=== PATIENT | female | born 1950 | race Caucasian/White ===

== ENCOUNTER 2020-07-29 11:23 | Outpatient (RCR) | payer MEDICARE, SELFPAY ==
[2020-07-29 13:21] VITALS: BMI 32.7
== END 2020-10-17 08:36 | disposition home or self-care (01) ==
LOC: ANHWOC 11:23
PROVIDERS: PCP Family Medicine; Visit Provider Family Medicine
DX: K61.1 Rectal abscess (principal)
CPT/HCPCS: 99212; G0463

== ENCOUNTER 2020-10-14 12:13 | Outpatient (CLI) | payer MEDICARE, SELFPAY ==
--- NOTE | ~2020-10-14 | MM_ITS ---
EXAMINATION: MM screening [place] BI w vin HISTORY: Screening TECHNIQUE: Craniocaudal and mediolateral oblique 3-D tomosynthesis images were obtained and synthetic 2-D images were generated. CAD analysis was submitted and interpreted. COMPARISON: 11/24/2014 BREAST PARENCHYMAL COMPOSITION: There are scattered areas of fibroglandular density. FINDINGS: There is no evidence of suspicious mass, calcification, or architectural distortion to sugg est malignancy in either breast. There has been no suspicious interval change. IMPRESSION: 1. No mammographic evidence of malignancy. 2. Recommend routine screening mammography in one year. BI-RADS Category 1: Negative Reviewed, dictated and finalized at location A.
--- NOTE | ~2020-10-14 | US_ITS ---
EXAMINATION: US arterial ankle brachial ind DATE: 10/14/2020 13:21 INDICATION: Peripheral vascular disease TECHNIQUE: Segmental pressures and plethysmographic and Doppler waveforms of the brachial and lower e xtremity arteries were obtained. COMPARISON: 08/12/2013 FINDINGS: Right and left brachial artery pressures of 144 mm Hg and 157 mm Hg, respectively, are concordant (no rmal difference <= 30 mmHg). The right ankle-brachial index (MEGHAN) is unable to be obtained due to inability to occlude the vessels at the right ankle likely due to vessel wall calcification which can be seen on radiographs of the r ight foot on 03/03/2014. The right great toe-brachial index (TBI) is 0.48 (normal >= 0.65). Arterial Doppler waveforms demonstrate brisk systolic upstrokes at both the right posterior tibial and dorsali s pedis arteries. The left MEGHAN is also unable to be obtained due to inability to occlude the vessels at the left ankle likely due to vessel wall calcification. The left TBI is to 0.50. Arterial Doppler waveforms demonstr ate brisk systolic upstrokes at both the left posterior tibial and dorsalis pedis arteries. IMPRESSION: 1. Mild arterial occlusive disease to the bilateral lower limbs with mildly decreased bilateral TBI's . Reviewed, dictated and finalized at location A. IMPRESSION: 1. Mild arterial occlusive disease to the bilateral lower limbs with mildly dec reased bilateral TBI's.
== END 2020-10-14 12:14 | disposition home or self-care (01) ==
LOC: CHSIMG 12:15
PROVIDERS: PCP Family Medicine; Visit Provider Family Medicine
DX: I73.9 Peripheral vascular disease, unspecified (principal); Z12.31 Encounter for screening mammogram for malignant neoplasm of breast
CPT/HCPCS: 77063; 77067; 93922

== ENCOUNTER 2020-10-26 15:46 | Emergency (ER) | payer MEDICARE, SELFPAY ==
--- NOTE | ~2020-10-26 | CT_ITS ---
EXAMINATION: CT abdomen pelvis wo con DATE: 10/26/2020 23:18 INDICATION: Sacral pressure ulcer with purulent drainage. Evaluate for abscess. TECHNIQUE: Computed tomography (CT) of the abdomen and pelvis was performed without intravenous contr ast. Automated exposure control and iterative reconstruction technique were employed. Exam dose: 813 .57 mGy-cm total exam DLP. COMPARISON: None. FINDINGS: There is mild/moderate right pleural effusion and trace left pleural effusion. There is mil d atelectasis in the lower lung zones. Cardiomegaly. Right atrial, ventricular and coronary sinus pacemaker leads. No pericardial effusion. There is edema of the chest, abdominal and pelvic ann. There are multiple very small stones in the dependent aspect of the gallbladder. No gallbladder wall thickening or pericholecystic fluid or fat stranding is detected. No hepatic, splenic, pancreatic, adrenal or renal space-occupying mass lesion is evident on this limi pavan noncontrast examination. No ureteral or renal calculus is evident. There is atherosclerotic calcification of the abdominal aorta and branches but no abdominal aortic an eurysm. No intraperitoneal or retroperitoneal or pelvic mass lesion or adenopathy or ascites is evident. There is diffuse thickening of the urinary bladder wall; clinical correlation for cystitis is recomme nded. Uterus and adnexal areas are unremarkable. Small sliding hiatal hernia. There is a prominent amount of fecal material in the rectum. Diverticulosis of the colon; no CT evide nce of diverticulitis. No bowel obstruction or intraperitoneal free air is detected. There is soft tissue thickening at the posterior aspect of the lower sacrum and coccyx subjacent to a decubitus ulcer but no abscess cavity is identified. There is diffuse osteopenia. Diffuse idiopathic skeletal hyperostosis of the thoracic spine. There is multilevel degenerative disc disease, especially at L1-2 and L2-3 and L5-S1. No suspicious osteolyti c or osteoblastic lesions are noted. IMPRESSION: Cardiomegaly, mild to moderate right pleural effusion, trace left pleural effusion and e xtensive edema of the chest, abdominal and pelvic ann, suggesting congestive changes, anasarca Soft tissue thickening posterior to the lower sacrum and coccyx subjacent to decubitus ulcer, without abscess cavity. Findings suggest prominent cellulitis Cholelithiasis Small sliding hiatal hernia Diverticulosis of the colon Reviewed, dictated and finalized at Location A. Reviewed, dictated and finalized at location A. IMPRESSION: Cardiomegaly, mild to moderate right pleural effusion, trace left pleural effusion and extensive edema of the chest, abdominal and pelvic ann, suggesting congestive changes, anasarca Soft tissue thickening posterior to the lower sacrum and coccyx subjacent to de cubitus ulcer, without abscess cavity. Findings suggest prominent cellulitis Cholelithiasis Small sliding hiatal hernia Diverticulosis of the colon
[2020-10-26 17:12] VITALS: BP 140/56; PULSE 68; RESP 14; TEMP 37.5; O2SAT 99
[2020-10-26 20:32] LABS: Basophils Percent Auto 0.2 % (0.2-1.2); Eosinophils Absolute Auto 0.1 K/mm3 (0-0.3); Eosinophils Percent Auto 1.6 % (0-4.4); Hematocrit 30.3 % (37.0-47.0); Hemoglobin 9.2 g/dL (12.0-15.0); Immature Granulocyte Absolute 0.03 K/mm3 (0.00-0.031); Immature Granulocyte Percent A 0.4 % (0-0.5); Lymphocytes Absolute Auto 1.86 K/mm3 (0.9-3.2); Lymphocytes Percent Auto 22.5 % (18.3-44.2); Mean Corpuscular HGB Conc 30.4 g/dl (32-36); Mean Corpuscular Hemoglobin 29.8 pg (26-34); Mean Corpuscular Volume 98.1 fl (80-100); Mean Platelet Volume 9.5 fl (7.4-10.4); Monocytes Absolute Auto 0.6 K/mm3 (0.1-0.6); Monocytes Percent Auto 7.3 % (2.6-8.5); Neutrophils Absolute Auto 5.6 K/mm3 (1.3-6.7); Platelet Count Result 260 k/mm3 (150-375); Red Blood Count 3.09 M/mm3 (4.2-5.4); White Blood Count 8.3 K/mm3 (4.5-10.0)
[2020-10-26 20:47] LABS: Anion Gap 9 mmol/L (8-16); Blood Urea Nitrogen 54 mg/dL (7-17); Calcium 9.2 mg/dL (8.4-10.2); Carbon Dioxide 27 mmol/L (22-30); Chloride 98 mmol/L (98-107); Estimated CRCL calculation 10 ml/min; Estimated Glomerular Filt Rate 9; Glucose 105 mg/dL (65-110); Potassium 4.6 mmol/L (3.4-5.0); Sodium 134 mmol/L (137-145)
[2020-10-26 21:03] LABS: CRP 6.9 mg/dL (<1.0)
[2020-10-26 21:25] LABS: Erythrocyte Sedimentation Rate 69 mm/hr (0-20)
[2020-10-26 21:45] VITALS: BP 141/46; PULSE 62; RESP 16; O2SAT 99
--- NOTE | 2020-10-26 21:48 | ED.WOUNDLAC ---
HPI - Wound/Laceration General Chief Complaint: Wound/Laceration Stated Complaint: Wound Eval Time Seen by Provider: 10/26/20 21:29 History of Present Illness HPI narrative: Patient presents with a pressure ulcer. She reports has had this ulcer since early in the year and is currently being managed by a wound care clinic. She has a home health nurse help with wound care management packing replacement. They've noted increased purulent drainage over the past couple days they were concerned so she was referred to the ER for evaluation. She feels well has not noted increase in pain denies any fevers, nausea, vomiting, decrease in appetite, difficulty with bowel movements. Related Data Home Medications Medication Instructions Recorded Confirmed sevelamer carbonate [Renvela] 800 mg PO TID 07/29/20 07/29/20 Allergies Allergy/AdvReac Type Severity Reaction Status Date / Time VIRGEN Inhibitors Allergy Unknown Unknown Verified 10/26/20 21:50 Review of Systems Review of Systems: CONSTITUTIONAL: Denies fever, chills, or sweats. EYES: Denies visual changes, redness, or discharge. ENT: Denies rhinorrhea, congestion, sore throat, or otalgia. CARDIOVASCULAR: Denies chest pain, palpitations, or edema. RESPIRATORY: Denies cough or dyspnea. GASTROINTESTINAL: Denies abdominal pain, nausea, vomiting, or diarrhea. GENITOURINARY: Denies dysuria or hematuria. SKIN: Denies rash or itching. MUSCULOSKELETAL: Denies back pain, joint pain, or myalgia. NEUROLOGIC: Denies headache, numbness, dizziness, or weakness. PSYCHIATRIC: Denies anxiety or depression. [facility] Past Medical History Medical History DM2 (diabetes mellitus, type 2) Hyperlipidemia ELEAZAR (obstructive sleep apnea) Surgical History Surgical History Hx of cataract surgery Social History Social History Smoking status: Never smoker Gender identity (if verbalized by the patient): Female Exam Narrative: GENERAL: Well-appearing, well-nourished, and in no acute distress. HEAD: Normocephalic, atraumatic. EYES: PERRLA and EOMI. ENT: Nares clear, no rhinorrhea or epistaxis. Mucous membranes moist. NECK: Supple. No masses. No JVD Back: Open wound at the very base of the sacrum with surrounding erythema and purulent material being drained with palpation minimal tenderness EXTREMITIES: Normal range of motion. No edema. SKIN: Warm, dry, no rash. NEURO: No focal deficits. Alert and oriented x3. PSYCH: Normal mood and affect. Course Reevaluation(s) Reevaluation #1: Patient resting comfortably all results reviewed with patient. Patient comfortable with the outpatient plan. Date: 10/27/20 Time: 00:02 Vital Signs Vital signs: Vital Signs Temperature 37.5 C 10/26/20 17:12 Pulse Rate 68 10/26/20 17:12 Respiratory Rate 14 10/26/20 17:12 Blood Pressure 140/56 L 10/26/20 17:12 Pulse Oximetry 99 10/26/20 17:12 Temperature 37.5 C 10/26/20 17:12 Pulse Rate 61 10/27/20 00:15 Respiratory Rate 17 10/27/20 00:15 Blood Pressure 138/90 10/27/20 00:15 Pulse Oximetry 98 10/27/20 00:15 MDM - Wound/Laceration MDM Narrative Medical decision making narrative: H&P as above, vss, pt looks clinically well, exam purulent material, labs similar to prior, img without focal abscess there does appear to be some anasarca and pleural effusions patient however is dialysis dependent and scheduled for dialysis tomorrow, additional labs/img considered. symptomatic relief available as needed, on reevaluation pt continues to looks clinically well she denies any chest pain shortness of breath or cough. Suspect poor wound healing due to chronic disease and associated cellulitis, dns severe sepsis, necrotizing soft tissue infection, abscess. Patient instructed to have repeat imaging either by her primary care doctor or her
[2020-10-27] VITALS: BP 126/93; PULSE 61; RESP 16; O2SAT 100
[2020-10-27 00:15] VITALS: BP 138/90; PULSE 61; RESP 17; O2SAT 98
== END 2020-10-27 00:18 | disposition home or self-care (01) ==
PROVIDERS: Physician Assistant; Emergency Provider Emergency Medicine; PCP Family Medicine
DX: L03.90 Cellulitis, unspecified (principal); E11.9 Type 2 diabetes mellitus without complications; E78.5 Hyperlipidemia, unspecified
CPT/HCPCS: 36415; 74176; 80048; 85025; 85652; 86140; 99284

== ENCOUNTER 2020-11-02 09:37 | Outpatient (RCR) | payer MEDICARE, SELFPAY ==
[2020-11-02 10:31] VITALS: BMI 30.3
== END 2021-01-04 13:51 | disposition home or self-care (01) ==
LOC: ANHWOC 09:37
PROVIDERS: PCP Family Medicine; Visit Provider Family Medicine
DX: L98.429 Non-pressure chronic ulcer of back with unspecified severity (principal)
CPT/HCPCS: 99212; A9270; G0463

== ENCOUNTER 2021-01-05 14:04 | Outpatient (CLI) | payer MEDICARE, SELFPAY ==
[2021-01-05 14:39] LABS: Hemoglobin A1C 5.4 % (<5.7)
== END 2021-01-05 14:05 | disposition home or self-care (01) ==
LOC: CHSLAB 14:08
PROVIDERS: PCP Family Medicine; Visit Provider Family Medicine
DX: E11.9 Type 2 diabetes mellitus without complications (principal)
CPT/HCPCS: 36415; 83036

== ENCOUNTER 2021-04-13 13:32 | Outpatient (CLI) | payer MEDICARE, SELFPAY ==
--- NOTE | ~2021-04-13 | XR_ITS ---
XR toe 1st RT min 2V DATE: 04/13/2021 14:10 INDICATION: Great toe wound. Diabetic. TECHNIQUE: 4 views COMPARISON: 03/03/2014 right foot FINDINGS: There is diffuse osteopenia. No recent fracture or dislocation, periosteal reaction or bone destruction is evident. There is mild osteoarthritis at the first metatarsophalangeal joint. There is extensive calcification of the metatarsal and digital arteries consistent with clinical hist ory of diabetes. IMPRESSION: Osteopenia Extensive arterial calcifications, consistent with clinical history of diabetes Reviewed, dictated and finalized at location A. 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
[2021-04-13 13:50] LABS: Hematocrit 38.1 % (35.0-42.0); Hemoglobin 12.5 g/dL (11.7-13.8); Mean Corpuscular HGB Conc 32.8 g/dL (32.0-36.0); Mean Corpuscular Hemoglobin 33.8 pg (27.0-31.0); Mean Platelet Volume 9.6 fl (9.2-11.8); Platelet Count Result 194 K/mm3 (150-420); Red Cell Distribution Width 15.1 % (11.6-14.4); White Blood Count 7.3 K/mm3 (4.8-10.8)
[2021-04-13 14:17] LABS: Alanine Aminotransferase 24 U/L (14-59); Albumin Level 3.8 g/dL (3.4-5.0); Alkaline Phosphatase 116 U/L (46-116); Anion Gap 13 mmol/L (8-16); Aspartate Amino Transferase 17 U/L (15-37); Bilirubin,Total 0.5 mg/dL (0.00-1.00); Blood Urea Nitrogen 28 mg/dL (7-18); Calcium 9.2 mg/dL (8.5-10.1); Carbon Dioxide 26 mmol/L (21-32); Chloride 96 mmol/L (98-108); Estimated Glomerular Filt Rate 11; Glucose 133 mg/dL (70-99); Osmolality Calculated 287 mOsm/kg (285-295); Potassium 4.6 mmol/L (3.5-5.1); Sodium 135 mmol/L (136-145)
[2021-04-13 16:05] LABS: CRP < 0.5 mg/dL (0.0-0.9)
[2021-04-13 17:02] LABS: Erythrocyte Sedimentation Rate 47 mm/hr (0-20)
== END 2021-04-13 13:33 | disposition home or self-care (01) ==
LOC: CHSLAB 13:36
PROVIDERS: PCP Family Medicine; Visit Provider Family Medicine
DX: E11.628 Type 2 diabetes mellitus with other skin complications (principal); L08.9 Local infection of the skin and subcutaneous tissue, unspecified
CPT/HCPCS: 36415; 73660; 80053; 85027; 85652; 86140

== ENCOUNTER 2021-05-03 15:16 | Outpatient (CLI) | payer MEDICARE, SELFPAY ==
--- NOTE | ~2021-05-03 | CT_ITS ---
EXAMINATION: CT foot RT wo con DATE: 05/03/2021 15:49 INDICATION: Right great toe osteomyelitis. TECHNIQUE: Computed tomography (CT) of the right foot and ankle was performed without intravenous con trast. Automated exposure control and iterative reconstruction technique were employed. The dose-glendy th product was 594.81 mGy-cm. COMPARISON: Right great toe radiographs 04/13/2021 FINDINGS: Bone alignment is normal. Distal aspect of fifth metatarsal is absent. There is a fracture of tuft of first distal phalanx with exposed bone. There are erosions of medial aspect of base of fir st distal phalanx and head of first proximal phalanx. There is diffuse osteopenia. There is polyartic ular osteoarthritis, severe at second tarsometatarsal joint. There is mild osteoarthritis of many of the interphalangeal joints and midfoot joints. IMPRESSION: 1. Osteomyelitis involving first distal phalanx and head of first proximal phalanx with pathologic fr acture of tuft of first distal phalanx. 2. Polyarticular osteoarthritis. Reviewed, dictated and finalized at location A. 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 Osteomyelitis involving first distal phalanx and head of first proximal phal anx with pathologic fracture of tuft of first distal phalanx. 2. Polyarticular osteoarthritis.
== END 2021-05-03 15:17 | disposition home or self-care (01) ==
LOC: CHSIMG 15:16
PROVIDERS: PCP Family Medicine; Visit Provider Nurse Practitioner Family
DX: L97.516 Non-pressure chronic ulcer of other part of right foot with bone involvement without evidence of necrosis (principal)
CPT/HCPCS: 73700

== ENCOUNTER 2021-05-08 13:53 | Outpatient (RCR) | payer MEDICARE, SELFPAY ==
--- NOTE | 2021-05-08 14:47 | PTOPEVAL ---
Thank you for referring Sandie Mansfield to [facility].? The patient is scheduled to be seen for therapy? ____x/week for ___ weeks. Please review, sign, date and return this plan of care ARACELI. I agree with and certify that the following plan of care is medically necessary. Referring Physician Date Admitting Provider: Attending Provider: TATO KEENE Referring Provider: *PT Outpatient Evaluation Start: 05/08/21 13:55 Freq: Status: Active Protocol: Document 05/08/21 13:55 ACR (Rec: 05/08/21 14:46 ACR [id number]) Therapy Assessment Status Assessment Status Assessment Status Evaluation Outpatient Past Medical History Neurological History Hx Other Neurological Disorders Yes: non-epileptic seizure Cardiovascular History Hx Atrial Fibrillation Yes Hx Hypercholesterolemia Yes Hx Hypertension Yes Respiratory History Hx Sleep Apnea Yes Gastrointestinal History Hx Gastroesophageal Reflux Disease Yes Genitourinary History Hx Dialysis Yes: 3x/week temporary-acute kidney injury Musculoskeletal History Hx Arthritis Yes Hematological History Hx Hematological Disorders No Significant History Endocrine History Hx Diabetes Yes HEENT History Hx Cataracts Yes: surgery to remove. Integumentary History Hx Other Skin Disorders Yes: history of diabetic feet ulcers Reproductive History Hx Reproductive Disorders No Significant History Psychosocial History Hx Psychiatric Disorders No Significant History Evaluation Information Problem Diagnosis impaired functional mobility Onset 04/15/21 Subjective Information Patient states that she went Query Text:As Reported By Patient/ to the hospital about a year Family ago for a month, then [facility] that where [facility] at the [facility]. She states that she was at the hospital for sepsis. She states that she had a pressure wound that caused the sepsis. She states that she has had one fall and it was in the snow. She states that walking on uneven surfaces, curbs, navigating steps, and getting in and out of a car. The patient's goal for therapy to walk regular. Prior Level of Function Activity Level (Last 3 Months) Occupation r
== END 2021-06-21 11:13 | disposition home or self-care (01) ==
LOC: CHSPT 13:53
DX: Z74.09 Other reduced mobility (principal)
CPT/HCPCS: 97110; 97112; 97116; 97161; 97530

== ENCOUNTER 2021-05-29 08:27 | Outpatient (RCR) | payer MEDICARE, SELFPAY | END 2021-05-31 23:59 | disposition home or self-care (01) | LOC: CHSWOUND 08:27 | PROVIDERS: PCP Family Medicine; Visit Provider Nurse Practitioner Family | DX: E11.621 Type 2 diabetes mellitus with foot ulcer (principal); L97.516 Non-pressure chronic ulcer of other part of right foot with bone involvement without evidence of necrosis; M86.271 Subacute osteomyelitis, right ankle and foot; E11.51 Type 2 diabetes mellitus with diabetic peripheral angiopathy without gangrene; E11.22 Type 2 diabetes mellitus with diabetic chronic kidney disease; N18.6 End stage renal disease; I50.9 Heart failure, unspecified; I73.9 Peripheral vascular disease, unspecified; I48.20 Chronic atrial fibrillation, unspecified; I65.22 Occlusion and stenosis of left carotid artery; I25.10 Atherosclerotic heart disease of native coronary artery without angina pectoris; E78.5 Hyperlipidemia, unspecified; G47.30 Sleep apnea, unspecified; Z99.2 Dependence on renal dialysis; Z95.810 Presence of automatic (implantable) cardiac defibrillator; Z79.01 Long term (current) use of anticoagulants | CPT/HCPCS: 11042; 11044; 87070; 87075; 87205; 99213; G0463 ==

== ENCOUNTER 2021-05-30 15:26 | Emergency (ER) | payer MEDICARE, SELFPAY ==
[2021-05-30 15:41] VITALS: BP 98/47; PULSE 63; RESP 16; O2SAT 100
--- NOTE | 2021-05-30 16:03 | ED.GENADULT ---
HPI - General Adult General Chief complaint: Dizziness Stated complaint: low blood pressure Time Seen by Provider: 05/30/21 16:04 History of Present Illness HPI narrative: 70-year-old female patient into the ER from physical therapy after she was noted to have low blood pressure. The patient apparently had hemodialysis today and after that she decided to go to physical therapy for her appointment to work on her balance. The physical therapist noted that her blood pressure was very low and patient was feeling somewhat weak and they brought her here. The patient states that she is feeling fine now. She states that she knew in usually has a low blood pressure on the day of her dialysis. Patient denies feeling faint. She denies any neck or jaw or chest pain. She denies any shortness of breath. Denies any nausea vomiting or diarrhea. Related Data Home Medications Medication Instructions Recorded Confirmed acetaminophen 500 mg tablet 1,000 mg PO Q6H PRN tablet 11/29/20 05/30/21 ascorbic acid (vitamin C) 1,000 mg 1 g PO DAILY 11/29/20 05/30/21 tablet docusate sodium 100 mg capsule 100 mg PO DAILY PRN 11/29/20 05/30/21 sevelamer carbonate 800 mg tablet 1,600 mg PO TID tablet 11/29/20 05/30/21 vitamin B complex-vitamin C-folic 1 tablet PO DAILY 11/29/20 05/30/21 acid 0.8 mg tablet Allergies Allergy/AdvReac Type Severity Reaction Status Date / Time VIRGEN Inhibitors Allergy Unknown Unknown Verified 05/30/21 15:47 Review of Systems Review of Systems: All systems reviewed & are unremarkable except as noted in HPI and below PMFSH Past Medical History Medical History DM2 (diabetes mellitus, type 2) Hyperlipidemia ELEAZAR (obstructive sleep apnea) Surgical History Surgical History Hx of cataract surgery Social History Social History Gender identity (if verbalized by the patient): Female Exam Narrative: Patient is alert and appears in no acute distress. Vital signs are noted to be normal with the the blood pressure of 91/51 in the ER. She has a very small drop in the blood pressure from 100 systolics deny 80 2 on standing up however she remains asymptomatic. HEENT is normal. Oral mucous membranes are normal. Neck is supple Lungs are clear. Heart tones are regular. Abdomen is soft and nontender. Skin is warm and dry. Color is normal. Extremities are normal . Neurologic exam is grossly normal. Mood and affect are normal. Course Course Emergency Course: Patient has had some oral fluids here however she has been observed and her blood pressures remained stable. She is completely asymptomatic and her blood pressure at rest is 91/51. She will be discharged home. She has been advised not to indulge in physical therapy on the day of dialysis. She is aware of the discharge plans. Vital Signs Vital signs: Vital Signs Pulse Rate 63 05/30/21 15:41 Respiratory Rate 16 05/30/21 15:41 Blood Pressure 98/47 L 05/30/21 15:41 Pulse Oximetry 100 05/30/21 15:41 Pulse Rate 63 05/30/21 15:41 Respiratory Rate 16 05/30/21 15:41 Blood Pressure 98/47 L 05/30/21 15:41 Pulse Oximetry 100 05/30/21 15:41 Medical Decision Making Vital Signs Vital Signs: Vital Signs Pulse Rate 63 05/30/21 15:41 Respiratory Rate 16 05/30/21 15:41 Blood Pressure 98/47 L 05/30/21 15:41 Pulse Oximetry 100 05/30/21 15:41 Pulse Rate 63 05/30/21 15:41 Respiratory Rate 16 05/30/21 15:41 Blood Pressure 98/47 L 05/30/21 15:41 Pulse Oximetry 100 05/30/21 15:41 Discharge Plan Discharge Clinical Impression: Hypotension after procedure, Hemodialysis patient Patient Disposition: Home, Self-Care Condition: Stable Instructions: Hypotension (ED) Additional Instructions: home to rest continue home medications as before,
--- NOTE | 2021-05-30 16:10 | PC.NURSE ---
patient provided water per erp request, will do orthostatics after patient is done drinking
[2021-05-30 16:44] VITALS: BP 109/46; PULSE 59
[2021-05-30 16:47] VITALS: BP 91/51; PULSE 62; RESP 20; TEMP 36.4; O2SAT 94
[2021-05-30 16:55] LABS: Glucose Point of Care 107 mg/dl (65-105)
== END 2021-05-30 17:15 | disposition home or self-care (01) ==
PROVIDERS: Emergency Provider Emergency Medicine; PCP Family Medicine
DX: I95.9 Hypotension, unspecified (principal); Z99.2 Dependence on renal dialysis; E11.9 Type 2 diabetes mellitus without complications; E78.5 Hyperlipidemia, unspecified
CPT/HCPCS: 82948; 99282

== ENCOUNTER 2021-07-03 08:25 | Outpatient (RCR) | payer MEDICARE, SELFPAY | END 2021-07-05 23:59 | disposition home or self-care (01) | LOC: CHSWOUND 08:25 | PROVIDERS: PCP Family Medicine; Visit Provider Nurse Practitioner Family | DX: E11.621 Type 2 diabetes mellitus with foot ulcer (principal); L97.522 Non-pressure chronic ulcer of other part of left foot with fat layer exposed; E11.51 Type 2 diabetes mellitus with diabetic peripheral angiopathy without gangrene; N18.6 End stage renal disease; I50.9 Heart failure, unspecified; I48.20 Chronic atrial fibrillation, unspecified; Z89.411 Acquired absence of right great toe; Z99.2 Dependence on renal dialysis; Z95.810 Presence of automatic (implantable) cardiac defibrillator | CPT/HCPCS: 11042; 97597; 97602; 99213; G0463 ==

== ENCOUNTER 2021-07-10 08:26 | Outpatient (RCR) | payer MEDICARE, SELFPAY | END 2021-08-09 23:59 | disposition home or self-care (01) | LOC: CHSWOUND 08:26 | PROVIDERS: PCP Family Medicine; Visit Provider Nurse Practitioner Family | DX: E11.621 Type 2 diabetes mellitus with foot ulcer (principal); L97.522 Non-pressure chronic ulcer of other part of left foot with fat layer exposed; E11.51 Type 2 diabetes mellitus with diabetic peripheral angiopathy without gangrene; I25.10 Atherosclerotic heart disease of native coronary artery without angina pectoris; I48.20 Chronic atrial fibrillation, unspecified; I50.9 Heart failure, unspecified | CPT/HCPCS: 11042 ==

== ENCOUNTER 2021-08-01 15:09 | Outpatient (CLI) | payer MEDICARE, SELFPAY ==
[2021-08-01 15:29] LABS: Basophils Absolute Auto 0.04 K/mm3 (0.00-0.10); Basophils Percent Auto 0.6 % (0.0-1.0); Eosinophils Absolute Auto 0.05 K/mm3 (0.02-0.50); Eosinophils Percent Auto 0.7 % (1.0-6.0); Hematocrit 39.3 % (35.0-42.0); Hemoglobin 13.2 g/dL (11.7-13.8); Immature Granulocyte Absolute 0.02 K/mm3 (0.00-0.00); Immature Granulocyte Percent A 0.3 % (0.0-0.0); Lymphocytes Absolute Auto 1.23 K/mm3 (1.10-4.50); Lymphocytes Percent Auto 18.1 % (18.0-42.0); Mean Corpuscular HGB Conc 33.6 g/dL (32.0-36.0); Mean Corpuscular Hemoglobin 34.8 pg (27.0-31.0); Mean Corpuscular Volume 103.7 fL (78.0-102.0); Mean Platelet Volume 9.6 fl (9.2-11.8); Monocytes Absolute Auto 0.39 K/mm3 (0.10-0.90); Monocytes Percent Auto 5.8 % (2.0-11.0); Neutrophils Absolute Auto 5.1 K/mm3 (1.7-7.2); Neutrophils Percent Auto 74.5 % (50.0-70.0); Platelet Count Result 129 K/mm3 (150-420); Red Blood Count 3.79 M/mm3 (4.20-5.40); Red Cell Distribution Width 12.7 % (11.6-14.4); White Blood Count 6.8 K/mm3 (4.8-10.8)
[2021-08-01 16:01] LABS: Anion Gap 12 mmol/L (8-16); Blood Urea Nitrogen 51 mg/dL (7-18); Calcium 9.2 mg/dL (8.5-10.1); Carbon Dioxide 26 mmol/L (21-32); Chloride 96 mmol/L (98-108); Estimated Glomerular Filt Rate 5; Glucose 100 mg/dL (70-99); Osmolality Calculated 291 mOsm/kg (285-295); Potassium 4.4 mmol/L (3.5-5.1); Sodium 134 mmol/L (136-145)
== END 2021-08-01 15:10 | disposition home or self-care (01) ==
LOC: CHSLAB 15:13
PROVIDERS: PCP Family Medicine
DX: I65.22 Occlusion and stenosis of left carotid artery (principal)
CPT/HCPCS: 36415; 80048; 85025

== ENCOUNTER 2021-08-14 10:41 | Outpatient (CLI) | payer MEDICARE, SELFPAY ==
--- NOTE | ~2021-08-14 | XR_ITS ---
XR foot RT 2V DATE: 08/14/2021 11:04 INDICATION: Pain and swelling of second digit for one week TECHNIQUE: AP and lateral views COMPARISON: 05/03/2021 CT right foot FINDINGS: There is diffuse osteopenia. Incidentally noted are extensive calcifications of the anterior and posterior tibial artery and metat arsal and digital arteries, likely due to diabetes. There is dilatation of the right great toe including the proximal and distal phalanges. There is a comminuted intra-articular fracture of the base of the proximal phalanx of second digit. There is a transverse fracture at the neck of the proximal phalanx of the third digit. There is a metaphyseal nondisplaced fracture at the proximal phalanx of the fourth digit. There is resection of the distal shaft, neck and head of the fifth metatarsal bone. Mild plantar and posterior calcaneal. Osteoarthritic changes at the tarsal and tarsometatarsal joints. IMPRESSION: Fractures of the proximal phalanges of the second, third and fourth digits Osteopenia Status post dilatation of the great toe Polyarticular arthritis Extensive arterial calcifications including digital arteries, most likely due to diabetes Reviewed, dictated and finalized at location A. IMPRESSION: Fractures of the proximal phalanges of the second, third and fourth digits Osteopenia Status post dilatation of the great toe Polyarticular arthritis Extensive arterial calcifications including digital arteries, most likely due t o diabetes
== END 2021-08-14 10:42 | disposition home or self-care (01) ==
LOC: CHSIMG 10:48
PROVIDERS: PCP Family Medicine; Visit Provider Family Medicine
DX: M79.671 Pain in right foot (principal); M79.674 Pain in right toe(s)
CPT/HCPCS: 73620

== ENCOUNTER 2021-09-15 10:46 | Outpatient (RCR) | payer MEDICARE, SELFPAY ==
--- NOTE | 2021-09-15 11:43 | PTOPEVAL ---
Thank you for referring Sandie Mansfield to [facility].? The patient is scheduled to be seen for therapy? __2__x/week for 8 visits. Please review, sign, date and return this plan of care ARACELI. I agree with and certify that the following plan of care is medically necessary. Referring Physician Date Admitting Provider: Attending Provider: TATO KEENE Referring Provider: *PT Outpatient Evaluation Start: 09/15/21 11:18 Freq: Status: Active Protocol: Document 09/15/21 11:18 MISTY (Rec: 09/15/21 11:41 MISTY [id number]) Therapy Assessment Status Assessment Status Assessment Status Evaluation Outpatient Past Medical History Neurological History Hx Other Neurological Disorders Yes: non-epileptic seizure Cardiovascular History Hx Atrial Fibrillation Yes Hx Hypercholesterolemia Yes Hx Hypertension Yes Respiratory History Hx Sleep Apnea Yes Gastrointestinal History Hx Gastroesophageal Reflux Disease Yes Genitourinary History Hx Dialysis Yes: 3x/week temporary-acute kidney injury Musculoskeletal History Hx Arthritis Yes Hematological History Hx Hematological Disorders No Significant History Endocrine History Hx Diabetes Yes HEENT History Hx Cataracts Yes: surgery to remove. Integumentary History Hx Other Skin Disorders Yes: history of diabetic feet ulcers Reproductive History Hx Reproductive Disorders No Significant History Psychosocial History Hx Psychiatric Disorders No Significant History Evaluation Information Problem Diagnosis CVA with right side hemiparesis Onset 07/16/21 Subjective Information Pt. reports she developed Query Text:As Reported By Patient/ symptoms of weakness on the Family right side about 2 months ago. She underwent MRI and found a spot that indicated she has had multiple strokes. Pt. reports having weakness through the right hand with a tendency to drop things. She states that she has had some recent memory problems as well . She states that the right leg will give out on occassion and she is currently using a cane for ambulation. She states that she no longer drives. She reports that she d
--- NOTE | 2021-10-03 11:09 | OTOPEVAL ---
Thank you for referring Sandie Mansfield to [facility].? The patient is scheduled to be seen for therapy? ____x/week for ___ weeks. Please review, sign, date and return this plan of care ARACELI. I agree with and certify that the following plan of care is medically necessary. Referring Physician Date Admitting Provider: Attending Provider: TATO KEENE Referring Provider: *OT Outpatient Evaluation Start: 10/03/21 09:50 Freq: Status: Active Protocol: Document 10/03/21 09:46 [facility] (Rec: 10/03/21 10:49 [facility] [id number]) Therapy Assessment Status Assessment Status Assessment Status Evaluation Outpatient Past Medical History Neurological History Hx Other Neurological Disorders Yes: non-epileptic seizure Cardiovascular History Hx Atrial Fibrillation Yes Hx Hypercholesterolemia Yes Hx Hypertension Yes Respiratory History Hx Sleep Apnea Yes Gastrointestinal History Hx Gastroesophageal Reflux Disease Yes Genitourinary History Hx Dialysis Yes: 3x/week temporary-acute kidney injury Musculoskeletal History Hx Arthritis Yes Hematological History Hx Hematological Disorders No Significant History Endocrine History Hx Diabetes Yes HEENT History Hx Cataracts Yes: surgery to remove. 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 The patient reports no pain in UE and her sensation is normal. She reports wanting to increase ability to manipulate her medical equipment for home dialysis with increased independence. Prior Level of Function Activity Level (Last 3 Months) Hand Dominance Right Activity of Daily Li
--- NOTE | 2021-10-19 20:40 | PTOPEVAL ---
Thank you for referring Sandie Mansfield to [facility].? The patient is scheduled to be seen for therapy? ____x/week for ___ weeks. Please review, sign, date and return this plan of care ARACELI. I agree with and certify that the following plan of care is medically necessary. Referring Physician Date Admitting Provider: Attending Provider: TATO KEENE Referring Provider: *PT Outpatient Evaluation Start: 09/15/21 11:18 Freq: Status: Active Protocol: Document 10/12/21 10:07 [facility] (Rec: 10/12/21 11:07 [facility] [email or web address]) Therapy Assessment Status Assessment Status Assessment Status Re-evaluation Outpatient Past Medical History Neurological History Hx Other Neurological Disorders Yes: non-epileptic seizure Cardiovascular History Hx Atrial Fibrillation Yes Hx Hypercholesterolemia Yes Hx Hypertension Yes Respiratory History Hx Sleep Apnea Yes Gastrointestinal History Hx Gastroesophageal Reflux Disease Yes Genitourinary History Hx Dialysis Yes: 3x/week temporary-acute kidney injury Musculoskeletal History Hx Arthritis Yes Hematological History Hx Hematological Disorders No Significant History Endocrine History Hx Diabetes Yes HEENT History Hx Cataracts Yes: surgery to remove. Integumentary History Hx Other Skin Disorders Yes: history of diabetic feet ulcers Reproductive History Hx Reproductive Disorders No Significant History Psychosocial History Hx Psychiatric Disorders No Significant History Evaluation Information Problem Diagnosis hemiparesis of dominant side due to recent cerebrovascular accident Onset 09/20/2021 Subjective Information patient reports she feels she Query Text:As Reported By Patient/ is doing really well. she Family reports she is afraid to stop therapy yet as she is worried she will begin to go backwards . she reports she feels stronger, like she has better balance, and has more endurance. Pain Assessment Timing of Pain Assessment Timing of Pain Assessment Assessment Self Report Self Report Pain Level 0 Pain Score Pain Score 0: Self Report Lower Extremity Muscle Strength Testing General Lower Extremity Strength Gross Lower Extremity Strength -right hip flexion 4+/5 -left hip flexion 4+/5 -right knee flexion 4+/5 -lef
--- NOTE | 2021-11-10 10:53 | OTOPEVDC ---
Thank you for referring Sandie Mansfield to [facility].? An evaluation has been completed. No further treatment is needed. Evaluation Information Assessment Status Discharge Reported Pain Level Pain Score 0: Self Report Assessment OT Clinical Summary The patient is discharged this date due to meeting UE strength goals and meeting personal goal of grasping medical supplies with increased independence. 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 The patient is happy with the progress she has made and reports she will continue to perform exercises at home stating it will take time. The patient no longer drops items without being aware, can grasp her medical supplies for dialysis and demonstrates overall increased UE strength leading to increased independence with all homemaking tasks. The patient no longer requires skilled OT and is discharged home with UE HEP and green theraputty to maintain bank compliance officer and pinch strength. Plan of Care OT Services Indicated No
== END 2021-11-10 11:32 | disposition home or self-care (01) ==
LOC: CHSPT 10:46
DX: I69.351 Hemiplegia and hemiparesis following cerebral infarction affecting right dominant side (principal)
CPT/HCPCS: 97110; 97112; 97161; 97165; 97530; 97535

== ENCOUNTER 2021-11-10 10:57 | Emergency (ER) | payer MEDICARE, SELFPAY ==
[2021-11-10 10:57] VITALS: BP 137/59; PULSE 69; RESP 18; TEMP 37.2; O2SAT 99
[2021-11-10] MEDS: cefTRIAXone 1 GM, LIDOCAINE HCL 1% LOCAL INJ 2.1 ML IM (11:20)
[2021-11-10 11:24] LABS: Basophils Absolute Auto 0.03 K/mm3 (0.00-0.10); Basophils Percent Auto 0.4 % (0.0-1.0); Eosinophils Absolute Auto 0.07 K/mm3 (0.02-0.50); Eosinophils Percent Auto 0.9 % (1.0-6.0); Hematocrit 31.8 % (35.0-42.0); Hemoglobin 10.2 g/dL (11.7-13.8); Immature Granulocyte Absolute 0.03 K/mm3 (0.00-0.00); Immature Granulocyte Percent A 0.4 % (0.0-0.0); Lymphocytes Absolute Auto 1.02 K/mm3 (1.10-4.50); Lymphocytes Percent Auto 12.9 % (18.0-42.0); Mean Corpuscular HGB Conc 32.1 g/dL (32.0-36.0); Mean Corpuscular Hemoglobin 34.5 pg (27.0-31.0); Mean Corpuscular Volume 107.4 fL (78.0-102.0); Mean Platelet Volume 11.1 fl (9.2-11.8); Monocytes Absolute Auto 0.44 K/mm3 (0.10-0.90); Monocytes Percent Auto 5.6 % (2.0-11.0); Neutrophils Absolute Auto 6.3 K/mm3 (1.7-7.2); Neutrophils Percent Auto 79.8 % (50.0-70.0); Platelet Count Result 151 K/mm3 (150-420); Red Blood Count 2.96 M/mm3 (4.20-5.40); Red Cell Distribution Width 12.7 % (11.6-14.4); White Blood Count 7.9 K/mm3 (4.8-10.8)
--- NOTE | 2021-11-10 11:43 | ED.SKABFB ---
HPI - Skin/Abscess/Foreign Bdy General Chief complaint: Skin/Abscess/Foreign Body Stated complaint: POCKETS OF INFECTION IN LEG Time Seen by Provider: 11/10/21 10:59 Source: patient and RN notes reviewed Mode of arrival: ambulatory Limitations: no limitations History of Present Illness HPI narrative: lower left leg 3 cm diameter redness, swelling and blisters. no evident pus collection. MD complaint: other (leg redness and pain) Onset (ago): day(s) (3) Tetanus up to date: unsure Location: LLE Severity: mild Severity scale (1-10): 3 Quality: aching and dull Pain Consistency: constant Relieving factors: none Exacerbating factors: none Associated symptoms: denies other symptoms Treatments prior to arrival: antibiotic Related Data Home Medications Medication Instructions Recorded Confirmed acetaminophen 500 mg tablet 1,000 mg PO Q6H PRN Pain 11/29/20 11/10/21 (Tylenol Extra Strength) ascorbic acid (vitamin C) 1,000 mg 1 g PO DAILY 11/29/20 11/10/21 tablet docusate sodium 100 mg capsule 100 mg PO DAILY PRN Constipation 11/29/20 11/10/21 sevelamer carbonate 800 mg tablet 1,600 mg PO TID 11/29/20 11/10/21 (Renvela) vitamin B complex-vitamin C-folic 1 tablet PO DAILY 11/29/20 11/10/21 acid 0.8 mg tablet (Joelle-Mckenna) Allergies Allergy/AdvReac Type Severity Reaction Status Date / Time VIRGEN Inhibitors Allergy Unknown Unknown Verified 11/03/21 12:59 Review of Systems Review of Systems: All systems reviewed & are unremarkable except as noted in HPI and below Constitutional: Constitutional: Reports no additional constitutional complaints Eyes: Eyes: Reports no additional eye complaints ENT: Reports system reviewed and no additional complaints, except as documented Cardiovascular: Cardiovascular: Reports no additional cardiovascular complaints Respiratory: Respiratory: Reports no additional respiratory complaints Gastrointestinal: Gastrointestinal: Reports no additional gastrointestinal complaints Genitourinary: Genitourinary: Reports no additional female genitourinary complaints Musculoskeletal: Musculoskeletal: Reports no additional musculoskeletal complaints and Reports back pain Comments: leg redness Integumentary/Breasts: Skin/Breast: Reports system reviewed and no additional complaints, except as docu Neurologic: Reports system reviewed and no additional complaints, except as documented Psychiatric: Psychiatric: Reports no additional psychiatric complaints Endocrine: Endocrine: Reports no additional endocrine complaints Hematologic/Lymphatic: Hematologic/Lymphatic: Reports no additional hematologic/lymphatic complaints Allergic/Immunologic: Allergic/Immunologic: Reports no additional allergic/immunologic complaints PMFSH Past Medical History Medical History DM2 (diabetes mellitus, type 2) Hyperlipidemia Left leg cellulitis ELEAZAR (obstructive sleep apnea) Surgical History Surgical History Hx of cataract surgery Social History Social History Smoking status: Never smoker Gender identity (if verbalized by the patient): Female Exam Const: General: no acute distress Nutritional Appearance: well nourished Orientation/consciousness: patient oriented x3 Limitations: no limitations HENMT: Head: normal to inspection Ears: external ears normal, TM's normal bilaterally and EAC's normal General nose exam: Normal external nose present and Normal nares present Face and sinus: normal facial exam and sinuses nontender Mouth: Yes Normal oral and palatal mucosa present and Yes moist mucous membranes Teeth and gingiva: dentition normal Throat: posterior oropharynx normal Eyes: Conjunctivae: conjunctivae normal Pupils: Equal, round and reactive pupils present EOM: EOMs intact bilaterally Neck: Neck: normal visual inspection,
[2021-11-10] MEDS: MORPHINE SULFATE (*CRX) 4 MG/ML INJ IM (11:54)
[2021-11-10 12:01] VITALS: BP 137/69; PULSE 69; RESP 20; TEMP 37.2; O2SAT 97
== END 2021-11-10 12:18 | disposition home or self-care (01) ==
PROVIDERS: Emergency Provider Emergency Medicine; PCP Family Medicine
DX: L03.116 Cellulitis of left lower limb (principal); E11.9 Type 2 diabetes mellitus without complications; E78.5 Hyperlipidemia, unspecified
CPT/HCPCS: 36415; 85025; 96372; 99284; A9270; J0696; J2270

== ENCOUNTER 2022-08-29 10:20 | Outpatient (CLI) | payer MEDICARE, SELFPAY ==
[2022-08-29 10:33] LABS: Basophils Absolute Auto 0.07 K/mm3 (0.00-0.10); Basophils Percent Auto 0.8 % (0.0-1.0); Eosinophils Absolute Auto 0.17 K/mm3 (0.02-0.50); Hematocrit 37.1 % (35.0-42.0); Hemoglobin 11.9 g/dL (11.7-13.8); Immature Granulocyte Absolute 0.06 K/mm3 (0.00-0.00); Immature Granulocyte Percent A 0.7 % (0.0-0.0); Lymphocytes Absolute Auto 1.37 K/mm3 (1.10-4.50); Lymphocytes Percent Auto 16.3 % (18.0-42.0); Mean Corpuscular HGB Conc 32.1 g/dL (32.0-36.0); Mean Corpuscular Hemoglobin 34.6 pg (27.0-31.0); Mean Corpuscular Volume 107.8 fL (78.0-102.0); Mean Platelet Volume 9.9 fl (9.2-11.8); Monocytes Absolute Auto 0.56 K/mm3 (0.10-0.90); Monocytes Percent Auto 6.7 % (2.0-11.0); Neutrophils Absolute Auto 6.2 K/mm3 (1.7-7.2); Neutrophils Percent Auto 73.5 % (50.0-70.0); Platelet Count Result 188 K/mm3 (150-420); Red Blood Count 3.44 M/mm3 (4.20-5.40); Red Cell Distribution Width 13.4 % (11.6-14.4); White Blood Count 8.4 K/mm3 (4.8-10.8)
[2022-08-29 10:44] LABS: Hemoglobin A1C 5.7 % (<5.7)
[2022-08-29 11:05] LABS: Alanine Aminotransferase 34 U/L (14-59); Albumin Level 3.3 g/dL (3.4-5.0); Alkaline Phosphatase 92 U/L (46-116); Anion Gap 13 mmol/L (8-16); Aspartate Amino Transferase 27 U/L (15-37); Bilirubin,Total 1.9 mg/dL (0.00-1.00); Blood Urea Nitrogen 23 mg/dL (7-18); Calcium 9.2 mg/dL (8.5-10.1); Carbon Dioxide 28 mmol/L (21-32); Chloride 96 mmol/L (98-108); Cholesterol 127 mg/dL (0-200); Estimated Glomerular Filt Rate 7; Glucose 109 mg/dL (70-99); HDL Direct 47 mg/dL (40-60); LDL Cholesterol Calculated 60 mg/dL (<130); Osmolality Calculated 288 mOsm/kg (285-295); Potassium 3.7 mmol/L (3.5-5.1); Sodium 137 mmol/L (136-145); Total Protein 6.9 g/dL (6.4-8.2); Triglycerides 101 mg/dL (0-150)
== END 2022-08-29 10:21 | disposition home or self-care (01) ==
LOC: CHSLAB 10:21
PROVIDERS: PCP Family Medicine; Visit Provider Family Medicine
DX: E11.9 Type 2 diabetes mellitus without complications (principal); I48.91 Unspecified atrial fibrillation
CPT/HCPCS: 36415; 80053; 80061; 83036; 85025

== ENCOUNTER 2023-07-17 11:37 | Outpatient (CLI) | payer MEDICARE, SELFPAY ==
--- NOTE | ~2023-07-17 | XR_ITS ---
Clinical Indication: Heart failure PA and lateral views of the chest: Comparison: 02/08/2014 Findings: Right-sided central venous line in satisfactory position. The lungs are clear, without evid ence of focal consolidation or pleural effusion. Cardiomediastinal silhouette is stable, with pacema ker device. Bones and soft tissues are unremarkable. Impression: Clear lungs. Pacemaker device and support line, as above. Reviewed, dictated and finalized at location M. Impression: Clear lungs. Pacemaker device and support line, as above.
== END 2023-07-17 11:38 | disposition home or self-care (01) ==
LOC: CHSIMG 11:38
PROVIDERS: PCP Family Medicine; Visit Provider Family Medicine
DX: I50.20 Unspecified systolic (congestive) heart failure (principal); Z95.0 Presence of cardiac pacemaker
CPT/HCPCS: 71046

== ENCOUNTER 2023-07-19 13:08 | Outpatient (CLI) | payer MEDICARE, SELFPAY ==
--- NOTE | ~2023-07-19 | US_ITS ---
EXAMINATION: US abdomen limited DATE: 07/19/2023 13:22 INDICATION: Mild shortness of breath with prior ascites. Assess for recurrent ascites TECHNIQUE: Multiple grayscale and Doppler ultrasound images of the 4 quadrants of the abdomen were ob tained. COMPARISON: None FINDINGS/IMPRESSION: No ascites evident in the visualized 4 quadrants of the abdomen. Reviewed, dictated and finalized at location A.
== END 2023-07-19 13:09 | disposition home or self-care (01) ==
LOC: CHSIMG 13:09
PROVIDERS: PCP Family Medicine; Visit Provider Family Medicine
DX: I50.20 Unspecified systolic (congestive) heart failure (principal); R18.8 Other ascites
CPT/HCPCS: 76705

== ENCOUNTER 2024-05-11 13:31 | Outpatient (CLI) | payer MEDICARE, SELFPAY ==
--- NOTE | ~2024-05-11 | US_ITS ---
EXAMINATION: US arterial ankle brachial ind DATE: 05/11/2024 14:15 INDICATION: Peripheral arterial disease. Nonpressure chronic ulcer of right calf. TECHNIQUE: Segmental pressures and plethysmographic and Doppler waveforms of the brachial and lower e xtremity arteries were obtained. COMPARISON: MEGHAN 10/14/20 FINDINGS: The right brachial artery pressure was not measured due to the dialysis graft. Left brachial artery p ressures is 107 mm Hg. The right ankle-brachial index (MEGHAN) is 1.12 (normal >= 0.9-1.0). Arterial Doppler waveforms are mono phasic in dorsalis pedis and biphasic in posterior tibial artery. The left MEGHAN is 1.67. The left great toe-brachial index (TBI) is 0.29. Arterial Doppler waveforms are monophasic at the ankle. IMPRESSION: 1. Decreased left TBI and normal ABIs, consistent with left-sided arterial occlusive disease. Note th at ABIs may be overestimated if arteries are calcified. Reviewed, dictated and finalized at location B. IMPRESSION: 1. Decreased left TBI and normal ABIs, consistent with left-sided arterial occl usive disease. Note that ABIs may be overestimated if arteries are calcified.
--- OUTSIDE RECORDS SUMMARY | 2024-05-11 15:33 | XMS_ITS ---
Author Organization [facility] Address [address] [place], [place] [id number] Care Team Providers Care Housekeeping Supervisor Hotel Name Role Phone YISSEL GORDON Unavailable [phone] John Calhoun Unavailable Unavailable KARIE KABA Unavailable [phone] REASON FOR VISIT Surgery W/ Dr Calvillo for amp of toes will call back when she is cleared from surgeon Encounters Encounter Location Date Provider Diagnosis [facility] [address] [place], [place] [id number] 03/07/2023 KARIE KABA Plan Of Treatment No Information Progress Notes * MEEK MELLO EDOB: 2 (73 yo F)Acc No.[id number]:03/07/2023 Patient: Radha MEEK GUNN Provider: Lexie KABA :1950 A ge:72 Y S ex:Female Date:03/07/2023 Address:[address] [place], [place] [id number] Subjective: * Chief Complaints: * 1 . Surgery W/ Dr Calvillo for amp of toes will call back when she is cleared from surgeon. * Medical History: Objective: * Vitals: Assessment: Plan: * Treatment: * Billing Information: * Visit Code: * Procedure Codes: * Electronic signature of MIKY KABA DPM on 05/11/2024 at 03:33 PM CDT Sign off status: Pending * Provider: Lexie KABA Date: 0 03/07/2023 Generated for David carrington/Dominic/Yvetteitting on: 0 05/11/2024 03:33 PM CDT
--- OUTSIDE RECORDS SUMMARY | 2024-05-11 15:33 | XMS_ITS | Data Portability ---
Author Organization [facility], [address] [facility] ([place]) Address [address] [address] Care Team Providers Care Supervisor [employer] Name Role Phone RANDY STOKES Vascular Surgeon ROBERTO MALAVE Primary Care Provider Assessment Encounter Date Assessment Date Assessment LastModified by Organization Details LastModified Time 09/16/2023 09/16/2023 The AV graft is patent. The swelling is mild to moderate. We will wait to the swelling improves over the next 2 to 3 weeks prior to accessing the AV graft. The toe amputations on the left are slowly healing. There is a small wound at the second toe amputation site, without tunneling or bone exposure. There is a heavy scab to the third toe amputation site. Will plan to see her back in the office 4 weeks for recheck of the toes and the AV graft. [email or web address] Not available 09/16/2023 16:37:27 12/23/2023 12/23/2023 She has healed the left foot wounds. She will continue to cover the areas with a dry gauze. She has a strong signal in the foot at the DP on the left. She has a history of carotid artery disease with her last carotid duplex in August 2023. We will plan to recheck a carotid duplex in 6 months. She will come back to the office in 3 months for recheck of the AV graft [email or web address] Not available 12/23/2023 16:35:47 03/23/2024 03/23/2024 Impression: Mrs. Mansfield has a right forearm loop graft that was placed 7 months ago for dialysis access. The graft thrombosed last week and she underwent a thrombectomy. 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 On exam today there is a thrill and bruit, although there may still be a stenosis in this location. She also has a toe amputation site on her left foot that has never healed. This has been can a considerable period of time. The wound does not appear to be infected based on exam today. Plan: If her fistula were to demonstrate poor function then she would need another fistulogram. The venous anastomosis is unfortunately to the brachial vein, which makes surgical revision difficult. I asked her to contact our office if she develops pain in her hand. With regard to the foot wound her sister will continue to dress it. I am going to tentatively see her back in 3 months but asked them to call my office if the foot wound worsens or becomes infected. [email or web address] Not available 03/24/2024 20:20:10 Plan of Treatment Reminders Order Date Submit Date Provider Last Modified By Organization Details Last Modified Time Details Appointments Imaging 5.PRO 2024 11:00A M Radiology Not available Not available Not available Grzegorzlis hed Patient 15.EST 2024 11:45A M Dr. Randy Stokes Not available Not available Not available Lab None recorded . Referral None recorded . Procedures None recorded . Surgeries None recorded . Imaging None recorded . Medication Orders None recorded . Patient TargetsNo targets recorded. Patient InstructionsNo instructions recorded. Reason for Referral None Reported. Results Created Date Observation Date Name Description Value Unit Range Abnormal Flag Note LastModifiedBy Organization Detail LastModifiedTime 08/30/19 24 08/30/2023 gluco se, finge rstic k, blood Blood Glucose: mg/dl 126 Not Available Admini strativ e [place] ([place] [address] [place] [address], [phone], 08/30/2023 08:26:40 08/05/1908/05/2023 US, carot id arter y [facility] [address] [address] Teleph one [phone] Name: Sandie Mansfield [id number] Exam Date: 2023 Age: 72 Physic shahram: MD Rajinder, Dagmar thomas : 1950 Examin ation: US CAROTI D BILATE RAL US CAROTI D BILATE RAL Indica tion: A caroti d duplex was perfor med in this 72-yea r-old woman with a histor y of a right caroti d stenos is and left caroti d occlus ion. Findin gs: The right caroti d artery is well seen. There is a mild amount of athero sclero tic plaque in the proxim al and mid ICA. The CCA has a veloci ty of 90 cm/s. The right ICA has a peak systol ic veloci ty of 173 cm/s with a peak end-di astoli c veloci ty of 57 cm/s. Mild to modera te spectr al broade moises is found. The ratio of peak systol ic veloci ties is 1.9. The right ECA is patent with a veloci ty of 88 cm/s. The right verteb ral artery is patent with antegr lisbet flow. The left caroti d artery also is well seen. There is a modera te amount of athero sclero tic plaque in the bulb. There is no color flow in the ICA and it is occlud ed. The left ECA is patent with a veloci ty of 91 cm/s. The distal CCA has a veloci ty of 57 cm/s. The left verteb ral artery is patent with antegr lisbet flow. IMPRES BARBARA: 1. There is a low 50-79% stenos is of the right ICA. 2. The left ICA contin ues to be occlud ed. Electr onical ly signed in Archer cribe by: DAGMAR STOKES MD on:08/04 3:46 PM cc: INTERFACE Sc Only - [place] [facility] [address] [place] [address], [id number], 08/05/2023 16:50:26 09/14/19 24 09/07/2022 imagi ng/di agnos tic resul t No observ ation record ed. [email or web address] Not Available 06:13:03 09/14/19 24 09/08/2022 imagi ng/di agnos tic resul t No observ ation record ed. [email or web address] Not Available 06:13:07 09/14/1909/08/2022 imagi ng/di agnos tic resul t No observ ation record ed. [email or web address] Not Available 06:13:07 12/31/1905/15/2023 imagi ng/di agnos tic resul t No observ ation record ed. [email or web address] Not Available 01:11:41 12/31/1902/22/2023 imagi ng/di agnos tic resul t No observ ation record ed. [email or web address] Not Available 01:12:08 03/27/1903/18/2024 angio gram (PROC ) No observ ation record ed. BARCODE Not Available 2024 17:32:52 Result Notes None recorded. Problems Name Problem SNOMED Code Status Onset Date Resolution Date Notes Provider Name and Address Organization Details Recorded Time Complicati on associated with vascular device 787658497 Active 2024 Randy Stokes MD [facility], [address] , [facility] 5 20:14:04 Infection of foot 094855546 Active 2023 Alecia Surgis [facility] 4 10:25:17 Bacterial infection caused by Morganella morganii 83495369 Active 2023 Alecia Surgis [facility] 4 10:23:50 Bacterial infection caused by Pseudomona s 30434250 Active 2023 Alecia Surgis [facility] 4 10:25:12 Incision AND drainage Completed 202307/03/2023 Alecia Surgis [facility] 4 10:24:27 Type 2 diabetes mellitus 69481456 Active 2023 Alecia Surgis [facility] 4 10:25:09 End stage renal failure on dialysis 512284521 Active 2023 Alecia Ortiz [facility] 4 10:25:15 Peripheral vascular disease 994933742 Active 2023 [facility] 10:25:19 Diabetic foot ulcer 926480801 Active 2023 KENNETH CARMICHAEL MD [address] [place] [address], [address] , [facility] 4 10:35:29 Mixed infectious disease 5339856 Active 2023 KENNETH CARMICHAEL MD [address] [place] [address], [address] , [facility] 4 10:36:18 Carotid artery stenosis 41430209 Active Nallely Luo [facility] 4 10:20:31 Mechanical complicati on of vascular device 022405486 Active 2023 Irene Truong, SENIOR SQL DEVELOPER, [employer] ROUTE TRAFFIC CONTROLLER [address] [place] [address], [phone] , [facility] 4 16:43:10 Postoperat daniel pain 655357036 Active 2023 Randy Stokes MD [address] [place] [address], [address] , [facility] 4 12:48:15 Problem Notes None recorded. Procedures Surgical History Date Name Laterality Status Provider Name and Address Organization Details Recorded Time 06/12/19 24 debridement of foot ulcer completed Nallely Luo [facility] 06/14/2023 17:01:26 07/07/19 22 Date of Last Mammogram completed Not Available Health Note 07/30/2023 13:59:17 Insert heart pm atrial completed Not Available Health Note 07/30/2023 13:59:14 Imaging Results Imaging Date Name Status [facility]Modified by [facility] Details LastModified Time 08/05/2023 US, carotid artery completed INTERFACE [facility] Only - [place] [facility] [address] [facility], [place], [address], 08/05/2023 16:50:26 09/07/2022 imaging/diagno stic result completed Information not available 09/14/2023 06:13:03 09/08/2022 imaging/diagno stic result completed Information not available 09/14/2023 06:13:07 09/08/2022 imaging/diagno stic result completed Information not available 09/14/2023 06:13:07 05/15/2023 imaging/diagno stic result completed Information not available 12/31/2023 01:11:41 02/22/2023 imaging/diagno stic result completed Information not available 12/31/2023 01:12:08 03/18/2024 angiogram (PROC) completed BARCODE Information not available 03/27/2024 17:32:52 Procedure Notes None recorded. Medical Equipment None Reported. Allergies Allergen ID Allergen Name Allergen Category Reaction Reaction Severity Criticality Documentation Date Start Date Code Code System Note Provider Name and Address Organization Details Recorded Time 113157 Product containin g angiotens in-conver ting enzyme inhibitor (product) medicatio n Not available Not available Not available 04/01/20232022 38819 009 SNOMED Not Available Not Available Not Available Medications Name Sig Start Date Stop Date Status Note LastModified by Organization Details LastModified Time atorvastati n 40 mg tablet TAKE 1 TABLET BY MOUTH EVERY DAY active Not Available Not Available No t Available cefpodoxime 200 mg tablet TAKE 1 TABLET BY MOUTH EVERY DAY 07/02 completed Not Available Not Available Not Available cephalexin 250 mg capsule TAKE 1 CAPSULE (ORAL) 2 TIMES PER DAY FOR 5 DAYS ON DIALYSIS DAYS, TAKE AFTER DIALYSIS. active Not Available Not Available No t Available hydrocodone 5 mg-acetamin ophen 325 mg tablet TAKE 1 TABLET BY MOUTH EVERY 6 HOURS FOR 4 DAYS 09/15 completed Not Available Not Available Not Available midodrine 5 mg tablet TAKE 1 TABLET BY MOUTH 3 TIMES A DAY. TAKE WITH 10MG active Not Available Not Available No t Available metronidazo le 500 mg tablet TAKE 1 TABLET BY MOUTH EVERY 12 HOURS active Not Available Not Available No t Available tramadol 50 mg tablet TAKE 1 TABLET BY MOUTH 3 TIMES A DAY NEEDED 08/04 completed Not Available Not Available Not Available linezolid 600 mg tablet TAKE 1 TABLET BY MOUTH EVERY 12 HOURS FOR 7 DAYS 07/02 completed Not Available Not Available Not Available sodium bicarbonate 650 mg tablet TAKE 1 TABLET BY MOUTH TWICE A DAY active Not Available Not Available No t Available cephalexin 500 mg capsule TAKE 1 CAPSULE BY MOUTH THREE TIMES A DAY UNTIL FINISHED 07/02 completed Not Available Not Available Not Available ergocalcife rol (vitamin D2) 1,250 mcg (50,000 unit) capsule TAKE 1 CAPSULE BY MOUTH WEEKLY active Not Available Not Available No t Available levofloxaci n 500 mg tablet TAKE 1 TABLET BY MOUTH EVERY 48 HOURS FOR 10 DAYS 07/02 completed Not Available Not Available Not Available doxycycline hyclate 100 mg tablet TAKE 1 TABLET BY MOUTH TWICE A DAY FOR 7 DAYS active Not Available Not Available No t Available midodrine 10 mg tablet 1 TABLET BY MOUTH 3 TIMES A DAY WITH 5MG TABLET active Not Available Not Available No t Available cinacalcet 30 mg tablet Take 1 tablet every day by oral route. active Not Available Not Available No t Available Joelle-Mckenna 0.8 mg tablet TAKE 1 TABLET BY MOUTH EVERY DAY active Not Available Not Available No t Available acetaminoph en active Not Available Not Available Not Available Vitamin C active Not Available Not Nyla ilable Not Available Acidophilus active Not Available Not A vailable Not Available sevelamer carbonate 800 mg tablet TAKE 3 TABLETS BY MOUTH 3 TIMES A DAY WITH MEALS AND 2 TABLETS 2X DAILY WITH SNACKS (INS MAX 9/DAY) active Not Available Not Available No t Available Eliquis 5 mg tablet TAKE 1 TABLET BY MOUTH TWICE A DAY active Not Available Not Available No t Available Velphoro 500 mg chewable tablet CHEW 2 TABLETS 3 TIMES DAILY WITH MEALS active Not Available Not Available No t Available Lokelma 10 gram oral powder packet 1 PACKET BY MOUTH EVERY SATURDAY active Not Available Not Available No t Available Ozempic 0.25 mg or 0.5 mg (2 mg/3 mL) subcutaneou s pen injector 0.25 MG (0.368 ML) SUBCUTANE OUSLY WEEKLY FOR 4 WEEKS active Not Available Not Available No t Available Vitals Date Recorded Body height Body mass index (BMI) Body weight Heart rate Oxygen saturation Oxygen saturation in Arterial blood by Pulse oximetry Systolic blood pressure Diastolic blood pressure Provider Name and Address Organization Details Last Updated DateTime 4 162.56 cm 31.2 kg/m2 09552.8 1 g 102 /min 96 % 96 % 152 mm[Hg] 56 mm[Hg] Nallely Luo [facility] 4 16:13:16 Date Recorded Body height Body mass index (BMI) Body weight Heart rate Oxygen saturation Oxygen saturation in Arterial blood by Pulse oximetry Systolic blood pressure Diastolic blood pressure Provider Name and Address Organization Details Last Updated DateTime 5 162.56 cm 32.6 kg/m2 80847.2 7 g 76 /min 99 % 99 % 108 mm[Hg] 80 mm[Hg] Nallely Luo [facility] 5 15:13:08 Social History Question Answer Notes LastModified by Organizat ion Details LastModified Time Do You Have An Advance Directive? No [email or web address] Information not available 07/30/2023 What Is Your Level Of Alcohol Consumption? Occasional [email or web address] Information not available 07/30/2023 How Many Times Per Week Do You Consume Alcohol? Less Than 1 Time Per Week [email or web address] Information not available 07/30/2023 What Is Your Level Of Caffeine Consumption? Moderate [email or web address] Information not available 07/30/2023 Are You Currently Employed? No [email or web address] Information not available 07/30/2023 What Is Your Occupation? Retired [email or web address] Information not available 07/30/2023 How Many Times Per Week Do You Exercise? 3-4 Times Per Week [email or web address] Information not available 07/30/2023 Do You Have A Medical Power Of Package Drier? No [email or web address] Information not available 07/30/2023 What Was The Date Of Your Most Recent Tobacco Screening? 08/05/2023 [email or web address] Information not available 07/30/2023 What Is Your Relationship Status? Single [email or web address] Information not available 07/30/2023 Do You Use Any Illicit Or Recreational Drugs? No [email or web address] Information not available 07/30/2023 Sex: Unknown Functional Status Question Answer Note LastModified by Organization D etails LastModified Time What is your exercise level? Moderate [email or web address] Information not available 07/30/2023 Mental Status None recorded. Family History Relationship Description Onset Age of this Age Resolved Age Notes LastModified by Organization Details LastModified Time Sister Arthritis [email or web address] Not available 07/30/2023 13:59:13 Brother Arthritis [email or web address] Not availabl e 07/30/2023 13:59:13 Brother Diabetes mellitus [email or web address] Not available 2023 13:59:13 Brother Hypertensive disorder [email or web address] Not available 2023 13:59:13 Father Family history of malignant neoplasm [email or web address] Not available 2023 13:59:13 Paternal Grandmother Heart disease [email or web address] Not available 2023 13:59:14 Notes:Mother has brain tumor Medical History Condition Response Diabetes Y Anxiety Disorder N Bleeding Disorder N Attention-deficit Hyperactivity Disorder N High Blood Pressure Y Arthritis Y Hyperlipidemia N Cancer N Stroke N Thyroid Problems N Asthma N Depression Y COPD N Anemia Y Seizures N Heart Disease Y Fibromyalgia N Osteoporosis N Kidney Disease Y Gynecological History Statement/Question Response If Post Menopausal, Age at Menopause 41 Age at Menarche 13 Date of Last Mammogram 07/06/2021 Obstetrics History GPAL:G 0 P 0 0 0 0 Immunizations Vaccine Type Date Status Note Provider Nam e and Address Organization Details Recorded Time zoster recombinant 2 completed Sharonda Fink [facility] 08/05/2023 14:55:50 zoster recombinant 1 completed Sharonda Fink [facility] 08/05/2023 14:55:50 COVID-19, mRNA, LNP-S, PF, 30 mcg/0.3 mL dose 1 completed Sharonda Fink [facility] 08/05/2023 14:55:50 COVID-19, mRNA, LNP-S, PF, 30 mcg/0.3 mL dose 1 completed [facility]2023 14:55:50 COVID-19, mRNA, LNP-S, PF, 30 mcg/0.3 mL dose 1 completed [facility] 08/05/2023 14:55:50 COVID-19, mRNA, LNP-S, PF, 30 mcg/0.3 mL dose, ruth-sucrose 2 completed Sharonda Renner [facility] 08/05/2023 14:55:50 COVID-19, mRNA, LNP-S, bivalent, PF, 30 mcg/0.3 mL dose 2 completed Sharonda Renner [facility] 08/05/2023 14:55:50 pneumococcal polysaccharide PPV23 4 completed Sharonda Finmaddie [facility] 08/05/2023 14:55:50 Past Encounters Encounter ID Performer Location Encounter Start Date Encounter Closed Date Diagnosis/Indication Diagnosis SNOMED-CT Code Diagnosis ICD10 Code Diagnosis Note [id number] KENNETH CARMICHAEL MD [address] [place] [address] Infectiou s Diseases ([place]) [address] [place], [place] [address] [place] [address] 07/03/2023 09:59:17 07/03/2023 10:53:31 Diabetic foot ulcer 303763619 E13.621 Mixed infe ctious disease 5252949 B99.9 Peripheral vascular disease 306702563 I73.9 End stage renal failure on dialysis 041086269 N18.6 [id number] Stephy Biggs MD [address] [place] [address] Infectiou s Diseases ([place]) [address] [place], [place] [address] [address] 07/12/2023 10:34:49 07/12/2023 11:29:13 Bacterial infection caused by Morganella morganii 84839530 A49.8 Bacterial infection caused by Pseudomonas 54830241 B96.5 Infection of foot 031788 002 L08.9 [id number] Stephy Biggs MD [address] [facility] Infectiou s Diseases ([place]) [address] [place], [place] [address] [address] 08/05/2023 14:26:39 08/05/2023 15:27:57 Diabetic foot ulcer 532109017 E13.621 Infection of foot 761203 002 L08.9 Bacterial infection caused by Morganella morganii 11341113 A49.8 Bacterial infection caused by Pseudomonas 50839850 B96.5 [id number] Irene Truong, SENIOR SQL DEVELOPER, [employer] ROUTE TRAFFIC CONTROLLER [address] [facility] Vascular Surgery ([place]) [address] [place] [address] [facility] [place] [address] 08/05/2023 15:17:38 08/05/2023 16:58:09 Carotid artery stenosis 14824225 I65.29 Infection of foot 470668 002 L08.9 End stage renal failure on dialysis 495810577 N18.6 Peripheral vascular disease 790087305 I73.9 [id number] [facility] ([place]) [address] [place] [address], [place] [address] 08/30/2023 07:14:46 09/16/2023 09:42:02 [id number] Nallely Luo [facility] Vascular Surgery ([place]) [address] [place] [address], 2nd [place] [address] 08/30/2023 07:14:48 09/03/2023 08:36:34 End stage renal failure on dialysis 427725226 N18.6 [id number] Randy Stokes MD [address] [place] [address] Vascular Surgery ([place]) [address] [place] [address] [facility] [place] [address] 09/16/2023 15:56:09 09/16/2023 17:07:10 End stage renal failure on dialysis 981162150 N18.6 Peripheral vascular disease 738857603 I73.9 Infection of foot 520956 002 L08.9 [id number] Randy Stokes MD [address] [facility] Vascular Surgery ([place]) [address] [place] [address] [facility] [place] [address] 12/23/2023 15:58:35 12/23/2023 16:25:51 Peripheral vascular disease 852986532 I73.9 End stage renal failure on dialysis 995907487 N18.6 Diabetic foot ulcer 3710 38935 E13.621 [id number] Randy Stokes MD 800 [facility] Vascular Surgery ([place]) [address] [place] [address] [facility] [place] [address] 03/23/2024 15:02:25 03/23/2024 15:31:34 End stage renal failure on dialysis 277761300 N18.6 Peripheral vascular disease 442354989 I73.9 Diabetic foot ulcer 3710 32038 E13.621 Complicati on associated with vascular device 354579927 T82.598A Health Concerns Section Related Observation LastModified by Organization Detai ls LastModified Time None Recorded Concern Status LastModified by Organization Details LastModified Time None Recorded Advance Directives Directive N: Payers Encounter Date Sequence Insurance Name Policy Number Policy Dudley Covered Member ID Dudley Member ID Guarantor Name 08/30/2023 1 [facility] (MEDICARE REPLACEMENT/A DVANTAGE - PPO) [id number] Sandie Mansfield [id number] Sandie Mansfield 08/30/2023 2 [place] Sandie Mansfield [id number] Sandie Mansfield 08/30/2023 1 [facility] (MEDICARE REPLACEMENT/A DVANTAGE - PPO) [id number] Sandie Mansfield [id number] Sandie Mansfield 08/30/2023 2 [place] Sandie Mansfield [id number] Sandie Elba Hsyla 09/16/2023 1 [facility] (MEDICARE REPLACEMENT/A DVANTAGE - PPO) [id number] Sandie Dana Mansfield [id number] Sandie Elba Mansfield 09/16/2023 2 [place] Sandie Mansfield [id number] Sandie Mansfield 12/23/2023 1 [facility] (MEDICARE REPLACEMENT/A DVANTAGE - PPO) [id number] Sandie Dana Mansfield [id number] Sandie Elba Mansfield 03/23/2024 1 [facility] (MEDICARE REPLACEMENT/A DVANTAGE - PPO) [id number] Sandie Mansfield [id number] Sandie Mansfield Notes Date Note Type Note Provider Name and Address Organization Details Recorded Time 08/30/2023 text/html [facility] PRE-ANEST HETIC EVALUATIONReported bypatient.Reason for Visit:PROPOSED PROCEDURE: RIGHT UPPER ARM AV GRAFT INSERTION; SURGEON: Christiano Stokes; PREOP DIAGNOSIS: End stage renal disease Review of Systems General:Exercise tolerance moderate; Denies SOB, ALLEN, PND; Denies chest pain or chest tightness Cardiac:Hypertension; Hyperlipidemia; H/O CHF ,stable; Atrial fibrillation ; Pacemaker placed; Pacemaker checked OK recently Pulmonary:Obstructive sleep apnea Endo:NIDDM Renal:End stage renal disease ,hemodialysis days TuThSa Neuro:H/O stroke ,no residual deficits Prior Anesthetic Complication:no history of anesthesia complications Family Anesthetic Hx:no history of anesthesia complications Testing/ResultsCBC Date: 07/23/23; HBG results: 13.9; HCT results: 43.9; Platelets results: 222; BMP/CMP Date: 07/23/23; BUN results: 58; Creatine results: 11.78; Potassium results: 4.9; Urine HCG: Physical Exam: AirwayWNL; MP II TeethWNL NeckWNL; Full range of motion CardiovascularRegular rate and rhythm RespiratoryClear to auscultation bilaterally GastrointestinalNPO status >6 hrs solids, >2 hrs clear liquids Vital Signs:Vital signs reviewed. Please refer to nursing preop note for values Assessment:ASA PS: III Plan:MAC Post-Op Pain Management:Single Injection Supraclavicular Brachial Plexus Block with Ultrasound Guidance; if needed. Discussion:I have discussed with the patient the anesthetic plan, alternatives, pertinent risks, and complications; including but not limited to PONV, dental injury, sore throat, CO, stroke, etc. All questions were answered. Patient verbalize(s) understanding and agree(s) to proceed.; I have also discussed the brachial plexus nerve block with the patient. All potential complications were described including, but not limited to: bleeding, infection; block failure; pneumothorax; temporary or permanent nerve damage with weakness of the shoulder, arm, and/or hand; intravascular injection of local anesthetic with subsequent possible tinnitus, seizure, cardiovascular collapse, ; intraspinal injection with potential loss of consciousness and drop in blood pressure. All potential side effects including, but not limited to: temporary ipsilateral phrenic nerve paralysis with possible shortness of breath; temporary Angélica's syndrome with droopy ipsilateral eyelid, red eye with pinpoint pupil, and/or nasal congestion; possible laryngeal nerve blockade with temporary hoarseness. It was also noted in the discussion that the surgery itself can injure nerves and cause temporary or permanent post operative pain, such as the surgical incision, shoulder manipulation during the procedure, tissue distension from irrigating fluids, etc. All questions were answered. The patient was fully informed and agrees to proceed with the block as described. Kirill Guerrier MD [address] [place] [address], [phone], [facility] 08/30/2023 07:42:29 09/16/2023 text/html Mrs. Mansfield is a 72-year-old female who is here today for postoperative visit for permanent hemodialysis access. She has a recent history of a failed right brachiocephalic AV fistula. On August 31, 2023 she underwent placement of a right forearm brachial artery to brachial vein AV graft with Propaten and a redo right brachial artery exposure.She reports the swelling in the right forearm has greatly improved since the surgery. She denies any pain in the hand. She is currently being dialyzed via a tunneled catheter. She is anxious to have the tunneled catheter removed. Irene Truong APRN, [employer] [address] [place] [address], [phone], [facility] 09/16/2023 16:38:06 12/23/2023 text/html Mrs. Mansfield is a 73-year-old female who is here today for follow-up for lower extremity ischemia, hemodialysis access and carotid artery disease. She was last seen in our office in September 2023 for follow-up for a right brachial artery to brachial vein AV graft, created on August 31, 2023. The graft is not functioning and she has had her tunneled catheter removed.She also has a history of lower extremity ischemia, particularly on the left with history of toe amputations for osteomyelitis and gangrene. She had an angiogram in May 2020 which showed TP trunk occlusion with one-vessel runoff.She is on Eliquis. She reports nighttime cramping in both calves which improves with standing at the side of the bed. Irene Truong APRN, [employer] [address] [place] [address], [phone], [facility] 12/23/2023 16:36:35 03/23/2024 text/html Sandie Mansfield ret urned to the office today with her sister for follow-up of several vascular surgery issues. Mrs. Mansfield underwent placement of a right forearm brachial artery to brachial vein 4 x 7 graft for dialysis access on 08/30/2023. Recently the graft thrombosed and she underwent thrombectomy in radiology and balloon angioplasty of the venous anastomosis. She is anticoagulated for a history of atrial fibrillation. The graft has been used on 1 occasion since his thrombectomy and apparently functioning well. She is not having any pain in the graft or in her hand. She also has a history of amputation of several toes on her left foot. The wound that was present after the last toe amputation has never completely healed. It drains a very small amount. Her sister helps her dress this small open wound. She does have ischemia of her left leg although she has had a very good dorsalis pedis Doppler signal in the past. Mrs. Mansfield also has a history of a left carotid occlusion and prior TIA or stroke. She dialyzes 3 times weekly in [place]. Randy Stokes MD [address] [facility], [place], [phone], [facility] 03/24/2024 20:20:40 OBGyn Episode No OBEpisode recorded.
--- OUTSIDE RECORDS SUMMARY | 2024-05-11 15:33 | XMS_ITS ---
Author Organization [facility] Address [address] [place], [place] [id number] Care Team Providers Care Cafeteria Director Name Role Phone YISSEL GORDON Unavailable [phone] John Calhoun Unavailable Unavailable MACARENA Muller Unavailable [phone] Allergies No Known Allergies REASON FOR VISIT *General care Medications Medication SIG (Take, Route, Frequency, Duration) Notes Start Date End Date Status 3 ML insulin lispro 100 UNT/ML Cartridge [Humalog] 3 ML insulin lispro 100 UNT/ML Cartridge [Humalog]Original Medication3 ML insulin lispro 100 UNT/ML Cartridge [Humalog] *Reorder from [email or web address] for eRx and Interaction Alerts* 09/14/2013 Active Carvedilol 25 MG Oral Tablet ORAL carvedilol 25 MG Oral TabletOriginal Medicationcarvedilol 25 MG Oral Tablet *Reorder from [email or web address] for eRx and Interaction Alerts* 09/14/2013 Active insulin glargine 100 UNT/ML Injectable Solution [Lantus] insulin glargine 100 UNT/ML Injectable Solution [Lantus]Original Medicationinsulin glargine 100 UNT/ML Injectable Solution [Lantus] *Reorder from [email or web address] for eRx and Interaction Alerts* 09/14/2013 Active atorvastatin 10 MG Oral Tablet ORAL atorvastatin 10 MG Oral TabletOriginal Medicationatorvastatin 10 MG Oral Tablet *Reorder from [email or web address] for eRx and Interaction Alerts* 09/14/2013 Active Ascorbic Acid 100 MG Oral Tablet ORAL ascorbic acid 100 MG Oral TabletOriginal Medicationascorbic acid 100 MG Oral Tablet *Reorder from [email or web address] for eRx and Interaction Alerts* 09/14/2013 Active Aspirin 81 MG Oral aspirin 81 MG Ch ewable TabletOriginal Medicationaspirin 81 MG Chewable Tablet 09/14/2013 Active Vital Signs Height 63.00 in 12/06/2022 Weight 182 lbs 12/06/2022 BMI 32.24 kg/m2 12/06/2022 Height-cm 160.02 cm 12/06/2022 Weight-kg 82.55 kg 12/06/2022 Encounters Encounter Location Date Provider Diagnosis [facility] [address] [place], [place] [id number] 12/06/2022 MACARENA Yohana Onychomycosis B35.1 ; Pain in right toe(s) M79.674 ; Pain in left toe(s) M79.675 ; Atherosclerosis of [place] arteries of extremities with intermittent claudication, bilateral legs I70.213 ; Edema of foot R60.0 ; Difficulty in walking R26.2 and Type 2 diabetes mellitus without complication, without long-term current use of insulin E11.9 Assessments Encounter Date Diagnosis (ICD Code) Assessment Notes Treatment Notes Treatment Clinical Notes Section Notes 12/06/2022 Onychomycosis (ICD-10 - B35.1) NAIL DEBRIDEMENT: Nails 1-5 Bilateral were debrided extensively with nail nippers and emery board, reducing length and girth to pink healthy tissue with any subungual debris and necrotic tissue removed 12/06/2022 Pain in right toe(s) (ICD-10 - M79.674) 12/06/2022 Pain in left toe(s) (ICD-10 - M79.675) 12/06/2022 Atherosclerosis of [place] arteries of extremities with intermittent claudication, bilateral legs (ICD-10 - I70.213) 12/06/2022 Edema of foot (ICD-10 - R60.0) 12/06/2022 Difficulty in walking (ICD-10 - R26.2) 12/06/2022 Type 2 diabetes mellitus without complication, without long-term current use of insulin (ICD-10 - E11.9) DIABETIC FOOT CARE: Both feet were examined today. Diabetic preventive care provided as documented. Diabetic foot care education discussed today to including: daily foot inspections, appropriate protective shoe gear, and strict glycemic control. Patient to return to the office routinely for preventive diabetic foot care or sooner if patient notices any acute changes. 12/06/2022 Other Shoe Gear Recommendation: Advised patient on appropriate shoe gear for protection, healing and good foot health Emollient: Recommend that the patient use an emollient such as [id number] Eucerin cream, Vanicream, or other lotion to the affected area. Plan Of Treatment Treatment Notes Assessment Notes Onychomycosis NAIL DEBRIDEMENT: Na ils 1-5 Bilateral were debrided extensively with nail nippers and emery board, reducing length and girth to pink healthy tissue with any subungual debris and necrotic tissue removed Type 2 diabetes mellitus wit hout complication, without long-term current use of insulin DIABETIC FOOT CARE: Both feet were examined today. Diabetic preventive care provided as documented. Diabetic foot care education discussed today to including: daily foot inspections, appropriate protective shoe gear, and strict glycemic control. Patient to return to the office routinely for preventive diabetic foot care or sooner if patient notices any acute changes. Other Shoe Gear Recommendation: Advised patient on appropriate shoe gear for protection, healing and good foot health Emollient: Recommend that the patient use an emollient such as [id number] Eucerin cream, Vanicream, or other lotion to the affected area. Next Appt Details Follow Up: 10 weeks, Reason: at risk foot care Progress Notes * MEEK MELLO EDOB: [birth year] (72 yo F)Acc No.[id number]:12/06/2022 Patient: Radha NEOTINYMEEK Provider: Rene Cedeño DPM :1950 A ge:72 Y S ex:Female Date:12/06/2022 Address:[address] [place], [place] [id number] Subjective: * Chief Complaints: * 1 . *General care. * HPI: H PI: General care P cedrick presents to the office for diabetic foot care. Patient states that their nails are thickened, elongated and painful. Patient states that it is aggravated by shoe gear. Onset is gradual. Patient is on dialysis and having trouble with low blood pressures. P cedrick is taking prescription blood thinners. D ate last seen by Dr. Calhoun was October. I nitials . * ROS: G eneral / Constitutional: Patient denies c hills, fatigue, fever. C ardiovascular: Patient denies c ongenital heart problems, palpatations, shortness of breath. P atient complains of h air loss on legs. M usculoskeletal: Patient denies o rthotic use, broken foot bone, muscle cramps. S kin: Patient complains of f ungal nails, dry skin, nail changes.? N eurologic: Patient denies s troke, loss of use of extremity, confusion. * Medical History: * Medications: T aking Aspirin 81 MG Tablet Chewable Oral , Notes to Pharmacist: aspirin 81 MG Chewable TabletOriginal Medicationaspirin 81 MG Chewable Tablet, Taking Ascorbic Acid 100 MG Oral Tablet ORAL , Notes to Pharmacist: ascorbic acid 100 MG Oral TabletOriginal Medicationascorbic acid 100 MG Oral Tablet *Reorder from [facility] for eRx and Interaction Alerts*, Taking Carvedilol 25 MG Oral Tablet ORAL , Notes to Pharmacist: carvedilol 25 MG Oral TabletOriginal Medicationcarvedilol 25 MG Oral Tablet *Reorder from [facility] for eRx and Interaction Alerts*, Taking 3 ML insulin lispro 100 UNT/ML Cartridge [Humalog] , Notes to Pharmacist: 3 ML insulin lispro 100 UNT/ML Cartridge [Humalog]Original Medication3 ML insulin lispro 100 UNT/ML Cartridge [Humalog] *Reorder from [facility] for eRx and Interaction Alerts*, Taking atorvastatin 10 MG Oral Tablet ORAL , Notes to Pharmacist: atorvastatin 10 MG Oral TabletOriginal Medicationatorvastatin 10 MG Oral Tablet *Reorder from [facility] for eRx and Interaction Alerts*, Taking insulin glargine 100 UNT/ML Injectable Solution [Lantus] , Notes to Pharmacist: insulin glargine 100 UNT/ML Injectable Solution [Lantus]Original Medicationinsulin glargine 100 UNT/ML Injectable Solution [Lantus] *Reorder from [facility] for eRx and Interaction Alerts* * Allergies: N .K.D.A. Objective: * Vitals: W t:182lbs, Wt-k.55 kg, Ht: 63.00 in, Ht-cm: 160.02 cm, BMI:32.24Index, Body Surface Area: 1.91. * Examination: C onstitutional: Constitutional T he patient is awake, alert, well developed, well groomed and well nourished.. M usculoskeletal: Muscle Strength M uscle strength is 5/5 in regards to dorsiflexion, plantarflexion, inversion, and eversion in bilateral lower extremities.. Foot Structure T he foot structure is noted to be, normal, bilaterally. There is a partial amputation of the right hallux.. Gait T here is normal gait noted. N eurologic: Vibratory: n ormal, bilateral. Addison-Weinstin 5.07 monofilament I ntact protective sensation via 5.07 g swmf bilateral. Gross sensation G ross sensation is intact to light touch..? V ascular: Dorsalis pedis pulse: 1 /4, bilateral. Posterior tibial pulse: 0 /4, bilaterally. Capillary refill: l ess than 3 seconds, bilaterally. ? D ermatologic: Skin findings: S kin is thin, atrophic and lacking pedal hair.. Nail pathology: N ails 1-5 left and 2-5 right a re elongated, thick, discolored, and dystrophic with subungual debris. They are painful to palpation. Hyperkeratotic Skin Lesion T here is no evidence of hyperkeratosis. Assessment: * Assessment: 1. O nychomycosis - B35.1 (Primary) 2 . P ain in right toe(s) - M79.674 3 . P ain in left toe(s) - M79.675 4 . A therosclerosis of [place] arteries of extremities with intermittent claudication, bilateral legs - I70.213 5 . E adriana of foot - R60.0 6 . D ifficulty in walking - R26.2 7 . T ype 2 diabetes mellitus without complication, without long-term current use of insulin - E11.9 Plan: * Treatment: 2. T ype 2 diabetes mellitus without complication, without long-term current use of insulin Notes: DIABETIC FOOT CARE: Both feet were examined today. Diabetic preventive care provided as documented. Diabetic foot care education discussed today to including: daily foot inspections, appropriate protective shoe gear, and strict glycemic control. Patient to return to the office routinely for preventive diabetic foot care or sooner if patient notices any acute changes. 3. O thers Notes: Shoe Gear Recommendation: Advised patient on appropriate shoe gear for protection, healing and good foot health Emollient: Recommend that the patient use an emollient such as [id number]-sjmwbyg Eucerin cream, Vanicream, or other lotion to the affected area. . * Follow Up: 1 0 weeks (Reason: at risk foot care) * Billing Information: * Visit Code: 35134 Office Visit, Est Pt., Level 3. * Procedure Codes: * Sign off status: Completed true * Provider: Rene Cedeño DPM Date: 1 Generated for David carrington/Dominic/Maral on: 0 05/11/2024 03:33 PM CDT History and Physical Notes * HPI (History of Present Illness) Category Sub-Category Detail Notes Category Not es HPI General care Patient presents to the office for diabetic foot care. Patient states that their nails are thickened, elongated and painful. Patient states that it is aggravated by shoe gear. Onset is gradual. Patient is on dialysis and having trouble with low blood pressures. Patient is taking prescription blood thinners. Date last seen by Dr. Calhoun was October. Initials Examination Category Sub-Category Detail Notes Category Not es Dermatologic Skin findings: Skin is thin, at rophic and lacking pedal hair. Nail pathology: Nails 1-5 left and 2 -5 right are elongated, thick, discolored, and dystrophic with subungual debris. They are painful to palpation Hyperkeratotic Skin Lesion There is no e vidence of hyperkeratosis Neurologic Vibratory: normal, bilateral Addison-Weinstin 5.07 monofilament Intact protective sensation via 5.07 g swmf bilateral Gross sensation Gross sensation is i ntact to light touch. Vascular Dorsalis pedis pulse: 1/4, bilateral Capillary refill: less than 3 seconds, bilaterally Posterior tibial pulse: 0/4, bilaterally Musculoskeletal Muscle Strength Muscle strength is 5/5 in regards to dorsiflexion, plantarflexion, inversion, and eversion in bilateral lower extremities. Foot Structure The foot structure i s noted to be, normal, bilaterally. There is a partial amputation of the right hallux. Gait There is normal gait noted Constitutional Constitutional The patient is a wake, alert, well developed, well groomed and well nourished.
--- OUTSIDE RECORDS SUMMARY | 2024-05-11 15:33 | XMS_ITS | Patient Health Record ---
Author Organization [facility] Address [address] [place], [place] [id number] Care Team Providers Care Relay Telegrapher Name Role Phone YISSEL GORDON Unavailable [phone] John Calhoun Unavailable Unavailable Allergies No Known Allergies Reason For Referral No Information Medications Medication SIG (Take, Route, Frequency, Duration) Notes Start Date End Date Status 3 ML insulin lispro 100 UNT/ML Cartridge [Humalog] 3 ML insulin lispro 100 UNT/ML Cartridge [Humalog]Original Medication3 ML insulin lispro 100 UNT/ML Cartridge [Humalog] *Reorder from [employer] for eRx and Interaction Alerts* 09/14/2013 Active Carvedilol 25 MG Oral Tablet ORAL carvedilol 25 MG Oral TabletOriginal Medicationcarvedilol 25 MG Oral Tablet *Reorder from [employer] for eRx and Interaction Alerts* 09/14/2013 Active insulin glargine 100 UNT/ML Injectable Solution [Lantus] insulin glargine 100 UNT/ML Injectable Solution [Lantus]Original Medicationinsulin glargine 100 UNT/ML Injectable Solution [Lantus] *Reorder from [employer] for eRx and Interaction Alerts* 09/14/2013 Active atorvastatin 10 MG Oral Tablet ORAL atorvastatin 10 MG Oral TabletOriginal Medicationatorvastatin 10 MG Oral Tablet *Reorder from [employer] for eRx and Interaction Alerts* 09/14/2013 Active Aspirin 81 MG Oral aspirin 81 MG Ch ewable TabletOriginal Medicationaspirin 81 MG Chewable Tablet 09/14/2013 Active Ascorbic Acid 100 MG Oral Tablet ORAL ascorbic acid 100 MG Oral TabletOriginal Medicationascorbic acid 100 MG Oral Tablet *Reorder from [employer] for eRx and Interaction Alerts* 09/14/2013 Active Immunizations Vaccine Route Administration Date Status Comme nts Influenza, high dose seasonal Unknown 12/06/2022 Admini stered Plan Of Treatment No Information Insurance Providers Payer Name Payer Address Payer Phone Subscriber Number Group Number Insured Name Patient Relationship to Insured Coverage Start Date Coverage End Date [facility] [address] [address] [place] [id number] MEEK MELLO Self - patient is the insured
--- OUTSIDE RECORDS SUMMARY | 2024-05-11 15:33 | XMS_ITS | Clinical Summary ---
Author Organization [facility] Address [address] [place] [address] Care Team Providers Care Adult School Counselor Name Role Phone KayleeJohn solano Primary Care Provider [phone] Cody Patterson MD Unavailable Keven Leiva MD Unavailable [phone] Dannielle Brice MD Unavailable Allergies Active Allergy Reactions Criticality Noted Date Comments Randall Inhibitors Unknown 07/19/2020 Medications apixaban 5 MG tabletIndication s:has stopped for surgery Take 1 tablet (5 mg total) by mouth 2 (two) times daily. Indications: has stopped for surgery 1 Active EUSEBIA-JAMES Tab tabletIndication s:Nutritional Support Take 1 tablet by mouth daily. Indications: Nutritional Support 1 Active acetaminophen 500 MG tablet Take 2 tablets (1,000 mg total) by mouth every 6 (six) hours as needed for Pain. Active vitamin C 1000 MG tabletIndication s:Nutritional Support Take 1 tablet (1,000 mg total) by mouth daily. Indications: Nutritional Support Active docusate sodium 100 MG capsule Take 1 capsule (100 mg total) by mouth daily as needed for Constipation. Active atorvastatin 40 MG tabletIndication s:Hyperlipidemia Take 1 tablet (40 mg total) by mouth daily. Indications: High Amount of Fats in the Blood 1 Active sodium bicarbonate 650 MG tablet Take 1 tablet (650 mg total) by mouth 2 (two) times daily. 3 Active cinacalcet (SENSIPAR) 30 MG tablet Take 2 tablets (60 mg total) by mouth daily. Take it with meals Active midodrine (PROAMATINE) 10 MG tablet Take 1.5 tablets (15 mg total) by mouth 3 (three) times daily. 3 Active midodrine (PROAMATINE) 5 MG tablet Take 1 tablet (5 mg total) by mouth as needed. Up to 2 additional tablets in dialysis as needed 3 Active VITAMIN D, CHOLECALCIFEROL, OR Active VELPHORO 500 MG Chew Tab CHEW 2 TABLETS 3 TIMES DAILY WITH MEALS Active Active Problems Problem Noted Date Diagnosed Date NICM (nonischemic cardiomyopathy) ([facility]HS/H CC) 12/10/2023 Weakness 09/06/2022 TIA (transient ischemic attack) 09/06/2022 Other myositis of left lower extremity 3 Primary osteoarthritis of fi rst carpometacarpal joint of left hand 04/09/2022 Primary osteoarthritis of fi rst carpometacarpal joint of right hand 01/04/2022 Hemiparesis of dominant side due to recent cerebrovascular accident (CVA) ([facility] HHS/HCC) 08/25/2021 History of ischemic stroke in prior three months 08/25/2021 Impaired functional mobility, balance, gait, and endurance 04/12/2021 Orthostasis 04/12/2021 A-fib ([facility]) 09/28/2020 S/P AV bethany ablation 09/28/2020 Biventricular ICD (implantab le cardioverter-defibrillator) in place 09/28/2020 Rectal abscess 05/30/2020 Hyperkalemia 05/22/2020 CHF (congestive heart failure) ([facility] HHS/HCC) ESRD (end stage renal disease) ([facility] H[facility]/HCC) Carotid stenosis, asymptomatic, left Cardiomyopathy ([facility]) Dialysis patient Encounters Date Type Department Care Team Description 05/07/2024 2:04 PM MAMMALOGY TEACHER - 05/07/2024 11:59 PM MAMMALOGY TEACHER Hospital Encounter [facility] [address] [place] [address] Livia Patterson, TELEVISION INSPECTOR Discharge Disposition: Home or Self Care (Routine Discharge) 05/07/2024 Travel 03/26/2024 1:15 AM MAMMALOGY TEACHER Allied Health/Nurse Visit [facility] [address] [place] [address] Keven Leiva MD from Last 3 Months Immunizations Name Administration Dates Next Due Pneumovax 23 25 Mcg/0.5Ml Ij Inj 07/30/2013 Family History Medical History Relation Comments Cancer Brother 1 Diabetes Brother 1 No Known Problems Brother 2 Cancer Father No Known Problems Maternal Aunt No Known Problems Maternal Grandfather No Known Problems Maternal Grandmother No Known Problems Maternal Uncle Cancer Mother Hypertension Mother No Known Problems Paternal Aunt No Known Problems Paternal Grandfather No Known Problems Paternal Grandmother No Known Problems Paternal Uncle Mental illness Sister 1 No Known Problems Sister 2 Relation Status Comments Brother 1 Alive Brother 2 Alive Father Maternal Aunt Maternal Grandfather Maternal Grandmother Maternal Uncle Mother Paternal Aunt Paternal Grandfather Paternal Grandmother Paternal Uncle Sister 1 Sister 2 Alive Social History Tobacco Use Types Packs/Day Years Used Date Smoking Tobacco: Never Smokeless Tobacco: Never Tobacco Cessation:Counseling Given: Not Answered Comments:patient doesnt smoke Alcohol Use Standard Drinks/Week Comments Yes 0 (1 standard drink = 0.6 oz pur e alcohol) occasionally Humiliation, Afraid, Rape, and Kick questionnair e Answer Date Recorded Within the last year, have y ou been afraid of your partner or ex-partner? No 09/06/2022 Within the last year, have y ou been humiliated or emotionally abused in other ways by your partner or ex-partner? No Within the last year, have y ou been kicked, hit, slapped, or otherwise physically hurt by your partner or ex-partner? No 09/06/2022 Within the last year, have y ou been raped or forced to have any kind of sexual activity by your partner or ex-partner? No 09/06/2022 Overall Financial Resource Strain (CARDIA) Answe r Date Recorded How hard is it for you to pa y for the very basics like food, housing, medical care, and heating? Not hard at all 09/06/2022 PHQ-2 Answer Date Recorded PHQ-2 Score - If the patient scores above 3, please move on to questions 3-9 0 08/25/2021 Hunger Vital Sign Answer Date Recorded Within the past 12 months, y ou worried that your food would run out before you got the money to buy more. Never true 09/07/19 23 Within the past 12 months, t he food you bought just didn't last and you didn't have money to get more. Never true 09/06/2022 PRAPARE - Transportation Answer Date Re corded In the past 12 months, has l ack of transportation kept you from medical appointments or from getting medications? No 08/2022 In the past 12 months, has l ack of transportation kept you from meetings, work, or from getting things needed for daily living? No 09/06/2022 Housing Stability Vital Sign Answer Jeff e Recorded In the last 12 months, was t here a time when you were not able to pay the mortgage or rent on time? No 09/06/2022 In the last 12 months, how many places have you lived? 1 09/06/2022 In the last 12 months, was t here a time when you did not have a steady place to sleep or slept in a nursing home (including now)? No 09/06/2022 Comments No Sex and Gender Information Value Date Recorded Sex Assigned at Female 04/29/2024 10:15 AM MAMMALOGY TEACHER Legal Sex Female 9:26 PM CDT Gender Identity Not on file Sexual Orientation Not on file Occupation Industry Job Start Date Job End Date Not on file Not on file Not on file Not on file Last Filed Vital Signs Vital Sign Reading Time Taken Comments Blood Pressure 114/80 01/06/2024 1:56 PM MAMMALOGY TEACHER Pulse 75 01/06/2024 1:56 PM MAMMALOGY TEACHER Temperature 36.6 C (97.9 F) 09/09/2022 9:33 AM CDT Respiratory Rate 18 01/06/2024 1:56 PM MAMMALOGY TEACHER Oxygen Saturation 96% 01/06/2024 1:56 PM MAMMALOGY TEACHER Inhaled Oxygen Concentration - - Weight 87.1 kg (192 lb) 01/06/2024 1:56 PM MAMMALOGY TEACHER Height 160 cm (5' 3 ) 01/06/2024 1:56 PM MAMMALOGY TEACHER Body Mass Index 34.01 01/06/2024 1:56 PM MAMMALOGY TEACHER Plan of Treatment Upcoming Encounters Date Type Department Care Team (Late st Contact Info) Description 05/14/2024 2:[address] [facility] [address] [place] [address] Livia Patterson, TELEVISION INSPECTOR [address] [place] [address] 07/09/2024 1:45 AM CDT Allied Health/Nurse Visit [facility] [address] [place] [address] Keven Leiva MD [address] [facility] [address] [id number] 01/05/2025 10:00 AM MAMMALOGY TEACHER [facility]ointment [facility] [address] [place] [address] Dannielle Brice MD [address] [place] [address] [id number] 01/15/2025 12:00 PM MAMMALOGY TEACHER Office Visit [facility] [address] [place] [id number] Dannielle Brice MD [address] [place] [address] Health Maintenance Due Date Last Done Comments Colorectal Cancer Screening Colonoscopy (10 Years) 1951 Diabetes: Retinopathy Eye Exam 10/22/1969 Mammogram Screening 1991 RSV Immunization or 60+ Years (1 - Risk 60-74 years 1-dose series) 2011 Pneumococcal Vaccine: 65+ Years (2 of 2 - PCV) 07/30/2014 07/30/2013, 07/02/2013 Annual Medicare Wellness Visit 10/22/2016 Dexa Scan (General) 10/22/2016 Hemoglobin A1C 03/09/2023 09/06/2022, 05/26/2020 ASCVD LDL 09/08/2023 09/07/2022, 07/25/2013 Lipid Panel 09/08/2023 09/07/2022, 07/25/2013 COVID-19 Vaccine ( season) 2023 01/10/2022, 09/01/2021, 02/08/2021, Additional history exists DTaP, Tdap and Td Vaccines (2 - Td or Tdap) 11/18/2023 11/17/2013 Influenza Adult (#1) 2023 11/19/2014 Hepatitis C Completed 05/23/2020 Colorectal Cancer Screening FIT/FOBT (1 Year) Discontinued 06/17/2020, 05/31/2020 Zoster Vaccines Completed 05/29/2021, 02/03/2021 Meningococcal B Vaccine Aged Out No l onger eligible based on patient's age to complete this topic Meningococcal Vaccine Aged Out No kelley joel eligible based on patient's age to complete this topic RSV Immunizations Under 20 Months Aged Out No longer eligible based on patient's age to complete this topic Goals Goal Patient Goal Type Associated Problems Recent Progress Patient-Stated? Author Safety Patient/family will have appropriate support at home upon discharge General No Vira Almanzar RN Medical Devices Implanted Type Area Certified Wellness Program Coordinator Device Identifier Shelf Expiration Date Model / Serial / Lot Medtronic [place]-06/24/2020 Implanted:2020 by Barak Nguyen MD (Quantity not on file) ICD [employer] CARDIAC RHYTHM AND HEART FAILURE - DIV M 11/15/2021 [id number] / [id number] / Description:MRI Conditional under following conditions: Static magnetic field of 1.5 T or 3 T, Max spatial gradient field of 2000 Gauss/cm, max slew rate of 200 T/m/s , 1.5 T max whole body NICHELLE or 2 W/kg in Normal Operating Mode, Head NICHELLE 3.2 W/kg or less; 3T NICHELLE must be B1+CASSY of 2.8 mT or less if isocenter is below C7, No NICHELLE restrictions on 3 T if isocenter is at or above C7, Implant must be in right or left pectoral region Medtronic Cs Lead-06/24/2020 Implanted:2020 by Barak Nguyen MD (Quantity not on file) Lead Implant [employer] CARDIAC RHYTHM AND HEART FAILURE - DIV M 11/24/2021 [id number] / [id number] / Medtronic Rv Icd Lead-06/24/2020 Implanted:2020 by Barak Nguyen MD (Quantity not on file) Lead Implant [employer] CARDIAC RHYTHM AND HEART FAILURE - DIV M 03/18/2022 [id number] / [id number] / Capsule Pill Cam - [id number] Implanted:Qty: 1 on 06/20/2020 by Franny Vogel RN at [facility] 11/30/2020 [id number] / / [id number] Procedures Procedure Name Priority Date/Time Associated Diagnosis Comments LIPID PANEL Routine 09/07/2022 10:02 AM CDT HEMOGLOBIN, GLYCOSYLATED Routine 09/06/2022 11:12 PM CDT HC OCCULT BLOOD FECAL SCRN Nurse Collected Priority 06/17/2020 12:05 AM CDT HEPATITIS C ANTIBODY Routine 05/23/2020 5:00 AM CDT from Last 3 Months or Most Recently Relevant to Health Maintenance Results * (ABNORMAL) LIPID PANEL (09/07/2022 10:02 AM CDT) CHOLESTEROL 110 MG/DL 09/07/2022 10:[address] [facility] Comment:DESIRABLE: <200 TRIGLYCERIDES 129 MG/DL 09/07/2022 10:[address] [facility] Comment:<150 NORMAL HDL 44(L) >49 MG/DL 09/07/2022 10:[address] [facility] LDL (CALCULATED) 40 MG/DL 09/08/19 10:[address] [facility] Comment:<100 OPTIMAL VLDL CALCULATION 26 MG/DL 09/08/19 10:[address] [facility] Comment:REFERENCE RANGE NOT ESTABLISHED CHOL/HDL RATIO 2.5 09/07/2022 10:[address] [facility] Comment:REFERENCE RANGE NOT ESTABLISHED LDL/HDL 0.9 09/07/2022 10:[address] [facility] Comment:REFERENCE RANGE NOT ESTABLISHED NON HDL CHOLESTEROL 66 MG/DL 09/07/2022 10:[address] [facility] Comment:REFERENCE RANGE NOT ESTABLISHED 09/07/2022 10:0 2 AM CDT Atilio Self MUSEUM DIRECTOR LABORATORY Final Result Performing Organization Address [facility] Co de Phone Number [facility] [address] [place] [address], [phone] * HEMOGLOBIN, GLYCOSYLATED (09/06/2022 11:12 PM CDT) HGB A1C 5.4 <5.7 % 09/07/2022 12:[address] [facility] ESTIMATED AVG GLUCOSE 108 74 - 114 MG/DL 09/07/2022 12:[address] [facility] 09/06/2022 11:1 2 PM CDT Cherelle Khoury DNP LABORATORY Final Result Performing Organization Address [facility] de Phone Number [facility] [address] [place] [address], [phone] * (ABNORMAL) OCCULT BLOOD, FECES, SCREENING (06/17/2020 12:05 AM CDT) OCCULT BLOOD FECAL POSITIVE(A ) NEGATIVE 06/17/2020 9:[address] [facility] COLLECTION DATE 06/17/20 9:[address] [facility] STOOL SPECIMEN / Unknown 06/17/2020 12:05 AM CDT Sudha Argueta MD BODY FLUIDS AND STOOLS ROYER DUMONT Final Result Performing Organization Address City/State/[facility] Co de Phone Number [facility] [address] [place] [address], [place] [phone] * HEPATITIS C ANTIBODY (05/23/2020 5:00 AM CDT) HEPATITIS C AB NON-REACTI VE NON-REACT MORGAN 05/23/2020 6:[address] [facility] Comment: ANTIBODIES TO HCV NOT DETECTED. DOES NOT EXCLUDE THE POSSIBILITY OF EXPOSURE TO HCV. 05/23/2020 5:00 AM CDT Harpal Gloria MD LABORATORY Final Result Performing Organization Address [facility] Co de Phone Number 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 01/25/2017 Insurance GROUP MEDICARE Advance Directives Documents on File Type Date Recorded Patient Flat Knitter Expl anation Guardianship - Permanent 07/25/2013 12:00 AM PHYSICIAN CERTIFICATION STATEMENT * Full Code (Latest Code Status on File) Date Activated Date Inactivated Comments 09/06/2022 10:29 PM 09/09/2022 5:39 PM * Full Code Date Activated Date Inactivated Comments 08/03/2021 9:45 AM 08/04/2021 2:25 PM * Full Code Date Activated Date Inactivated Comments 08/03/2021 9:22 AM 08/03/2021 9:45 AM * Full Code Date Activated Date Inactivated Comments 06/24/2020 7:27 PM 06/27/2020 5:35 PM * Full Code Date Activated Date Inactivated Comments 05/22/2020 10:09 AM 06/24/2020 7:27 PM Care Teams Adult School Counselor Relationship Specialty Start Date End Date John Calhoun DO [address] [place] [address] PCP - General FAMILY PRACTICE 07/11/20 Cody Patterson MD [address] [place] [id number] Vascular/Childcare Provider VASCULAR SURGERY 05/12/21 Keven Leiva MD [address] [place] [address] [phone] Consulting Physician CLINICAL CARDIAC ELECTROPHYSIOLOGY 05/09/23 Dannielle Brice MD [address] [place], [place] [phone] Consulting Physician CARDIOVASCULAR DISEASE 06/27/23
--- OUTSIDE RECORDS SUMMARY | 2024-05-11 15:35 | XMS_ITS ---
Author Organization [email or web address] Mariya vázquez ([employer]) Address [address] [place] [id number] Care Team Providers Care Automation Tester Name Role Phone Unavailable Unavailable Unavailable Allergies, Adverse Reactions, Alerts Allergy Name Allergy Type Status Severity Reaction(s) Onset Date Inactive Date Treating Clinician Comments No Known Allergies Allergy Active 2021-12 18:07:1 9 Medications Ordered Medication Name Filled Medication Name Start Date Stop Date Current Medication? Ordering Clinician Indication Dosage Frequency Signature (SIG) Comments Components Doxycycline 3- 19:53: 24 Yes Number of Repeats Allowed: Frequency: Two times a day Ozempic (0.25 or 0.5 MG/DOSE) 2 18:46: 45 Yes Number of Repeats Allowed: Frequency: One time a week heparin sodium, porcine 9-24 18:43: 37 Yes [id number] Number of Repeats Allowed: Frequency: Every Dialysis TreatmentD osesOrdere d: Hourly Dose 1000 Units/Hr 1:1000 Units/mLRo ilan: Intravenou s heparin sodium, porcine 6- 18:46: 54 Yes [id number] Number of Repeats Allowed: Frequency: Every Dialysis TreatmentD osesOrdere d: Loading Dose 3000 Units 1:1000 Units/mLRo ilan: Intravenou s Tylenol 4-06 17:32: 32 Yes Number of Repeats Allowed: Frequency: As needed Midodrine HCl 1- 15:52: 38 Yes Number of Repeats Allowed: Frequency: Three times a day Joelle-Mckenna 09-11 18:05: 38 Yes Number of Repeats Allowed: Frequency: One time a day Docusate Sodium 09-11 18:04: 31 Yes Number of Repeats Allowed: Frequency: As needed Atorvastati n Calcium 09-11 18:02: 52 Yes Number of Repeats Allowed: Frequency: Once a day, at bedtime Apixaban 09-11 18:01: 42 Yes Number of Repeats Allowed: Frequency: Two times a day Normal Saline Solution 0.9% NaCl 08-23 05:00: 00 Yes [id number] Number of Repeats Allowed: Frequency: As needed Nitrostat 08-23 05:00: 00 Yes [id number] Number of Repeats Allowed: Frequency: Every 5 minutes as needed clonidine 08-23 05:00: 00 Yes [id number] Number of Repeats Allowed: Frequency: Every 4 hours as needed Oxygen 08-23 05:00: 00 Yes [id number] Number of Repeats Allowed: Frequency: As needed acetaminoph en 08-23 05:00: 00 Yes [id number] Number of Repeats Allowed: Frequency: Every 4 hours as needed diphenhydra mine hydrochlori de 08-23 05:00: 00 Yes [id number] Number of Repeats Allowed: Frequency: Every 4 hours as needed Insta-Gluco se 08-23 05:00: 00 Yes [id number] Number of Repeats Allowed: Frequency: Every 30 minutes as needed Problems Condition Name Condition Details Condition Category Status Onset Date Resolution Date Condition Entered On Date Treating Clinician Comments End-stage renal disease Problem List Item Active 2021-12-19 18:17:39 Procedures Procedure Date / Time Performed Performing Clinician Jennie ce Details Central Venous Catheter (CVC) 2023-11-08 05:00:00 Access Site Chest (Right) Access Use Start Date 2023-11-08 05:00:0 0 Access Use End Date 2023-12-13 05:00:00 AV [id number] 05:00:00 Access Surgeon KEYUR STOKES ([id number]),[place] Access Site Forearm (Right) Access Use Start Date 2023-09-24 00:00:0 0 AV [id number] 05:00:00 Access Site Upper Arm (Right) Access Use Start Date 2023-05-18 00:00:0 0 Access Use End Date 2023-08-08 05:00:00 Central Venous Catheter (CVC)2022-08-20 05:00:00 Access Site Chest (Right) Access Use Start Date 2022-08-20 05:00:0 0 Access Use End Date 2023-10-02 05:00:00 PD [id number] 05:00:00 Access Surgeon YISSEL MORRIS ( [id number]),[place] Access Site Lower Quadrant (Left ) Access Use Start Date 2021-10-19 05:00:0 0 Access Use End Date 2022-12-26 05:00:00 DIALYSIS TREATMENT INFORMATION Conventional Hemodialysis Date Type Treatment Start Date Treatment End Date Pre-Treatment Vitals Post-Treatment Vitals Weight Gain BFR DFR Actual UF Dialysis Access May 09, 2024 In-Ce nter Hemod ialys is Treat ment 2024-05-09 T15:43:03. 000Z 2024-05-09 T19:13:04. 000Z BP Sitting (Pre-Dialysis) 157/73 mmHg BP Sitting (Post-D ialysis ) 144/ 69 mmHg BP Standing (Pre-Dialysis) 155/86 mmHg BP Standing (P ost-Dialysis) 147/51 mmHg Sitting Heart Rate Pre-Dialysis 97 BPM Sitting Heart Rate Post-Dialysis 64 BPM Standing Heart Rate Pre-Dialysis 107 BPM Standing Heart Rate Post-Dialysis 65 BPM Temperature Pre-Dialysis 97.5 degF Temperature Post -Dialysis 97.3 degF May 07, 2024 In-Center Hemodialysis Treatment 4442-05-03T34:45:31.000Z 4478-00-08D42:16:31.000Z BP Sitting (Pre-Dialysis) 130/88 mmHg BP Sitting (Post-Dialysis) 182/106 mmHg Concurrent Access: falseAV Graft Forearm (Right) Arterial BP Standing (Pre-Dialysis) 114/62 mmHg BP Standing (P ost-Dialysis) 166/70 mmHg Sitting Heart Rate Pre-Dialysis 86 BPM Sitting Heart Rate Post-Dialysis 62 BPM Standing Heart Rate Pre-Dialysis 96 BPM Standing Heart Rate Post-Dialysis 64 BPM Temperature Pre-Dialysis 97.7 degF Temperature Post -Dialysis 97.2 degF May 05, 2024 In-Center Hemodialysis Treatment 5434-30-96A12:15:19.000Z 1935-26-10J74:49:19.000Z BP Sitting (Pre-Dialysis) 176/88 mmHg BP Sitting (Post-Dialysis) 183/85 mmHg Concurrent Access: falseAV Graft Forearm (Right) Arterial BP Standing (Pre-Dialysis) 176/91 mmHg BP Standing (P ost-Dialysis) 161/59 mmHg Sitting Heart Rate Pre-Dialysis 90 BPM Sitting Heart Rate Post-Dialysis 65 BPM Standing Heart Rate Pre-Dialysis 96 BPM Standing Heart Rate Post-Dialysis 65 BPM Temperature Pre-Dialysis 97.6 degF Temperature Post -Dialysis 96.7 degF May 02, 2024 In-Center Hemodialysis Treatment 7176-98-78D27:54:02.000Z 5011-11-81C32:24:03.000Z BP Sitting (Pre-Dialysis) 158/76 mmHg BP Sitting (Post-Dialysis) 145/61 mmHg Concurrent Access: falseAV Graft Forearm (Right) Arterial BP Standing (Pre-Dialysis) 146/99 mmHg BP Standing (P ost-Dialysis) 136/60 mmHg Sitting Heart Rate Pre-Dialysis 98 BPM Sitting Heart Rate Post-Dialysis 63 BPM Standing Heart Rate Pre-Dialysis 105 BPM Standing Heart Rate Post-Dialysis 66 BPM Temperature Pre-Dialysis 97 degF Temperature Post -Dialysis 97 degF April 30, 2024 In-Center Hemodialysis Treatment 0079-85-23P08:51:49.000Z 1653-61-33L21:23:49.000Z BP Sitting (Pre-Dialysis) 140/76 mmHg BP Sitting (Post-Dialysis) 177/88 mmHg Concurrent Access: falseAV Graft Forearm (Right) Arterial BP Standing (Pre-Dialysis) 144/55 mmHg BP Standing (P ost-Dialysis) 104/38 mmHg Sitting Heart Rate Pre-Dialysis 96 BPM Sitting Heart Rate Post-Dialysis 119 BPM Standing Heart Rate Pre-Dialysis 102 BPM Standing Heart Rate Post-Dialysis 58 BPM Temperature Pre-Dialysis 97.9 degF Temperature Post -Dialysis 97.2 degF April 28, 2024 In-Center Hemodialysis Treatment 4346-84-00P80:28:25.000Z 0020-86-57Y96:59:25.000Z BP Sitting (Pre-Dialysis) 130/77 mmHg BP Sitting (Post-Dialysis) 179/82 mmHg Concurrent Access: falseAV Graft Forearm (Right) Arterial BP Standing (Pre-Dialysis) 112/66 mmHg BP Standing (P ost-Dialysis) 141/75 mmHg Sitting Heart Rate Pre-Dialysis 90 BPM Sitting Heart Rate Post-Dialysis 63 BPM Standing Heart Rate Pre-Dialysis 94 BPM Standing Heart Rate Post-Dialysis 67 BPM Temperature Pre-Dialysis 97.6 degF Temperature Post -Dialysis 97.1 degF April 25, 2024 In-Center Hemodialysis Treatment 6203-60-67Z93:50:59.000Z 5807-08-20T41:23:59.000Z BP Sitting (Pre-Dialysis) 120/66 mmHg BP Sitting (Post-Dialysis) 154/68 mmHg Concurrent Access: falseAV Graft Forearm (Right) Arterial BP Standing (Pre-Dialysis) 92/47 mmHg BP Standing (P ost-Dialysis) 163/65 mmHg Sitting Heart Rate Pre-Dialysis 95 BPM Sitting Heart Rate Post-Dialysis 70 BPM Standing Heart Rate Pre-Dialysis 127 BPM Standing Heart Rate Post-Dialysis 69 BPM Temperature Pre-Dialysis 97.3 degF Temperature Post -Dialysis 97.2 degF April 23, 2024 InCenter Hemodialysis Treatment 7805-20-00G86:43:05.000Z 2520-65-45X48:14:06.000Z BP Sitting (Pre-Dialysis) 167/64 mmHg BP Sitting (Post-Dialysis) 128/72 mmHg Concurrent Access: falseAV Graft Forearm (Right) Arterial BP Standing (Pre-Dialysis) 136/65 mmHg BP Standing (P ost-Dialysis) 126/49 mmHg Sitting Heart Rate Pre-Dialysis 86 BPM Sitting Heart Rate Post-Dialysis 69 BPM Standing Heart Rate Pre-Dialysis 103 BPM Standing Heart Rate Post-Dialysis 68 BPM Temperature Pre-Dialysis 97.9 degF Temperature Post -Dialysis 97.4 degF April 21, 2024 InCenter Hemodialysis Treatment 5203-35-18C90:02:00.000Z 5174-72-89D69:36:09.000Z BP Sitting (Pre-Dialysis) 163/92 mmHg BP Sitting (Post-Dialysis) 99/48 mmHg Concurrent Access: falseAV Graft Forearm (Right) Arterial BP Standing (Pre-Dialysis) 164/83 mmHg BP Standing (P ost-Dialysis) 101/44 mmHg Sitting Heart Rate Pre-Dialysis 92 BPM Sitting Heart Rate Post-Dialysis 65 BPM Standing Heart Rate Pre-Dialysis 100 BPM Standing Heart Rate Post-Dialysis 62 BPM Temperature Pre-Dialysis 97.3 degF Temperature Post -Dialysis 97.2 degF April 18, 2024 In-Center Hemodialysis Treatment 2614-03-34W46:10:41.000Z 1353-59-07C88:41:42.000Z BP Sitting (Pre-Dialysis) 158/69 mmHg BP Sitting (Post-Dialysis) 120/51 mmHg Concurrent Access: falseAV Graft Forearm (Right) Arterial BP Standing (Pre-Dialysis) 110/64 mmHg BP Standing (P ost-Dialysis) 119/45 mmHg Sitting Heart Rate Pre-Dialysis 88 BPM Sitting Heart Rate Post-Dialysis 63 BPM Standing Heart Rate Pre-Dialysis 93 BPM Standing Heart Rate Post-Dialysis 69 BPM Temperature Pre-Dialysis 97.7 degF Temperature Post -Dialysis 97.2 degF April 16, 2024 In-Center Hemodialysis Treatment 8575-81-03C29:34:00.000Z 6924-47-98O23:06:54.000Z BP Sitting (Pre-Dialysis) 150/65 mmHg BP Sitting (Post-Dialysis) 119/50 mmHg Concurrent Access: falseAV Graft Forearm (Right) Arterial BP Standing (Pre-Dialysis) 159/64 mmHg BP Standing (P ost-Dialysis) 114/45 mmHg Sitting Heart Rate Pre-Dialysis 93 BPM Sitting Heart Rate Post-Dialysis 60 BPM Standing Heart Rate Pre-Dialysis 102 BPM Standing Heart Rate Post-Dialysis 62 BPM Temperature Pre-Dialysis 97.8 degF Temperature Post -Dialysis 97.6 degF April 14, 2024 In-Center Hemodialysis Treatment 6443-28-71F68:29:00.000Z 2944-74-28R65:14:02.000Z BP Sitting (Pre-Dialysis) 150/73 mmHg BP Sitting (Post-Dialysis) 130/41 mmHg Concurrent Access: falseAV Graft Forearm (Right) Arterial BP Standing (Pre-Dialysis) 157/84 mmHg BP Standing (P ost-Dialysis) 106/61 mmHg Sitting Heart Rate Pre-Dialysis 72 BPM Sitting Heart Rate Post-Dialysis 90 BPM Standing Heart Rate Pre-Dialysis 81 BPM Standing Heart Rate Post-Dialysis 67 BPM Temperature Pre-Dialysis 98.2 degF Temperature Post -Dialysis 98 degF April 11, 2024 In-Center Hemodialysis Treatment 7353-69-36O59:16:15.000Z 9754-04-26A05:47:16.000Z BP Sitting (Pre-Dialysis) 146/72 mmHg BP Sitting (Post-Dialysis) 151/67 mmHg Concurrent Access: falseAV Graft Forearm (Right) Arterial BP Standing (Pre-Dialysis) 139/73 mmHg BP Standing (P ost-Dialysis) 122/51 mmHg Sitting Heart Rate Pre-Dialysis 84 BPM Sitting Heart Rate Post-Dialysis 76 BPM Standing Heart Rate Pre-Dialysis 94 BPM Standing Heart Rate Post-Dialysis 71 BPM Temperature Pre-Dialysis 97.3 degF Temperature Post -Dialysis 97.3 degF April 09, 2024 In-Center Hemodialysis Treatment 0447-90-19J43:36:55.000Z 3782-35-66S76:08:55.000Z BP Sitting (Pre-Dialysis) 136/64 mmHg BP Sitting (Post-Dialysis) 102/50 mmHg Concurrent Access: falseAV Graft Forearm (Right) Arterial BP Standing (Pre-Dialysis) 149/77 mmHg BP Standing (P ost-Dialysis) 118/44 mmHg Sitting Heart Rate Pre-Dialysis 71 BPM Sitting Heart Rate Post-Dialysis 60 BPM Standing Heart Rate Pre-Dialysis 95 BPM Standing Heart Rate Post-Dialysis 67 BPM Temperature Pre-Dialysis 97.3 degF Temperature Post -Dialysis 97.2 degF April 07, 2024 In-Center Hemodialysis Treatment 5224-94-33M82:29:50.000Z 5561-16-62I14:09:50.000Z BP Sitting (Pre-Dialysis) 157/77 mmHg BP Sitting (Post-Dialysis) 105/53 mmHg Concurrent Access: falseAV Graft Forearm (Right) Arterial BP Standing (Pre-Dialysis) 123/56 mmHg BP Standing (P ost-Dialysis) 134/51 mmHg Sitting Heart Rate Pre-Dialysis 84 BPM Sitting Heart Rate Post-Dialysis 71 BPM Standing Heart Rate Pre-Dialysis 90 BPM Standing Heart Rate Post-Dialysis 64 BPM Temperature Pre-Dialysis 97.7 degF Temperature Post -Dialysis 96.8 degF April 04, 2024 In-Center Hemodialysis Treatment 2379-41-61P33:49:39.000Z 5224-76-23E04:23:39.000Z BP Sitting (Pre-Dialysis) 152/77 mmHg BP Sitting (Post-Dialysis) 165/42 mmHg Concurrent Access: falseAV Graft Forearm (Right) Arterial BP Standing (Pre-Dialysis) 139/75 mmHg BP Standing (P ost-Dialysis) 127/51 mmHg Sitting Heart Rate Pre-Dialysis 76 BPM Sitting Heart Rate Post-Dialysis 79 BPM Standing Heart Rate Pre-Dialysis 84 BPM Standing Heart Rate Post-Dialysis 67 BPM Temperature Pre-Dialysis 97.1 degF Temperature Post -Dialysis 97.4 degF April 02, 2024 In-Center Hemodialysis Treatment 3278-59-60S54:44:06.000Z 4383-47-19O99:14:06.000Z BP Sitting (Pre-Dialysis) 149/80 mmHg BP Sitting (Post-Dialysis) 116/57 mmHg Concurrent Access: falseAV Graft Forearm (Right) Arterial BP Standing (Pre-Dialysis) 148/71 mmHg Sitti ng Heart Rate Post-Dialysis 60 BPM Sitting Heart Rate Pre-Dialysis 84 BPM Temperatu re Post-Dialysis 97.2 degF Standing Heart Rate Pre-Dialysis 100 BPM Temperature Pre-Dialysis 97.3 degF March 31, 2024 In-Center Hemodialysis Treatment 4645-11-61D20:50:00.000Z 9120-24-76X80:23:31.000Z BP Sitting (Pre-Dialysis) 168/78 mmHg BP Sitting (Post-Dialysis) 135/71 mmHg Concurrent Access: falseAV Graft Forearm (Right) Arterial BP Standing (Pre-Dialysis) 162/87 mmHg BP Standing (P ost-Dialysis) 129/53 mmHg Sitting Heart Rate Pre-Dialysis 82 BPM Sitting Heart Rate Post-Dialysis 78 BPM Standing Heart Rate Pre-Dialysis 96 BPM Standing Heart Rate Post-Dialysis 65 BPM Temperature Pre-Dialysis 98.3 degF Temperature Post -Dialysis 97.6 degF March 28, 2024 In-Center Hemodialysis Treatment 7323-67-09R84:48:06.000Z 1491-53-35N99:21:06.000Z BP Sitting (Pre-Dialysis) 139/66 mmHg BP Sitting (Post-Dialysis) 135/60 mmHg Concurrent Access: falseAV Graft Forearm (Right) Arterial BP Standing (Pre-Dialysis) 149/67 mmHg BP Standing (P ost-Dialysis) 145/62 mmHg Sitting Heart Rate Pre-Dialysis 61 BPM Sitting Heart Rate Post-Dialysis 63 BPM Standing Heart Rate Pre-Dialysis 98 BPM Standing Heart Rate Post-Dialysis 64 BPM Temperature Pre-Dialysis 98.1 degF Temperature Post -Dialysis 97.4 degF March 26, 2024 In-Center Hemodialysis Treatment 6938-41-82E49:45:31.000Z 3686-69-10H55:22:32.000Z BP Sitting (Pre-Dialysis) 123/60 mmHg BP Sitting (Post-Dialysis) 138/65 mmHg Concurrent Access: falseAV Graft Forearm (Right) Arterial BP Standing (Pre-Dialysis) 124/59 mmHg BP Standing (P ost-Dialysis) 113/47 mmHg Sitting Heart Rate Pre-Dialysis 72 BPM Sitting Heart Rate Post-Dialysis 62 BPM Standing Heart Rate Pre-Dialysis 85 BPM Standing Heart Rate Post-Dialysis 66 BPM Temperature Pre-Dialysis 97.6 degF Temperature Post -Dialysis 97.4 degF March 24, 2024 In-Center Hemodialysis Treatment 1674-63-03X84:46:59.000Z 6864-77-96Q54:26:59.000Z BP Sitting (Pre-Dialysis) 135/69 mmHg BP Sitting (Post-Dialysis) 146/62 mmHg Concurrent Access: falseAV Graft Forearm (Right) Arterial BP Standing (Pre-Dialysis) 123/69 mmHg BP Standing (P ost-Dialysis) 111/49 mmHg Sitting Heart Rate Pre-Dialysis 80 BPM Sitting Heart Rate Post-Dialysis 69 BPM Standing Heart Rate Pre-Dialysis 78 BPM Standing Heart Rate Post-Dialysis 66 BPM Temperature Pre-Dialysis 97.9 degF Temperature Post -Dialysis 97.3 degF March 21, 2024 In-Center Hemodialysis Treatment 1689-76-24N22:50:08.000Z [id number]:21:08.000Z BP Sitting (Pre-Dialysis) 126/65 mmHg BP Sitting (Post-Dialysis) 106/35 mmHg Concurrent Access: falseAV Graft Forearm (Right) Arterial BP Standing (Pre-Dialysis) 118/56 mmHg BP Standing (P ost-Dialysis) 114/42 mmHg Sitting Heart Rate Pre-Dialysis 83 BPM Sitting Heart Rate Post-Dialysis 76 BPM Standing Heart Rate Pre-Dialysis 90 BPM Standing Heart Rate Post-Dialysis 66 BPM Temperature Pre-Dialysis 97.3 degF Temperature Post -Dialysis 97.5 degF March 19, 2024 In-Center Hemodialysis Treatment BP Sitting (Pre-Dialysis) 115/69 mmHg Concurrent Access: falseAV Graft Forearm (Right) Arterial BP Standing (Pre-Dialysis) 165/82 mmHg Sitting Heart Rate Pre-Dialysis 85 BPM Standing Heart Rate Pre-Dialysis 92 BPM Temperature Pre-Dialysis 98.2 degF March 17, 2024 In-Center Hemodialysis Treatment BP Sitting (Pre-Dialysis) 151/84 mmHg Concurrent Access: falseAV Graft Forearm (Right) Arterial BP Standing (Pre-Dialysis) 149/76 mmHg Sitting Heart Rate Pre-Dialysis 86 BPM Standing Heart Rate Pre-Dialysis 95 BPM Temperature Pre-Dialysis 97.9 degF March 14, 2024 In-Center Hemodialysis Treatment 2849-51-21M32:50:00.000Z 8055-73-87L54:24:26.000Z BP Sitting (Pre-Dialysis) 125/56 mmHg BP Sitting (Post-Dialysis) 147/59 mmHg Concurrent Access: falseAV Graft Forearm (Right) Arterial BP Standing (Pre-Dialysis) 103/59 mmHg BP Standing (P ost-Dialysis) 98/44 mmHg Sitting Heart Rate Pre-Dialysis 93 BPM Sitting Heart Rate Post-Dialysis 81 BPM Standing Heart Rate Pre-Dialysis 100 BPM Standing Heart Rate Post-Dialysis 77 BPM Temperature Pre-Dialysis 97.7 degF Temperature Post -Dialysis 97.1 degF March 12, 2024 In-Center Hemodialysis Treatment 6310-54-54C26:34:00.000Z 0752-04-46T49:14:37.000Z BP Sitting (Pre-Dialysis) 153/61 mmHg BP Sitting (Post-Dialysis) 96/38 mmHg Concurrent Access: falseAV Graft Forearm (Right) Arterial BP Standing (Pre-Dialysis) 131/69 mmHg Sitti ng Heart Rate Post-Dialysis 66 BPM Sitting Heart Rate Pre-Dialysis 60 BPM Temperatu re Post-Dialysis 97.1 degF Standing Heart Rate Pre-Dialysis 94 BPM Temperature Pre-Dialysis 97.7 degF March 10, 2024 In-Center Hemodialysis Treatment 5290-91-21E43:37:00.000Z 3812-23-78J80:12:27.000Z BP Sitting (Pre-Dialysis) 131/68 mmHg BP Sitting (Post-Dialysis) 104/37 mmHg Concurrent Access: falseAV Graft Forearm (Right) Arterial BP Standing (Pre-Dialysis) 141/59 mmHg BP Standing (P ost-Dialysis) 112/47 mmHg Sitting Heart Rate Pre-Dialysis 84 BPM Sitting Heart Rate Post-Dialysis 98 BPM Standing Heart Rate Pre-Dialysis 93 BPM Standing Heart Rate Post-Dialysis 75 BPM Temperature Pre-Dialysis 97.7 degF Temperature Post -Dialysis 97.4 degF March 07, 2024 In-Center Hemodialysis Treatment 5678-22-93T54:52:29.000Z 9681-22-64J37:23:29.000Z BP Sitting (Pre-Dialysis) 121/67 mmHg BP Sitting (Post-Dialysis) 135/57 mmHg Concurrent Access: falseAV Graft Forearm (Right) Arterial BP Standing (Pre-Dialysis) 100/60 mmHg BP Standing (P ost-Dialysis) 99/44 mmHg Sitting Heart Rate Pre-Dialysis 92 BPM Sitting Heart Rate Post-Dialysis 71 BPM Standing Heart Rate Pre-Dialysis 101 BPM Standing Heart Rate Post-Dialysis 75 BPM Temperature Pre-Dialysis 98 degF Temperature Post -Dialysis 97.3 degF March 05, 2024 In-Center Hemodialysis Treatment 7781-29-35E01:38:56.000Z 0348-01-98C45:11:56.000Z BP Sitting (Pre-Dialysis) 135/71 mmHg BP Sitting (Post-Dialysis) 136/22 mmHg Concurrent Access: falseAV Graft Forearm (Right) Arterial BP Standing (Pre-Dialysis) 107/63 mmHg BP Standing (P ost-Dialysis) 102/49 mmHg Sitting Heart Rate Pre-Dialysis 92 BPM Sitting Heart Rate Post-Dialysis 123 BPM Standing Heart Rate Pre-Dialysis 98 BPM Standing Heart Rate Post-Dialysis 63 BPM Temperature Pre-Dialysis 92 degF Temperature Post -Dialysis 97.3 degF March 02, 2024 In-Center Hemodialysis Treatment 0242-03-09N37:30:06.000Z 2064-54-81E48:00:06.000Z BP Sitting (Pre-Dialysis) 124/77 mmHg BP Sitting (Post-Dialysis) 121/61 mmHg Concurrent Access: falseAV Graft Forearm (Right) Arterial BP Standing (Pre-Dialysis) 124/63 mmHg BP Standing (P ost-Dialysis) 132/55 mmHg Sitting Heart Rate Pre-Dialysis 88 BPM Sitting Heart Rate Post-Dialysis 60 BPM Standing Heart Rate Pre-Dialysis 94 BPM Standing Heart Rate Post-Dialysis 64 BPM Temperature Pre-Dialysis 98.2 degF Temperature Post -Dialysis 97.3 degF February 29, 2024 In-Center Hemodialysis Treatment 0737-48-87D32:03:59.000Z 9474-92-32O66:39:00.000Z BP Sitting (Pre-Dialysis) 130/68 mmHg BP Sitting (Post-Dialysis) 121/50 mmHg Concurrent Access: falseAV Graft Forearm (Right) Arterial BP Standing (Pre-Dialysis) 118/59 mmHg BP Standing (P ost-Dialysis) 99/38 mmHg Sitting Heart Rate Pre-Dialysis 92 BPM Sitting Heart Rate Post-Dialysis 78 BPM Standing Heart Rate Pre-Dialysis 97 BPM Standing Heart Rate Post-Dialysis 78 BPM Temperature Pre-Dialysis 97.2 degF Temperature Post -Dialysis 97.2 degF February 27, 2024 In-Center Hemodialysis Treatment 0779-08-75J88:45:59.000Z 9371-80-85I71:08:59.000Z BP Sitting (Pre-Dialysis) 152/75 mmHg BP Sitting (Post-Dialysis) 93/45 mmHg Concurrent Access: falseAV Graft Forearm (Right) Arterial BP Standing (Pre-Dialysis) 160/71 mmHg BP Standing (P ost-Dialysis) 112/43 mmHg Sitting Heart Rate Pre-Dialysis 75 BPM Sitting Heart Rate Post-Dialysis 61 BPM Standing Heart Rate Pre-Dialysis 88 BPM Standing Heart Rate Post-Dialysis 63 BPM Temperature Pre-Dialysis 97.2 degF Temperature Post -Dialysis 97.2 degF February 24, 2024 In-Center Hemodialysis Treatment 0054-93-22D32:11:00.000Z 3062-76-55C64:45:12.000Z BP Sitting (Pre-Dialysis) 117/64 mmHg BP Sitting (Post-Dialysis) 120/62 mmHg Concurrent Access: falseAV Graft Forearm (Right) Arterial BP Standing (Pre-Dialysis) 129/51 mmHg BP Standing (P ost-Dialysis) 114/46 mmHg Sitting Heart Rate Pre-Dialysis 84 BPM Sitting Heart Rate Post-Dialysis 67 BPM Standing Heart Rate Pre-Dialysis 88 BPM Standing Heart Rate Post-Dialysis 62 BPM Temperature Pre-Dialysis 97.6 degF Temperature Post -Dialysis 97.2 degF February 22, 2024 In-Center Hemodialysis Treatment 0176-23-59Q76:51:38.000Z 2457-95-95W56:23:39.000Z BP Sitting (Pre-Dialysis) 147/71 mmHg BP Sitting (Post-Dialysis) 149/72 mmHg Concurrent Access: falseAV Graft Forearm (Right) Arterial BP Standing (Pre-Dialysis) 134/55 mmHg BP Standing (P ost-Dialysis) 123/44 mmHg Sitting Heart Rate Pre-Dialysis 88 BPM Sitting Heart Rate Post-Dialysis 71 BPM Standing Heart Rate Pre-Dialysis 100 BPM Standing Heart Rate Post-Dialysis 65 BPM Temperature Pre-Dialysis 98.3 degF Temperature Post -Dialysis 97.3 degF February 20, 2024 In-Center Hemodialysis Treatment 5138-22-97P98:41:06.000Z 5340-51-35W98:03:07.000Z BP Sitting (Pre-Dialysis) 122/63 mmHg BP Sitting (Post-Dialysis) 91/30 mmHg Concurrent Access: falseAV Graft Forearm (Right) Arterial BP Standing (Pre-Dialysis) 101/55 mmHg Sitti ng Heart Rate Post-Dialysis 60 BPM Sitting Heart Rate Pre-Dialysis 88 BPM Temperatu re Post-Dialysis 96.5 degF Standing Heart Rate Pre-Dialysis 93 BPM Temperature Pre-Dialysis 97.6 degF February 18, 2024 In-Center Hemodialysis Treatment 1307-50-91I95:53:33.000Z 0800-84-84S43:24:34.000Z BP Sitting (Pre-Dialysis) 182/79 mmHg BP Sitting (Post-Dialysis) 179/76 mmHg Concurrent Access: falseAV Graft Forearm (Right) Arterial BP Standing (Pre-Dialysis) 152/78 mmHg BP Standing (P ost-Dialysis) 135/57 mmHg Sitting Heart Rate Pre-Dialysis 83 BPM Sitting Heart Rate Post-Dialysis 83 BPM Standing Heart Rate Pre-Dialysis 90 BPM Standing Heart Rate Post-Dialysis 65 BPM Temperature Pre-Dialysis 97.7 degF Temperature Post -Dialysis 97.3 degF February 15, 2024 In-Center Hemodialysis Treatment 5014-29-78U56:51:00.000Z 3706-86-06J10:32:22.000Z BP Sitting (Pre-Dialysis) 109/56 mmHg BP Sitting (Post-Dialysis) 109/33 mmHg Concurrent Access: falseAV Graft Forearm (Right) Arterial BP Standing (Pre-Dialysis) 93/38 mmHg Sitti ng Heart Rate Post-Dialysis 84 BPM Sitting Heart Rate Pre-Dialysis 86 BPM Temperatu re Post-Dialysis 97.2 degF Standing Heart Rate Pre-Dialysis 99 BPM Temperature Pre-Dialysis 98 degF February 13, 2024 In-Center Hemodialysis Treatment 3790-14-47R30:46:00.000Z 6892-68-91K01:14:12.000Z BP Sitting (Pre-Dialysis) 145/76 mmHg BP Sitting (Post-Dialysis) 100/46 mmHg Concurrent Access: falseAV Graft Forearm (Right) Arterial BP Standing (Pre-Dialysis) 159/77 mmHg Sitti ng Heart Rate Post-Dialysis 59 BPM Sitting Heart Rate Pre-Dialysis 87 BPM Temperatu re Post-Dialysis 97.2 degF Standing Heart Rate Pre-Dialysis 92 BPM Temperature Pre-Dialysis 98.4 degF February 11, 2024 In-Center Hemodialysis Treatment 9775-71-25B57:53:38.000Z 9893-19-40Y35:28:38.000Z BP Sitting (Pre-Dialysis) 163/62 mmHg BP Sitting (Post-Dialysis) 99/31 mmHg Concurrent Access: falseAV Graft Forearm (Right) Arterial BP Standing (Pre-Dialysis) 174/83 mmHg BP Standing (P ost-Dialysis) 97/36 mmHg Sitting Heart Rate Pre-Dialysis 89 BPM Sitting Heart Rate Post-Dialysis 70 BPM Standing Heart Rate Pre-Dialysis 89 BPM Standing Heart Rate Post-Dialysis 79 BPM Temperature Pre-Dialysis 95.9 degF Temperature Post -Dialysis 97.1 degF February 08, 2024 In-Center Hemodialysis Treatment [id number]:43:00.000Z 5184-03-23S91:16:21.000Z BP Sitting (Pre-Dialysis) 146/64 mmHg BP Sitting (Post-Dialysis) 114/52 mmHg Concurrent Access: falseAV Graft Forearm (Right) Arterial BP Standing (Pre-Dialysis) 116/66 mmHg BP Standing (P ost-Dialysis) 114/45 mmHg Sitting Heart Rate Pre-Dialysis 74 BPM Sitting Heart Rate Post-Dialysis 63 BPM Standing Heart Rate Pre-Dialysis 87 BPM Standing Heart Rate Post-Dialysis 63 BPM Temperature Pre-Dialysis 98.2 degF Temperature Post -Dialysis 96.1 degF February 06, 2024 In-Center Hemodialysis Treatment [id number]:00:49.000Z 1889-43-38D81:28:49.000Z BP Sitting (Pre-Dialysis) 158/68 mmHg BP Sitting (Post-Dialysis) 102/48 mmHg Concurrent Access: falseAV Graft Forearm (Right) Arterial BP Standing (Pre-Dialysis) 126/66 mmHg BP Standing (P ost-Dialysis) 101/35 mmHg Sitting Heart Rate Pre-Dialysis 64 BPM Sitting Heart Rate Post-Dialysis 63 BPM Standing Heart Rate Pre-Dialysis 89 BPM Standing Heart Rate Post-Dialysis 69 BPM Temperature Pre-Dialysis 97.9 degF Temperature Post -Dialysis 97.2 degF February 04, 2024 In-Center Hemodialysis Treatment [id number]:55:17.000Z [id number]:28:17.000Z BP Sitting (Pre-Dialysis) 157/77 mmHg BP Sitting (Post-Dialysis) 123/58 mmHg Concurrent Access: falseAV Graft Forearm (Right) Arterial BP Standing (Pre-Dialysis) 161/83 mmHg BP Standing (P ost-Dialysis) 124/48 mmHg Sitting Heart Rate Pre-Dialysis 66 BPM Sitting Heart Rate Post-Dialysis 74 BPM Standing Heart Rate Pre-Dialysis 88 BPM Standing Heart Rate Post-Dialysis 65 BPM Temperature Pre-Dialysis 97.8 degF Temperature Post -Dialysis 97.8 degF February 01, 2024 In-Center Hemodialysis Treatment [id number]:49:00.000Z 6500-80-18R84:21:19.000Z BP Sitting (Pre-Dialysis) 156/75 mmHg BP Sitting (Post-Dialysis) 131/59 mmHg Concurrent Access: falseAV Graft Forearm (Right) Arterial BP Standing (Pre-Dialysis) 136/63 mmHg BP Standing (P ost-Dialysis) 117/55 mmHg Sitting Heart Rate Pre-Dialysis 87 BPM Sitting Heart Rate Post-Dialysis 66 BPM Standing Heart Rate Pre-Dialysis 94 BPM Standing Heart Rate Post-Dialysis 64 BPM Temperature Pre-Dialysis 97.9 degF Temperature Post -Dialysis 97.3 degF January 29, 2024 In-Center Hemodialysis Treatment [id number]:40:21.000Z 6921-68-28D69:12:22.000Z BP Sitting (Pre-Dialysis) 126/70 mmHg BP Sitting (Post-Dialysis) 143/62 mmHg Concurrent Access: falseAV Graft Forearm (Right) Arterial BP Standing (Pre-Dialysis) 106/66 mmHg BP Standing (P ost-Dialysis) 110/50 mmHg Sitting Heart Rate Pre-Dialysis 86 BPM Sitting Heart Rate Post-Dialysis 69 BPM Standing Heart Rate Pre-Dialysis 94 BPM Standing Heart Rate Post-Dialysis 70 BPM Temperature Pre-Dialysis 98 degF Temperature Post -Dialysis 97.1 degF January 27, 2024 In-Center Hemodialysis Treatment [id number]:40:49.000Z 4669-85-17Q66:11:49.000Z BP Sitting (Pre-Dialysis) 117/56 mmHg BP Sitting (Post-Dialysis) 122/54 mmHg Concurrent Access: falseAV Graft Forearm (Right) Arterial BP Standing (Pre-Dialysis) 107/64 mmHg BP Standing (P ost-Dialysis) 104/45 mmHg Sitting Heart Rate Pre-Dialysis 69 BPM Sitting Heart Rate Post-Dialysis 80 BPM Standing Heart Rate Pre-Dialysis 85 BPM Standing Heart Rate Post-Dialysis 66 BPM Temperature Pre-Dialysis 98 degF Temperature Post -Dialysis 97.2 degF January 25, 2024 In-Center Hemodialysis Treatment [id number]:46:10.000Z 2318-60-77F04:21:10.000Z BP Sitting (Pre-Dialysis) 159/76 mmHg BP Sitting (Post-Dialysis) 117/68 mmHg Concurrent Access: falseAV Graft Forearm (Right) Arterial BP Standing (Pre-Dialysis) 160/62 mmHg BP Standing (P ost-Dialysis) 91/31 mmHg Sitting Heart Rate Pre-Dialysis 89 BPM Sitting Heart Rate Post-Dialysis 78 BPM Standing Heart Rate Pre-Dialysis 94 BPM Standing Heart Rate Post-Dialysis 76 BPM Temperature Pre-Dialysis 98.1 degF Temperature Post -Dialysis 97 degF January 23, 2024 In-Center Hemodialysis Treatment [id number]:03:09.000Z 1884-46-09H77:18:09.000Z BP Sitting (Pre-Dialysis) 145/68 mmHg BP Sitting (Post-Dialysis) 104/40 mmHg Concurrent Access: falseAV Graft Forearm (Right) Arterial BP Standing (Pre-Dialysis) 142/56 mmHg Sitti ng Heart Rate Post-Dialysis 76 BPM Sitting Heart Rate Pre-Dialysis 90 BPM Temperatu re Post-Dialysis 97.3 degF Standing Heart Rate Pre-Dialysis 92 BPM Temperature Pre-Dialysis 97.2 degF January 21, 2024 In-Center Hemodialysis Treatment [id number]:55:00.000Z [id number]:27:10.000Z BP Sitting (Pre-Dialysis) 132/64 mmHg BP Sitting (Post-Dialysis) 130/59 mmHg Concurrent Access: falseAV Graft Forearm (Right) Arterial BP Standing (Pre-Dialysis) 136/59 mmHg BP Standing (P ost-Dialysis) 104/40 mmHg Sitting Heart Rate Pre-Dialysis 68 BPM Sitting Heart Rate Post-Dialysis 67 BPM Standing Heart Rate Pre-Dialysis 81 BPM Standing Heart Rate Post-Dialysis 65 BPM Temperature Pre-Dialysis 98.5 degF January 18, 2024 In-Center Hemodialysis Treatment 1442-90-95Y90:47:00.000Z 9225-47-21J83:20:09.000Z BP Sitting (Pre-Dialysis) 136/63 mmHg BP Sitting (Post-Dialysis) 116/58 mmHg Concurrent Access: falseAV Graft Forearm (Right) Arterial BP Standing (Pre-Dialysis) 109/56 mmHg BP Standing (P ost-Dialysis) 109/48 mmHg Sitting Heart Rate Pre-Dialysis 86 BPM Sitting Heart Rate Post-Dialysis 81 BPM Standing Heart Rate Pre-Dialysis 89 BPM Standing Heart Rate Post-Dialysis 73 BPM Temperature Pre-Dialysis 98.6 degF Temperature Post -Dialysis 97.2 degF January 16, 2024 In-Center Hemodialysis Treatment [id number]:48:09.000Z 9664-88-41F83:20:09.000Z BP Sitting (Pre-Dialysis) 142/81 mmHg BP Sitting (Post-Dialysis) 118/55 mmHg Concurrent Access: falseAV Graft Forearm (Right) Arterial BP Standing (Pre-Dialysis) 151/66 mmHg BP Standing (P ost-Dialysis) 100/88 mmHg Sitting Heart Rate Pre-Dialysis 80 BPM Sitting Heart Rate Post-Dialysis 66 BPM Standing Heart Rate Pre-Dialysis 86 BPM Standing Heart Rate Post-Dialysis 64 BPM Temperature Pre-Dialysis 97.9 degF Temperature Post -Dialysis 97.2 degF January 14, 2024 In-Center Hemodialysis Treatment [id number]:58:09.000Z 9645-35-79M58:32:10.000Z BP Sitting (Pre-Dialysis) 138/72 mmHg BP Sitting (Post-Dialysis) 121/51 mmHg Concurrent Access: falseAV Graft Forearm (Right) Arterial BP Standing (Pre-Dialysis) 135/64 mmHg BP Standing (P ost-Dialysis) 101/43 mmHg Sitting Heart Rate Pre-Dialysis 91 BPM Sitting Heart Rate Post-Dialysis 66 BPM Standing Heart Rate Pre-Dialysis 92 BPM Standing Heart Rate Post-Dialysis 62 BPM Temperature Pre-Dialysis 98.2 degF Temperature Post -Dialysis 97.2 degF January 09, 2024 In-Center Hemodialysis Treatment [id number]:40:00.000Z 4415-74-19M08:13:09.000Z BP Sitting (Pre-Dialysis) 110/40 mmHg BP Sitting (Post-Dialysis) 136/43 mmHg Concurrent Access: falseAV Graft Forearm (Right) Arterial BP Standing (Pre-Dialysis) 87/39 mmHg BP Standing (P ost-Dialysis) 97/43 mmHg Sitting Heart Rate Pre-Dialysis 93 BPM Sitting H eart Rate Post-Dialysis 70 BPM Standing Heart Rate Pre-Dialysis 91 BPM Standing Heart Rate Post-Dialysis 68 BPM Temperature Pre-Dialysis 96.7 degF Temperature Post -Dialysis 97.1 degF January 07, 2024 In-Center Hemodialysis Treatment [id number]:45:00.000Z 1873-35-62Y04:20:10.000Z BP Sitting (Pre-Dialysis) 140/68 mmHg BP Sitting (Post-Dialysis) 122/49 mmHg Concurrent Access: falseAV Graft Forearm (Right) Arterial BP Standing (Pre-Dialysis) 131/68 mmHg BP Standing (P ost-Dialysis) 109/55 mmHg Sitting Heart Rate Pre-Dialysis 66 BPM Sitting Heart Rate Post-Dialysis 113 BPM Standing Heart Rate Pre-Dialysis 89 BPM Standing Heart Rate Post-Dialysis 70 BPM Temperature Pre-Dialysis 97.9 degF Temperature Post -Dialysis 97.1 degF January 04, 2024 In-Center Hemodialysis Treatment [id number]:59:00.000Z 5730-29-31M29:32:10.000Z BP Sitting (Pre-Dialysis) 120/69 mmHg BP Sitting (Post-Dialysis) 110/50 mmHg Concurrent Access: falseAV Graft Forearm (Right) Arterial BP Standing (Pre-Dialysis) 125/67 mmHg BP Standing (P ost-Dialysis) 102/52 mmHg Sitting Heart Rate Pre-Dialysis 78 BPM Sitting Heart Rate Post-Dialysis 68 BPM Standing Heart Rate Pre-Dialysis 88 BPM Standing Heart Rate Post-Dialysis 63 BPM Temperature Pre-Dialysis 98.2 degF Temperature Post -Dialysis 97.2 degF January 02, 2024 In-Center Hemodialysis Treatment 4199-15-37Q39:37:09.000Z 5283-70-89N27:11:10.000Z BP Sitting (Pre-Dialysis) 157/91 mmHg BP Sitting (Post-Dialysis) 130/59 mmHg Concurrent Access: falseAV Graft Forearm (Right) Arterial BP Standing (Pre-Dialysis) 156/67 mmHg BP Standing (P ost-Dialysis) 126/53 mmHg Sitting Heart Rate Pre-Dialysis 59 BPM Sitting Heart Rate Post-Dialysis 61 BPM Standing Heart Rate Pre-Dialysis 93 BPM Standing Heart Rate Post-Dialysis 61 BPM Temperature Pre-Dialysis 97.9 degF Temperature Post -Dialysis 97.3 degF December 31, 2023 In-Center Hemodialysis Treatment [id number]:25:00.000Z 8692-07-69K50:05:26.000Z BP Sitting (Pre-Dialysis) 146/69 mmHg BP Sitting (Post-Dialysis) 98/53 mmHg Concurrent Access: falseAV Graft Forearm (Right) Arterial BP Standing (Pre-Dialysis) 112/62 mmHg BP Standing (P ost-Dialysis) 100/42 mmHg Sitting Heart Rate Pre-Dialysis 89 BPM Sitting Heart Rate Post-Dialysis 59 BPM Standing Heart Rate Pre-Dialysis 99 BPM Standing Heart Rate Post-Dialysis 65 BPM Temperature Pre-Dialysis 97.9 degF Temperature Post -Dialysis 97 degF December 28, 2023 In-Center Hemodialysis Treatment 7025-40-54G05:48:00.000Z 5791-39-07R44:21:10.000Z BP Sitting (Pre-Dialysis) 111/60 mmHg BP Sitting (Post-Dialysis) 107/51 mmHg Concurrent Access: falseAV Graft Forearm (Right) Arterial BP Standing (Pre-Dialysis) 134/56 mmHg BP Standing (P ost-Dialysis) 138/93 mmHg Sitting Heart Rate Pre-Dialysis 84 BPM Sitting Heart Rate Post-Dialysis 65 BPM Standing Heart Rate Pre-Dialysis 89 BPM Standing Heart Rate Post-Dialysis 64 BPM Temperature Pre-Dialysis 98.8 degF Temperature Post -Dialysis 97.3 degF December 26, 2023 In-Center Hemodialysis Treatment 0015-59-51I96:34:30.000Z 6127-05-05U11:13:30.000Z BP Sitting (Pre-Dialysis) 135/61 mmHg BP Sitting (Post-Dialysis) 134/60 mmHg Concurrent Access: falseAV Graft Forearm (Right) Arterial BP Standing (Pre-Dialysis) 140/69 mmHg BP Standing (P ost-Dialysis) 115/51 mmHg Sitting Heart Rate Pre-Dialysis 69 BPM Sitting Heart Rate Post-Dialysis 77 BPM Standing Heart Rate Pre-Dialysis 86 BPM Standing Heart Rate Post-Dialysis 72 BPM Temperature Pre-Dialysis 98 degF Temperature Post -Dialysis 96.9 degF December 24, 2023 In-Center Hemodialysis Treatment [id number]:56:09.000Z [id number]:27:10.000Z BP Sitting (Pre-Dialysis) 145/78 mmHg BP Sitting (Post-Dialysis) 104/57 mmHg Concurrent Access: falseAV Graft Forearm (Right) Arterial BP Standing (Pre-Dialysis) 127/59 mmHg BP Standing (P ost-Dialysis) 111/47 mmHg Sitting Heart Rate Pre-Dialysis 84 BPM Sitting Heart Rate Post-Dialysis 73 BPM Standing Heart Rate Pre-Dialysis 89 BPM Standing Heart Rate Post-Dialysis 68 BPM Temperature Pre-Dialysis 98.1 degF Temperature Post -Dialysis 97.2 degF December 21, 2023 In-Center Hemodialysis Treatment [id number]:50:00.000Z 5019-75-31P99:26:11.000Z BP Sitting (Pre-Dialysis) 123/55 mmHg BP Sitting (Post-Dialysis) 122/60 mmHg Concurrent Access: falseAV Graft Forearm (Right) Arterial BP Standing (Pre-Dialysis) 100/52 mmHg BP Standing (P ost-Dialysis) 109/52 mmHg Sitting Heart Rate Pre-Dialysis 86 BPM Sitting Heart Rate Post-Dialysis 67 BPM Standing Heart Rate Pre-Dialysis 90 BPM Standing Heart Rate Post-Dialysis 64 BPM Temperature Pre-Dialysis 98.2 degF Temperature Post -Dialysis 97.2 degF December 19, 2023 In-Center Hemodialysis Treatment [id number]:44:11.000Z [id number]:20:11.000Z BP Sitting (Pre-Dialysis) 137/68 mmHg BP Sitting (Post-Dialysis) 135/39 mmHg Concurrent Access: falseAV Graft Forearm (Right) Arterial BP Standing (Pre-Dialysis) 103/65 mmHg BP Standing (P ost-Dialysis) 99/44 mmHg Sitting Heart Rate Pre-Dialysis 88 BPM Sitting Heart Rate Post-Dialysis 73 BPM Standing Heart Rate Pre-Dialysis 96 BPM Standing Heart Rate Post-Dialysis 69 BPM Temperature Pre-Dialysis 97.5 degF Temperature Post -Dialysis 97.2 degF December 17, 2023 In-Center Hemodialysis Treatment [id number]:39:14.000Z 4896-52-76C03:11:15.000Z BP Sitting (Pre-Dialysis) 134/71 mmHg BP Sitting (Post-Dialysis) 110/71 mmHg Concurrent Access: falseAV Graft Forearm (Right) Arterial BP Standing (Pre-Dialysis) 93/54 mmHg BP Standing (P ost-Dialysis) 110/45 mmHg Sitting Heart Rate Pre-Dialysis 84 BPM Sitting Heart Rate Post-Dialysis 81 BPM Standing Heart Rate Pre-Dialysis 92 BPM Standing Heart Rate Post-Dialysis 63 BPM Temperature Pre-Dialysis 97.6 degF Temperature Post -Dialysis 96.7 degF December 14, 2023 In-Center Hemodialysis Treatment 0788-90-51H12:53:10.000Z 1489-49-22K91:24:10.000Z BP Sitting (Pre-Dialysis) 114/50 mmHg BP Sitting (Post-Dialysis) 102/54 mmHg Concurrent Access: falseAV Graft Forearm (Right) ArterialCentral Venous Catheter (CVC) Chest (Right) Venous BP Standing (Pre-Dialysis) 90/49 mmHg BP Standing (P ost-Dialysis) 94/41 mmHg Sitting Heart Rate Pre-Dialysis 81 BPM Sitting H eart Rate Post-Dialysis 62 BPM Standing Heart Rate Pre-Dialysis 85 BPM Standing Heart Rate Post-Dialysis 66 BPM Temperature Pre-Dialysis 98 degF Temperature Post -Dialysis 98 degF December 12, 2023 In-Center Hemodialysis Treatment [id number]:37:00.000Z 1897-49-25Y53:08:28.000Z BP Sitting (Pre-Dialysis) 113/58 mmHg BP Sitting (Post-Dialysis) 147/52 mmHg Concurrent Access: falseAV Graft Forearm (Right) ArterialCentral Venous Catheter (CVC) Chest (Right) Venous BP Standing (Pre-Dialysis) 105/55 mmHg BP Standing (P ost-Dialysis) 120/55 mmHg Sitting Heart Rate Pre-Dialysis 92 BPM Sitting Heart Rate Post-Dialysis 72 BPM Standing Heart Rate Pre-Dialysis 98 BPM Standing Heart Rate Post-Dialysis 69 BPM Temperature Pre-Dialysis 98.1 degF Temperature Post -Dialysis 98 degF December 10, 2023 In-Center Hemodialysis Treatment 1200-24-73L23:49:00.000Z 4898-89-91F34:26:10.000Z BP Sitting (Pre-Dialysis) 157/75 mmHg BP Sitting (Post-Dialysis) 116/55 mmHg Concurrent Access: falseAV Graft Forearm (Right) ArterialCentral Venous Catheter (CVC) Chest (Right) Venous BP Standing (Pre-Dialysis) 159/75 mmHg BP Standing (P ost-Dialysis) 113/47 mmHg Sitting Heart Rate Pre-Dialysis 77 BPM Sitting Heart Rate Post-Dialysis 68 BPM Standing Heart Rate Pre-Dialysis 87 BPM Standing Heart Rate Post-Dialysis 64 BPM Temperature Pre-Dialysis 97.3 degF Temperature Post -Dialysis 97.2 degF December 07, 2023 In-Center Hemodialysis Treatment 5478-11-42P52:54:14.000Z 7101-25-50E73:26:15.000Z BP Sitting (Pre-Dialysis) 102/48 mmHg BP Sitting (Post-Dialysis) 104/50 mmHg Concurrent Access: falseAV Graft Forearm (Right) ArterialCentral Venous Catheter (CVC) Chest (Right) Venous BP Standing (Pre-Dialysis) 119/61 mmHg BP Standing (P ost-Dialysis) 102/32 mmHg Sitting Heart Rate Pre-Dialysis 66 BPM Sitting Heart Rate Post-Dialysis 62 BPM Standing Heart Rate Pre-Dialysis 87 BPM Standing Heart Rate Post-Dialysis 63 BPM Temperature Pre-Dialysis 97.9 degF Temperature Post -Dialysis 97 degF December 05, 2023 In-Center Hemodialysis Treatment 1552-37-05I19:02:09.000Z 3404-89-10R71:37:10.000Z BP Sitting (Pre-Dialysis) 112/57 mmHg BP Sitting (Post-Dialysis) 103/24 mmHg Concurrent Access: falseAV Graft Forearm (Right) ArterialCentral Venous Catheter (CVC) Chest (Right) Venous BP Standing (Pre-Dialysis) 98/45 mmHg BP Standing (P ost-Dialysis) 110/39 mmHg Sitting Heart Rate Pre-Dialysis 80 BPM Sitting Heart Rate Post-Dialysis 61 BPM Standing Heart Rate Pre-Dialysis 90 BPM Standing Heart Rate Post-Dialysis 61 BPM Temperature Pre-Dialysis 98.1 degF Temperature Post -Dialysis 97.2 degF December 03, 2023 In-Center Hemodialysis Treatment [id number]:34:10.000Z 8795-86-12W89:37:10.000Z BP Sitting (Pre-Dialysis) 133/71 mmHg BP Sitting (Post-Dialysis) 111/52 mmHg Concurrent Access: falseAV Graft Forearm (Right) ArterialCentral Venous Catheter (CVC) Chest (Right) Venous BP Standing (Pre-Dialysis) 128/62 mmHg Sitti ng Heart Rate Post-Dialysis 60 BPM Sitting Heart Rate Pre-Dialysis 86 BPM Standing Heart Rate Post-Dialysis 78 BPM Standing Heart Rate Pre-Dialysis 90 BPM Temperat ure Post-Dialysis 97.6 degF Temperature Pre-Dialysis 98.4 degF November 30, 2023 In-Center Hemodialysis Treatment [id number]:39:00.000Z 2410-04-28F95:12:10.000Z BP Sitting (Pre-Dialysis) 105/57 mmHg BP Sitting (Post-Dialysis) 116/57 mmHg Concurrent Access: falseAV Graft Forearm (Right) ArterialCentral Venous Catheter (CVC) Chest (Right) Venous BP Standing (Pre-Dialysis) 104/45 mmHg BP Standing (P ost-Dialysis) 114/48 mmHg Sitting Heart Rate Pre-Dialysis 87 BPM Sitting Heart Rate Post-Dialysis 65 BPM Standing Heart Rate Pre-Dialysis 93 BPM Standing Heart Rate Post-Dialysis 64 BPM Temperature Pre-Dialysis 98.3 degF Temperature Post -Dialysis 97.3 degF November 28, 2023 In-Center Hemodialysis Treatment 1980-58-10A05:43:47.000Z 7005-32-07U60:18:48.000Z BP Sitting (Pre-Dialysis) 104/63 mmHg BP Sitting (Post-Dialysis) 124/60 mmHg Concurrent Access: falseAV Graft Forearm (Right) ArterialCentral Venous Catheter (CVC) Chest (Right) Venous BP Standing (Pre-Dialysis) 102/57 mmHg BP Standing (P ost-Dialysis) 101/47 mmHg Sitting Heart Rate Pre-Dialysis 96 BPM Sitting Heart Rate Post-Dialysis 68 BPM Standing Heart Rate Pre-Dialysis 96 BPM Standing Heart Rate Post-Dialysis 81 BPM Temperature Pre-Dialysis 97.4 degF Temperature Post -Dialysis 97.1 degF November 26, 2023 In-Center Hemodialysis Treatment [id number]:05:10.000Z 2160-43-84B95:37:10.000Z BP Sitting (Pre-Dialysis) 155/73 mmHg BP Sitting (Post-Dialysis) 158/82 mmHg Concurrent Access: falseAV Graft Forearm (Right) ArterialCentral Venous Catheter (CVC) Chest (Right) Venous BP Standing (Pre-Dialysis) 140/74 mmHg BP Standing (P ost-Dialysis) 144/65 mmHg Sitting Heart Rate Pre-Dialysis 85 BPM Sitting Heart Rate Post-Dialysis 73 BPM Standing Heart Rate Pre-Dialysis 96 BPM Standing Heart Rate Post-Dialysis 61 BPM Temperature Pre-Dialysis 95.6 degF Temperature Post -Dialysis 97.5 degF November 23, 2023 In-Center Hemodialysis Treatment 6510-40-13H49:43:00.000Z 2804-02-45J54:19:06.000Z BP Sitting (Pre-Dialysis) 155/62 mmHg BP Sitting (Post-Dialysis) 126/47 mmHg Concurrent Access: falseAV Graft Forearm (Right) ArterialCentral Venous Catheter (CVC) Chest (Right) Venous BP Standing (Pre-Dialysis) 99/64 mmHg Sitting Heart Rate Post-Dialysis 63 BPM Sitting Heart Rate Pre-Dialysis 87 BPM Temperatu re Post-Dialysis 97 degF Standing Heart Rate Pre-Dialysis 96 BPM Temperature Pre-Dialysis 98.4 degF November 21, 2023 In-Center Hemodialysis Treatment 2428-25-55X81:39:00.000Z 5233-00-79N79:14:10.000Z BP Sitting (Pre-Dialysis) 138/58 mmHg BP Sitting (Post-Dialysis) 133/43 mmHg Concurrent Access: falseAV Graft Forearm (Right) ArterialCentral Venous Catheter (CVC) Chest (Right) Venous BP Standing (Pre-Dialysis) 97/51 mmHg BP Standing (P ost-Dialysis) 122/46 mmHg Sitting Heart Rate Pre-Dialysis 85 BPM Sitting Heart Rate Post-Dialysis 94 BPM Standing Heart Rate Pre-Dialysis 94 BPM Standing Heart Rate Post-Dialysis 61 BPM Temperature Pre-Dialysis 97.8 degF Temperature Post -Dialysis 96.7 degF November 19, 2023 In-Center Hemodialysis Treatment 7971-96-72H79:52:10.000Z 5965-73-10M07:31:11.000Z BP Sitting (Pre-Dialysis) 154/73 mmHg BP Sitting (Post-Dialysis) 106/42 mmHg Concurrent Access: falseAV Graft Forearm (Right) ArterialCentral Venous Catheter (CVC) Chest (Right) Venous BP Standing (Pre-Dialysis) 104/67 mmHg Sitti ng Heart Rate Post-Dialysis 64 BPM Sitting Heart Rate Pre-Dialysis 72 BPM Temperatu re Post-Dialysis 97.3 degF Standing Heart Rate Pre-Dialysis 87 BPM Temperature Pre-Dialysis 97.2 degF November 16, 2023 In-Center Hemodialysis Treatment 1709-49-86G97:57:10.000Z 9703-16-89V22:29:10.000Z BP Sitting (Pre-Dialysis) 146/63 mmHg BP Sitting (Post-Dialysis) 116/52 mmHg Concurrent Access: falseAV Graft Forearm (Right) ArterialCentral Venous Catheter (CVC) Chest (Right) Venous BP Standing (Pre-Dialysis) 152/53 mmHg BP Standing (P ost-Dialysis) 97/31 mmHg Sitting Heart Rate Pre-Dialysis 83 BPM Sitting Heart Rate Post-Dialysis 64 BPM Standing Heart Rate Pre-Dialysis 89 BPM Standing Heart Rate Post-Dialysis 64 BPM Temperature Pre-Dialysis 98 degF Temperature Post -Dialysis 97.2 degF November 14, 2023 In-Center Hemodialysis Treatment 6901-40-30M70:51:10.000Z 2846-91-31D84:16:11.000Z BP Sitting (Pre-Dialysis) 121/69 mmHg BP Sitting (Post-Dialysis) 105/50 mmHg Concurrent Access: trueAV Graft Forearm (Right) ArterialCentral Venous Catheter (CVC) Chest (Right) Venous BP Standing (Pre-Dialysis) 131/65 mmHg Sitti ng Heart Rate Post-Dialysis 59 BPM Sitting Heart Rate Pre-Dialysis 87 BPM Temperatu re Post-Dialysis 97.2 degF Standing Heart Rate Pre-Dialysis 91 BPM Temperature Pre-Dialysis 97.4 degF November 12, 2023 In-Center Hemodialysis Treatment 7363-61-26V50:22:00.000Z 4438-45-02X72:58:15.000Z BP Sitting (Pre-Dialysis) 142/68 mmHg BP Sitting (Post-Dialysis) 100/47 mmHg Concurrent Access: falseCentral Venous Catheter (CVC) Chest (Right) ArterialAV Graft Forearm (Right) Venous BP Standing (Pre-Dialysis) 131/55 mmHg Sitting Heart Rate Post-Dialysis 69 BPM Sitting Heart Rate Pre-Dialysis 73 BPM Temperatu re Post-Dialysis 97 degF Standing Heart Rate Pre-Dialysis 91 BPM Temperature Pre-Dialysis 97.3 degF November 09, 2023 In-Center Hemodialysis Treatment 1668-56-59P76:53:00.000Z 1843-18-80W86:27:10.000Z BP Sitting (Pre-Dialysis) 129/64 mmHg BP Sitting (Post-Dialysis) 123/63 mmHg Concurrent Access: falseCentral Venous Catheter (CVC) Chest (Right) ArterialAV Graft Forearm (Right) Venous BP Standing (Pre-Dialysis) 96/58 mmHg BP Standing (P ost-Dialysis) 106/49 mmHg Sitting Heart Rate Pre-Dialysis 62 BPM Sitting Heart Rate Post-Dialysis 64 BPM Standing Heart Rate Pre-Dialysis 87 BPM Standing Heart Rate Post-Dialysis 63 BPM Temperature Pre-Dialysis 98.1 degF Temperature Post -Dialysis 97.3 degF November 07, 2023 In-Center Hemodialysis Treatment 450 mL/min 600 mL/min Concurrent Access: false November 05, 2023 In-Center Hemodialysis Treatment 20 24 -0 9- 03 T1 4: 50 :0 0. 00 0Z 20 24 -0 9- 03 T1 8: 24 :1 0. 00 0Z BP Sitting (Pre-Dial ysis) 163/83 mmHg BP Sitting (Post-Ghazal lysis) 105/5 5 mmHg Concurrent Access: falseAV Graft Forearm (Right) Arterial BP Standing (Pre-Dialysis) 136/65 mmHg BP Standing (P ost-Dialysis) 117/52 mmHg Sitting Heart Rate Pre-Dialysis 85 BPM Sitting Heart Rate Post-Dialysis 79 BPM Standing Heart Rate Pre-Dialysis 88 BPM Standing Heart Rate Post-Dialysis 62 BPM Temperature Pre-Dialysis 98 degF Temperature Post -Dialysis 97.3 degF November 02, 2023 In-Center Hemodialysis Treatment 2141-71-70R39:48:00.000Z 1545-07-35T50:21:50.000Z BP Sitting (Pre-Dialysis) 162/79 mmHg BP Sitting (Post-Dialysis) 126/51 mmHg Concurrent Access: falseAV Graft Forearm (Right) Arterial BP Standing (Pre-Dialysis) 79/50 mmHg BP Standing (P ost-Dialysis) 121/56 mmHg Sitting Heart Rate Pre-Dialysis 92 BPM Sitting Heart Rate Post-Dialysis 60 BPM Standing Heart Rate Pre-Dialysis 103 BPM Standing Heart Rate Post-Dialysis 63 BPM Temperature Pre-Dialysis 98.2 degF Temperature Post -Dialysis 96.4 degF October 31, 2023 In-Center Hemodialysis Treatment 2693-57-96Y94:06:20.000Z 1346-24-45K17:32:21.000Z BP Sitting (Pre-Dialysis) 151/67 mmHg BP Sitting (Post-Dialysis) 112/58 mmHg Concurrent Access: falseAV Graft Forearm (Right) Arterial BP Standing (Pre-Dialysis) 116/60 mmHg BP Standing (P ost-Dialysis) 104/36 mmHg Sitting Heart Rate Pre-Dialysis 81 BPM Sitting Heart Rate Post-Dialysis 67 BPM Standing Heart Rate Pre-Dialysis 88 BPM Standing Heart Rate Post-Dialysis 80 BPM Temperature Pre-Dialysis 97.6 degF Temperature Post -Dialysis 97 degF October 29, 2023 In-Center Hemodialysis Treatment 9979-83-24V00:57:32.000Z 2913-87-29G07:29:32.000Z BP Sitting (Pre-Dialysis) 133/45 mmHg BP Sitting (Post-Dialysis) 89/42 mmHg Concurrent Access: falseAV Graft Forearm (Right) Arterial BP Standing (Pre-Dialysis) 132/52 mmHg BP Standing (P ost-Dialysis) 107/40 mmHg Sitting Heart Rate Pre-Dialysis 69 BPM Sitting Heart Rate Post-Dialysis 62 BPM Standing Heart Rate Pre-Dialysis 75 BPM Standing Heart Rate Post-Dialysis 66 BPM Temperature Pre-Dialysis 97.8 degF Temperature Post -Dialysis 97.2 degF October 26, 2023 In-Center Hemodialysis Treatment [id number]:53:00.000Z [id number]:14:41.000Z BP Sitting (Pre-Dialysis) 128/58 mmHg BP Sitting (Post-Dialysis) 114/51 mmHg Concurrent Access: falseAV Graft Forearm (Right) Arterial BP Standing (Pre-Dialysis) 99/56 mmHg BP Standing (P ost-Dialysis) 104/45 mmHg Sitting Heart Rate Pre-Dialysis 91 BPM Sitting Heart Rate Post-Dialysis 65 BPM Standing Heart Rate Pre-Dialysis 88 BPM Standing Heart Rate Post-Dialysis 63 BPM Temperature Pre-Dialysis 97.5 degF Temperature Post -Dialysis 97 degF October 24, 2023 In-Center Hemodialysis Treatment [id number]:36:40.000Z 1554-79-94S07:01:40.000Z BP Sitting (Pre-Dialysis) 143/69 mmHg BP Sitting (Post-Dialysis) 106/55 mmHg Concurrent Access: falseAV Graft Forearm (Right) Arterial BP Standing (Pre-Dialysis) 126/57 mmHg BP Standing (P ost-Dialysis) 102/47 mmHg Sitting Heart Rate Pre-Dialysis 100 BPM Sitting Heart Rate Post-Dialysis 67 BPM Standing Heart Rate Pre-Dialysis 108 BPM Standing Heart Rate Post-Dialysis 64 BPM Temperature Pre-Dialysis 98.3 degF Temperature Post -Dialysis 97 degF October 22, 2023 In-Center Hemodialysis Treatment [id number]:16:11.000Z [id number]:22:11.000Z BP Sitting (Pre-Dialysis) 146/66 mmHg BP Sitting (Post-Dialysis) 95/52 mmHg Concurrent Access: falseAV Graft Forearm (Right) Arterial BP Standing (Pre-Dialysis) 116/56 mmHg BP Standing (P ost-Dialysis) 111/45 mmHg Sitting Heart Rate Pre-Dialysis 73 BPM Sitting Heart Rate Post-Dialysis 64 BPM Standing Heart Rate Pre-Dialysis 90 BPM Standing Heart Rate Post-Dialysis 66 BPM Temperature Pre-Dialysis 97.4 degF Temperature Post -Dialysis 96.8 degF October 19, 2023 In-Center Hemodialysis Treatment [id number]:44:00.000Z [id number]:16:07.000Z BP Sitting (Pre-Dialysis) 103/54 mmHg BP Sitting (Post-Dialysis) 110/48 mmHg Concurrent Access: falseAV Graft Forearm (Right) Arterial BP Standing (Pre-Dialysis) 119/52 mmHg BP Standing (P ost-Dialysis) 103/42 mmHg Sitting Heart Rate Pre-Dialysis 77 BPM Sitting Heart Rate Post-Dialysis 62 BPM Standing Heart Rate Pre-Dialysis 84 BPM Standing Heart Rate Post-Dialysis 61 BPM Temperature Pre-Dialysis 97.2 degF Temperature Post -Dialysis 97 degF October 17, 2023 In-Center Hemodialysis Treatment [id number]:45:00.000Z 5050-50-09I89:16:07.000Z BP Sitting (Pre-Dialysis) 121/60 mmHg BP Sitting (Post-Dialysis) 149/67 mmHg Concurrent Access: falseAV Graft Forearm (Right) Arterial BP Standing (Pre-Dialysis) 129/59 mmHg BP Standing (P ost-Dialysis) 110/50 mmHg Sitting Heart Rate Pre-Dialysis 90 BPM Sitting Heart Rate Post-Dialysis 62 BPM Standing Heart Rate Pre-Dialysis 94 BPM Standing Heart Rate Post-Dialysis 64 BPM Temperature Pre-Dialysis 97.9 degF Temperature Post -Dialysis 97 degF October 15, 2023 In-Center Hemodialysis Treatment [id number]:47:00.000Z [id number]:22:07.000Z BP Sitting (Pre-Dialysis) 175/85 mmHg BP Sitting (Post-Dialysis) 156/81 mmHg Concurrent Access: falseAV Graft Forearm (Right) Arterial BP Standing (Pre-Dialysis) 160/84 mmHg BP Standing (P ost-Dialysis) 136/53 mmHg Sitting Heart Rate Pre-Dialysis 72 BPM Sitting Heart Rate Post-Dialysis 66 BPM Standing Heart Rate Pre-Dialysis 85 BPM Standing Heart Rate Post-Dialysis 65 BPM Temperature Pre-Dialysis 96.8 degF Temperature Post -Dialysis 97 degF October 12, 2023 In-Center Hemodialysis Treatment [id number]:42:00.000Z 4279-03-99C12:15:10.000Z BP Sitting (Pre-Dialysis) 126/54 mmHg BP Sitting (Post-Dialysis) 117/49 mmHg Concurrent Access: falseAV Graft Forearm (Right) Arterial BP Standing (Pre-Dialysis) 73/49 mmHg BP Standing (P ost-Dialysis) 96/43 mmHg Sitting Heart Rate Pre-Dialysis 87 BPM Sitting H eart Rate Post-Dialysis 63 BPM Standing Heart Rate Pre-Dialysis 93 BPM Standing Heart Rate Post-Dialysis 63 BPM Temperature Pre-Dialysis 97.6 degF Temperature Post -Dialysis 97.2 degF October 10, 2023 In-Center Hemodialysis Treatment 9639-54-15U13:10:10.000Z 9836-55-85Y07:41:10.000Z BP Sitting (Pre-Dialysis) 136/59 mmHg BP Sitting (Post-Dialysis) 99/49 mmHg Concurrent Access: falseAV Graft Forearm (Right) Arterial BP Standing (Pre-Dialysis) 118/59 mmHg BP Standing (P ost-Dialysis) 97/38 mmHg Sitting Heart Rate Pre-Dialysis 87 BPM Sitting Heart Rate Post-Dialysis 65 BPM Standing Heart Rate Pre-Dialysis 94 BPM Standing Heart Rate Post-Dialysis 63 BPM Temperature Pre-Dialysis 97.6 degF Temperature Post -Dialysis 97.2 degF October 08, 2023 In-Center Hemodialysis Treatment [id number]:50:00.000Z 6080-45-40D81:22:10.000Z BP Sitting (Pre-Dialysis) 134/69 mmHg BP Sitting (Post-Dialysis) 96/38 mmHg Concurrent Access: falseAV Graft Forearm (Right) Arterial BP Standing (Pre-Dialysis) 142/60 mmHg Sitting Heart Rate Post-Dialysis 60 BPM Sitting Heart Rate Pre-Dialysis 89 BPM Temperatu re Post-Dialysis 97 degF Standing Heart Rate Pre-Dialysis 95 BPM Temperature Pre-Dialysis 97.4 degF October 05, 2023 In-Center Hemodialysis Treatment 8970-98-04K00:42:00.000Z 8366-18-22U09:14:26.000Z BP Sitting (Pre-Dialysis) 150/77 mmHg BP Sitting (Post-Dialysis) 115/52 mmHg Concurrent Access: falseAV Graft Forearm (Right) Arterial BP Standing (Pre-Dialysis) 128/83 mmHg BP Standing (P ost-Dialysis) 114/46 mmHg Sitting Heart Rate Pre-Dialysis 82 BPM Sitting Heart Rate Post-Dialysis 69 BPM Standing Heart Rate Pre-Dialysis 90 BPM Standing Heart Rate Post-Dialysis 59 BPM Temperature Pre-Dialysis 97.2 degF Temperature Post -Dialysis 97.2 degF October 03, 2023 In-Center Hemodialysis Treatment [id number]:28:26.000Z 9721-36-87L37:59:25.000Z BP Sitting (Pre-Dialysis) 124/64 mmHg BP Sitting (Post-Dialysis) 114/56 mmHg Concurrent Access: falseAV Graft Forearm (Right) Arterial BP Standing (Pre-Dialysis) 115/48 mmHg BP Standing (P ost-Dialysis) 103/45 mmHg Sitting Heart Rate Pre-Dialysis 100 BPM Sitting Heart Rate Post-Dialysis 62 BPM Standing Heart Rate Pre-Dialysis 105 BPM Standing Heart Rate Post-Dialysis 67 BPM Temperature Pre-Dialysis 97.6 degF Temperature Post -Dialysis 97 degF October 01, 2023 In-Center Hemodialysis Treatment [id number]:38:00.000Z 9425-02-80H85:10:26.000Z BP Sitting (Pre-Dialysis) 172/81 mmHg BP Sitting (Post-Dialysis) 126/50 mmHg Concurrent Access: falseAV Graft Forearm (Right) ArterialCentral Venous Catheter (CVC) Chest (Right) Venous BP Standing (Pre-Dialysis) 165/79 mmHg BP Standing (P ost-Dialysis) 112/37 mmHg Sitting Heart Rate Pre-Dialysis 90 BPM Sitting Heart Rate Post-Dialysis 72 BPM Standing Heart Rate Pre-Dialysis 98 BPM Standing Heart Rate Post-Dialysis 63 BPM Temperature Pre-Dialysis 97.6 degF Temperature Post -Dialysis 96.3 degF September 28, 2023 In-Center Hemodialysis Treatment [id number]:43:24.000Z 8327-45-25X68:13:24.000Z BP Sitting (Pre-Dialysis) 145/68 mmHg BP Sitting (Post-Dialysis) 110/44 mmHg Concurrent Access: falseAV Graft Forearm (Right) ArterialCentral Venous Catheter (CVC) Chest (Right) Venous BP Standing (Pre-Dialysis) 121/61 mmHg Sitti ng Heart Rate Post-Dialysis 62 BPM Sitting Heart Rate Pre-Dialysis 93 BPM Temperatu re Post-Dialysis 97.2 degF Standing Heart Rate Pre-Dialysis 102 BPM Temperature Pre-Dialysis 98.2 degF September 26, 2023 In-Center Hemodialysis Treatment 7912-28-56J79:34:24.000Z 7611-57-30T73:09:24.000Z BP Sitting (Pre-Dialysis) 132/64 mmHg BP Sitting (Post-Dialysis) 116/53 mmHg Concurrent Access: falseAV Graft Forearm (Right) ArterialCentral Venous Catheter (CVC) Chest (Right) Venous BP Standing (Pre-Dialysis) 135/63 mmHg BP Standing (P ost-Dialysis) 112/46 mmHg Sitting Heart Rate Pre-Dialysis 94 BPM Sitting Heart Rate Post-Dialysis 69 BPM Standing Heart Rate Pre-Dialysis 98 BPM Standing Heart Rate Post-Dialysis 66 BPM Temperature Pre-Dialysis 98 degF Temperature Post -Dialysis 98 degF September 24, 2023 In-Center Hemodialysis Treatment 4618-30-45S39:35:00.000Z 1425-77-06M38:07:24.000Z BP Sitting (Pre-Dialysis) 165/86 mmHg BP Sitting (Post-Dialysis) 143/67 mmHg Concurrent Access: falseAV Graft Forearm (Right) ArterialCentral Venous Catheter (CVC) Chest (Right) Venous BP Standing (Pre-Dialysis) 149/77 mmHg BP Standing (P ost-Dialysis) 136/53 mmHg Sitting Heart Rate Pre-Dialysis 98 BPM Sitting Heart Rate Post-Dialysis 67 BPM Standing Heart Rate Pre-Dialysis 106 BPM Standing Heart Rate Post-Dialysis 69 BPM Temperature Pre-Dialysis 98 degF Temperature Post -Dialysis 97.8 degF September 21, 2023 In-Center Hemodialysis Treatment [id number]:49:32.000Z [id number]:21:32.000Z BP Sitting (Pre-Dialysis) 143/71 mmHg BP Sitting (Post-Dialysis) 149/67 mmHg Concurrent Access: falseCentral Venous Catheter (CVC) Chest (Right) ArterialAV Graft Forearm (Right) Venous BP Standing (Pre-Dialysis) 137/58 mmHg BP Standing (P ost-Dialysis) 123/56 mmHg Sitting Heart Rate Pre-Dialysis 92 BPM Sitting Heart Rate Post-Dialysis 63 BPM Standing Heart Rate Pre-Dialysis 101 BPM Standing Heart Rate Post-Dialysis 63 BPM Temperature Pre-Dialysis 98.5 degF Temperature Post -Dialysis 97 degF September 19, 2023 In-Center Hemodialysis Treatment 5825-03-18F58:31:32.000Z 9996-99-08N03:01:32.000Z BP Sitting (Pre-Dialysis) 167/78 mmHg BP Sitting (Post-Dialysis) 148/67 mmHg Concurrent Access: falseCentral Venous Catheter (CVC) Chest (Right) ArterialAV Graft Forearm (Right) Venous BP Standing (Pre-Dialysis) 132/61 mmHg BP Standing (P ost-Dialysis) 132/51 mmHg Sitting Heart Rate Pre-Dialysis 96 BPM Sitting Heart Rate Post-Dialysis 63 BPM Standing Heart Rate Pre-Dialysis 102 BPM Standing Heart Rate Post-Dialysis 64 BPM Temperature Pre-Dialysis 97.2 degF Temperature Post -Dialysis 97.2 degF September 17, 2023 In-Center Hemodialysis Treatment [id number]:51:00.000Z [id number]:25:32.000Z BP Sitting (Pre-Dialysis) 167/80 mmHg BP Sitting (Post-Dialysis) 172/69 mmHg Concurrent Access: falseCentral Venous Catheter (CVC) Chest (Right) ArterialAV Graft Forearm (Right) Venous BP Standing (Pre-Dialysis) 139/72 mmHg BP Standing (P ost-Dialysis) 122/51 mmHg Sitting Heart Rate Pre-Dialysis 89 BPM Sitting Heart Rate Post-Dialysis 67 BPM Standing Heart Rate Pre-Dialysis 94 BPM Standing Heart Rate Post-Dialysis 68 BPM Temperature Pre-Dialysis 98 degF Temperature Post -Dialysis 97.8 degF September 14, 2023 In-Center Hemodialysis Treatment 3633-19-57G64:58:42.000Z 2624-36-00F02:30:42.000Z BP Sitting (Pre-Dialysis) 150/88 mmHg BP Sitting (Post-Dialysis) 138/66 mmHg Concurrent Access: falseCentral Venous Catheter (CVC) Chest (Right) ArterialAV Graft Forearm (Right) Venous BP Standing (Pre-Dialysis) 131/61 mmHg BP Standing (P ost-Dialysis) 138/58 mmHg Sitting Heart Rate Pre-Dialysis 82 BPM Sitting Heart Rate Post-Dialysis 64 BPM Standing Heart Rate Pre-Dialysis 96 BPM Standing Heart Rate Post-Dialysis 64 BPM Temperature Pre-Dialysis 98.1 degF Temperature Post -Dialysis 97.2 degF September 12, 2023 In-Center Hemodialysis Treatment [id number]:27:00.000Z 5118-07-01L44:00:42.000Z BP Sitting (Pre-Dialysis) 102/51 mmHg BP Sitting (Post-Dialysis) 142/50 mmHg Concurrent Access: falseCentral Venous Catheter (CVC) Chest (Right) ArterialAV Graft Forearm (Right) Venous BP Standing (Pre-Dialysis) 84/50 mmHg BP Standing (P ost-Dialysis) 138/63 mmHg Sitting Heart Rate Pre-Dialysis 86 BPM Sitting Heart Rate Post-Dialysis 69 BPM Standing Heart Rate Pre-Dialysis 93 BPM Standing Heart Rate Post-Dialysis 71 BPM Temperature Pre-Dialysis 97.7 degF Temperature Post -Dialysis 97 degF September 10, 2023 In-Center Hemodialysis Treatment [id number]:53:00.000Z 1010-78-30I02:21:42.000Z BP Sitting (Pre-Dialysis) 141/77 mmHg BP Sitting (Post-Dialysis) 99/53 mmHg Concurrent Access: falseCentral Venous Catheter (CVC) Chest (Right) ArterialAV Graft Forearm (Right) Venous BP Standing (Pre-Dialysis) 134/67 mmHg BP Standing (P ost-Dialysis) 119/60 mmHg Sitting Heart Rate Pre-Dialysis 84 BPM Sitting Heart Rate Post-Dialysis 95 BPM Standing Heart Rate Pre-Dialysis 84 BPM Standing Heart Rate Post-Dialysis 64 BPM Temperature Pre-Dialysis 97.9 degF Temperature Post -Dialysis 97 degF September 07, 2023 In-Center Hemodialysis Treatment 4051-17-30R51:53:31.000Z 0590-19-83M31:24:32.000Z BP Sitting (Pre-Dialysis) 130/64 mmHg BP Sitting (Post-Dialysis) 139/61 mmHg Concurrent Access: falseCentral Venous Catheter (CVC) Chest (Right) ArterialAV Graft Forearm (Right) Venous BP Standing (Pre-Dialysis) 115/47 mmHg BP Standing (P ost-Dialysis) 133/54 mmHg Sitting Heart Rate Pre-Dialysis 84 BPM Sitting Heart Rate Post-Dialysis 65 BPM Standing Heart Rate Pre-Dialysis 89 BPM Standing Heart Rate Post-Dialysis 63 BPM Temperature Pre-Dialysis 98.3 degF Temperature Post -Dialysis 97 degF September 05, 2023 In-Center Hemodialysis Treatment 1385-00-56C23:44:00.000Z 1645-44-81U57:14:32.000Z BP Sitting (Pre-Dialysis) 106/46 mmHg BP Sitting (Post-Dialysis) 133/73 mmHg Concurrent Access: falseCentral Venous Catheter (CVC) Chest (Right) ArterialAV Graft Forearm (Right) Venous BP Standing (Pre-Dialysis) 89/33 mmHg BP Standing (P ost-Dialysis) 130/56 mmHg Sitting Heart Rate Pre-Dialysis 61 BPM Sitting Heart Rate Post-Dialysis 122 BPM Standing Heart Rate Pre-Dialysis 90 BPM Standing Heart Rate Post-Dialysis 70 BPM Temperature Pre-Dialysis 97.2 degF Temperature Post -Dialysis 97.6 degF September 03, 2023 In-Center Hemodialysis Treatment [id number]:39:06.000Z 7432-29-74P48:10:06.000Z BP Sitting (Pre-Dialysis) 89/59 mmHg BP Sitting (Post-Dialysis) 102/49 mmHg Concurrent Access: falseCentral Venous Catheter (CVC) Chest (Right) ArterialAV Graft Forearm (Right) Venous BP Standing (Pre-Dialysis) 152/49 mmHg Sitting Heart Rate Post-Dialysis 63 BPM Sitting Heart Rate Pre-Dialysis 74 BPM Temperatu re Post-Dialysis 97 degF Standing Heart Rate Pre-Dialysis 88 BPM Temperature Pre-Dialysis 97.9 degF August 31, 2023 In-Center Hemodialysis Treatment [id number]:48:07.000Z 3681-94-98F36:29:07.000Z BP Sitting (Pre-Dialysis) 122/62 mmHg BP Sitting (Post-Dialysis) 102/49 mmHg Concurrent Access: falseCentral Venous Catheter (CVC) Chest (Right) ArterialAV Graft Forearm (Right) Venous BP Standing (Pre-Dialysis) 107/60 mmHg Sitti ng Heart Rate Post-Dialysis 69 BPM Sitting Heart Rate Pre-Dialysis 75 BPM Temperatu re Post-Dialysis 96.7 degF Standing Heart Rate Pre-Dialysis 99 BPM Temperature Pre-Dialysis 98.8 degF August 29, 2023 In-Center Hemodialysis Treatment 1434-13-35J26:44:07.000Z 0646-79-94R70:16:07.000Z BP Sitting (Pre-Dialysis) 104/56 mmHg BP Sitting (Post-Dialysis) 105/55 mmHg Concurrent Access: falseCentral Venous Catheter (CVC) Chest (Right) Arterial BP Standing (Pre-Dialysis) 77/38 mmHg BP Standing (P ost-Dialysis) 100/54 mmHg Sitting Heart Rate Pre-Dialysis 85 BPM Sitting Heart Rate Post-Dialysis 61 BPM Standing Heart Rate Pre-Dialysis 62 BPM Standing Heart Rate Post-Dialysis 63 BPM Temperature Pre-Dialysis 98.2 degF Temperature Post -Dialysis 97.2 degF August 27, 2023 In-Center Hemodialysis Treatment [id number]:38:00.000Z 4401-29-27G73:12:07.000Z BP Sitting (Pre-Dialysis) 105/53 mmHg BP Sitting (Post-Dialysis) 103/58 mmHg Concurrent Access: falseCentral Venous Catheter (CVC) Chest (Right) Arterial BP Standing (Pre-Dialysis) 123/98 mmHg BP Standing (P ost-Dialysis) 150/20 mmHg Sitting Heart Rate Pre-Dialysis 93 BPM Sitting Heart Rate Post-Dialysis 58 BPM Standing Heart Rate Pre-Dialysis 102 BPM Standing Heart Rate Post-Dialysis 40 BPM Temperature Pre-Dialysis 97.3 degF Temperature Post -Dialysis 97.6 degF August 24, 2023 In-Center Hemodialysis Treatment [id number]:45:19.000Z 5911-34-07O36:32:20.000Z BP Sitting (Pre-Dialysis) 92/48 mmHg BP Sitting (Post-Dialysis) 119/43 mmHg Concurrent Access: falseCentral Venous Catheter (CVC) Chest (Right) Arterial BP Standing (Pre-Dialysis) 73/56 mmHg BP Standing (P ost-Dialysis) 131/42 mmHg Sitting Heart Rate Pre-Dialysis 88 BPM Sitting Heart Rate Post-Dialysis 76 BPM Standing Heart Rate Pre-Dialysis 88 BPM Standing Heart Rate Post-Dialysis 72 BPM Temperature Pre-Dialysis 97.3 degF August 22, 2023 In-Center Hemodialysis Treatment [id number]:27:00.000Z 2167-76-04I46:02:19.000Z BP Sitting (Pre-Dialysis) 98/70 mmHg BP Sitting (Post-Dialysis) 143/63 mmHg Concurrent Access: falseCentral Venous Catheter (CVC) Chest (Right) Arterial BP Standing (Pre-Dialysis) 76/49 mmHg BP Standing (P ost-Dialysis) 131/50 mmHg Sitting Heart Rate Pre-Dialysis 87 BPM Sitting Heart Rate Post-Dialysis 62 BPM Standing Heart Rate Pre-Dialysis 92 BPM Standing Heart Rate Post-Dialysis 64 BPM Temperature Pre-Dialysis 97.3 degF Temperature Post -Dialysis 97.3 degF August 20, 2023 In-Center Hemodialysis Treatment [id number]:32:00.000Z 3554-75-18Q50:06:19.000Z BP Sitting (Pre-Dialysis) 124/65 mmHg BP Sitting (Post-Dialysis) 122/56 mmHg Concurrent Access: falseCentral Venous Catheter (CVC) Chest (Right) Arterial BP Standing (Pre-Dialysis) 102/60 mmHg BP Standing (P ost-Dialysis) 115/48 mmHg Sitting Heart Rate Pre-Dialysis 98 BPM Sitting Heart Rate Post-Dialysis 70 BPM Standing Heart Rate Pre-Dialysis 105 BPM Standing Heart Rate Post-Dialysis 75 BPM Temperature Pre-Dialysis 97 degF Temperature Post -Dialysis 97.6 degF August 17, 2023 In-Center Hemodialysis Treatment 7355-57-50G49:53:00.000Z 8220-30-02D62:27:15.000Z BP Sitting (Pre-Dialysis) 142/60 mmHg BP Sitting (Post-Dialysis) 121/59 mmHg Concurrent Access: falseCentral Venous Catheter (CVC) Chest (Right) Arterial BP Standing (Pre-Dialysis) 112/57 mmHg BP Standing (P ost-Dialysis) 116/55 mmHg Sitting Heart Rate Pre-Dialysis 86 BPM Sitting Heart Rate Post-Dialysis 66 BPM Standing Heart Rate Pre-Dialysis 87 BPM Standing Heart Rate Post-Dialysis 68 BPM Temperature Pre-Dialysis 97.7 degF Temperature Post -Dialysis 97.7 degF August 15, 2023 In-Center Hemodialysis Treatment [id number]:54:00.000Z 8304-99-21V83:36:15.000Z BP Sitting (Pre-Dialysis) 108/64 mmHg BP Sitting (Post-Dialysis) 97/56 mmHg Concurrent Access: falseCentral Venous Catheter (CVC) Chest (Right) ArterialAV Fistula Upper Arm (Right) Venous BP Standing (Pre-Dialysis) 86/64 mmHg BP Standing (P ost-Dialysis) 118/93 mmHg Sitting Heart Rate Pre-Dialysis 84 BPM Sitting Heart Rate Post-Dialysis 63 BPM Standing Heart Rate Pre-Dialysis 89 BPM Standing Heart Rate Post-Dialysis 119 BPM Temperature Pre-Dialysis 98 degF Temperature Post -Dialysis 98.1 degF August 13, 2023 In-Center Hemodialysis Treatment 0523-11-86E56:12:15.000Z 1124-36-81P50:13:15.000Z BP Sitting (Pre-Dialysis) 144/79 mmHg BP Sitting (Post-Dialysis) 100/74 mmHg Concurrent Access: falseCentral Venous Catheter (CVC) Chest (Right) ArterialAV Fistula Upper Arm (Right) Venous BP Standing (Pre-Dialysis) 102/53 mmHg BP Standing (P ost-Dialysis) 104/57 mmHg Sitting Heart Rate Pre-Dialysis 86 BPM Sitting Heart Rate Post-Dialysis 63 BPM Standing Heart Rate Pre-Dialysis 94 BPM Standing Heart Rate Post-Dialysis 77 BPM Temperature Pre-Dialysis 98.2 degF Temperature Post -Dialysis 96.8 degF August 10, 2023 In-Center Hemodialysis Treatment 6863-35-31G86:47:00.000Z 6433-38-71O28:21:08.000Z BP Sitting (Pre-Dialysis) 136/64 mmHg BP Sitting (Post-Dialysis) 114/52 mmHg Concurrent Access: falseCentral Venous Catheter (CVC) Chest (Right) ArterialAV Fistula Upper Arm (Right) Venous BP Standing (Pre-Dialysis) 102/48 mmHg BP Standing (P ost-Dialysis) 105/38 mmHg Sitting Heart Rate Pre-Dialysis 86 BPM Sitting Heart Rate Post-Dialysis 62 BPM Standing Heart Rate Pre-Dialysis 100 BPM Standing Heart Rate Post-Dialysis 62 BPM Temperature Pre-Dialysis 97.4 degF Temperature Post -Dialysis 97.3 degF August 08, 2023 In-Center Hemodialysis Treatment 7877-82-49Y41:45:00.000Z 9104-83-82S62:20:31.000Z BP Sitting (Pre-Dialysis) 125/71 mmHg BP Sitting (Post-Dialysis) 109/50 mmHg Concurrent Access: falseCentral Venous Catheter (CVC) Chest (Right) ArterialAV Fistula Upper Arm (Right) Venous BP Standing (Pre-Dialysis) 99/61 mmHg BP Standing (P ost-Dialysis) 104/49 mmHg Sitting Heart Rate Pre-Dialysis 88 BPM Sitting Heart Rate Post-Dialysis 64 BPM Standing Heart Rate Pre-Dialysis 96 BPM Standing Heart Rate Post-Dialysis 61 BPM Temperature Pre-Dialysis 97.5 degF Temperature Post -Dialysis 97.5 degF August 06, 2023 In-Center Hemodialysis Treatment 6631-73-19B84:34:00.000Z 9616-11-17L23:13:42.000Z BP Sitting (Pre-Dialysis) 142/81 mmHg BP Sitting (Post-Dialysis) 92/40 mmHg Concurrent Access: falseCentral Venous Catheter (CVC) Chest (Right) ArterialAV Fistula Upper Arm (Right) Venous BP Standing (Pre-Dialysis) 148/71 mmHg BP Standing (P ost-Dialysis) 99/49 mmHg Sitting Heart Rate Pre-Dialysis 84 BPM Sitting Heart Rate Post-Dialysis 64 BPM Standing Heart Rate Pre-Dialysis 99 BPM Standing Heart Rate Post-Dialysis 64 BPM Temperature Pre-Dialysis 98 degF Temperature Post -Dialysis 97.7 degF August 03, 2023 In-Center Hemodialysis Treatment 1972-06-15H61:36:00.000Z 8136-26-57W15:10:21.000Z BP Sitting (Pre-Dialysis) 126/78 mmHg BP Sitting (Post-Dialysis) 105/62 mmHg Concurrent Access: falseCentral Venous Catheter (CVC) Chest (Right) ArterialAV Fistula Upper Arm (Right) Venous BP Standing (Pre-Dialysis) 94/55 mmHg BP Standing (P ost-Dialysis) 95/56 mmHg Sitting Heart Rate Pre-Dialysis 96 BPM Sitting H eart Rate Post-Dialysis 66 BPM Standing Heart Rate Pre-Dialysis 74 BPM Standing Heart Rate Post-Dialysis 66 BPM Temperature Pre-Dialysis 98.4 degF Temperature Post -Dialysis 97.2 degF August 01, 2023 In-Center Hemodialysis Treatment 2115-74-89P36:42:00.000Z 7585-34-97A44:20:21.000Z BP Sitting (Pre-Dialysis) 168/88 mmHg BP Sitting (Post-Dialysis) 102/51 mmHg Concurrent Access: falseCentral Venous Catheter (CVC) Chest (Right) ArterialAV Fistula Upper Arm (Right) Venous BP Standing (Pre-Dialysis) 169/86 mmHg Sitti ng Heart Rate Post-Dialysis 59 BPM Sitting Heart Rate Pre-Dialysis 76 BPM Temperatu re Post-Dialysis 97.5 degF Standing Heart Rate Pre-Dialysis 90 BPM Temperature Pre-Dialysis 97.2 degF July 30, 2023 In-Center Hemodialysis Treatment 8314-03-36Z60:43:00.000Z 8361-81-78A95:16:21.000Z BP Sitting (Pre-Dialysis) 160/84 mmHg BP Sitting (Post-Dialysis) 107/52 mmHg Concurrent Access: falseCentral Venous Catheter (CVC) Chest (Right) ArterialAV Fistula Upper Arm (Right) Venous BP Standing (Pre-Dialysis) 140/79 mmHg BP Standing (P ost-Dialysis) 110/50 mmHg Sitting Heart Rate Pre-Dialysis 86 BPM Sitting Heart Rate Post-Dialysis 66 BPM Standing Heart Rate Pre-Dialysis 92 BPM Standing Heart Rate Post-Dialysis 64 BPM Temperature Pre-Dialysis 97.7 degF Temperature Post -Dialysis 97.2 degF July 27, 2023 In-Center Hemodialysis Treatment [id number]:42:07.000Z 6440-64-32D82:12:07.000Z BP Sitting (Pre-Dialysis) 141/59 mmHg BP Sitting (Post-Dialysis) 145/30 mmHg Concurrent Access: falseCentral Venous Catheter (CVC) Chest (Right) ArterialAV Fistula Upper Arm (Right) Venous BP Standing (Pre-Dialysis) 127/66 mmHg BP Standing (P ost-Dialysis) 146/55 mmHg Sitting Heart Rate Pre-Dialysis 93 BPM Sitting Heart Rate Post-Dialysis 115 BPM Standing Heart Rate Pre-Dialysis 98 BPM Standing Heart Rate Post-Dialysis 67 BPM Temperature Pre-Dialysis 98.1 degF Temperature Post -Dialysis 97.3 degF July 25, 2023 In-Center Hemodialysis Treatment [id number]:30:11.000Z 6677-14-68D10:09:11.000Z BP Sitting (Pre-Dialysis) 136/69 mmHg BP Sitting (Post-Dialysis) 105/43 mmHg Concurrent Access: falseCentral Venous Catheter (CVC) Chest (Right) ArterialAV Fistula Upper Arm (Right) Venous BP Standing (Pre-Dialysis) 111/57 mmHg Sitti ng Heart Rate Post-Dialysis 120 BPM Sitting Heart Rate Pre-Dialysis 90 BPM Temperatu re Post-Dialysis 97.3 degF Standing Heart Rate Pre-Dialysis 94 BPM Temperature Pre-Dialysis 99.5 degF July 23, 2023 In-Center Hemodialysis Treatment [id number]:03:00.000Z 6942-67-53Z67:36:07.000Z BP Sitting (Pre-Dialysis) 114/67 mmHg BP Sitting (Post-Dialysis) 104/53 mmHg Concurrent Access: falseCentral Venous Catheter (CVC) Chest (Right) ArterialAV Fistula Upper Arm (Right) Venous BP Standing (Pre-Dialysis) 94/56 mmHg BP Standing (P ost-Dialysis) 103/44 mmHg Sitting Heart Rate Pre-Dialysis 78 BPM Sitting Heart Rate Post-Dialysis 63 BPM Standing Heart Rate Pre-Dialysis 78 BPM Standing Heart Rate Post-Dialysis 64 BPM Temperature Pre-Dialysis 97.8 degF Temperature Post -Dialysis 97 degF July 20, 2023 In-Center Hemodialysis Treatment [id number]:38:00.000Z [id number]:10:28.000Z BP Sitting (Pre-Dialysis) 112/54 mmHg BP Sitting (Post-Dialysis) 167/73 mmHg Concurrent Access: falseCentral Venous Catheter (CVC) Chest (Right) ArterialAV Fistula Upper Arm (Right) Venous BP Standing (Pre-Dialysis) 81/43 mmHg BP Standing (P ost-Dialysis) 126/53 mmHg Sitting Heart Rate Pre-Dialysis 77 BPM Sitting Heart Rate Post-Dialysis 71 BPM Standing Heart Rate Pre-Dialysis 85 BPM Standing Heart Rate Post-Dialysis 65 BPM Temperature Pre-Dialysis 97.2 degF Temperature Post -Dialysis 97.2 degF July 18, 2023 In-Center Hemodialysis Treatment [id number]:48:39.000Z [id number]:19:39.000Z BP Sitting (Pre-Dialysis) 137/37 mmHg BP Sitting (Post-Dialysis) 128/60 mmHg Concurrent Access: falseCentral Venous Catheter (CVC) Chest (Right) ArterialAV Fistula Upper Arm (Right) Venous BP Standing (Pre-Dialysis) 112/55 mmHg BP Standing (P ost-Dialysis) 135/58 mmHg Sitting Heart Rate Pre-Dialysis 84 BPM Sitting Heart Rate Post-Dialysis 62 BPM Standing Heart Rate Pre-Dialysis 90 BPM Standing Heart Rate Post-Dialysis 66 BPM Temperature Pre-Dialysis 97.6 degF Temperature Post -Dialysis 97.2 degF July 16, 2023 In-Center Hemodialysis Treatment [id number]:13:00.000Z [id number]:48:12.000Z BP Sitting (Pre-Dialysis) 144/73 mmHg BP Sitting (Post-Dialysis) 102/50 mmHg Concurrent Access: falseCentral Venous Catheter (CVC) Chest (Right) ArterialAV Fistula Upper Arm (Right) Venous BP Standing (Pre-Dialysis) 95/61 mmHg BP Standing (P ost-Dialysis) 120/36 mmHg Sitting Heart Rate Pre-Dialysis 86 BPM Sitting Heart Rate Post-Dialysis 61 BPM Standing Heart Rate Pre-Dialysis 92 BPM Standing Heart Rate Post-Dialysis 62 BPM Temperature Pre-Dialysis 97.2 degF Temperature Post -Dialysis 97 degF July 13, 2023 In-Center Hemodialysis Treatment [id number]:44:22.000Z [id number]:14:23.000Z BP Sitting (Pre-Dialysis) 94/49 mmHg BP Sitting (Post-Dialysis) 124/40 mmHg Concurrent Access: falseCentral Venous Catheter (CVC) Chest (Right) ArterialAV Fistula Upper Arm (Right) Venous BP Standing (Pre-Dialysis) 83/30 mmHg BP Standing (P ost-Dialysis) 99/46 mmHg Sitting Heart Rate Pre-Dialysis 83 BPM Sitting H eart Rate Post-Dialysis 67 BPM Standing Heart Rate Pre-Dialysis 83 BPM Standing Heart Rate Post-Dialysis 64 BPM Temperature Pre-Dialysis 97.6 degF Temperature Post -Dialysis 97.5 degF July 11, 2023 In-Center Hemodialysis Treatment [id number]:36:00.000Z 5924-59-73I91:08:23.000Z BP Sitting (Pre-Dialysis) 110/56 mmHg BP Sitting (Post-Dialysis) 130/58 mmHg Concurrent Access: falseCentral Venous Catheter (CVC) Chest (Right) ArterialAV Fistula Upper Arm (Right) Venous BP Standing (Pre-Dialysis) 95/55 mmHg BP Standing (P ost-Dialysis) 113/46 mmHg Sitting Heart Rate Pre-Dialysis 73 BPM Sitting Heart Rate Post-Dialysis 63 BPM Standing Heart Rate Pre-Dialysis 91 BPM Standing Heart Rate Post-Dialysis 62 BPM Temperature Pre-Dialysis 97.4 degF Temperature Post -Dialysis 97.3 degF July 10, 2023 Additional Day Of Dialysis Treatment [id number]:59:00.000Z 3319-61-07K70:02:43.000Z BP Sitting (Pre-Dialysis) 122/61 mmHg BP Sitting (Post-Dialysis) 82/38 mmHg Concurrent Access: falseCentral Venous Catheter (CVC) Chest (Right) ArterialAV Fistula Upper Arm (Right) Venous BP Standing (Pre-Dialysis) 81/43 mmHg Sitti ng Heart Rate Post-Dialysis 61 BPM Sitting Heart Rate Pre-Dialysis 63 BPM Temperatu re Post-Dialysis 97.8 degF Standing Heart Rate Pre-Dialysis 64 BPM Temperature Pre-Dialysis 97.4 degF July 09, 2023 In-Center Hemodialysis Treatment [id number]:38:00.000Z [id number]:13:36.000Z BP Sitting (Pre-Dialysis) 154/84 mmHg BP Sitting (Post-Dialysis) 130/59 mmHg Concurrent Access: falseCentral Venous Catheter (CVC) Chest (Right) ArterialAV Fistula Upper Arm (Right) Venous BP Standing (Pre-Dialysis) 133/78 mmHg Sitti ng Heart Rate Post-Dialysis 65 BPM Sitting Heart Rate Pre-Dialysis 90 BPM Temperatu re Post-Dialysis 97.3 degF Standing Heart Rate Pre-Dialysis 96 BPM Temperature Pre-Dialysis 97.2 degF July 06, 2023 In-Center Hemodialysis Treatment [id number]:58:00.000Z 5614-74-34N75:35:47.000Z BP Sitting (Pre-Dialysis) 142/75 mmHg BP Sitting (Post-Dialysis) 129/55 mmHg Concurrent Access: falseCentral Venous Catheter (CVC) Chest (Right) ArterialAV Fistula Upper Arm (Right) Venous BP Standing (Pre-Dialysis) 110/52 mmHg BP Standing (P ost-Dialysis) 115/53 mmHg Sitting Heart Rate Pre-Dialysis 83 BPM Sitting Heart Rate Post-Dialysis 63 BPM Standing Heart Rate Pre-Dialysis 89 BPM Standing Heart Rate Post-Dialysis 61 BPM Temperature Pre-Dialysis 97.7 degF Temperature Post -Dialysis 97.4 degF July 04, 2023 In-Center Hemodialysis Treatment 1201-05-22U39:45:00.000Z 2052-19-28E85:21:47.000Z BP Sitting (Pre-Dialysis) 113/61 mmHg BP Sitting (Post-Dialysis) 123/55 mmHg Concurrent Access: falseCentral Venous Catheter (CVC) Chest (Right) ArterialAV Fistula Upper Arm (Right) Venous BP Standing (Pre-Dialysis) 140/50 mmHg BP Standing (P ost-Dialysis) 98/52 mmHg Sitting Heart Rate Pre-Dialysis 86 BPM Sitting Heart Rate Post-Dialysis 60 BPM Standing Heart Rate Pre-Dialysis 95 BPM Standing Heart Rate Post-Dialysis 62 BPM Temperature Pre-Dialysis 97.7 degF Temperature Post -Dialysis 97 degF July 02, 2023 In-Center Hemodialysis Treatment [id number]:31:00.000Z [id number]:04:47.000Z BP Sitting (Pre-Dialysis) 169/87 mmHg BP Sitting (Post-Dialysis) 100/55 mmHg Concurrent Access: falseCentral Venous Catheter (CVC) Chest (Right) ArterialAV Fistula Upper Arm (Right) Venous BP Standing (Pre-Dialysis) 154/85 mmHg BP Standing (P ost-Dialysis) 112/42 mmHg Sitting Heart Rate Pre-Dialysis 84 BPM Sitting Heart Rate Post-Dialysis 80 BPM Standing Heart Rate Pre-Dialysis 98 BPM Standing Heart Rate Post-Dialysis 65 BPM Temperature Pre-Dialysis 97.3 degF Temperature Post -Dialysis 97.8 degF June 29, 2023 In-Center Hemodialysis Treatment [id number]:42:00.000Z [id number]:14:45.000Z BP Sitting (Pre-Dialysis) 157/78 mmHg BP Sitting (Post-Dialysis) 132/65 mmHg Concurrent Access: falseCentral Venous Catheter (CVC) Chest (Right) ArterialAV Fistula Upper Arm (Right) Venous BP Standing (Pre-Dialysis) 155/77 mmHg BP Standing (P ost-Dialysis) 125/47 mmHg Sitting Heart Rate Pre-Dialysis 87 BPM Sitting Heart Rate Post-Dialysis 60 BPM Standing Heart Rate Pre-Dialysis 95 BPM Standing Heart Rate Post-Dialysis 72 BPM Temperature Pre-Dialysis 98.4 degF Temperature Post -Dialysis 97.4 degF June 27, 2023 In-Center Hemodialysis Treatment [id number]:50:00.000Z [id number]:23:45.000Z BP Sitting (Pre-Dialysis) 156/77 mmHg BP Sitting (Post-Dialysis) 158/82 mmHg Concurrent Access: falseCentral Venous Catheter (CVC) Chest (Right) ArterialAV Fistula Upper Arm (Right) Venous BP Standing (Pre-Dialysis) 135/75 mmHg BP Standing (P ost-Dialysis) 132/66 mmHg Sitting Heart Rate Pre-Dialysis 92 BPM Sitting Heart Rate Post-Dialysis 70 BPM Standing Heart Rate Pre-Dialysis 96 BPM Standing Heart Rate Post-Dialysis 68 BPM Temperature Pre-Dialysis 98.6 degF Temperature Post -Dialysis 97.3 degF June 25, 2023 In-Center Hemodialysis Treatment [id number]:53:00.000Z [id number]:25:45.000Z BP Sitting (Pre-Dialysis) 148/85 mmHg BP Sitting (Post-Dialysis) 118/54 mmHg Concurrent Access: falseCentral Venous Catheter (CVC) Chest (Right) ArterialAV Fistula Upper Arm (Right) Venous BP Standing (Pre-Dialysis) 134/70 mmHg BP Standing (P ost-Dialysis) 105/39 mmHg Sitting Heart Rate Pre-Dialysis 87 BPM Sitting Heart Rate Post-Dialysis 61 BPM Standing Heart Rate Pre-Dialysis 94 BPM Standing Heart Rate Post-Dialysis 62 BPM Temperature Pre-Dialysis 97.8 degF Temperature Post -Dialysis 97.2 degF June 22, 2023 In-Center Hemodialysis Treatment [id number]:49:30.000Z 3417-02-90L69:20:30.000Z BP Sitting (Pre-Dialysis) 153/72 mmHg BP Sitting (Post-Dialysis) 117/59 mmHg Concurrent Access: falseCentral Venous Catheter (CVC) Chest (Right) ArterialAV Fistula Upper Arm (Right) Venous BP Standing (Pre-Dialysis) 137/70 mmHg Sitti ng Heart Rate Post-Dialysis 64 BPM Sitting Heart Rate Pre-Dialysis 89 BPM Temperatu re Post-Dialysis 97.5 degF Standing Heart Rate Pre-Dialysis 96 BPM Temperature Pre-Dialysis 97.4 degF June 20, 2023 In-Center Hemodialysis Treatment [id number]:55:30.000Z 7399-80-01E20:01:30.000Z BP Sitting (Pre-Dialysis) 144/74 mmHg BP Sitting (Post-Dialysis) 120/45 mmHg Concurrent Access: falseCentral Venous Catheter (CVC) Chest (Right) ArterialAV Fistula Upper Arm (Right) Venous BP Standing (Pre-Dialysis) 139/70 mmHg BP Standing (P ost-Dialysis) 106/45 mmHg Sitting Heart Rate Pre-Dialysis 69 BPM Sitting Heart Rate Post-Dialysis 78 BPM Standing Heart Rate Pre-Dialysis 89 BPM Standing Heart Rate Post-Dialysis 63 BPM Temperature Pre-Dialysis 97.4 degF Temperature Post -Dialysis 98 degF June 18, 2023 In-Center Hemodialysis Treatment [id number]:39:29.000Z [id number]:16:30.000Z BP Sitting (Pre-Dialysis) 160/78 mmHg BP Sitting (Post-Dialysis) 143/63 mmHg Concurrent Access: falseCentral Venous Catheter (CVC) Chest (Right) ArterialAV Fistula Upper Arm (Right) Venous BP Standing (Pre-Dialysis) 157/85 mmHg BP Standing (P ost-Dialysis) 102/50 mmHg Sitting Heart Rate Pre-Dialysis 63 BPM Sitting Heart Rate Post-Dialysis 62 BPM Standing Heart Rate Pre-Dialysis 90 BPM Standing Heart Rate Post-Dialysis 63 BPM Temperature Pre-Dialysis 97.6 degF Temperature Post -Dialysis 97.8 degF June 11, 2023 In-Center Hemodialysis Treatment [id number]:45:00.000Z 9719-83-91Z31:18:18.000Z BP Sitting (Pre-Dialysis) 162/77 mmHg BP Sitting (Post-Dialysis) 132/68 mmHg Concurrent Access: falseCentral Venous Catheter (CVC) Chest (Right) ArterialAV Fistula Upper Arm (Right) Venous BP Standing (Pre-Dialysis) 136/61 mmHg BP Standing (P ost-Dialysis) 106/57 mmHg Sitting Heart Rate Pre-Dialysis 86 BPM Sitting Heart Rate Post-Dialysis 63 BPM Standing Heart Rate Pre-Dialysis 88 BPM Standing Heart Rate Post-Dialysis 62 BPM Temperature Pre-Dialysis 98 degF Temperature Post -Dialysis 97.3 degF June 08, 2023 In-Center Hemodialysis Treatment [id number]:08:55.000Z 6044-84-15B34:46:20.000Z BP Sitting (Pre-Dialysis) 102/57 mmHg BP Sitting (Post-Dialysis) 136/66 mmHg Concurrent Access: falseCentral Venous Catheter (CVC) Chest (Right) ArterialAV Fistula Upper Arm (Right) Venous BP Standing (Pre-Dialysis) 71/41 mmHg BP Standing (P ost-Dialysis) 141/59 mmHg Sitting Heart Rate Pre-Dialysis 85 BPM Sitting Heart Rate Post-Dialysis 64 BPM Standing Heart Rate Pre-Dialysis 88 BPM Standing Heart Rate Post-Dialysis 64 BPM Temperature Pre-Dialysis 98 degF Temperature Post -Dialysis 97.6 degF June 06, 2023 In-Center Hemodialysis Treatment 2521-98-21M05:41:12.000Z 9821-98-64B20:10:12.000Z BP Sitting (Pre-Dialysis) 164/78 mmHg BP Sitting (Post-Dialysis) 120/55 mmHg Concurrent Access: falseCentral Venous Catheter (CVC) Chest (Right) ArterialAV Fistula Upper Arm (Right) Venous BP Standing (Pre-Dialysis) 134/65 mmHg BP Standing (P ost-Dialysis) 97/37 mmHg Sitting Heart Rate Pre-Dialysis 89 BPM Sitting Heart Rate Post-Dialysis 62 BPM Standing Heart Rate Pre-Dialysis 94 BPM Standing Heart Rate Post-Dialysis 66 BPM Temperature Pre-Dialysis 97.6 degF Temperature Post -Dialysis 97.4 degF June 04, 2023 In-Center Hemodialysis Treatment 6284-02-17P89:24:55.000Z [id number]:57:54.000Z BP Sitting (Pre-Dialysis) 159/80 mmHg BP Sitting (Post-Dialysis) 127/61 mmHg Concurrent Access: falseCentral Venous Catheter (CVC) Chest (Right) ArterialAV Fistula Upper Arm (Right) Venous BP Standing (Pre-Dialysis) 168/86 mmHg BP Standing (P ost-Dialysis) 126/49 mmHg Sitting Heart Rate Pre-Dialysis 82 BPM Sitting Heart Rate Post-Dialysis 65 BPM Standing Heart Rate Pre-Dialysis 86 BPM Standing Heart Rate Post-Dialysis 66 BPM Temperature Pre-Dialysis 97.2 degF Temperature Post -Dialysis 97.2 degF June 01, 2023 In-Center Hemodialysis Treatment 6817-01-95M67:45:00.000Z [id number]:20:33.000Z BP Sitting (Pre-Dialysis) 135/74 mmHg BP Sitting (Post-Dialysis) 104/55 mmHg Concurrent Access: falseCentral Venous Catheter (CVC) Chest (Right) ArterialAV Fistula Upper Arm (Right) Venous BP Standing (Pre-Dialysis) 81/57 mmHg BP Standing (P ost-Dialysis) 92/41 mmHg Sitting Heart Rate Pre-Dialysis 89 BPM Sitting H eart Rate Post-Dialysis 65 BPM Standing Heart Rate Pre-Dialysis 95 BPM Standing Heart Rate Post-Dialysis 63 BPM Temperature Pre-Dialysis 97.2 degF Temperature Post -Dialysis 97.2 degF May 30, 2023 In-Center Hemodialysis Treatment [id number]:43:00.000Z 8518-12-47M90:17:08.000Z BP Sitting (Pre-Dialysis) 171/81 mmHg BP Sitting (Post-Dialysis) 134/58 mmHg Concurrent Access: falseCentral Venous Catheter (CVC) Chest (Right) ArterialAV Fistula Upper Arm (Right) Venous BP Standing (Pre-Dialysis) 122/58 mmHg BP Standing (P ost-Dialysis) 100/51 mmHg Sitting Heart Rate Pre-Dialysis 85 BPM Sitting Heart Rate Post-Dialysis 65 BPM Standing Heart Rate Pre-Dialysis 92 BPM Standing Heart Rate Post-Dialysis 57 BPM Temperature Pre-Dialysis 97.3 degF Temperature Post -Dialysis 97.5 degF May 28, 2023 In-Center Hemodialysis Treatment 5239-72-01C42:01:00.000Z 4239-55-10T71:42:08.000Z BP Sitting (Pre-Dialysis) 148/71 mmHg BP Sitting (Post-Dialysis) 103/58 mmHg Concurrent Access: falseCentral Venous Catheter (CVC) Chest (Right) ArterialAV Fistula Upper Arm (Right) Venous BP Standing (Pre-Dialysis) 142/81 mmHg BP Standing (P ost-Dialysis) 100/49 mmHg Sitting Heart Rate Pre-Dialysis 86 BPM Sitting Heart Rate Post-Dialysis 72 BPM Standing Heart Rate Pre-Dialysis 85 BPM Standing Heart Rate Post-Dialysis 64 BPM Temperature Pre-Dialysis 97.3 degF Temperature Post -Dialysis 97 degF May 25, 2023 In-Center Hemodialysis Treatment 4339-02-13L03:50:00.000Z 2995-82-07K19:23:54.000Z BP Sitting (Pre-Dialysis) 132/73 mmHg BP Sitting (Post-Dialysis) 136/65 mmHg Concurrent Access: falseCentral Venous Catheter (CVC) Chest (Right) ArterialAV Fistula Upper Arm (Right) Venous BP Standing (Pre-Dialysis) 158/82 mmHg BP Standing (P ost-Dialysis) 103/51 mmHg Sitting Heart Rate Pre-Dialysis 89 BPM Sitting Heart Rate Post-Dialysis 65 BPM Standing Heart Rate Pre-Dialysis 96 BPM Standing Heart Rate Post-Dialysis 64 BPM Temperature Pre-Dialysis 97 degF Temperature Post -Dialysis 97.2 degF May 23, 2023 In-Center Hemodialysis Treatment 0065-68-05V31:33:00.000Z 4589-35-18E87:03:06.000Z BP Sitting (Pre-Dialysis) 163/78 mmHg BP Sitting (Post-Dialysis) 100/43 mmHg Concurrent Access: falseCentral Venous Catheter (CVC) Chest (Right) ArterialAV Fistula Upper Arm (Right) Venous BP Standing (Pre-Dialysis) 146/75 mmHg BP Standing (P ost-Dialysis) 120/48 mmHg Sitting Heart Rate Pre-Dialysis 69 BPM Sitting Heart Rate Post-Dialysis 84 BPM Standing Heart Rate Pre-Dialysis 82 BPM Standing Heart Rate Post-Dialysis 61 BPM Temperature Pre-Dialysis 97.3 degF Temperature Post -Dialysis 97 degF May 21, 2023 In-Center Hemodialysis Treatment [id number]:46:55.000Z 0701-02-59O55:50:54.000Z BP Sitting (Pre-Dialysis) 150/47 mmHg BP Sitting (Post-Dialysis) 117/52 mmHg Concurrent Access: trueAV Fistula Upper Arm (Right) ArterialCentral Venous Catheter (CVC) Chest (Right) Venous BP Standing (Pre-Dialysis) 138/74 mmHg BP Standing (P ost-Dialysis) 113/46 mmHg Sitting Heart Rate Pre-Dialysis 87 BPM Sitting Heart Rate Post-Dialysis 62 BPM Standing Heart Rate Pre-Dialysis 93 BPM Standing Heart Rate Post-Dialysis 61 BPM Temperature Pre-Dialysis 97 degF Temperature Post -Dialysis 97.4 degF May 18, 2023 In-Center Hemodialysis Treatment 3633-34-45O22:59:44.000Z [id number]:33:43.000Z BP Sitting (Pre-Dialysis) 119/63 mmHg BP Sitting (Post-Dialysis) 134/65 mmHg Concurrent Access: trueAV Fistula Upper Arm (Right) ArterialCentral Venous Catheter (CVC) Chest (Right) Venous BP Standing (Pre-Dialysis) 101/51 mmHg BP Standing (P ost-Dialysis) 97/42 mmHg Sitting Heart Rate Pre-Dialysis 69 BPM Sitting Heart Rate Post-Dialysis 65 BPM Standing Heart Rate Pre-Dialysis 90 BPM Standing Heart Rate Post-Dialysis 64 BPM Temperature Pre-Dialysis 95.5 degF Temperature Post -Dialysis 97.4 degF May 16, 2023 In-Center Hemodialysis Treatment [id number]:49:00.000Z 7285-29-60M64:24:43.000Z BP Sitting (Pre-Dialysis) 139/76 mmHg BP Sitting (Post-Dialysis) 104/42 mmHg Concurrent Access: falseCentral Venous Catheter (CVC) Chest (Right) ArterialAV Fistula Upper Arm (Right) Venous BP Standing (Pre-Dialysis) 128/49 mmHg BP Standing (P ost-Dialysis) 104/45 mmHg Sitting Heart Rate Pre-Dialysis 81 BPM Sitting Heart Rate Post-Dialysis 61 BPM Standing Heart Rate Pre-Dialysis 86 BPM Standing Heart Rate Post-Dialysis 63 BPM Temperature Pre-Dialysis 97.3 degF Temperature Post -Dialysis 97 degF May 14, 2023 In-Center Hemodialysis Treatment [id number]:19:23.000Z 4113-25-48W93:46:23.000Z BP Sitting (Pre-Dialysis) 152/68 mmHg BP Sitting (Post-Dialysis) 101/48 mmHg Concurrent Access: falseCentral Venous Catheter (CVC) Chest (Right) ArterialAV Fistula Upper Arm (Right) Venous BP Standing (Pre-Dialysis) 147/66 mmHg Sitti ng Heart Rate Post-Dialysis 61 BPM Sitting Heart Rate Pre-Dialysis 96 BPM Temperatu re Post-Dialysis 96.1 degF Standing Heart Rate Pre-Dialysis 102 BPM Temperature Pre-Dialysis 97.6 degF May 11, 2023 In-Center Hemodialysis Treatment 1791-72-13K32:51:32.000Z 0783-40-30F54:26:31.000Z BP Sitting (Pre-Dialysis) 149/66 mmHg BP Sitting (Post-Dialysis) 116/55 mmHg Concurrent Access: falseCentral Venous Catheter (CVC) Chest (Right) ArterialAV Fistula Upper Arm (Right) Venous BP Standing (Pre-Dialysis) 95/65 mmHg Sitti ng Heart Rate Post-Dialysis 63 BPM Sitting Heart Rate Pre-Dialysis 79 BPM Temperatu re Post-Dialysis 97.2 degF Standing Heart Rate Pre-Dialysis 89 BPM Temperature Pre-Dialysis 97.4 degF May 09, 2023 In-Center Hemodialysis Treatment [id number]:44:00.000Z 6255-21-57S57:18:31.000Z BP Sitting (Pre-Dialysis) 141/75 mmHg BP Sitting (Post-Dialysis) 110/52 mmHg Concurrent Access: falseCentral Venous Catheter (CVC) Chest (Right) ArterialAV Fistula Upper Arm (Right) Venous BP Standing (Pre-Dialysis) 106/53 mmHg BP Standing (P ost-Dialysis) 98/43 mmHg Sitting Heart Rate Pre-Dialysis 96 BPM Sitting Heart Rate Post-Dialysis 64 BPM Standing Heart Rate Pre-Dialysis 105 BPM Standing Heart Rate Post-Dialysis 64 BPM Temperature Pre-Dialysis 97 degF Temperature Post -Dialysis 97.2 degF May 07, 2023 In-Center Hemodialysis Treatment 6031-06-69S89:38:00.000Z 6834-15-47U33:17:18.000Z BP Sitting (Pre-Dialysis) 120/56 mmHg BP Sitting (Post-Dialysis) 144/52 mmHg Concurrent Access: falseCentral Venous Catheter (CVC) Chest (Right) ArterialAV Fistula Upper Arm (Right) Venous BP Standing (Pre-Dialysis) 131/64 mmHg BP Standing (P ost-Dialysis) 159/46 mmHg Sitting Heart Rate Pre-Dialysis 85 BPM Sitting Heart Rate Post-Dialysis 64 BPM Standing Heart Rate Pre-Dialysis 90 BPM Standing Heart Rate Post-Dialysis 67 BPM Temperature Pre-Dialysis 97.1 degF Temperature Post -Dialysis 96.8 degF May 04, 2023 In-Center Hemodialysis Treatment [id number]:49:53.000Z [id number]:23:52.000Z BP Sitting (Pre-Dialysis) 138/69 mmHg BP Sitting (Post-Dialysis) 136/57 mmHg Concurrent Access: falseCentral Venous Catheter (CVC) Chest (Right) ArterialAV Fistula Upper Arm (Right) Venous BP Standing (Pre-Dialysis) 130/72 mmHg BP Standing (P ost-Dialysis) 121/44 mmHg Sitting Heart Rate Pre-Dialysis 88 BPM Sitting Heart Rate Post-Dialysis 67 BPM Standing Heart Rate Pre-Dialysis 93 BPM Standing Heart Rate Post-Dialysis 61 BPM Temperature Pre-Dialysis 98 degF Temperature Post -Dialysis 97.9 degF May 02, 2023 In-Center Hemodialysis Treatment [id number]:56:00.000Z 6746-00-81Y77:28:22.000Z BP Sitting (Pre-Dialysis) 176/95 mmHg BP Sitting (Post-Dialysis) 140/64 mmHg Concurrent Access: falseCentral Venous Catheter (CVC) Chest (Right) ArterialAV Fistula Upper Arm (Right) Venous BP Standing (Pre-Dialysis) 146/79 mmHg BP Standing (P ost-Dialysis) 110/54 mmHg Sitting Heart Rate Pre-Dialysis 95 BPM Sitting Heart Rate Post-Dialysis 62 BPM Standing Heart Rate Pre-Dialysis 96 BPM Standing Heart Rate Post-Dialysis 63 BPM Temperature Pre-Dialysis 97.2 degF Temperature Post -Dialysis 97.2 degF April 30, 2023 In-Center Hemodialysis Treatment 4371-06-88V22:31:22.000Z 6019-26-60V21:09:00.000Z BP Sitting (Pre-Dialysis) 135/66 mmHg BP Sitting (Post-Dialysis) 100/44 mmHg Concurrent Access: falseCentral Venous Catheter (CVC) Chest (Right) ArterialAV Fistula Upper Arm (Right) Venous BP Standing (Pre-Dialysis) 128/62 mmHg BP Standing (P ost-Dialysis) 97/45 mmHg Sitting Heart Rate Pre-Dialysis 84 BPM Sitting Heart Rate Post-Dialysis 65 BPM Standing Heart Rate Pre-Dialysis 88 BPM Standing Heart Rate Post-Dialysis 63 BPM Temperature Pre-Dialysis 97.7 degF Temperature Post -Dialysis 97.1 degF April 27, 2023 In-Center Hemodialysis Treatment [id number]:56:20.000Z 6413-94-99P97:29:19.000Z BP Sitting (Pre-Dialysis) 151/81 mmHg BP Sitting (Post-Dialysis) 120/60 mmHg Concurrent Access: falseCentral Venous Catheter (CVC) Chest (Right) ArterialAV Fistula Upper Arm (Right) Venous BP Standing (Pre-Dialysis) 134/71 mmHg BP Standing (P ost-Dialysis) 109/40 mmHg Sitting Heart Rate Pre-Dialysis 89 BPM Sitting Heart Rate Post-Dialysis 60 BPM Standing Heart Rate Pre-Dialysis 94 BPM Standing Heart Rate Post-Dialysis 63 BPM Temperature Pre-Dialysis 97.2 degF Temperature Post -Dialysis 97.2 degF April 25, 2023 In-Center Hemodialysis Treatment 6432-24-53V41:36:20.000Z 1273-33-55B44:12:19.000Z BP Sitting (Pre-Dialysis) 140/71 mmHg BP Sitting (Post-Dialysis) 124/56 mmHg Concurrent Access: falseCentral Venous Catheter (CVC) Chest (Right) ArterialAV Fistula Upper Arm (Right) Venous BP Standing (Pre-Dialysis) 104/62 mmHg Sitti ng Heart Rate Post-Dialysis 60 BPM Sitting Heart Rate Pre-Dialysis 86 BPM Temperatu re Post-Dialysis 97.5 degF Standing Heart Rate Pre-Dialysis 96 BPM Temperature Pre-Dialysis 97.7 degF April 23, 2023 In-Center Hemodialysis Treatment [id number]:12:29.000Z 6225-14-53U90:50:28.000Z BP Sitting (Pre-Dialysis) 163/86 mmHg BP Sitting (Post-Dialysis) 132/65 mmHg Concurrent Access: falseCentral Venous Catheter (CVC) Chest (Right) ArterialAV Fistula Upper Arm (Right) Venous BP Standing (Pre-Dialysis) 142/86 mmHg BP Standing (P ost-Dialysis) 104/32 mmHg Sitting Heart Rate Pre-Dialysis 93 BPM Sitting Heart Rate Post-Dialysis 61 BPM Standing Heart Rate Pre-Dialysis 103 BPM Standing Heart Rate Post-Dialysis 73 BPM Temperature Pre-Dialysis 97.1 degF Temperature Post -Dialysis 97.4 degF April 20, 2023 In-Center Hemodialysis Treatment 5597-30-05Y97:43:34.000Z [id number]:13:00.000Z BP Sitting (Pre-Dialysis) 144/76 mmHg BP Sitting (Post-Dialysis) 123/55 mmHg Concurrent Access: falseCentral Venous Catheter (CVC) Chest (Right) ArterialAV Fistula Upper Arm (Right) Venous BP Standing (Pre-Dialysis) 154/70 mmHg Sitti ng Heart Rate Post-Dialysis 59 BPM Sitting Heart Rate Pre-Dialysis 84 BPM Temperatu re Post-Dialysis 97.5 degF Standing Heart Rate Pre-Dialysis 93 BPM Temperature Pre-Dialysis 97.4 degF April 18, 2023 In-Center Hemodialysis Treatment [id number]:18:00.000Z 9260-73-93X53:52:20.000Z BP Sitting (Pre-Dialysis) 156/83 mmHg BP Sitting (Post-Dialysis) 105/57 mmHg Concurrent Access: falseCentral Venous Catheter (CVC) Chest (Right) ArterialAV Fistula Upper Arm (Right) Venous BP Standing (Pre-Dialysis) 136/75 mmHg BP Standing (P ost-Dialysis) 108/80 mmHg Sitting Heart Rate Pre-Dialysis 93 BPM Sitting Heart Rate Post-Dialysis 61 BPM Standing Heart Rate Pre-Dialysis 98 BPM Standing Heart Rate Post-Dialysis 64 BPM Temperature Pre-Dialysis 97.3 degF Temperature Post -Dialysis 97.2 degF April 16, 2023 In-Center Hemodialysis Treatment [id number]:37:35.000Z 9782-45-96W60:07:34.000Z BP Sitting (Pre-Dialysis) 130/72 mmHg BP Sitting (Post-Dialysis) 146/72 mmHg Concurrent Access: falseCentral Venous Catheter (CVC) Chest (Right) ArterialAV Fistula Upper Arm (Right) Venous BP Standing (Pre-Dialysis) 171/82 mmHg BP Standing (P ost-Dialysis) 106/46 mmHg Sitting Heart Rate Pre-Dialysis 89 BPM Sitting Heart Rate Post-Dialysis 61 BPM Standing Heart Rate Pre-Dialysis 94 BPM Standing Heart Rate Post-Dialysis 63 BPM Temperature Pre-Dialysis 97.2 degF Temperature Post -Dialysis 97.2 degF April 13, 2023 In-Center Hemodialysis Treatment [id number]:45:00.000Z [id number]:16:26.000Z BP Sitting (Pre-Dialysis) 154/73 mmHg BP Sitting (Post-Dialysis) 138/63 mmHg Concurrent Access: falseCentral Venous Catheter (CVC) Chest (Right) ArterialAV Fistula Upper Arm (Right) Venous BP Standing (Pre-Dialysis) 138/68 mmHg BP Standing (P ost-Dialysis) 116/48 mmHg Sitting Heart Rate Pre-Dialysis 90 BPM Sitting Heart Rate Post-Dialysis 62 BPM Standing Heart Rate Pre-Dialysis 100 BPM Standing Heart Rate Post-Dialysis 62 BPM Temperature Pre-Dialysis 97.2 degF Temperature Post -Dialysis 97.2 degF April 11, 2023 In-Center Hemodialysis Treatment 2829-12-15B91:03:27.000Z [id number]:45:26.000Z BP Sitting (Pre-Dialysis) 111/55 mmHg BP Sitting (Post-Dialysis) 126/58 mmHg Concurrent Access: falseCentral Venous Catheter (CVC) Chest (Right) ArterialAV Fistula Upper Arm (Right) Venous BP Standing (Pre-Dialysis) 104/35 mmHg BP Standing (P ost-Dialysis) 115/47 mmHg Sitting Heart Rate Pre-Dialysis 88 BPM Sitting Heart Rate Post-Dialysis 62 BPM Standing Heart Rate Pre-Dialysis 102 BPM Standing Heart Rate Post-Dialysis 63 BPM Temperature Pre-Dialysis 97.1 degF Temperature Post -Dialysis 97.6 degF April 09, 2023 In-Center Hemodialysis Treatment [id number]:17:27.000Z [id number]:52:26.000Z BP Sitting (Pre-Dialysis) 134/68 mmHg BP Sitting (Post-Dialysis) 127/57 mmHg Concurrent Access: falseCentral Venous Catheter (CVC) Chest (Right) ArterialAV Fistula Upper Arm (Right) Venous BP Standing (Pre-Dialysis) 113/63 mmHg Sitti ng Heart Rate Post-Dialysis 64 BPM Sitting Heart Rate Pre-Dialysis 92 BPM Temperatu re Post-Dialysis 97.4 degF Standing Heart Rate Pre-Dialysis 98 BPM Temperature Pre-Dialysis 97.3 degF April 06, 2023 In-Center Hemodialysis Treatment 0090-11-26F02:25:00.000Z 4557-07-65A71:02:53.000Z BP Sitting (Pre-Dialysis) 135/67 mmHg BP Sitting (Post-Dialysis) 125/55 mmHg Concurrent Access: falseCentral Venous Catheter (CVC) Chest (Right) ArterialAV Fistula Upper Arm (Right) Venous BP Standing (Pre-Dialysis) 113/59 mmHg BP Standing (P ost-Dialysis) 118/54 mmHg Sitting Heart Rate Pre-Dialysis 97 BPM Sitting Heart Rate Post-Dialysis 61 BPM Standing Heart Rate Pre-Dialysis 102 BPM Standing Heart Rate Post-Dialysis 64 BPM Temperature Pre-Dialysis 97.2 degF Temperature Post -Dialysis 97.6 degF April 04, 2023 In-Center Hemodialysis Treatment [id number]:50:17.000Z 1206-24-77Y04:21:16.000Z BP Sitting (Pre-Dialysis) 105/63 mmHg BP Sitting (Post-Dialysis) 137/64 mmHg Concurrent Access: falseCentral Venous Catheter (CVC) Chest (Right) ArterialAV Fistula Upper Arm (Right) Venous BP Standing (Pre-Dialysis) 160/83 mmHg BP Standing (P ost-Dialysis) 120/53 mmHg Sitting Heart Rate Pre-Dialysis 93 BPM Sitting Heart Rate Post-Dialysis 65 BPM Standing Heart Rate Pre-Dialysis 100 BPM Standing Heart Rate Post-Dialysis 64 BPM Temperature Pre-Dialysis 97.5 degF Temperature Post -Dialysis 97.6 degF April 02, 2023 In-Center Hemodialysis Treatment [id number]:09:00.000Z [id number]:43:40.000Z BP Sitting (Pre-Dialysis) 144/74 mmHg BP Sitting (Post-Dialysis) 105/45 mmHg Concurrent Access: falseCentral Venous Catheter (CVC) Chest (Right) ArterialAV Fistula Upper Arm (Right) Venous BP Standing (Pre-Dialysis) 112/55 mmHg BP Standing (P ost-Dialysis) 101/41 mmHg Sitting Heart Rate Pre-Dialysis 92 BPM Sitting Heart Rate Post-Dialysis 60 BPM Standing Heart Rate Pre-Dialysis 107 BPM Standing Heart Rate Post-Dialysis 64 BPM Temperature Pre-Dialysis 97.2 degF Temperature Post -Dialysis 97.2 degF March 26, 2023 In-Center Hemodialysis Treatment [id number]:41:00.000Z 1546-67-47Y72:20:12.000Z BP Sitting (Pre-Dialysis) 137/67 mmHg BP Sitting (Post-Dialysis) 133/67 mmHg Concurrent Access: falseCentral Venous Catheter (CVC) Chest (Right) ArterialAV Fistula Upper Arm (Right) Venous BP Standing (Pre-Dialysis) 125/43 mmHg Sitti ng Heart Rate Post-Dialysis 60 BPM Sitting Heart Rate Pre-Dialysis 78 BPM Temperatu re Post-Dialysis 97.2 degF Standing Heart Rate Pre-Dialysis 93 BPM Temperature Pre-Dialysis 97 degF March 23, 2023 In-Center Hemodialysis Treatment 0153-73-14Z24:47:00.000Z 3570-55-81G82:17:34.000Z BP Sitting (Pre-Dialysis) 130/114 mmHg BP Sitting (Post-Dialysis) 130/66 mmHg Concurrent Access: falseCentral Venous Catheter (CVC) Chest (Right) ArterialAV Fistula Upper Arm (Right) Venous BP Standing (Pre-Dialysis) 142/63 mmHg BP Standing (P ost-Dialysis) 102/43 mmHg Sitting Heart Rate Pre-Dialysis 83 BPM Sitting Heart Rate Post-Dialysis 62 BPM Standing Heart Rate Pre-Dialysis 92 BPM Standing Heart Rate Post-Dialysis 62 BPM Temperature Pre-Dialysis 97 degF Temperature Post -Dialysis 97.2 degF March 21, 2023 In-Center Hemodialysis Treatment 2357-89-27P83:59:00.000Z 5277-04-09C66:35:45.000Z BP Sitting (Pre-Dialysis) 153/76 mmHg BP Sitting (Post-Dialysis) 145/72 mmHg Concurrent Access: falseCentral Venous Catheter (CVC) Chest (Right) ArterialAV Fistula Upper Arm (Right) Venous BP Standing (Pre-Dialysis) 152/66 mmHg BP Standing (P ost-Dialysis) 118/56 mmHg Sitting Heart Rate Pre-Dialysis 75 BPM Sitting Heart Rate Post-Dialysis 62 BPM Standing Heart Rate Pre-Dialysis 85 BPM Standing Heart Rate Post-Dialysis 68 BPM Temperature Pre-Dialysis 97.1 degF Temperature Post -Dialysis 97 degF March 19, 2023 In-Center Hemodialysis Treatment 3972-52-93J65:56:40.000Z [id number]:33:40.000Z BP Sitting (Pre-Dialysis) 169/84 mmHg BP Sitting (Post-Dialysis) 146/62 mmHg Concurrent Access: falseCentral Venous Catheter (CVC) Chest (Right) ArterialAV Fistula Upper Arm (Right) Venous BP Standing (Pre-Dialysis) 181/95 mmHg BP Standing (P ost-Dialysis) 116/53 mmHg Sitting Heart Rate Pre-Dialysis 88 BPM Sitting Heart Rate Post-Dialysis 60 BPM Standing Heart Rate Pre-Dialysis 97 BPM Standing Heart Rate Post-Dialysis 62 BPM Temperature Pre-Dialysis 97.2 degF Temperature Post -Dialysis 97.3 degF March 16, 2023 In-Center Hemodialysis Treatment 6436-74-87Z35:00:00.000Z 7730-30-67M56:31:18.000Z BP Sitting (Pre-Dialysis) 152/80 mmHg BP Sitting (Post-Dialysis) 145/66 mmHg Concurrent Access: falseCentral Venous Catheter (CVC) Chest (Right) ArterialAV Fistula Upper Arm (Right) Venous BP Standing (Pre-Dialysis) 113/63 mmHg BP Standing (P ost-Dialysis) 134/57 mmHg Sitting Heart Rate Pre-Dialysis 81 BPM Sitting Heart Rate Post-Dialysis 65 BPM Standing Heart Rate Pre-Dialysis 94 BPM Standing Heart Rate Post-Dialysis 69 BPM Temperature Pre-Dialysis 97.2 degF Temperature Post -Dialysis 97 degF March 14, 2023 In-Center Hemodialysis Treatment 1007-60-06Q14:05:19.000Z 7286-05-42F90:36:18.000Z BP Sitting (Pre-Dialysis) 149/75 mmHg BP Sitting (Post-Dialysis) 127/59 mmHg Concurrent Access: falseCentral Venous Catheter (CVC) Chest (Right) ArterialAV Fistula Upper Arm (Right) Venous BP Standing (Pre-Dialysis) 136/70 mmHg BP Standing (P ost-Dialysis) 114/52 mmHg Sitting Heart Rate Pre-Dialysis 85 BPM Sitting Heart Rate Post-Dialysis 65 BPM Standing Heart Rate Pre-Dialysis 92 BPM Standing Heart Rate Post-Dialysis 66 BPM Temperature Pre-Dialysis 97.6 degF Temperature Post -Dialysis 97 degF March 12, 2023 In-Center Hemodialysis Treatment [id number]:49:42.000Z [id number]:25:41.000Z BP Sitting (Pre-Dialysis) 143/80 mmHg BP Sitting (Post-Dialysis) 145/64 mmHg Concurrent Access: falseCentral Venous Catheter (CVC) Chest (Right) ArterialAV Fistula Upper Arm (Right) Venous BP Standing (Pre-Dialysis) 162/80 mmHg BP Standing (P ost-Dialysis) 119/55 mmHg Sitting Heart Rate Pre-Dialysis 85 BPM Sitting Heart Rate Post-Dialysis 59 BPM Standing Heart Rate Pre-Dialysis 98 BPM Standing Heart Rate Post-Dialysis 64 BPM Temperature Pre-Dialysis 97 degF Temperature Post -Dialysis 97.5 degF March 09, 2023 In-Center Hemodialysis Treatment 9944-09-68G00:57:00.000Z [id number]:31:12.000Z BP Sitting (Pre-Dialysis) 119/54 mmHg BP Sitting (Post-Dialysis) 140/66 mmHg Concurrent Access: falseCentral Venous Catheter (CVC) Chest (Right) ArterialAV Fistula Upper Arm (Right) Venous BP Standing (Pre-Dialysis) 104/43 mmHg Sitti ng Heart Rate Post-Dialysis 63 BPM Sitting Heart Rate Pre-Dialysis 84 BPM Temperatu re Post-Dialysis 97.8 degF Standing Heart Rate Pre-Dialysis 93 BPM Temperature Pre-Dialysis 97.5 degF March 07, 2023 In-Center Hemodialysis Treatment 6908-93-98O65:59:00.000Z 4167-08-62J88:32:26.000Z BP Sitting (Pre-Dialysis) 110/55 mmHg BP Sitting (Post-Dialysis) 142/68 mmHg Concurrent Access: falseCentral Venous Catheter (CVC) Chest (Right) ArterialAV Fistula Upper Arm (Right) Venous Sitting Heart Rate Pre-Dialysis 84 BPM BP Standing (Post-Dialysis) 113/53 mmHg Temperature Pre-Dialysis 97.2 degF Sitting Heart Ra te Post-Dialysis 66 BPM Standing Heart Rate Post-Ghazal lysis 67 BPM Temperature Post-Dialysis 97 .2 degF March 05, 2023 In-Center Hemodialysis Treatment 0027-95-79B69:03:00.000Z 3493-38-59J61:47:04.000Z BP Sitting (Pre-Dialysis) 121/55 mmHg BP Sitting (Post-Dialysis) 150/67 mmHg Concurrent Access: falseCentral Venous Catheter (CVC) Chest (Right) ArterialAV Fistula Upper Arm (Right) Venous BP Standing (Pre-Dialysis) 102/52 mmHg BP Standing (P ost-Dialysis) 129/54 mmHg Sitting Heart Rate Pre-Dialysis 77 BPM Sitting Heart Rate Post-Dialysis 68 BPM Standing Heart Rate Pre-Dialysis 82 BPM Standing Heart Rate Post-Dialysis 64 BPM Temperature Pre-Dialysis 97 degF Temperature Post -Dialysis 97.2 degF March 02, 2023 In-Center Hemodialysis Treatment 4868-14-67E04:07:00.000Z 9929-16-97Q59:46:33.000Z BP Sitting (Pre-Dialysis) 94/54 mmHg BP Sitting (Post-Dialysis) 113/53 mmHg Concurrent Access: falseCentral Venous Catheter (CVC) Chest (Right) ArterialAV Fistula Upper Arm (Right) Venous BP Standing (Pre-Dialysis) 123/84 mmHg BP Standing (P ost-Dialysis) 102/36 mmHg Sitting Heart Rate Pre-Dialysis 89 BPM Sitting Heart Rate Post-Dialysis 64 BPM Standing Heart Rate Pre-Dialysis 93 BPM Standing Heart Rate Post-Dialysis 60 BPM Temperature Pre-Dialysis 97.3 degF Temperature Post -Dialysis 97.2 degF February 28, 2023 In-Center Hemodialysis Treatment 5780-91-86E48:46:00.000Z [id number]:19:33.000Z BP Sitting (Pre-Dialysis) 147/76 mmHg BP Sitting (Post-Dialysis) 157/61 mmHg Concurrent Access: falseCentral Venous Catheter (CVC) Chest (Right) ArterialAV Fistula Upper Arm (Right) Venous Sitting Heart Rate Pre-Dialysis 85 BPM Sitting H eart Rate Post-Dialysis 60 BPM Temperature Pre-Dialysis 97.4 degF Temperature Post -Dialysis 97.7 degF February 16, 2023 In-Center Hemodialysis Treatment 1170-82-49J49:16:00.000Z 9616-67-88N75:55:38.000Z BP Sitting (Pre-Dialysis) 143/59 mmHg BP Sitting (Post-Dialysis) 127/54 mmHg Concurrent Access: falseCentral Venous Catheter (CVC) Chest (Right) ArterialAV Fistula Upper Arm (Right) Venous BP Standing (Pre-Dialysis) 112/27 mmHg BP Standing (P ost-Dialysis) 106/38 mmHg Sitting Heart Rate Pre-Dialysis 84 BPM Sitting Heart Rate Post-Dialysis 66 BPM Standing Heart Rate Pre-Dialysis 84 BPM Standing Heart Rate Post-Dialysis 63 BPM Temperature Pre-Dialysis 97.1 degF Temperature Post -Dialysis 97.3 degF February 14, 2023 In-Center Hemodialysis Treatment 9795-31-22S53:00:34.000Z [id number]:31:34.000Z BP Sitting (Pre-Dialysis) 125/62 mmHg BP Sitting (Post-Dialysis) 132/65 mmHg Concurrent Access: falseCentral Venous Catheter (CVC) Chest (Right) ArterialAV Fistula Upper Arm (Right) Venous BP Standing (Pre-Dialysis) 92/43 mmHg BP Standing (P ost-Dialysis) 116/69 mmHg Sitting Heart Rate Pre-Dialysis 80 BPM Sitting Heart Rate Post-Dialysis 70 BPM Standing Heart Rate Pre-Dialysis 97 BPM Standing Heart Rate Post-Dialysis 72 BPM Temperature Pre-Dialysis 97 degF Temperature Post -Dialysis 98 degF February 12, 2023 In-Center Hemodialysis Treatment 1948-02-28J06:57:00.000Z 5979-04-38N42:31:34.000Z BP Sitting (Pre-Dialysis) 143/60 mmHg BP Sitting (Post-Dialysis) 108/52 mmHg Concurrent Access: falseCentral Venous Catheter (CVC) Chest (Right) ArterialAV Fistula Upper Arm (Right) Venous BP Standing (Pre-Dialysis) 131/69 mmHg Sitti ng Heart Rate Post-Dialysis 65 BPM Sitting Heart Rate Pre-Dialysis 73 BPM Temperatu re Post-Dialysis 97.2 degF Standing Heart Rate Pre-Dialysis 93 BPM Temperature Pre-Dialysis 97 degF February 09, 2023 In-Center Hemodialysis Treatment 1245-93-55O27:52:00.000Z 8040-05-14G33:25:07.000Z BP Sitting (Pre-Dialysis) 120/60 mmHg BP Sitting (Post-Dialysis) 121/58 mmHg Concurrent Access: falseCentral Venous Catheter (CVC) Chest (Right) ArterialAV Fistula Upper Arm (Right) Venous BP Standing (Pre-Dialysis) 95/47 mmHg Sitti ng Heart Rate Post-Dialysis 63 BPM Sitting Heart Rate Pre-Dialysis 80 BPM Temperatu re Post-Dialysis 97.4 degF Standing Heart Rate Pre-Dialysis 92 BPM Temperature Pre-Dialysis 97.5 degF February 07, 2023 In-Center Hemodialysis Treatment 9379-16-00L47:01:08.000Z [id number]:40:08.000Z BP Sitting (Pre-Dialysis) 101/57 mmHg BP Sitting (Post-Dialysis) 115/49 mmHg Concurrent Access: falseCentral Venous Catheter (CVC) Chest (Right) ArterialAV Fistula Upper Arm (Right) Venous BP Standing (Pre-Dialysis) 109/23 mmHg BP Standing (P ost-Dialysis) 111/34 mmHg Sitting Heart Rate Pre-Dialysis 83 BPM Sitting Heart Rate Post-Dialysis 62 BPM Standing Heart Rate Pre-Dialysis 85 BPM Standing Heart Rate Post-Dialysis 63 BPM Temperature Pre-Dialysis 97.2 degF Temperature Post -Dialysis 97.8 degF February 05, 2023 In-Center Hemodialysis Treatment 6827-89-88L51:09:08.000Z 3370-02-18W42:41:08.000Z BP Sitting (Pre-Dialysis) 154/66 mmHg BP Sitting (Post-Dialysis) 117/48 mmHg Concurrent Access: falseCentral Venous Catheter (CVC) Chest (Right) ArterialAV Fistula Upper Arm (Right) Venous BP Standing (Pre-Dialysis) 138/47 mmHg Sitti ng Heart Rate Post-Dialysis 66 BPM Sitting Heart Rate Pre-Dialysis 73 BPM Temperatu re Post-Dialysis 97.2 degF Standing Heart Rate Pre-Dialysis 90 BPM Temperature Pre-Dialysis 96.6 degF February 02, 2023 In-Center Hemodialysis Treatment 7708-19-71S26:54:00.000Z 8965-58-01A61:25:31.000Z BP Sitting (Pre-Dialysis) 109/49 mmHg BP Sitting (Post-Dialysis) 132/55 mmHg Concurrent Access: falseCentral Venous Catheter (CVC) Chest (Right) ArterialAV Fistula Upper Arm (Right) Venous BP Standing (Pre-Dialysis) 89/29 mmHg BP Standing (P ost-Dialysis) 105/49 mmHg Sitting Heart Rate Pre-Dialysis 88 BPM Sitting Heart Rate Post-Dialysis 67 BPM Standing Heart Rate Pre-Dialysis 97 BPM Standing Heart Rate Post-Dialysis 63 BPM Temperature Pre-Dialysis 97.2 degF Temperature Post -Dialysis 97.4 degF January 31, 2023 In-Center Hemodialysis Treatment 9064-97-19Q89:55:00.000Z 1792-99-96W97:30:37.000Z BP Sitting (Pre-Dialysis) 135/66 mmHg BP Sitting (Post-Dialysis) 110/43 mmHg Concurrent Access: falseCentral Venous Catheter (CVC) Chest (Right) ArterialAV Fistula Upper Arm (Right) Venous BP Standing (Pre-Dialysis) 128/55 mmHg Sitti ng Heart Rate Post-Dialysis 60 BPM Sitting Heart Rate Pre-Dialysis 86 BPM Temperatu re Post-Dialysis 97.3 degF Standing Heart Rate Pre-Dialysis 94 BPM Temperature Pre-Dialysis 97.1 degF January 29, 2023 In-Center Hemodialysis Treatment 7306-82-02J48:08:00.000Z 2741-66-36N68:43:24.000Z BP Sitting (Pre-Dialysis) 136/65 mmHg BP Sitting (Post-Dialysis) 109/53 mmHg Concurrent Access: falseCentral Venous Catheter (CVC) Chest (Right) ArterialAV Fistula Upper Arm (Right) Venous BP Standing (Pre-Dialysis) 137/69 mmHg Sitti ng Heart Rate Post-Dialysis 60 BPM Sitting Heart Rate Pre-Dialysis 72 BPM Temperatu re Post-Dialysis 97.1 degF Standing Heart Rate Pre-Dialysis 92 BPM Temperature Pre-Dialysis 96.8 degF January 26, 2023 In-Center Hemodialysis Treatment [id number]:58:00.000Z 9667-15-75Q11:31:09.000Z BP Sitting (Pre-Dialysis) 155/77 mmHg BP Sitting (Post-Dialysis) 102/47 mmHg Concurrent Access: falseCentral Venous Catheter (CVC) Chest (Right) ArterialAV Fistula Upper Arm (Right) Venous BP Standing (Pre-Dialysis) 135/66 mmHg Sitting Heart Rate Post-Dialysis 79 BPM Sitting Heart Rate Pre-Dialysis 76 BPM Temperatu re Post-Dialysis 97 degF Standing Heart Rate Pre-Dialysis 88 BPM Temperature Pre-Dialysis 97.2 degF January 23, 2023 In-Center Hemodialysis Treatment 1583-29-56F80:08:00.000Z 4092-43-14N98:45:09.000Z BP Sitting (Pre-Dialysis) 106/53 mmHg BP Sitting (Post-Dialysis) 127/59 mmHg Concurrent Access: falseCentral Venous Catheter (CVC) Chest (Right) ArterialAV Fistula Upper Arm (Right) Venous BP Standing (Pre-Dialysis) 94/37 mmHg BP Standing (P ost-Dialysis) 100/48 mmHg Sitting Heart Rate Pre-Dialysis 85 BPM Sitting Heart Rate Post-Dialysis 65 BPM Standing Heart Rate Pre-Dialysis 87 BPM Standing Heart Rate Post-Dialysis 77 BPM Temperature Pre-Dialysis 97.7 degF Temperature Post -Dialysis 97.7 degF January 21, 2023 In-Center Hemodialysis Treatment 5324-46-90O08:45:33.000Z 5126-13-61U43:17:32.000Z BP Sitting (Pre-Dialysis) 109/54 mmHg BP Sitting (Post-Dialysis) 142/63 mmHg Concurrent Access: falseCentral Venous Catheter (CVC) Chest (Right) ArterialAV Fistula Upper Arm (Right) Venous BP Standing (Pre-Dialysis) 70/47 mmHg BP Standing (P ost-Dialysis) 101/30 mmHg Sitting Heart Rate Pre-Dialysis 78 BPM Sitting Heart Rate Post-Dialysis 66 BPM Standing Heart Rate Pre-Dialysis 96 BPM Standing Heart Rate Post-Dialysis 73 BPM Temperature Pre-Dialysis 97.2 degF Temperature Post -Dialysis 97.4 degF January 19, 2023 In-Center Hemodialysis Treatment [id number]:09:48.000Z 0814-89-77Q51:45:48.000Z BP Sitting (Pre-Dialysis) 134/53 mmHg BP Sitting (Post-Dialysis) 97/37 mmHg Concurrent Access: falseCentral Venous Catheter (CVC) Chest (Right) ArterialAV Fistula Upper Arm (Right) Venous BP Standing (Pre-Dialysis) 111/54 mmHg BP Standing (P ost-Dialysis) 121/25 mmHg Sitting Heart Rate Pre-Dialysis 66 BPM Sitting Heart Rate Post-Dialysis 67 BPM Standing Heart Rate Pre-Dialysis 91 BPM Standing Heart Rate Post-Dialysis 68 BPM Temperature Pre-Dialysis 97.5 degF Temperature Post -Dialysis 96.9 degF January 17, 2023 In-Center Hemodialysis Treatment 3162-60-91D50:11:00.000Z 8337-50-81I85:52:38.000Z BP Sitting (Pre-Dialysis) 97/58 mmHg BP Sitting (Post-Dialysis) 93/42 mmHg Concurrent Access: falseCentral Venous Catheter (CVC) Chest (Right) ArterialAV Fistula Upper Arm (Right) Venous BP Standing (Pre-Dialysis) 92/46 mmHg Sitti ng Heart Rate Post-Dialysis 63 BPM Sitting Heart Rate Pre-Dialysis 85 BPM Temperatu re Post-Dialysis 97.5 degF Standing Heart Rate Pre-Dialysis 89 BPM Temperature Pre-Dialysis 97 degF January 15, 2023 In-Center Hemodialysis Treatment 5702-01-74Q00:34:00.000Z 7023-38-11F73:10:38.000Z BP Sitting (Pre-Dialysis) 125/57 mmHg BP Sitting (Post-Dialysis) 104/44 mmHg Concurrent Access: falseCentral Venous Catheter (CVC) Chest (Right) ArterialAV Fistula Upper Arm (Right) Venous BP Standing (Pre-Dialysis) 60/30 mmHg BP Standing (P ost-Dialysis) 101/22 mmHg Sitting Heart Rate Pre-Dialysis 87 BPM Sitting Heart Rate Post-Dialysis 61 BPM Standing Heart Rate Pre-Dialysis 94 BPM Standing Heart Rate Post-Dialysis 61 BPM Temperature Pre-Dialysis 97.2 degF Temperature Post -Dialysis 97.7 degF January 12, 2023 In-Center Hemodialysis Treatment 8974-27-56E09:57:00.000Z 7766-83-86B94:32:44.000Z BP Sitting (Pre-Dialysis) 131/49 mmHg BP Sitting (Post-Dialysis) 115/46 mmHg Concurrent Access: falseCentral Venous Catheter (CVC) Chest (Right) ArterialAV Fistula Upper Arm (Right) Venous BP Standing (Pre-Dialysis) 127/56 mmHg BP Standing (P ost-Dialysis) 107/50 mmHg Sitting Heart Rate Pre-Dialysis 69 BPM Sitting Heart Rate Post-Dialysis 63 BPM Standing Heart Rate Pre-Dialysis 83 BPM Standing Heart Rate Post-Dialysis 61 BPM Temperature Pre-Dialysis 97.4 degF Temperature Post -Dialysis 97.3 degF January 10, 2023 In-Center Hemodialysis Treatment 4402-29-47L52:19:00.000Z 2171-49-14N62:54:44.000Z BP Sitting (Pre-Dialysis) 103/57 mmHg BP Sitting (Post-Dialysis) 105/65 mmHg Concurrent Access: falseCentral Venous Catheter (CVC) Chest (Right) ArterialAV Fistula Upper Arm (Right) Venous BP Standing (Pre-Dialysis) 124/42 mmHg BP Standing (P ost-Dialysis) 108/52 mmHg Sitting Heart Rate Pre-Dialysis 91 BPM Sitting Heart Rate Post-Dialysis 63 BPM Standing Heart Rate Pre-Dialysis 100 BPM Standing Heart Rate Post-Dialysis 68 BPM Temperature Pre-Dialysis 97.8 degF Temperature Post -Dialysis 97.6 degF January 08, 2023 In-Center Hemodialysis Treatment [id number]:55:15.000Z 4653-85-09S77:32:14.000Z BP Sitting (Pre-Dialysis) 133/68 mmHg BP Sitting (Post-Dialysis) 114/46 mmHg Concurrent Access: falseCentral Venous Catheter (CVC) Chest (Right) ArterialAV Fistula Upper Arm (Right) Venous BP Standing (Pre-Dialysis) 133/58 mmHg BP Standing (P ost-Dialysis) 99/34 mmHg Sitting Heart Rate Pre-Dialysis 86 BPM Sitting Heart Rate Post-Dialysis 72 BPM Standing Heart Rate Pre-Dialysis 93 BPM Standing Heart Rate Post-Dialysis 77 BPM Temperature Pre-Dialysis 97.3 degF Temperature Post -Dialysis 97.4 degF January 05, 2023 In-Center Hemodialysis Treatment 5502-63-35A16:08:00.000Z [id number]:43:45.000Z BP Sitting (Pre-Dialysis) 92/48 mmHg BP Sitting (Post-Dialysis) 101/40 mmHg Concurrent Access: falseCentral Venous Catheter (CVC) Chest (Right) ArterialAV Fistula Upper Arm (Right) Venous BP Standing (Pre-Dialysis) 89/46 mmHg BP Standing (P ost-Dialysis) 93/22 mmHg Sitting Heart Rate Pre-Dialysis 89 BPM Sitting H eart Rate Post-Dialysis 61 BPM Standing Heart Rate Pre-Dialysis 94 BPM Standing Heart Rate Post-Dialysis 63 BPM Temperature Pre-Dialysis 97.1 degF Temperature Post -Dialysis 97.8 degF January 03, 2023 In-Center Hemodialysis Treatment 3018-46-11R25:11:45.000Z 5351-30-27P55:54:45.000Z BP Sitting (Pre-Dialysis) 104/51 mmHg BP Sitting (Post-Dialysis) 106/50 mmHg Concurrent Access: falseCentral Venous Catheter (CVC) Chest (Right) ArterialAV Fistula Upper Arm (Right) Venous BP Standing (Pre-Dialysis) 86/32 mmHg BP Standing (P ost-Dialysis) 122/34 mmHg Sitting Heart Rate Pre-Dialysis 77 BPM Sitting Heart Rate Post-Dialysis 66 BPM Standing Heart Rate Pre-Dialysis 88 BPM Standing Heart Rate Post-Dialysis 68 BPM Temperature Pre-Dialysis 97.3 degF Temperature Post -Dialysis 97.4 degF January 01, 2023 In-Center Hemodialysis Treatment 3426-50-11Q81:45:00.000Z 0635-76-46V40:27:16.000Z BP Sitting (Pre-Dialysis) 115/43 mmHg BP Sitting (Post-Dialysis) 111/50 mmHg Concurrent Access: falseCentral Venous Catheter (CVC) Chest (Right) ArterialAV Fistula Upper Arm (Right) Venous BP Standing (Pre-Dialysis) 82/32 mmHg BP Standing (P ost-Dialysis) 104/33 mmHg Sitting Heart Rate Pre-Dialysis 85 BPM Sitting Heart Rate Post-Dialysis 63 BPM Standing Heart Rate Pre-Dialysis 87 BPM Standing Heart Rate Post-Dialysis 63 BPM Temperature Pre-Dialysis 97.2 degF Temperature Post -Dialysis 97.2 degF December 29, 2022 In-Center Hemodialysis Treatment 1348-02-85Z37:07:00.000Z 1362-58-18S95:39:08.000Z BP Sitting (Pre-Dialysis) 129/58 mmHg BP Sitting (Post-Dialysis) 118/53 mmHg Concurrent Access: falseCentral Venous Catheter (CVC) Chest (Right) ArterialAV Fistula Upper Arm (Right) Venous BP Standing (Pre-Dialysis) 88/56 mmHg BP Standing (P ost-Dialysis) 148/92 mmHg Sitting Heart Rate Pre-Dialysis 71 BPM Sitting Heart Rate Post-Dialysis 64 BPM Standing Heart Rate Pre-Dialysis 89 BPM Standing Heart Rate Post-Dialysis 57 BPM Temperature Pre-Dialysis 97.2 degF Temperature Post -Dialysis 97.3 degF December 27, 2022 In-Center Hemodialysis Treatment [id number]:57:22.000Z 2317-63-40I00:33:22.000Z BP Sitting (Pre-Dialysis) 131/55 mmHg BP Sitting (Post-Dialysis) 154/71 mmHg Concurrent Access: falseCentral Venous Catheter (CVC) Chest (Right) ArterialAV Fistula Upper Arm (Right) Venous BP Standing (Pre-Dialysis) 161/109 mmHg BP Standing (P ost-Dialysis) 119/58 mmHg Sitting Heart Rate Pre-Dialysis 90 BPM Sitting Heart Rate Post-Dialysis 70 BPM Standing Heart Rate Pre-Dialysis 100 BPM Standing Heart Rate Post-Dialysis 68 BPM Temperature Pre-Dialysis 97.2 degF Temperature Post -Dialysis 97.7 degF December 25, 2022 In-Center Hemodialysis Treatment [id number]:33:00.000Z [id number]:11:08.000Z BP Sitting (Pre-Dialysis) 93/54 mmHg BP Sitting (Post-Dialysis) 114/50 mmHg Concurrent Access: falseCentral Venous Catheter (CVC) Chest (Right) ArterialPD Catheter Lower Quadrant (Left) Venous BP Standing (Pre-Dialysis) 74/43 mmHg BP Standing (P ost-Dialysis) 94/43 mmHg Sitting Heart Rate Pre-Dialysis 85 BPM Sitting H eart Rate Post-Dialysis 61 BPM Standing Heart Rate Pre-Dialysis 91 BPM Standing Heart Rate Post-Dialysis 60 BPM Temperature Pre-Dialysis 96.9 degF Temperature Post -Dialysis 97.6 degF December 22, 2022 In-Center Hemodialysis Treatment [id number]:04:31.000Z [id number]:39:30.000Z BP Sitting (Pre-Dialysis) 113/49 mmHg BP Sitting (Post-Dialysis) 115/56 mmHg Concurrent Access: falseCentral Venous Catheter (CVC) Chest (Right) ArterialPD Catheter Lower Quadrant (Left) Venous BP Standing (Pre-Dialysis) 120/49 mmHg BP Standing (P ost-Dialysis) 156/66 mmHg Sitting Heart Rate Pre-Dialysis 71 BPM Sitting Heart Rate Post-Dialysis 60 BPM Standing Heart Rate Pre-Dialysis 81 BPM Standing Heart Rate Post-Dialysis 96 BPM Temperature Pre-Dialysis 97.2 degF Temperature Post -Dialysis 97.3 degF December 20, 2022 In-Center Hemodialysis Treatment [id number]:42:00.000Z 2351-12-48L29:17:32.000Z BP Sitting (Pre-Dialysis) 100/50 mmHg BP Sitting (Post-Dialysis) 108/62 mmHg Concurrent Access: falseCentral Venous Catheter (CVC) Chest (Right) ArterialPD Catheter Lower Quadrant (Left) Venous BP Standing (Pre-Dialysis) 90/44 mmHg BP Standing (P ost-Dialysis) 125/23 mmHg Sitting Heart Rate Pre-Dialysis 86 BPM Sitting Heart Rate Post-Dialysis 62 BPM Standing Heart Rate Pre-Dialysis 92 BPM Standing Heart Rate Post-Dialysis 64 BPM Temperature Pre-Dialysis 97 degF Temperature Post -Dialysis 97 degF December 18, 2022 In-Center Hemodialysis Treatment [id number]:08:31.000Z 1162-01-18J48:42:30.000Z BP Sitting (Pre-Dialysis) 130/68 mmHg BP Sitting (Post-Dialysis) 126/51 mmHg Concurrent Access: falseCentral Venous Catheter (CVC) Chest (Right) ArterialPD Catheter Lower Quadrant (Left) Venous BP Standing (Pre-Dialysis) 113/56 mmHg BP Standing (P ost-Dialysis) 113/42 mmHg Sitting Heart Rate Pre-Dialysis 99 BPM Sitting Heart Rate Post-Dialysis 71 BPM Standing Heart Rate Pre-Dialysis 105 BPM Standing Heart Rate Post-Dialysis 72 BPM Temperature Pre-Dialysis 97.2 degF Temperature Post -Dialysis 97.2 degF December 15, 2022 In-Center Hemodialysis Treatment 3467-82-10Q83:14:00.000Z [id number]:45:33.000Z BP Sitting (Pre-Dialysis) 139/82 mmHg BP Sitting (Post-Dialysis) 99/48 mmHg Concurrent Access: falseCentral Venous Catheter (CVC) Chest (Right) ArterialPD Catheter Lower Quadrant (Left) Venous BP Standing (Pre-Dialysis) 118/63 mmHg BP Standing (P ost-Dialysis) 117/41 mmHg Sitting Heart Rate Pre-Dialysis 73 BPM Sitting Heart Rate Post-Dialysis 66 BPM Standing Heart Rate Pre-Dialysis 88 BPM Standing Heart Rate Post-Dialysis 70 BPM Temperature Pre-Dialysis 97.7 degF Temperature Post -Dialysis 97.7 degF December 13, 2022 In-Center Hemodialysis Treatment [id number]:33:22.000Z [id number]:06:21.000Z BP Sitting (Pre-Dialysis) 113/49 mmHg BP Sitting (Post-Dialysis) 129/65 mmHg Concurrent Access: falseCentral Venous Catheter (CVC) Chest (Right) ArterialPD Catheter Lower Quadrant (Left) Venous Sitting Heart Rate Pre-Dialysis 84 BPM BP Standi ng (Post-Dialysis) 97/42 mmHg Temperature Pre-Dialysis 97.4 degF Sitting Heart Ra te Post-Dialysis 68 BPM Standing Heart Rate Post-Ghazal lysis 70 BPM Temperature Post-Dialysis 97 .8 degF December 11, 2022 In-Center Hemodialysis Treatment [id number]:55:37.000Z 3434-84-80H95:28:24.000Z BP Sitting (Pre-Dialysis) 140/76 mmHg BP Sitting (Post-Dialysis) 115/54 mmHg Concurrent Access: falseCentral Venous Catheter (CVC) Chest (Right) ArterialPD Catheter Lower Quadrant (Left) Venous BP Standing (Pre-Dialysis) 102/56 mmHg BP Standing (P ost-Dialysis) 111/53 mmHg Sitting Heart Rate Pre-Dialysis 84 BPM Sitting Heart Rate Post-Dialysis 60 BPM Standing Heart Rate Pre-Dialysis 93 BPM Standing Heart Rate Post-Dialysis 61 BPM Temperature Pre-Dialysis 97.2 degF Temperature Post -Dialysis 97.2 degF December 08, 2022 In-Center Hemodialysis Treatment [id number]:08:02.000Z [id number]:41:01.000Z BP Sitting (Pre-Dialysis) 120/57 mmHg BP Sitting (Post-Dialysis) 110/58 mmHg Concurrent Access: falseCentral Venous Catheter (CVC) Chest (Right) ArterialPD Catheter Lower Quadrant (Left) Venous BP Standing (Pre-Dialysis) 98/55 mmHg BP Standing (P ost-Dialysis) 137/46 mmHg Sitting Heart Rate Pre-Dialysis 86 BPM Sitting Heart Rate Post-Dialysis 78 BPM Standing Heart Rate Pre-Dialysis 95 BPM Standing Heart Rate Post-Dialysis 55 BPM Temperature Pre-Dialysis 96.8 degF Temperature Post -Dialysis 98 degF December 06, 2022 In-Center Hemodialysis Treatment 8298-64-12J56:32:00.000Z 2454-01-32B14:06:16.000Z BP Sitting (Pre-Dialysis) 134/65 mmHg BP Sitting (Post-Dialysis) 122/60 mmHg Concurrent Access: falseCentral Venous Catheter (CVC) Chest (Right) ArterialPD Catheter Lower Quadrant (Left) Venous BP Standing (Pre-Dialysis) 99/57 mmHg BP Standing (P ost-Dialysis) 117/43 mmHg Sitting Heart Rate Pre-Dialysis 83 BPM Sitting Heart Rate Post-Dialysis 60 BPM Standing Heart Rate Pre-Dialysis 93 BPM Standing Heart Rate Post-Dialysis 73 BPM Temperature Pre-Dialysis 97 degF Temperature Post -Dialysis 97 degF December 04, 2022 In-Center Hemodialysis Treatment [id number]:05:00.000Z 7747-83-25F34:37:38.000Z BP Sitting (Pre-Dialysis) 122/54 mmHg BP Sitting (Post-Dialysis) 134/62 mmHg Concurrent Access: falseCentral Venous Catheter (CVC) Chest (Right) ArterialPD Catheter Lower Quadrant (Left) Venous BP Standing (Pre-Dialysis) 105/63 mmHg BP Standing (P ost-Dialysis) 110/40 mmHg Sitting Heart Rate Pre-Dialysis 86 BPM Sitting Heart Rate Post-Dialysis 61 BPM Standing Heart Rate Pre-Dialysis 93 BPM Standing Heart Rate Post-Dialysis 68 BPM Temperature Pre-Dialysis 97.2 degF Temperature Post -Dialysis 96.8 degF December 01, 2022 In-Center Hemodialysis Treatment 4620-10-88W88:07:00.000Z 3736-90-23O39:34:07.000Z BP Sitting (Pre-Dialysis) 111/53 mmHg BP Sitting (Post-Dialysis) 113/49 mmHg Concurrent Access: falseCentral Venous Catheter (CVC) Chest (Right) ArterialPD Catheter Lower Quadrant (Left) Venous BP Standing (Pre-Dialysis) 118/103 mmHg BP Standing (P ost-Dialysis) 101/43 mmHg Sitting Heart Rate Pre-Dialysis 92 BPM Sitting Heart Rate Post-Dialysis 64 BPM Standing Heart Rate Pre-Dialysis 103 BPM Standing Heart Rate Post-Dialysis 64 BPM Temperature Pre-Dialysis 97.2 degF Temperature Post -Dialysis 96.8 degF November 29, 2022 In-Center Hemodialysis Treatment 0487-13-73S81:10:07.000Z 8605-39-86O77:42:06.000Z BP Sitting (Pre-Dialysis) 114/53 mmHg BP Sitting (Post-Dialysis) 128/58 mmHg Concurrent Access: falseCentral Venous Catheter (CVC) Chest (Right) ArterialPD Catheter Lower Quadrant (Left) Venous BP Standing (Pre-Dialysis) 115/41 mmHg BP Standing (P ost-Dialysis) 95/30 mmHg Sitting Heart Rate Pre-Dialysis 89 BPM Sitting Heart Rate Post-Dialysis 66 BPM Standing Heart Rate Pre-Dialysis 103 BPM Standing Heart Rate Post-Dialysis 66 BPM Temperature Pre-Dialysis 97.9 degF Temperature Post -Dialysis 97.6 degF November 27, 2022 In-Center Hemodialysis Treatment 7819-27-97A48:59:07.000Z 3422-86-07A76:32:08.000Z BP Sitting (Pre-Dialysis) 105/57 mmHg BP Sitting (Post-Dialysis) 128/59 mmHg Concurrent Access: falseCentral Venous Catheter (CVC) Chest (Right) ArterialPD Catheter Lower Quadrant (Left) Venous BP Standing (Pre-Dialysis) 68/36 mmHg BP Standing (P ost-Dialysis) 94/64 mmHg Sitting Heart Rate Pre-Dialysis 90 BPM Sitting H eart Rate Post-Dialysis 67 BPM Standing Heart Rate Pre-Dialysis 105 BPM Standing Heart Rate Post-Dialysis 71 BPM Temperature Pre-Dialysis 97.5 degF Temperature Post -Dialysis 97.3 degF November 24, 2022 In-Center Hemodialysis Treatment 8742-54-26L90:00:00.000Z 5750-65-86F45:38:28.000Z BP Sitting (Pre-Dialysis) 137/69 mmHg BP Sitting (Post-Dialysis) 139/66 mmHg Concurrent Access: falseCentral Venous Catheter (CVC) Chest (Right) ArterialPD Catheter Lower Quadrant (Left) Venous BP Standing (Pre-Dialysis) 80/55 mmHg BP Standing (P ost-Dialysis) 121/54 mmHg Sitting Heart Rate Pre-Dialysis 90 BPM Sitting Heart Rate Post-Dialysis 61 BPM Standing Heart Rate Pre-Dialysis 98 BPM Standing Heart Rate Post-Dialysis 65 BPM Temperature Pre-Dialysis 97.9 degF Temperature Post -Dialysis 97.3 degF November 22, 2022 In-Center Hemodialysis Treatment 7750-02-68U30:10:00.000Z 6195-43-15C10:46:06.000Z BP Sitting (Pre-Dialysis) 132/60 mmHg BP Sitting (Post-Dialysis) 131/65 mmHg Concurrent Access: falseCentral Venous Catheter (CVC) Chest (Right) ArterialPD Catheter Lower Quadrant (Left) Venous BP Standing (Pre-Dialysis) 107/61 mmHg BP Standing (P ost-Dialysis) 116/41 mmHg Sitting Heart Rate Pre-Dialysis 82 BPM Sitting Heart Rate Post-Dialysis 64 BPM Standing Heart Rate Pre-Dialysis 92 BPM Standing Heart Rate Post-Dialysis 68 BPM Temperature Pre-Dialysis 97.3 degF Temperature Post -Dialysis 97.2 degF November 20, 2022 In-Center Hemodialysis Treatment 8036-80-17L08:09:00.000Z 2587-09-43P76:44:06.000Z BP Sitting (Pre-Dialysis) 149/65 mmHg BP Sitting (Post-Dialysis) 135/61 mmHg Concurrent Access: falseCentral Venous Catheter (CVC) Chest (Right) ArterialPD Catheter Lower Quadrant (Left) Venous BP Standing (Pre-Dialysis) 78/37 mmHg BP Standing (P ost-Dialysis) 90/37 mmHg Sitting Heart Rate Pre-Dialysis 60 BPM Sitting H eart Rate Post-Dialysis 66 BPM Standing Heart Rate Pre-Dialysis 101 BPM Standing Heart Rate Post-Dialysis 65 BPM Temperature Pre-Dialysis 97.3 degF Temperature Post -Dialysis 97.2 degF November 17, 2022 In-Center Hemodialysis Treatment 1359-29-51E32:04:00.000Z 9833-34-34W58:41:30.000Z BP Sitting (Pre-Dialysis) 141/70 mmHg BP Sitting (Post-Dialysis) 132/65 mmHg Concurrent Access: falseCentral Venous Catheter (CVC) Chest (Right) ArterialPD Catheter Lower Quadrant (Left) Venous BP Standing (Pre-Dialysis) 82/38 mmHg BP Standing (P ost-Dialysis) 114/46 mmHg Sitting Heart Rate Pre-Dialysis 88 BPM Sitting Heart Rate Post-Dialysis 71 BPM Standing Heart Rate Pre-Dialysis 103 BPM Standing Heart Rate Post-Dialysis 68 BPM Temperature Pre-Dialysis 97.1 degF Temperature Post -Dialysis 97.7 degF November 15, 2022 In-Center Hemodialysis Treatment 9645-61-30K87:25:00.000Z 9021-17-80A28:01:50.000Z BP Sitting (Pre-Dialysis) 135/65 mmHg BP Sitting (Post-Dialysis) 117/43 mmHg Concurrent Access: falseCentral Venous Catheter (CVC) Chest (Right) ArterialPD Catheter Lower Quadrant (Left) Venous BP Standing (Pre-Dialysis) 88/45 mmHg Sitti ng Heart Rate Post-Dialysis 62 BPM Sitting Heart Rate Pre-Dialysis 79 BPM Temperatu re Post-Dialysis 97.2 degF Standing Heart Rate Pre-Dialysis 98 BPM Temperature Pre-Dialysis 97.6 degF November 13, 2022 In-Center Hemodialysis Treatment 1375-17-10V39:09:00.000Z 7113-96-50D40:43:13.000Z BP Sitting (Pre-Dialysis) 155/72 mmHg BP Sitting (Post-Dialysis) 132/56 mmHg Concurrent Access: falseCentral Venous Catheter (CVC) Chest (Right) ArterialPD Catheter Lower Quadrant (Left) Venous BP Standing (Pre-Dialysis) 99/36 mmHg BP Standing (P ost-Dialysis) 106/44 mmHg Sitting Heart Rate Pre-Dialysis 85 BPM Sitting Heart Rate Post-Dialysis 72 BPM Standing Heart Rate Pre-Dialysis 93 BPM Standing Heart Rate Post-Dialysis 63 BPM Temperature Pre-Dialysis 97.1 degF Temperature Post -Dialysis 97.3 degF November 10, 2022 In-Center Hemodialysis Treatment 3815-02-07L03:41:00.000Z 6372-85-54F11:16:42.000Z BP Sitting (Pre-Dialysis) 112/69 mmHg BP Sitting (Post-Dialysis) 149/66 mmHg Concurrent Access: falseCentral Venous Catheter (CVC) Chest (Right) ArterialPD Catheter Lower Quadrant (Left) Venous BP Standing (Pre-Dialysis) 120/37 mmHg BP Standing (P ost-Dialysis) 112/52 mmHg Sitting Heart Rate Pre-Dialysis 75 BPM Sitting Heart Rate Post-Dialysis 60 BPM Standing Heart Rate Pre-Dialysis 87 BPM Standing Heart Rate Post-Dialysis 63 BPM Temperature Pre-Dialysis 97.7 degF Temperature Post -Dialysis 97.2 degF November 08, 2022 In-Center Hemodialysis Treatment 9490-44-67Z59:12:00.000Z 0690-69-76O65:48:06.000Z BP Sitting (Pre-Dialysis) 120/43 mmHg BP Sitting (Post-Dialysis) 113/44 mmHg Concurrent Access: falseCentral Venous Catheter (CVC) Chest (Right) ArterialPD Catheter Lower Quadrant (Left) Venous Sitting Heart Rate Pre-Dialysis 84 BPM Sitting H eart Rate Post-Dialysis 76 BPM Temperature Pre-Dialysis 97.9 degF Temperature Post -Dialysis 97.4 degF November 06, 2022 In-Center Hemodialysis Treatment 7529-80-89P28:06:51.000Z 4679-82-82K44:38:52.000Z BP Sitting (Pre-Dialysis) 106/71 mmHg BP Sitting (Post-Dialysis) 134/71 mmHg Concurrent Access: falseCentral Venous Catheter (CVC) Chest (Right) ArterialPD Catheter Lower Quadrant (Left) Venous Sitting Heart Rate Pre-Dialysis 62 BPM BP Standing (Post-Dialysis) 121/58 mmHg Temperature Pre-Dialysis 98.2 degF Sitting Heart Ra te Post-Dialysis 68 BPM Standing Heart Rate Post-Ghazal lysis 67 BPM Temperature Post-Dialysis 97 .8 degF November 03, 2022 In-Center Hemodialysis Treatment 3413-28-67B03:00:08.000Z 8784-61-29Y93:34:07.000Z BP Sitting (Pre-Dialysis) 150/48 mmHg BP Sitting (Post-Dialysis) 136/73 mmHg Concurrent Access: falseCentral Venous Catheter (CVC) Chest (Right) ArterialPD Catheter Lower Quadrant (Left) Venous Sitting Heart Rate Pre-Dialysis 75 BPM Sitting H eart Rate Post-Dialysis 63 BPM Temperature Pre-Dialysis 98.2 degF Temperature Post -Dialysis 98 degF November 01, 2022 In-Center Hemodialysis Treatment 5364-98-20E51:59:00.000Z 0678-28-97W60:30:07.000Z BP Sitting (Pre-Dialysis) 121/59 mmHg BP Sitting (Post-Dialysis) 111/62 mmHg Concurrent Access: falseCentral Venous Catheter (CVC) Chest (Right) ArterialPD Catheter Lower Quadrant (Left) Venous BP Standing (Pre-Dialysis) 108/86 mmHg BP Standing (P ost-Dialysis) 119/74 mmHg Sitting Heart Rate Pre-Dialysis 89 BPM Sitting Heart Rate Post-Dialysis 64 BPM Standing Heart Rate Pre-Dialysis 94 BPM Standing Heart Rate Post-Dialysis 64 BPM Temperature Pre-Dialysis 97.1 degF Temperature Post -Dialysis 97.4 degF October 30, 2022 In-Center Hemodialysis Treatment [id number]:03:37.000Z 0142-23-51U18:34:36.000Z BP Sitting (Pre-Dialysis) 150/86 mmHg BP Sitting (Post-Dialysis) 130/57 mmHg Concurrent Access: falseCentral Venous Catheter (CVC) Chest (Right) ArterialPD Catheter Lower Quadrant (Left) Venous BP Standing (Pre-Dialysis) 142/56 mmHg BP Standing (P ost-Dialysis) 128/48 mmHg Sitting Heart Rate Pre-Dialysis 85 BPM Sitting Heart Rate Post-Dialysis 71 BPM Standing Heart Rate Pre-Dialysis 89 BPM Standing Heart Rate Post-Dialysis 67 BPM Temperature Pre-Dialysis 97.3 degF Temperature Post -Dialysis 97.3 degF October 27, 2022 In-Center Hemodialysis Treatment 9025-31-45G88:57:54.000Z 5148-77-54Z34:30:53.000Z BP Sitting (Pre-Dialysis) 136/62 mmHg BP Sitting (Post-Dialysis) 127/65 mmHg Concurrent Access: falseCentral Venous Catheter (CVC) Chest (Right) ArterialPD Catheter Lower Quadrant (Left) Venous BP Standing (Pre-Dialysis) 91/42 mmHg BP Standing (P ost-Dialysis) 135/58 mmHg Sitting Heart Rate Pre-Dialysis 95 BPM Sitting Heart Rate Post-Dialysis 65 BPM Standing Heart Rate Pre-Dialysis 107 BPM Standing Heart Rate Post-Dialysis 66 BPM Temperature Pre-Dialysis 97.2 degF Temperature Post -Dialysis 97.2 degF October 25, 2022 In-Center Hemodialysis Treatment 2450-31-91C16:24:00.000Z 3052-11-03K50:04:18.000Z BP Sitting (Pre-Dialysis) 157/71 mmHg BP Sitting (Post-Dialysis) 108/54 mmHg Concurrent Access: falseCentral Venous Catheter (CVC) Chest (Right) ArterialPD Catheter Lower Quadrant (Left) Venous BP Standing (Pre-Dialysis) 164/85 mmHg BP Standing (P ost-Dialysis) 108/45 mmHg Sitting Heart Rate Pre-Dialysis 89 BPM Sitting Heart Rate Post-Dialysis 60 BPM Standing Heart Rate Pre-Dialysis 89 BPM Standing Heart Rate Post-Dialysis 73 BPM Temperature Pre-Dialysis 97.5 degF Temperature Post -Dialysis 97.2 degF 2022 In-Center Hemodialysis Treatment 5910-41-17A54:11:00.000Z 7054-07-14O04:45:28.000Z BP Sitting (Pre-Dialysis) 160/86 mmHg BP Sitting (Post-Dialysis) 112/69 mmHg Concurrent Access: falseCentral Venous Catheter (CVC) Chest (Right) ArterialPD Catheter Lower Quadrant (Left) Venous BP Standing (Pre-Dialysis) 127/78 mmHg BP Standing (P ost-Dialysis) 137/71 mmHg Sitting Heart Rate Pre-Dialysis 83 BPM Sitting Heart Rate Post-Dialysis 69 BPM Standing Heart Rate Pre-Dialysis 94 BPM Standing Heart Rate Post-Dialysis 85 BPM Temperature Pre-Dialysis 97.9 degF Temperature Post -Dialysis 97.2 degF October 20, 2022 In-Center Hemodialysis Treatment 5664-99-71P99:54:00.000Z 4582-55-53W99:22:11.000Z BP Sitting (Pre-Dialysis) 145/67 mmHg BP Sitting (Post-Dialysis) 111/60 mmHg Concurrent Access: falseCentral Venous Catheter (CVC) Chest (Right) ArterialPD Catheter Lower Quadrant (Left) Venous BP Standing (Pre-Dialysis) 123/62 mmHg BP Standing (P ost-Dialysis) 117/52 mmHg Sitting Heart Rate Pre-Dialysis 90 BPM Sitting Heart Rate Post-Dialysis 72 BPM Standing Heart Rate Pre-Dialysis 96 BPM Standing Heart Rate Post-Dialysis 75 BPM Temperature Pre-Dialysis 98.2 degF Temperature Post -Dialysis 97.6 degF October 18, 2022 InCenter Hemodialysis Treatment 1083-72-72I69:01:12.000Z 8590-32-91F46:34:11.000Z BP Sitting (Pre-Dialysis) 149/78 mmHg BP Sitting (Post-Dialysis) 131/65 mmHg Concurrent Access: falseCentral Venous Catheter (CVC) Chest (Right) ArterialPD Catheter Lower Quadrant (Left) Venous BP Standing (Pre-Dialysis) 122/70 mmHg BP Standing (P ost-Dialysis) 136/57 mmHg Sitting Heart Rate Pre-Dialysis 89 BPM Sitting Heart Rate Post-Dialysis 71 BPM Standing Heart Rate Pre-Dialysis 93 BPM Standing Heart Rate Post-Dialysis 65 BPM Temperature Pre-Dialysis 97.2 degF Temperature Post -Dialysis 97.1 degF October 16, 2022 In-Center Hemodialysis Treatment 7051-06-83Y49:01:00.000Z 7331-82-04L51:33:22.000Z BP Sitting (Pre-Dialysis) 167/88 mmHg BP Sitting (Post-Dialysis) 138/77 mmHg Concurrent Access: falseCentral Venous Catheter (CVC) Chest (Right) ArterialPD Catheter Lower Quadrant (Left) Venous BP Standing (Pre-Dialysis) 147/74 mmHg BP Standing (P ost-Dialysis) 121/43 mmHg Sitting Heart Rate Pre-Dialysis 88 BPM Sitting Heart Rate Post-Dialysis 70 BPM Standing Heart Rate Pre-Dialysis 96 BPM Standing Heart Rate Post-Dialysis 69 BPM Temperature Pre-Dialysis 97.3 degF Temperature Post -Dialysis 97.2 degF October 13, 2022 In-Center Hemodialysis Treatment 1938-44-52I97:56:00.000Z 7034-81-81S57:31:10.000Z BP Sitting (Pre-Dialysis) 133/78 mmHg BP Sitting (Post-Dialysis) 137/77 mmHg Concurrent Access: falseCentral Venous Catheter (CVC) Chest (Right) ArterialPD Catheter Lower Quadrant (Left) Venous BP Standing (Pre-Dialysis) 116/67 mmHg BP Standing (P ost-Dialysis) 124/66 mmHg Sitting Heart Rate Pre-Dialysis 81 BPM Sitting Heart Rate Post-Dialysis 71 BPM Standing Heart Rate Pre-Dialysis 92 BPM Standing Heart Rate Post-Dialysis 68 BPM Temperature Pre-Dialysis 97.3 degF Temperature Post -Dialysis 98.2 degF October 11, 2022 In-Center Hemodialysis Treatment 2756-20-71N44:59:10.000Z 9113-67-71G58:35:09.000Z BP Sitting (Pre-Dialysis) 131/70 mmHg BP Sitting (Post-Dialysis) 156/70 mmHg Concurrent Access: falseCentral Venous Catheter (CVC) Chest (Right) ArterialPD Catheter Lower Quadrant (Left) Venous BP Standing (Pre-Dialysis) 154/64 mmHg BP Standing (P ost-Dialysis) 129/54 mmHg Sitting Heart Rate Pre-Dialysis 80 BPM Sitting Heart Rate Post-Dialysis 69 BPM Standing Heart Rate Pre-Dialysis 96 BPM Standing Heart Rate Post-Dialysis 72 BPM Temperature Pre-Dialysis 97 degF Temperature Post -Dialysis 97.2 degF October 09, 2022 In-Center Hemodialysis Treatment [id number]:11:10.000Z 8441-76-11I34:45:09.000Z BP Sitting (Pre-Dialysis) 162/85 mmHg BP Sitting (Post-Dialysis) 152/78 mmHg Concurrent Access: falseCentral Venous Catheter (CVC) Chest (Right) ArterialPD Catheter Lower Quadrant (Left) Venous BP Standing (Pre-Dialysis) 127/64 mmHg BP Standing (P ost-Dialysis) 152/79 mmHg Sitting Heart Rate Pre-Dialysis 84 BPM Sitting Heart Rate Post-Dialysis 66 BPM Standing Heart Rate Pre-Dialysis 94 BPM Standing Heart Rate Post-Dialysis 67 BPM Temperature Pre-Dialysis 97.3 degF Temperature Post -Dialysis 97.5 degF October 06, 2022 In-Center Hemodialysis Treatment 9935-27-98X45:54:00.000Z 0773-39-46M95:26:32.000Z BP Sitting (Pre-Dialysis) 138/70 mmHg BP Sitting (Post-Dialysis) 147/75 mmHg Concurrent Access: falseCentral Venous Catheter (CVC) Chest (Right) ArterialPD Catheter Lower Quadrant (Left) Venous BP Standing (Pre-Dialysis) 138/74 mmHg BP Standing (P ost-Dialysis) 131/68 mmHg Sitting Heart Rate Pre-Dialysis 90 BPM Sitting Heart Rate Post-Dialysis 63 BPM Standing Heart Rate Pre-Dialysis 105 BPM Standing Heart Rate Post-Dialysis 70 BPM Temperature Pre-Dialysis 97.6 degF Temperature Post -Dialysis 97.3 degF October 04, 2022 In-Center Hemodialysis Treatment 8480-35-43C70:50:00.000Z 3960-57-11W88:23:31.000Z BP Sitting (Pre-Dialysis) 113/56 mmHg BP Sitting (Post-Dialysis) 138/71 mmHg Concurrent Access: falseCentral Venous Catheter (CVC) Chest (Right) ArterialPD Catheter Lower Quadrant (Left) Venous BP Standing (Pre-Dialysis) 89/59 mmHg BP Standing (P ost-Dialysis) 161/54 mmHg Sitting Heart Rate Pre-Dialysis 87 BPM Sitting Heart Rate Post-Dialysis 70 BPM Standing Heart Rate Pre-Dialysis 88 BPM Standing Heart Rate Post-Dialysis 70 BPM Temperature Pre-Dialysis 97 degF Temperature Post -Dialysis 97.2 degF October 02, 2022 In-Center Hemodialysis Treatment 7279-15-08C19:01:00.000Z 3445-73-80J15:37:31.000Z BP Sitting (Pre-Dialysis) 132/68 mmHg BP Sitting (Post-Dialysis) 139/63 mmHg Concurrent Access: falseCentral Venous Catheter (CVC) Chest (Right) ArterialPD Catheter Lower Quadrant (Left) Venous BP Standing (Pre-Dialysis) 145/64 mmHg BP Standing (P ost-Dialysis) 100/48 mmHg Sitting Heart Rate Pre-Dialysis 78 BPM Sitting Heart Rate Post-Dialysis 69 BPM Standing Heart Rate Pre-Dialysis 92 BPM Standing Heart Rate Post-Dialysis 67 BPM Temperature Pre-Dialysis 98.1 degF Temperature Post -Dialysis 97.1 degF September 29, 2022 In-Center Hemodialysis Treatment [id number]:31:13.000Z 6657-17-53S06:05:12.000Z BP Sitting (Pre-Dialysis) 148/71 mmHg BP Sitting (Post-Dialysis) 139/70 mmHg Concurrent Access: falseCentral Venous Catheter (CVC) Chest (Right) ArterialPD Catheter Lower Quadrant (Left) Venous BP Standing (Pre-Dialysis) 122/56 mmHg BP Standing (P ost-Dialysis) 115/43 mmHg Sitting Heart Rate Pre-Dialysis 96 BPM Sitting Heart Rate Post-Dialysis 73 BPM Standing Heart Rate Pre-Dialysis 109 BPM Standing Heart Rate Post-Dialysis 70 BPM Temperature Pre-Dialysis 97.2 degF Temperature Post -Dialysis 97.3 degF September 27, 2022 In-Center Hemodialysis Treatment 3112-17-59V53:51:00.000Z 4857-09-01S17:27:13.000Z BP Sitting (Pre-Dialysis) 121/64 mmHg BP Sitting (Post-Dialysis) 135/64 mmHg Concurrent Access: falseCentral Venous Catheter (CVC) Chest (Right) ArterialPD Catheter Lower Quadrant (Left) Venous BP Standing (Pre-Dialysis) 88/56 mmHg BP Standing (P ost-Dialysis) 95/48 mmHg Sitting Heart Rate Pre-Dialysis 81 BPM Sitting H eart Rate Post-Dialysis 66 BPM Standing Heart Rate Pre-Dialysis 92 BPM Standing Heart Rate Post-Dialysis 59 BPM Temperature Pre-Dialysis 96.9 degF Temperature Post -Dialysis 97.3 degF September 25, 2022 In-Center Hemodialysis Treatment 7177-13-96F88:57:13.000Z 5011-71-94O39:28:12.000Z BP Sitting (Pre-Dialysis) 114/56 mmHg BP Sitting (Post-Dialysis) 107/47 mmHg Concurrent Access: falseCentral Venous Catheter (CVC) Chest (Right) ArterialPD Catheter Lower Quadrant (Left) Venous BP Standing (Pre-Dialysis) 84/41 mmHg BP Standing (P ost-Dialysis) 100/47 mmHg Sitting Heart Rate Pre-Dialysis 86 BPM Sitting Heart Rate Post-Dialysis 69 BPM Standing Heart Rate Pre-Dialysis 90 BPM Standing Heart Rate Post-Dialysis 64 BPM Temperature Pre-Dialysis 97.3 degF Temperature Post -Dialysis 97.3 degF September 22, 2022 In-Center Hemodialysis Treatment 9723-93-64E19:05:00.000Z 2292-28-73X50:36:42.000Z BP Sitting (Pre-Dialysis) 90/53 mmHg BP Sitting (Post-Dialysis) 107/49 mmHg Concurrent Access: falseCentral Venous Catheter (CVC) Chest (Right) ArterialPD Catheter Lower Quadrant (Left) Venous BP Standing (Pre-Dialysis) 65/40 mmHg Sitti ng Heart Rate Post-Dialysis 59 BPM Sitting Heart Rate Pre-Dialysis 89 BPM Temperatu re Post-Dialysis 97.3 degF Standing Heart Rate Pre-Dialysis 90 BPM Temperature Pre-Dialysis 97.4 degF September 20, 2022 In-Center Hemodialysis Treatment 0999-52-50J86:01:00.000Z 0234-64-21O23:34:42.000Z BP Sitting (Pre-Dialysis) 113/57 mmHg BP Sitting (Post-Dialysis) 124/63 mmHg Concurrent Access: falseCentral Venous Catheter (CVC) Chest (Right) ArterialPD Catheter Lower Quadrant (Left) Venous BP Standing (Pre-Dialysis) 75/45 mmHg BP Standing (P ost-Dialysis) 112/52 mmHg Sitting Heart Rate Pre-Dialysis 70 BPM Sitting Heart Rate Post-Dialysis 65 BPM Standing Heart Rate Pre-Dialysis 92 BPM Standing Heart Rate Post-Dialysis 63 BPM Temperature Pre-Dialysis 97.1 degF Temperature Post -Dialysis 97 degF September 18, 2022 In-Center Hemodialysis Treatment [id number] BP Sitting (Pre-Dialysis) 83/42 mmHg BP Sitting (Post-Dialysis) 125/62 mmHg Concurrent Access: falseCentral Venous Catheter (CVC) Chest (Right) ArterialPD Catheter Lower Quadrant (Left) Venous BP Standing (Pre-Dialysis) 69/28 mmHg BP Standing (P ost-Dialysis) 115/46 mmHg Sitting Heart Rate Pre-Dialysis 78 BPM Sitting Heart Rate Post-Dialysis 64 BPM Standing Heart Rate Pre-Dialysis 84 BPM Standing Heart Rate Post-Dialysis 69 BPM Temperature Pre-Dialysis 97.3 degF Temperature Post -Dialysis 97.7 degF September 15, 2022 In-Center Hemodialysis Treatment [id number]:56.000Z BP Sitting (Pre-Dialysis) 100/53 mmHg BP Sitting (Post-Dialysis) 80/58 mmHg Concurrent Access: falseCentral Venous Catheter (CVC) Chest (Right) ArterialPD Catheter Lower Quadrant (Left) Venous BP Standing (Pre-Dialysis) 72/49 mmHg BP Standing (P ost-Dialysis) 104/48 mmHg Sitting Heart Rate Pre-Dialysis 87 BPM Sitting Heart Rate Post-Dialysis 69 BPM Standing Heart Rate Pre-Dialysis 100 BPM Standing Heart Rate Post-Dialysis 95 BPM Temperature Pre-Dialysis 97.1 degF Temperature Post -Dialysis 97 degF September 13, 2022 In-Center Hemodialysis Treatment [id number]:[id number]:14.000Z BP Sitting (Pre-Dialysis) 132/62 mmHg BP Sitting (Post-Dialysis) 116/58 mmHg Concurrent Access: falseCentral Venous Catheter (CVC) Chest (Right) ArterialPD Catheter Lower Quadrant (Left) Venous BP Standing (Pre-Dialysis) 99/53 mmHg BP Standing (P ost-Dialysis) 101/41 mmHg Sitting Heart Rate Pre-Dialysis 94 BPM Sitting Heart Rate Post-Dialysis 68 BPM Standing Heart Rate Pre-Dialysis 99 BPM Standing Heart Rate Post-Dialysis 64 BPM Temperature Pre-Dialysis 97.3 degF Temperature Post -Dialysis 97.7 degF September 11, 2022 In-Center Hemodialysis Treatment [id number]:00.000Z [id number] BP Sitting (Pre-Dialysis) 96/54 mmHg BP Sitting (Post-Dialysis) 106/52 mmHg Concurrent Access: falseCentral Venous Catheter (CVC) Chest (Right) ArterialPD Catheter Lower Quadrant (Left) Venous BP Standing (Pre-Dialysis) 108/40 mmHg BP Standing (P ost-Dialysis) 122/44 mmHg Sitting Heart Rate Pre-Dialysis 93 BPM Sitting Heart Rate Post-Dialysis 71 BPM Standing Heart Rate Pre-Dialysis 98 BPM Standing Heart Rate Post-Dialysis 67 BPM Temperature Pre-Dialysis 97.2 degF Temperature Post -Dialysis 98.2 degF September 06, 2022 In-Center Hemodialysis Treatment [id number]:30.000Z [id number]:29.000Z BP Sitting (Pre-Dialysis) 123/54 mmHg BP Sitting (Post-Dialysis) 109/57 mmHg Concurrent Access: falseCentral Venous Catheter (CVC) Chest (Right) ArterialPD Catheter Lower Quadrant (Left) Venous BP Standing (Pre-Dialysis) 101/48 mmHg BP Standing (P ost-Dialysis) 127/44 mmHg Sitting Heart Rate Pre-Dialysis 87 BPM Sitting Heart Rate Post-Dialysis 68 BPM Standing Heart Rate Pre-Dialysis 92 BPM Standing Heart Rate Post-Dialysis 67 BPM Temperature Pre-Dialysis 97.3 degF Temperature Post -Dialysis 98 degF September 04, 2022 In-Center Hemodialysis Treatment [id number]:16.000Z [id number]:30:16.000Z BP Sitting (Pre-Dialysis) 113/48 mmHg BP Sitting (Post-Dialysis) 122/56 mmHg Concurrent Access: falseCentral Venous Catheter (CVC) Chest (Right) ArterialPD Catheter Lower Quadrant (Left) Venous BP Standing (Pre-Dialysis) 105/54 mmHg BP Standing (P ost-Dialysis) 113/48 mmHg Sitting Heart Rate Pre-Dialysis 68 BPM Sitting Heart Rate Post-Dialysis 69 BPM Standing Heart Rate Pre-Dialysis 89 BPM Standing Heart Rate Post-Dialysis 69 BPM Temperature Pre-Dialysis 98.1 degF Temperature Post -Dialysis 97.7 degF September 01, 2022 In-Center Hemodialysis Treatment [id number]:00.000Z [id number] BP Sitting (Pre-Dialysis) 101/47 mmHg BP Sitting (Post-Dialysis) 105/53 mmHg Concurrent Access: falseCentral Venous Catheter (CVC) Chest (Right) ArterialPD Catheter Lower Quadrant (Left) Venous BP Standing (Pre-Dialysis) 116/55 mmHg BP Standing (P ost-Dialysis) 112/41 mmHg Sitting Heart Rate Pre-Dialysis 61 BPM Sitting Heart Rate Post-Dialysis 74 BPM Standing Heart Rate Pre-Dialysis 98 BPM Standing Heart Rate Post-Dialysis 72 BPM Temperature Pre-Dialysis 97.5 degF Temperature Post -Dialysis 97.4 degF August 30, 2022 In-Center Hemodialysis Treatment [id number]:00.000Z [id number]:17.000Z BP Sitting (Pre-Dialysis) 121/56 mmHg BP Sitting (Post-Dialysis) 94/55 mmHg Concurrent Access: falseCentral Venous Catheter (CVC) Chest (Right) ArterialPD Catheter Lower Quadrant (Left) Venous BP Standing (Pre-Dialysis) 98/73 mmHg Sitti ng Heart Rate Post-Dialysis 67 BPM Sitting Heart Rate Pre-Dialysis 87 BPM Temperatu re Post-Dialysis 97.6 degF Standing Heart Rate Pre-Dialysis 89 BPM Temperature Pre-Dialysis 97.2 degF August 28, 2022 In-Center Hemodialysis Treatment [id number]:00.000Z [id number]:15:17.000Z BP Sitting (Pre-Dialysis) 119/39 mmHg BP Sitting (Post-Dialysis) 100/54 mmHg Concurrent Access: falseCentral Venous Catheter (CVC) Chest (Right) ArterialPD Catheter Lower Quadrant (Left) Venous BP Standing (Pre-Dialysis) 113/40 mmHg Sitti ng Heart Rate Post-Dialysis 64 BPM Sitting Heart Rate Pre-Dialysis 75 BPM Temperatu re Post-Dialysis 97.6 degF Standing Heart Rate Pre-Dialysis 90 BPM Temperature Pre-Dialysis 97.3 degF August 25, 2022 In-Center Hemodialysis Treatment [id number]:00.000Z [id number]:59.000Z BP Sitting (Pre-Dialysis) 120/67 mmHg BP Sitting (Post-Dialysis) 97/42 mmHg Concurrent Access: falseCentral Venous Catheter (CVC) Chest (Right) ArterialPD Catheter Lower Quadrant (Left) Venous BP Standing (Pre-Dialysis) 91/53 mmHg BP Standing (P ost-Dialysis) 106/48 mmHg Sitting Heart Rate Pre-Dialysis 84 BPM Sitting Heart Rate Post-Dialysis 64 BPM Standing Heart Rate Pre-Dialysis 104 BPM Standing Heart Rate Post-Dialysis 69 BPM Temperature Pre-Dialysis 97.8 degF Temperature Post -Dialysis 97.8 degF August 23, 2022 In-Center Hemodialysis Treatment [id number]:[id number]:39.000Z BP Sitting (Pre-Dialysis) 134/63 mmHg BP Sitting (Post-Dialysis) 130/48 mmHg Concurrent Access: falseCentral Venous Catheter (CVC) Chest (Right) ArterialPD Catheter Lower Quadrant (Left) Venous BP Standing (Pre-Dialysis) 111/64 mmHg BP Standing (P ost-Dialysis) 131/47 mmHg Sitting Heart Rate Pre-Dialysis 92 BPM Sitting Heart Rate Post-Dialysis 63 BPM Standing Heart Rate Pre-Dialysis 98 BPM Standing Heart Rate Post-Dialysis 64 BPM Temperature Pre-Dialysis 97.6 degF Temperature Post -Dialysis 97.7 degF August 18, 2022 [facility] August 17, 2022 [facility] August 16, 2022 [facility] August 15, 2022 [facility] BP Sitting (Pre-Dialysis) 86/50 mmHg Sitting Heart Rate Pre-Dialysis 60 BPM Temperature Pre-Dialysis 98.1 degF Weight Pre-Dialysis 88.9 kg August 15, 2022 [facility] August 14, 2022 [facility] August 13, 2022 [facility] August 12, 2022 [facility] August 11, 2022 [facility] August 10, 2022 [facility] August 09, 2022 [facility] August 08, 2022 [facility] BP Sitting (Pre-Dialysis) 104/56 mmHg Sitting Heart Rate Pre-Dialysis 61 BPM Temperature Pre-Dialysis 98.2 degF Weight Pre-Dialysis 88.8 kg August 08, 2022 [facility] August 07, 2022 [facility] August 06, 2022 [facility] August 05, 2022 [facility] August 04, 2022 [facility] August 03, 2022 [facility] August 02, 2022 [facility] August 01, 2022 [facility] July 31, 2022 [facility] July 30, 2022 [facility] July 29, 2022 [facility] July 28, 2022 [facility] July 27, 2022 [facility] July 26, 2022 [facility] July 25, 2022 [facility] BP Sitting (Pre-Dialysis) 122/62 mmHg Sitting Heart Rate Pre-Dialysis 61 BPM Temperature Pre-Dialysis 97.7 degF Weight Pre-Dialysis 87 kg July 25, 2022 [facility] July 24, 2022 [facility] July 23, 2022 [facility] July 22, 2022 [facility] July 21, 2022 [facility] July 20, 2022 [facility] July 19, 2022 [facility] July 18, 2022 [facility] July 17, 2022 [facility] July 16, 2022 [facility] July 15, 2022 [facility] July 14, 2022 [facility] July 13, 2022 [facility] July 12, 2022 [facility] July 11, 2022 [facility] July 10, 2022 [facility] BP Sitting (Pre-Dialysis) 120/62 mmHg Sitting Heart Rate Pre-Dialysis 66 BPM Temperature Pre-Dialysis 97.9 degF Weight Pre-Dialysis 86 kg July 10, 2022 [facility] July 09, 2022 [facility] July 08, 2022 [facility] July 07, 2022 [facility] July 06, 2022 [facility] July 05, 2022 [facility] July 04, 2022 [facility] July 03, 2022 [facility] July 02, 2022 [facility] July 01, 2022 [facility] June 30, 2022 [facility] June 29, 2022 [facility] June 28, 2022 [facility] June 27, 2022 [facility] BP Sitting (Pre-Dialysis) 84/58 mmHg Sitting Heart Rate Pre-Dialysis 74 BPM Temperature Pre-Dialysis 98.1 degF Weight Pre-Dialysis 89 kg June 27, 2022 [facility] June 26, 2022 [facility] June 25, 2022 [facility] June 24, 2022 [facility] June 23, 2022 [facility] June 22, 2022 [facility] June 21, 2022 [facility] June 20, 2022 [facility] June 19, 2022 [facility] June 18, 2022 [facility] June 17, 2022 [facility] June 16, 2022 [facility] June 15, 2022 [facility] June 14, 2022 [facility] June 13, 2022 [facility] June 12, 2022 [facility] June 11, 2022 [facility] June 10, 2022 [facility] June 09, 2022 [facility] June 08, 2022 [facility] June 07, 2022 [facility] BP Sitting (Pre-Dialysis) 118/60 mmHg Sitting Heart Rate Pre-Dialysis 62 BPM Temperature Pre-Dialysis 97.9 degF Weight Pre-Dialysis 88.7 kg June 07, 2022 [facility] June 06, 2022 [facility] June 05, 2022 [facility] June 04, 2022 [facility] June 03, 2022 [facility] June 02, 2022 [facility] June 01, 2022 [facility] May 31, 2022 [facility] May 30, 2022 [facility] May 29, 2022 [facility] May 28, 2022 [facility] May 27, 2022 [facility] May 26, 2022 [facility] May 25, 2022 [facility] May 24, 2022 [facility] May 23, 2022 [facility] May 22, 2022 [facility] May 21, 2022 [facility] May 20, 2022 [facility] May 19, 2022 [facility] May 18, 2022 [facility] May 17, 2022 [facility] May 16, 2022 [facility] BP Sitting (Pre-Dialysis) 124/69 mmHg Sitting Heart Rate Pre-Dialysis 70 BPM Temperature Pre-Dialysis 97.7 degF Weight Pre-Dialysis 84 kg May 16, 2022 [facility] May 15, 2022 [facility] May 14, 2022 [facility] May 13, 2022 [facility] May 12, 2022 [facility] May 11, 2022 [facility] May 10, 2022 [facility] May 09, 2022 [facility] May 08, 2022 [facility] May 07, 2022 [facility] May 06, 2022 [facility] May 05, 2022 [facility] May 04, 2022 [facility] May 03, 2022 [facility] BP Sitting (Pre-Dialysis) 112/86 mmHg Sitting Heart Rate Pre-Dialysis 62 BPM Temperature Pre-Dialysis 98.1 degF Weight Pre-Dialysis 80.8 kg May 03, 2022 [facility] May 02, 2022 [facility] May 01, 2022 [facility] April 30, 2022 [facility] April 29, 2022 [facility] April 28, 2022 [facility] April 27, 2022 [facility] April 26, 2022 [facility] April 25, 2022 [facility] BP Sitting (Pre-Dialysis) 110/61 mmHg Sitting Heart Rate Pre-Dialysis 61 BPM Temperature Pre-Dialysis 97.4 degF Weight Pre-Dialysis 84 kg April 25, 2022 [facility] April 24, 2022 [facility] April 23, 2022 [facility] April 22, 2022 [facility] April 21, 2022 [facility] April 20, 2022 [facility] April 19, 2022 [facility] April 18, 2022 [facility] April 17, 2022 [facility] April 16, 2022 [facility] April 15, 2022 [facility] April 14, 2022 [facility] April 13, 2022 [facility] April 12, 2022 [facility] April 11, 2022 [facility] April 10, 2022 [facility] April 09, 2022 [facility] April 08, 2022 [facility] April 07, 2022 [facility] April 06, 2022 [facility] April 05, 2022 [facility] BP Sitting (Pre-Dialysis) 127/68 mmHg BP Standing (Pre-Dialysis) 125/60 mmHg Sitting Heart Rate Pre-Dialysis 62 BPM Standing Heart Rate Pre-Dialysis 65 BPM Temperature Pre-Dialysis 97.9 degF Weight Pre-Dialysis 82.5 kg April 05, 2022 [facility] April 04, 2022 [facility] April 03, 2022 [facility] April 02, 2022 [facility] April 01, 2022 [facility] March 31, 2022 [facility] March 30, 2022 [facility] March 29, 2022 [facility] March 28, 2022 [facility] BP Sitting (Pre-Dialysis) 108/54 mmHg Sitting Heart Rate Pre-Dialysis 63 BPM Temperature Pre-Dialysis 97.1 degF Weight Pre-Dialysis 82 kg March 28, 2022 [facility] March 27, 2022 [facility] March 26, 2022 [facility] March 25, 2022 [facility] March 24, 2022 [facility] March 23, 2022 [facility] BP Sitting (Pre-Dialysis) 151/77 mmHg Sitting Heart Rate Pre-Dialysis 65 BPM Temperature Pre-Dialysis 97.9 degF Weight Pre-Dialysis 82.2 kg March 23, 2022 [facility] March 22, 2022 [facility] March 21, 2022 [facility] March 20, 2022 [facility] March 19, 2022 [facility] March 18, 2022 [facility] March 17, 2022 [facility] March 16, 2022 [facility] March 15, 2022 [facility] March 14, 2022 [facility] March 13, 2022 [facility] March 12, 2022 [facility] BP Sitting (Pre-Dialysis) 160/67 mmHg Sitting Heart Rate Pre-Dialysis 66 BPM Temperature Pre-Dialysis 98.1 degF Weight Pre-Dialysis 82.9 kg March 12, 2022 [facility] March 11, 2022 [facility] March 10, 2022 [facility] March 09, 2022 [facility] March 08, 2022 [facility] BP Sitting (Pre-Dialysis) 137/65 mmHg BP Standing (Pre-Dialysis) 126/63 mmHg Sitting Heart Rate Pre-Dialysis 63 BPM Standing Heart Rate Pre-Dialysis 64 BPM Temperature Pre-Dialysis 97.9 degF Weight Pre-Dialysis 81.8 kg March 08, 2022 [facility] March 07, 2022 [facility] March 06, 2022 [facility] March 05, 2022 [facility] March 04, 2022 [facility] March 03, 2022 [facility] March 02, 2022 [facility] March 01, 2022 [facility] February 28, 2022 [facility] BP Sitting (Pre-Dialysis) 118/57 mmHg Sitting Heart Rate Pre-Dialysis 64 BPM Temperature Pre-Dialysis 98.1 degF Weight Pre-Dialysis 82 kg February 28, 2022 [facility] February 27, 2022 [facility] February 26, 2022 [facility] February 25, 2022 [facility] February 24, 2022 [facility] February 23, 2022 [facility] February 22, 2022 [facility] February 21, 2022 [facility] February 20, 2022 [facility] February 19, 2022 [facility] February 18, 2022 [facility] February 17, 2022 [facility] February 16, 2022 [facility] February 15, 2022 [facility] February 14, 2022 [facility] February 13, 2022 [facility] February 12, 2022 [facility] February 11, 2022 [facility] DIALYSIS ORDER Dialysis Procedure Orders Type of Dialysis Procedure Order Order Date/Time Observations In-Center Hemodialysis Treatment [facility] 2023 Target Weight 87 kg Dialysate Flow Rate 600 mL/min Blood Flow Rate 450 mL/min Treatment Time 210 min(total) Max UF Rate 13 mL/kg/hr Base Sodium Dialysate Base Sodium 138 mE q/L dialysate_temp 35 C BiCarb Dialysate BiCarbonate 34 mEq/L Access Concurrent No Arterial Access AV Graft (Forearm (R ight)) Venous Access AV Graft (Forearm (R ight)) Arterial Needle Display NIPRO, TULIP, 15 G x 1 , SHARP , TWIN Venous Needle NIPRO, [place], 15G x 1 , SHARP , TWIN Dialyzer Nipro Elisio 17H 145 5 [email or web address] Dialysate Bath Potassium Potassium 2 mEq /L Dialysate Bath Calcium Calcium 3 mEq/L Results Adequacy Description Draw Date Result/Unit Status Ref Range Result Comments stdKt/V (DIAL) 2024-05-07 02:40:44 N/A F Total Kt/V 2024-05-07 02:40:44 1.71 F TOTAL HOURS/WEEK DIALYSIS 2024-05-07 02:40:44 10 hrs F TBW ([place]) 2024-05-07 02:40:44 36.36 Liters F PATIENT AGE 2024-05-07 02:40:44 73 Years F WEIGHT (KG) 2024-05-07 02:40:44 87 kg F PRESCRIBED DAYS/WEEK 2024-05-07 02:40:44 3 Day/Wk F LENGTH OF DIALYSIS 2024-05-07 02:40:44 208 min F stdKT/V Total 2024-05-07 02:40:44 N/A F HEIGHT IN INCHES 2024-05-07 02:40:44 63 Inches F spKt/V 2024-05-07 02:40:44 1.71 F WEIGHT - POST DAY 1 2024-05-07 02:40:44 86.6 kg F eKt/V 2024-05-07 02:40:44 1.44 F KT/V PRESCRIBED 2024-05-07 02:40:44 2.14 F CURRENT KRU 2024-05-07 02:40:44 F URR% 2024-05-07 02:40:44 77 % F Residual kt/v 2024-05-07 02:40:44 F VM (KT/V MEAN VOL) 2024-05-07 02:40:44 37.3 F VT (KT/V TX VOL) 2024-05-07 02:40:44 37 L F WEIGHT - PRE DAY 1 2024-05-07 02:40:44 89.4 kg F Dialyzer SIDRA 2024-05-07 02:40:44 1455 Calc F BSA REEMA 2024-05-07 02:40:44 1.9 sq m F BLOOD FLOW-QWB 2024-05-07 02:40:44 450 F AMPUTATE FACTOR 2024-05-07 02:40:44 0 F nPCR 2024-05-07 02:40:44 1.17 G/KG/D F DIALYZER FLOW-QD 2024-05-07 02:40:44 578 mL/min F Std Renal KT/V 2024-05-07 02:40:44 N/A F Residual kt/v 2024-05-07 02:40:44 F Total Kt/V 2024-05-07 02:40:44 1.71 F PATIENT AGE 2024-05-07 02:40:44 73 Years F BLOOD FLOW-QWB 2024-05-07 02:40:44 450 F KT/V PRESCRIBED 2024-05-07 02:40:44 2.14 F URR% 2024-05-07 02:40:44 77 % F VM (KT/V MEAN VOL) 2024-05-07 02:40:44 37.3 F stdKt/V (DIAL) 2024-05-07 02:40:44 N/A F Dialyzer SIDRA 2024-05-07 02:40:44 1455 Calc F WEIGHT (KG) 2024-05-07 02:40:44 87 kg F HEIGHT IN INCHES 2024-05-07 02:40:44 63 Inches F DIALYZER FLOW-QD 2024-05-07 02:40:44 578 mL/min F stdKT/V Total 2024-05-07 02:40:44 N/A F WEIGHT - PRE DAY 1 2024-05-07 02:40:44 89.4 kg F TBW ([place]) 2024-05-07 02:40:44 36.36 Liters F AMPUTATE FACTOR 2024-05-07 02:40:44 0 F CURRENT KRU 2024-05-07 02:40:44 F LENGTH OF DIALYSIS 2024-05-07 02:40:44 208 min F nPCR 2024-05-07 02:40:44 1.17 G/KG/D F VT (KT/V TX VOL) 2024-05-07 02:40:44 37 L F BSA REEMA 2024-05-07 02:40:44 1.9 sq m F spKt/V 2024-05-07 02:40:44 1.71 F PRESCRIBED DAYS/WEEK 2024-05-07 02:40:44 3 Day/Wk F eKt/V 2024-05-07 02:40:44 1.44 F WEIGHT - POST DAY 1 2024-05-07 02:40:44 86.6 kg F Std Renal KT/V 2024-05-07 02:40:44 N/A F TOTAL HOURS/WEEK DIALYSIS 2024-05-07 02:40:44 10 hrs F Urea nitrogen [Mass/volume] in Serum or Plasma 2024-05-07 02:39:20 74 mg/dL F 9.0-23.0 Urea nitrogen [Mass/volume] in Serum or Plasma 2024-05-07 02:39:20 74 mg/dL F 9.0-23.0 Urea nitrogen [Mass/volume] in Serum or Plasma --post dialysis 2024-05-07 00:53:20 17 mg/dL F 9.0-23.0 Urea nitrogen [Mass/volume] in Serum or Plasma --post dialysis 2024-05-07 00:53:20 17 mg/dL F 9.0-23.0 Creatinine [Mass/volume] in Serum or Plasma 2024-04-22 15:15:19 11 mg/dL F 0.5-1.1 WEIGHT - PRE DAY 1 2024-04-08 21:54:18 89.2 kg F BSA REEMA 2024-04-08 21:54:18 1.9 sq m F PATIENT AGE 2024-04-08 21:54:18 73 Years F KT/V PRESCRIBED 2024-04-08 21:54:18 2.17 F TBW ([place]) 2024-04-08 21:54:18 36.51 Liters F LENGTH OF DIALYSIS 2024-04-08 21:54:18 211 min F URR% 2024-04-08 21:54:18 75 % F spKt/V 2024-04-08 21:54:18 1.59 F nPCR 2024-04-08 21:54:18 1.06 G/KG/D F HEIGHT IN INCHES 2024-04-08 21:54:18 63 Inches F Total Kt/V 2024-04-08 21:54:18 1.59 F BLOOD FLOW-QWB 2024-04-08 21:54:18 429 F VM (KT/V MEAN VOL) 2024-04-08 21:54:18 37.4 F Std Renal KT/V 2024-04-08 21:54:18 N/A F stdKT/V Total 2024-04-08 21:54:18 N/A F AMPUTATE FACTOR 2024-04-08 21:54:18 0 F CURRENT KRU 2024-04-08 21:54:18 F DIALYZER FLOW-QD 2024-04-08 21:54:18 600 mL/min F eKt/V 2024-04-08 21:54:18 1.35 F Residual kt/v 2024-04-08 21:54:18 F PRESCRIBED DAYS/WEEK 2024-04-08 21:54:18 3 Day/Wk F TOTAL HOURS/WEEK DIALYSIS 2024-04-08 21:54:18 10 hrs F WEIGHT - POST DAY 1 2024-04-08 21:54:18 87.2 kg F Dialyzer SIDRA 2024-04-08 21:54:18 1455 Calc F stdKt/V (DIAL) 2024-04-08 21:54:18 N/A F WEIGHT (KG) 2024-04-08 21:54:18 87 kg F VT (KT/V TX VOL) 2024-04-08 21:54:18 39.9 L F Urea nitrogen [Mass/volume] in Serum or Plasma --post dialysis 2024-04-08 21:52:22 17 mg/dL F 9.0-23.0 Urea nitrogen [Mass/volume] in Serum or Plasma 2024-04-08 16:22:17 69 mg/dL F 9.0-23.0 Creatinine [Mass/volume] in Serum or Plasma 2024-03-25 16:59:18 10.95 mg/dL F 0.5-1.1 Creatinine [Mass/volume] in Serum or Plasma 2024-03-25 16:59:18 10.95 mg/dL F 0.5-1.1 PATIENT AGE 2024-03-13 01:00:58 73 Years F WEIGHT (KG) 2024-03-13 01:00:58 87 kg F TOTAL HOURS/WEEK DIALYSIS 2024-03-13 01:00:58 10 hrs F nPCR 2024-03-13 01:00:58 1.47 G/KG/D F BLOOD FLOW-QWB 2024-03-13 01:00:58 450 F WEIGHT - PRE DAY 1 2024-03-13 01:00:58 90.1 kg F Dialyzer SIDRA 2024-03-13 01:00:58 1455 Calc F LENGTH OF DIALYSIS 2024-03-13 01:00:58 209 min F VM (KT/V MEAN VOL) 2024-03-13 01:00:58 36.6 F stdKt/V (DIAL) 2024-03-13 01:00:58 N/A F Std Renal KT/V 2024-03-13 01:00:58 N/A F Residual kt/v 2024-03-13 01:00:58 F DIALYZER FLOW-QD 2024-03-13 01:00:58 600 mL/min F KT/V PRESCRIBED 2024-03-13 01:00:58 2.15 F WEIGHT - POST DAY 1 2024-03-13 01:00:58 87.1 kg F stdKT/V Total 2024-03-13 01:00:58 N/A F spKt/V 2024-03-13 01:00:58 1.71 F URR% 2024-03-13 01:00:58 77 % F eKt/V 2024-03-13 01:00:58 1.44 F PRESCRIBED DAYS/WEEK 2024-03-13 01:00:58 3 Day/Wk F TBW ([place]) 2024-03-13 01:00:58 36.49 Liters F Total Kt/V 2024-03-13 01:00:58 1.71 F AMPUTATE FACTOR 2024-03-13 01:00:58 0 F HEIGHT IN INCHES 2024-03-13 01:00:58 63 Inches F VT (KT/V TX VOL) 2024-03-13 01:00:58 37.5 L F CURRENT CASHU 2024-03-13 01:00:58 F BSA REEMA 2024-03-13 01:00:58 1.9 sq m F Urea nitrogen [Mass/volume] in Serum or Plasma 2024-03-13 00:59:20 95 mg/dL F 9.0-23.0 Urea nitrogen [Mass/volume] in Serum or Plasma --post dialysis 2024-03-12 21:27:26 22 mg/dL F 9.0-23.0 Creatinine [Mass/volume] in Serum or Plasma 2024-02-19 22:56:25 11.13 mg/dL F 0.5-1.1 Creatinine [Mass/volume] in Serum or Plasma 2023-06-19 22:14:32 9.53 mg/dL F 0.5-1.1 Creatinine [Mass/volume] in Serum or Plasma 2022-11-21 21:40:32 9.97 mg/dL F 0.5-1.1 Creatinine [Mass/volume] in Serum or Plasma 2022-11-21 21:40:32 9.97 mg/dL F 0.5-1.1 Creatinine [Mass/volume] in Serum or Plasma 2022-10-24 19:33:42 9.56 mg/dL F 0.5-1.1 Creatinine [Mass/volume] in Serum or Plasma 2022-09-19 16:52:09 10.51 mg/dL F 0.5-1.1 Creatinine [Mass/volume] in Serum or Plasma 2022-08-24 17:47:08 13.08 mg/dL F 0.5-1.1 Creatinine [Mass/volume] in Serum or Plasma 2022-08-24 17:47:08 13.08 mg/dL F 0.5-1.1 L/WK PDF CC 2022-08-15 16:15:16 42.03 L/wk K PCR PD FEMALE 2022-08-15 16:15:16 79.6 g/day K NPCR PD FEMALE 2022-08-15 16:15:16 1.28 G/KG/D K KT/V TOTAL (F) 2022-08-15 16:15:16 1.66 Kt/V K PNA (PD) 2022-08-15 16:15:16 94.6 g/day K KT/V PDF (F) 2022-08-15 16:15:16 1.66 Kt/V K NPNA-PD FEMALE 2022-08-15 16:15:16 1.52 G/KG/D K L/WK/1.73 TOTAL 2022-08-15 16:15:16 39.26 L/WK/B K Urea Gen Rate 2022-08-15 16:15:16 15.8 GM/D K L/WK/1.73 PDF 2022-08-15 16:15:16 39.26 L/WK/B K Total Volume of EFFL/DIAL 2022-08-15 16:14:46 31954 mLs F Urea nitrogen [Mass/volume] in Urine 2022-08-13 07:12:55 F Canceled - Specimen not received 5 days past draw date Creatinine [Mass/volume] in Urine 2022-08-13 07:12:55 F Canceled - Specimen not received 5 days past draw date KT/V RESID (F) 2022-08-10 06:25:29 0 Kt/V F UREA CLR UR 2022-08-10 06:25:29 0 mL/min F L/WK RESID CC 2022-08-10 06:25:29 0 L/wk F L/WK/1.73 RESID 2022-08-10 06:25:29 0 L/WK/B F UREA CLR UR/BSA 2022-08-10 06:25:29 0 mL/min F 64.0-99.0 CRE CLR UR/BSA 2022-08-10 06:25:29 0 mL/min F 75.0-115.0 CRE CLR UR 2022-08-10 06:25:29 0 mL/min F 88.0-128.0 BUN/CREAT 2022-08-09 23:32:23 9 Calc F 8.2-46.0 Creatinine [Mass/volume] in Serum or Plasma 2022-08-09 23:31:21 13.79 mg/dL F 0.5-1.1 Urea nitrogen [Mass/volume] in Serum or Plasma 2022-08-09 23:31:21 124 mg/dL F 9.0-23.0 TBW FALCON FEML 2022-08-09 20:10:19 36.15 Liters F BSA REEMA 2022-08-09 20:10:19 1.85 sq m F Creatinine [Mass/volume] in Peritoneal dialysis fluid 2022-08-09 20:09:21 6.08 mg/dL F Urea nitrogen [Mass/volume] in Peritoneal fluid --24 hours post peritoneal dialysis 2022-08-09 20:09:21 78 mg/dL F TOTAL VOLUME-24 HR URINE 2022-08-08 17:49:47 0 mL F BODY WEIGHT (LBS) 2022-08-08 17:49:47 195.9 lbs F HEIGHT IN INCHES 2022-08-08 17:49:47 60 Inches F COLLECTION TIME FOR URINE 2022-08-08 17:49:47 1440 min F MINIMUM GOAL: KT/V PD 2022-08-08 17:49:47 1.7 F AMPUTATE FACTOR 2022-08-08 17:49:47 0 F BUN/CREAT 2022-07-12 21:34:13 6 Calc F 8.2-46.0 Creatinine [Mass/volume] in Serum or Plasma 2022-07-12 21:33:15 12.92 mg/dL F 0.5-1.1 Urea nitrogen [Mass/volume] in Serum or Plasma 2022-07-12 21:33:13 77 mg/dL F 9.0-23.0 BUN/CREAT 2022-06-08 23:06:00 7.7 Calc F 8.2-46.0 Creatinine [Mass/volume] in Serum or Plasma 2022-06-08 23:05:15 13.36 mg/dL F 0.5-1.1 Urea nitrogen [Mass/volume] in Serum or Plasma 2022-06-08 23:05:15 103 mg/dL F 9.0-23.0 KT/V RESID (F) 2022-05-07 13:15:26 0 Kt/V F UREA CLR UR 2022-05-07 13:15:26 0 mL/min F L/WK RESID CC 2022-05-07 13:15:26 0 L/wk F L/WK/1.73 TOTAL 2022-05-07 13:15:26 43.24 L/WK/B F KT/V TOTAL (F) 2022-05-07 13:15:26 1.75 Kt/V F L/WK/1.73 RESID 2022-05-07 13:15:26 0 L/WK/B F UREA CLR UR/BSA 2022-05-07 13:15:26 0 mL/min F 64.0-99.0 CRE CLR UR/BSA 2022-05-07 13:15:26 0 mL/min F 75.0-115.0 CRE CLR UR 2022-05-07 13:15:26 0 mL/min F 88.0-128.0 UREA CLR UR 2022-05-07 13:15:26 0 mL/min F KT/V RESID (F) 2022-05-07 13:15:26 0 Kt/V F KT/V TOTAL (F) 2022-05-07 13:15:26 1.75 Kt/V F L/WK RESID CC 2022-05-07 13:15:26 0 L/wk F L/WK/1.73 RESID 2022-05-07 13:15:26 0 L/WK/B F L/WK/1.73 TOTAL 2022-05-07 13:15:26 43.24 L/WK/B F UREA CLR UR/BSA 2022-05-07 13:15:26 0 mL/min F 64.0-99.0 CRE CLR UR/BSA 2022-05-07 13:15:26 0 mL/min F 75.0-115.0 CRE CLR UR 2022-05-07 13:15:26 0 mL/min F 88.0-128.0 PCR PD FEMALE 2022-05-07 13:15:26 60 g/day F PNA (PD) 2022-05-07 13:15:26 72.8 g/day F NPNA-PD FEMALE 2022-05-07 13:15:26 1.23 G/KG/D F NPCR PD FEMALE 2022-05-07 13:15:26 1.02 G/KG/D F Urea Gen Rate 2022-05-07 13:15:26 11.4 GM/D F PCR PD FEMALE 2022-05-07 13:15:26 60 g/day F NPNA-PD FEMALE 2022-05-07 13:15:26 1.23 G/KG/D F NPCR PD FEMALE 2022-05-07 13:15:26 1.02 G/KG/D F Urea Gen Rate 2022-05-07 13:15:26 11.4 GM/D F PNA (PD) 2022-05-07 13:15:26 72.8 g/day F L/WK PDF CC 2022-05-04 21:51:38 44.51 L/wk F BUN/CREAT 2022-05-04 21:51:38 7.2 Calc F 8.2-46.0 KT/V PDF (F) 2022-05-04 21:51:38 1.75 Kt/V F L/WK/1.73 PDF 2022-05-04 21:51:38 43.24 L/WK/B F L/WK PDF CC 2022-05-04 21:51:38 44.51 L/wk F BUN/CREAT 2022-05-04 21:51:38 7.2 Calc F 8.2-46.0 L/WK/1.73 PDF 2022-05-04 21:51:38 43.24 L/WK/B F KT/V PDF (F) 2022-05-04 21:51:38 1.75 Kt/V F Creatinine [Mass/volume] in Serum or Plasma 2022-05-04 21:51:18 12.46 mg/dL F 0.5-1.1 Urea nitrogen [Mass/volume] in Serum or Plasma 2022-05-04 21:51:18 90 mg/dL F 9.0-23.0 Creatinine [Mass/volume] in Serum or Plasma 2022-05-04 21:51:18 12.46 mg/dL F 0.5-1.1 Urea nitrogen [Mass/volume] in Serum or Plasma 2022-05-04 21:51:18 90 mg/dL F 9.0-23.0 BSA REEMA 2022-05-04 21:01:03 1.78 sq m F TBW [facility] 2022-05-04 21:01:03 34.23 Liters F TBW [facility] 2022-05-04 21:01:03 34.23 Liters F BSA REEMA 2022-05-04 21:01:03 1.78 sq m F Urea nitrogen [Mass/volume] in Peritoneal fluid --24 hours post peritoneal dialysis 2022-05-04 21:00:16 59 mg/dL F Creatinine [Mass/volume] in Peritoneal dialysis fluid 2022-05-04 21:00:16 6.08 mg/dL F Creatinine [Mass/volume] in Peritoneal dialysis fluid 2022-05-04 21:00:16 6.08 mg/dL F Urea nitrogen [Mass/volume] in Peritoneal fluid --24 hours post peritoneal dialysis 2022-05-04 21:00:16 59 mg/dL F HEIGHT IN INCHES 2022-05-03 20:31:06 60 Inches F AMPUTATE FACTOR 2022-05-03 20:31:06 0 F BODY WEIGHT (LBS) 2022-05-03 20:31:06 178.7 lbs F HEIGHT IN INCHES 2022-05-03 20:31:06 60 Inches F AMPUTATE FACTOR 2022-05-03 20:31:06 0 F BODY WEIGHT (LBS) 2022-05-03 20:31:06 178.7 lbs F Total Volume of EFFL/DIAL 2022-05-03 20:31:06 71523 mLs F MINIMUM GOAL: KT/V PD 2022-05-03 20:31:06 1.7 F Total Volume of EFFL/DIAL 2022-05-03 20:31:06 13397 mLs F MINIMUM GOAL: KT/V PD 2022-05-03 20:31:06 1.7 F BUN/CREAT 2022-04-06 19:56:36 9.6 Calc F 8.2-46.0 BUN/CREAT 2022-04-06 19:56:36 9.6 Calc F 8.2-46.0 Creatinine [Mass/volume] in Serum or Plasma 2022-04-06 19:54:51 12.87 mg/dL F 0.5-1.1 Urea nitrogen [Mass/volume] in Serum or Plasma 2022-04-06 19:54:51 123 mg/dL F 9.0-23.0 Creatinine [Mass/volume] in Serum or Plasma 2022-04-06 19:54:51 12.87 mg/dL F 0.5-1.1 Urea nitrogen [Mass/volume] in Serum or Plasma 2022-04-06 19:54:51 123 mg/dL F 9.0-23.0 L/WK RESID CC 2022-03-10 01:05:19 3.98 L/wk F PCR PD FEMALE 2022-03-10 01:05:19 78 g/day F Urea Gen Rate 2022-03-10 01:05:19 15.6 GM/D F L/WK/1.73 RESID 2022-03-10 01:05:19 3.85 L/WK/B F KT/V RESID (F) 2022-03-10 01:05:19 0.06 Kt/V F KT/V TOTAL (F) 2022-03-10 01:05:19 2.15 Kt/V F PNA (PD) 2022-03-10 01:05:19 93.4 g/day F UREA CLR UR 2022-03-10 01:05:19 0.2 mL/min F NPCR PD FEMALE 2022-03-10 01:05:19 1.32 G/KG/D F NPNA-PD FEMALE 2022-03-10 01:05:19 1.58 G/KG/D F L/WK/1.73 TOTAL 2022-03-10 01:05:19 54.24 L/WK/B F UREA CLR UR/BSA 2022-03-10 01:05:19 0.2 mL/min F 64.0-99.0 CRE CLR UR/BSA 2022-03-10 01:05:19 1 mL/min F 75.0-115.0 CRE CLR UR 2022-03-10 01:05:19 1 mL/min F 88.0-128.0 Urea nitrogen [Mass/volume] in Urine 2022-03-10 01:04:55 277 mg/dL F Creatinine [Mass/volume] in Urine 2022-03-10 01:04:55 90.16 mg/dL F L/WK/1.73 PDF 2022-03-10 00:42:36 50.39 L/WK/B F L/WK PDF CC 2022-03-10 00:42:36 52.05 L/wk F KT/V PDF (F) 2022-03-10 00:42:36 2.09 Kt/V F Creatinine [Mass/volume] in Peritoneal dialysis fluid 2022-03-10 00:41:46 6.57 mg/dL F Urea nitrogen [Mass/volume] in Peritoneal fluid --24 hours post peritoneal dialysis 2022-03-10 00:41:46 75 mg/dL F TBW [facility] 2022-03-09 23:59:20 34.38 Liters F BSA REEMA 2022-03-09 23:59:20 1.79 sq m F BUN/CREAT 2022-03-09 23:59:20 8.3 Calc F 8.2-46.0 Creatinine [Mass/volume] in Serum or Plasma 2022-03-09 23:58:48 11.97 mg/dL F 0.5-1.1 Urea nitrogen [Mass/volume] in Serum or Plasma 2022-03-09 23:58:48 99 mg/dL F 9.0-23.0 TOTAL VOLUME-24 HR URINE 2022-03-08 19:54:04 110 mL F BODY WEIGHT (LBS) 2022-03-08 19:54:04 180.1 lbs F MINIMUM GOAL: KT/V PD 2022-03-08 19:54:04 1.7 F Total Volume of EFFL/DIAL 2022-03-08 19:54:04 51197 mLs F COLLECTION TIME FOR URINE 2022-03-08 19:54:04 1440 min F HEIGHT IN INCHES 2022-03-08 19:54:04 60 Inches F AMPUTATE FACTOR 2022-03-08 19:54:04 0 F URR% Dialyzer SIDRA 0 Calc F Std Renal KT/V nPCR KT/V PRESCRIBED AMPUTATE FACTOR 0 F WEIGHT - POST DAY 1 0 kg F PATIENT AGE 1 Years F VT (KT/V TX VOL) VM (KT/V MEAN VOL) TBW ([facility]) CURRENT KRU HEIGHT IN INCHES 0 Inches F Residual kt/v WEIGHT - PRE DAY 1 0 kg F Urea nitrogen [Mass/volume] in Serum or Plasma DIALYZER FLOW-QD 0 mL/min F PRESCRIBED DAYS/WEEK 0 Day/Wk F WEIGHT (KG) 0 kg F stdKt/V (DIAL) LENGTH OF DIALYSIS 0 min F spKt/V BSA REEMA BLOOD FLOW-QWB 0 F Total Kt/V eKt/V TOTAL HOURS/WEEK DIALYSIS 0 hrs F stdKT/V Total CURRENT KRU Std Renal KT/V Urea nitrogen [Mass/volume] in Serum or Plasma nPCR WEIGHT - POST DAY 1 0 kg F Residual kt/v WEIGHT - PRE DAY 1 0 kg F Dialyzer SIDRA 0 Calc F PATIENT AGE 1 Years F URR% VM (KT/V MEAN VOL) AMPUTATE FACTOR 0 F TBW ([facility]) VT (KT/V TX VOL) HEIGHT IN INCHES 0 Inches F BLOOD FLOW-QWB 0 F KT/V PRESCRIBED stdKT/V Total PRESCRIBED DAYS/WEEK 0 Day/Wk F Total Kt/V LENGTH OF DIALYSIS 0 min F spKt/V DIALYZER FLOW-QD 0 mL/min F stdKt/V (DIAL) BSA REEMA eKt/V TOTAL HOURS/WEEK DIALYSIS 0 hrs F WEIGHT (KG) 0 kg F Anemia Description Draw Date Result/Unit Status Ref Range Result Comments HCT CALC HGBX3 2024-05-06 23:07:16 40.2 % F 37.0-47.0 HCT CALC HGBX3 2024-05-06 23:07:16 40.2 % F 37.0-47.0 Hemoglobin [Mass/volume] in Blood 2024-05-06 23:06:11 13.4 g/dL F 12.0-16.0 Hemoglobin [Mass/volume] in Blood 2024-05-06 23:06:11 13.4 g/dL F 12.0-16.0 HCT CALC HGBX3 2024-04-23 00:19:13 42.9 % F 37.0-47.0 IRON SATURATION 2024-04-23 00:13:17 20 % F 16.0-46.0 TIBC 2024-04-23 00:13:17 285 ug/dL F 250.0-425.0 Erythrocyte distribution width [Ratio] by Automated count 2024-04-23 00:13:06 16.1 % F 11.0-15.0 Hemoglobin [Mass/volume] in Blood 2024-04-23 00:13:06 14.3 g/dL F 12.0-16.0 Platelets [#/volume] in Blood by Automated count 2024-04-23 00:13:06 204 x 10^3 cells/uL F 140.0-450.0 MCH [Entitic mass] by Automated count 2024-04-23 00:13:06 35.1 pg F 25.9-34.2 MCHC [Mass/volume] by Automated count 2024-04-23 00:13:06 30.8 g/dL F 29.6-35.3 Erythrocytes [#/volume] in Blood by Automated count 2024-04-23 00:13:06 4.07 x 10^6 cells/uL F 3.85-5.2 Hematocrit [Volume Fraction] of Blood by Automated count 2024-04-23 00:13:06 46.3 % F 37.0-47.0 MCV [Entitic volume] by Automated count 2024-04-23 00:13:06 113.8 fL F 80.0-100.0 Iron [Mass/volume] in Serum or Plasma 2024-04-22 22:39:09 56 ug/dL F 50.0-170.0 Iron binding capacity.unsaturated [Mass/volume] in Serum or Plasma 2024-04-22 22:39:09 229 ug/dL F 80.0-375.0 Ferritin [Mass/volume] in Serum or Plasma 2024-04-22 22:18:22 448 ng/mL F 10.0-291.0 HCT CALC HGBX3 2024-04-08 19:16:28 42 % F 37.0-47.0 Hemoglobin [Mass/volume] in Blood 2024-04-08 19:15:25 14 g/dL F 12.0-16.0 Ferritin [Mass/volume] in Serum or Plasma 2024-03-26 08:25:18 474 ng/mL F 10.0-291.0 Ferritin [Mass/volume] in Serum or Plasma 2024-03-26 08:25:18 474 ng/mL F 10.0-291.0 IRON SATURATION 2024-03-26 07:21:21 22 % F 16.0-46.0 TIBC 2024-03-26 07:21:21 261 ug/dL F 250.0-425.0 IRON SATURATION 2024-03-26 07:21:21 22 % F 16.0-46.0 TIBC 2024-03-26 07:21:21 261 ug/dL F 250.0-425.0 Iron [Mass/volume] in Serum or Plasma 2024-03-26 05:50:17 57 ug/dL F 50.0-170.0 Iron binding capacity.unsaturated [Mass/volume] in Serum or Plasma 2024-03-26 05:50:17 204 ug/dL F 80.0-375.0 Iron binding capacity.unsaturated [Mass/volume] in Serum or Plasma 2024-03-26 05:50:17 204 ug/dL F 80.0-375.0 Iron [Mass/volume] in Serum or Plasma 2024-03-26 05:50:17 57 ug/dL F 50.0-170.0 HCT CALC HGBX3 2024-03-25 18:06:13 43.5 % F 37.0-47.0 HCT CALC HGBX3 2024-03-25 18:06:13 43.5 % F 37.0-47.0 Hemoglobin [Mass/volume] in Blood 2024-03-25 18:05:10 14.5 g/dL F 12.0-16.0 Erythrocyte distribution width [Ratio] by Automated count 2024-03-25 18:05:10 15.8 % F 11.0-15.0 Platelets [#/volume] in Blood by Automated count 2024-03-25 18:05:10 182 x 10^3 cells/uL F 140.0-450.0 MCH [Entitic mass] by Automated count 2024-03-25 18:05:10 35.3 pg F 25.9-34.2 MCHC [Mass/volume] by Automated count 2024-03-25 18:05:10 31.4 g/dL F 29.6-35.3 Erythrocytes [#/volume] in Blood by Automated count 2024-03-25 18:05:10 4.09 x 10^6 cells/uL F 3.85-5.2 Hematocrit [Volume Fraction] of Blood by Automated count 2024-03-25 18:05:10 46.1 % F 37.0-47.0 MCV [Entitic volume] by Automated count 2024-03-25 18:05:10 112.7 fL F 80.0-100.0 Erythrocyte distribution width [Ratio] by Automated count 2024-03-25 18:05:10 15.8 % F 11.0-15.0 Hemoglobin [Mass/volume] in Blood 2024-03-25 18:05:10 14.5 g/dL F 12.0-16.0 Platelets [#/volume] in Blood by Automated count 2024-03-25 18:05:10 182 x 10^3 cells/uL F 140.0-450.0 MCH [Entitic mass] by Automated count 2024-03-25 18:05:10 35.3 pg F 25.9-34.2 MCHC [Mass/volume] by Automated count 2024-03-25 18:05:10 31.4 g/dL F 29.6-35.3 Erythrocytes [#/volume] in Blood by Automated count 2024-03-25 18:05:10 4.09 x 10^6 cells/uL F 3.85-5.2 Hematocrit [Volume Fraction] of Blood by Automated count 2024-03-25 18:05:10 46.1 % F 37.0-47.0 MCV [Entitic volume] by Automated count 2024-03-25 18:05:10 112.7 fL F 80.0-100.0 HCT CALC HGBX3 2024-03-12 17:37:53 44.1 % F 37.0-47.0 Hemoglobin [Mass/volume] in Blood 2024-03-12 17:35:10 14.7 g/dL F 12.0-16.0 Ferritin [Mass/volume] in Serum or Plasma 2024-02-20 07:51:17 327 ng/mL F 10.0-291.0 IRON SATURATION 2024-02-20 05:18:19 17 % F 16.0-46.0 TIBC 2024-02-20 05:18:19 286 ug/dL F 250.0-425.0 Iron [Mass/volume] in Serum or Plasma 2024-02-20 04:56:49 50 ug/dL F 50.0-170.0 Iron binding capacity.unsaturated [Mass/volume] in Serum or Plasma 2024-02-20 04:56:49 236 ug/dL F 80.0-375.0 HCT CALC HGBX3 2024-02-19 17:21:13 40.8 % F 37.0-47.0 Erythrocyte distribution width [Ratio] by Automated count 2024-02-19 17:20:11 16 % F 11.0-15.0 Erythrocytes [#/volume] in Blood by Automated count 2024-02-19 17:20:11 3.96 x 10'6 cells/uL F 3.85-5.2 Hemoglobin [Mass/volume] in Blood 2024-02-19 17:20:09 13.6 g/dL F 12.0-16.0 Platelets [#/volume] in Blood by Automated count 2024-02-19 17:20:09 140 x 10^3 cells/uL F 140.0-450.0 MCH [Entitic mass] by Automated count 2024-02-19 17:20:09 34.4 pg F 25.9-34.2 MCHC [Mass/volume] by Automated count 2024-02-19 17:20:09 30 g/dL F 29.6-35.3 Hematocrit [Volume Fraction] of Blood by Automated count 2024-02-19 17:20:09 45.4 % F 37.0-47.0 MCV [Entitic volume] by Automated count 2024-02-19 17:20:09 114.6 fL F 80.0-100.0 Ferritin [Mass/volume] in Serum or Plasma 2023-06-20 05:46:28 521 ng/mL F 10.0-291.0 IRON SATURATION 2023-06-20 04:05:59 16 % F 16.0-46.0 TIBC 2023-06-20 04:05:59 290 ug/dL F 250.0-425.0 Iron [Mass/volume] in Serum or Plasma 2023-06-20 03:59:02 45 ug/dL F 50.0-170.0 Iron binding capacity.unsaturated [Mass/volume] in Serum or Plasma 2023-06-20 03:59:02 245 ug/dL F 80.0-375.0 HCT CALC HGBX3 2023-06-19 19:34:45 35.4 % F 37.0-47.0 Erythrocyte distribution width [Ratio] by Automated count 2023-06-19 19:34:28 16.6 % F 11.0-15.0 Hemoglobin [Mass/volume] in Blood 2023-06-19 19:34:28 11.8 g/dL F 12.0-16.0 Platelets [#/volume] in Blood by Automated count 2023-06-19 19:34:28 228 x 10^3 cells/uL F 140.0-450.0 MCH [Entitic mass] by Automated count 2023-06-19 19:34:28 31.8 pg F 25.9-34.2 MCHC [Mass/volume] by Automated count 2023-06-19 19:34:28 29.3 g/dL F 29.6-35.3 Hematocrit [Volume Fraction] of Blood by Automated count 2023-06-19 19:34:28 40.4 % F 37.0-47.0 Erythrocytes [#/volume] in Blood by Automated count 2023-06-19 19:34:28 3.72 x 10'6 cells/uL F 3.85-5.2 MCV [Entitic volume] by Automated count 2023-06-19 19:34:28 108.6 fL F 80.0-100.0 HCT CALC HGBX3 2022-11-21 14:59:34 36.6 % F 37.0-47.0 HCT CALC HGBX3 2022-11-21 14:59:34 36.6 % F 37.0-47.0 Hemoglobin [Mass/volume] in Blood 2022-11-21 14:59:31 12.2 g/dL F 12.0-16.0 Erythrocyte distribution width [Ratio] by Automated count 2022-11-21 14:59:31 15.7 % F 11.0-15.0 Platelets [#/volume] in Blood by Automated count 2022-11-21 14:59:31 180 x 10^3 cells/uL F 140.0-450.0 MCH [Entitic mass] by Automated count 2022-11-21 14:59:31 35.3 pg F 25.9-34.2 MCHC [Mass/volume] by Automated count 2022-11-21 14:59:31 33.2 g/dL F 29.6-35.3 Erythrocytes [#/volume] in Blood by Automated count 2022-11-21 14:59:31 3.44 x 10'6 cells/uL F 3.85-5.2 Hematocrit [Volume Fraction] of Blood by Automated count 2022-11-21 14:59:31 36.7 % F 37.0-47.0 MCV [Entitic volume] by Automated count 2022-11-21 14:59:31 106.5 fL F 80.0-100.0 Erythrocyte distribution width [Ratio] by Automated count 2022-11-21 14:59:31 15.7 % F 11.0-15.0 Platelets [#/volume] in Blood by Automated count 2022-11-21 14:59:31 180 x 10^3 cells/uL F 140.0-450.0 Hemoglobin [Mass/volume] in Blood 2022-11-21 14:59:31 12.2 g/dL F 12.0-16.0 MCH [Entitic mass] by Automated count 2022-11-21 14:59:31 35.3 pg F 25.9-34.2 MCHC [Mass/volume] by Automated count 2022-11-21 14:59:31 33.2 g/dL F 29.6-35.3 Erythrocytes [#/volume] in Blood by Automated count 2022-11-21 14:59:31 3.44 x 10'6 cells/uL F 3.85-5.2 Hematocrit [Volume Fraction] of Blood by Automated count 2022-11-21 14:59:31 36.7 % F 37.0-47.0 MCV [Entitic volume] by Automated count 2022-11-21 14:59:31 106.5 fL F 80.0-100.0 HCT CALC HGBX3 2022-10-24 15:11:04 33.9 % F 37.0-47.0 Erythrocyte distribution width [Ratio] by Automated count 2022-10-24 15:10:32 15.4 % F 11.0-15.0 Hemoglobin [Mass/volume] in Blood 2022-10-24 15:10:32 11.3 g/dL F 12.0-16.0 Platelets [#/volume] in Blood by Automated count 2022-10-24 15:10:32 223 x 10^3 cells/uL F 140.0-450.0 MCH [Entitic mass] by Automated count 2022-10-24 15:10:32 34.7 pg F 25.9-34.2 MCHC [Mass/volume] by Automated count 2022-10-24 15:10:32 32.1 g/dL F 29.6-35.3 Erythrocytes [#/volume] in Blood by Automated count 2022-10-24 15:10:32 3.27 x 10'6 cells/uL F 3.85-5.2 Hematocrit [Volume Fraction] of Blood by Automated count 2022-10-24 15:10:32 35.3 % F 37.0-47.0 MCV [Entitic volume] by Automated count 2022-10-24 15:10:32 108 fL F 80.0-100.0 IRON SATURATION 2022-09-20 04:02:04 29 % F 16.0-46.0 TIBC 2022-09-20 04:02:04 290 ug/dL F 250.0-425.0 Iron [Mass/volume] in Serum or Plasma 2022-09-20 04:00:03 85 ug/dL F 50.0-170.0 Iron binding capacity.unsaturated [Mass/volume] in Serum or Plasma 2022-09-20 04:00:03 205 ug/dL F 80.0-375.0 Ferritin [Mass/volume] in Serum or Plasma 2022-09-19 19:58:08 898 ng/mL F 10.0-291.0 HCT CALC HGBX3 2022-09-19 17:17:58 37.2 % F 37.0-47.0 Hemoglobin [Mass/volume] in Blood 2022-09-19 17:17:11 12.4 g/dL F 12.0-16.0 Erythrocyte distribution width [Ratio] by Automated count 2022-09-19 17:17:11 15.7 % F 11.0-15.0 Platelets [#/volume] in Blood by Automated count 2022-09-19 17:17:11 264 x 10^3 cells/uL F 140.0-450.0 MCH [Entitic mass] by Automated count 2022-09-19 17:17:11 35.3 pg F 25.9-34.2 MCHC [Mass/volume] by Automated count 2022-09-19 17:17:11 31.8 g/dL F 29.6-35.3 Erythrocytes [#/volume] in Blood by Automated count 2022-09-19 17:17:11 3.51 x 10'6 cells/uL F 3.85-5.2 Hematocrit [Volume Fraction] of Blood by Automated count 2022-09-19 17:17:11 39.1 % F 37.0-47.0 MCV [Entitic volume] by Automated count 2022-09-19 17:17:11 111.3 fL F 80.0-100.0 IRON SATURATION 2022-08-25 01:51:52 33 % F 16.0-46.0 TIBC 2022-08-25 01:51:52 258 ug/dL F 250.0-425.0 IRON SATURATION 2022-08-25 01:51:52 33 % F 16.0-46.0 TIBC 2022-08-25 01:51:52 258 ug/dL F 250.0-425.0 Iron [Mass/volume] in Serum or Plasma 2022-08-25 01:46:24 86 ug/dL F 50.0-170.0 Iron binding capacity.unsaturated [Mass/volume] in Serum or Plasma 2022-08-25 01:46:24 172 ug/dL F 80.0-375.0 Iron [Mass/volume] in Serum or Plasma 2022-08-25 01:46:24 86 ug/dL F 50.0-170.0 Iron binding capacity.unsaturated [Mass/volume] in Serum or Plasma 2022-08-25 01:46:24 172 ug/dL F 80.0-375.0 HCT CALC HGBX3 2022-08-24 17:49:22 33.3 % F 37.0-47.0 HCT CALC HGBX3 2022-08-24 17:49:22 33.3 % F 37.0-47.0 Hemoglobin [Mass/volume] in Blood 2022-08-24 17:49:16 11.1 g/dL F 12.0-16.0 MCH [Entitic mass] by Automated count 2022-08-24 17:49:16 34.2 pg F 25.9-34.2 Erythrocytes [#/volume] in Blood by Automated count 2022-08-24 17:49:16 3.26 x 10'6 cells/uL F 3.85-5.2 Hematocrit [Volume Fraction] of Blood by Automated count 2022-08-24 17:49:16 34.9 % F 37.0-47.0 MCV [Entitic volume] by Automated count 2022-08-24 17:49:16 107 fL F 80.0-100.0 Hemoglobin [Mass/volume] in Blood 2022-08-24 17:49:16 11.1 g/dL F 12.0-16.0 MCH [Entitic mass] by Automated count 2022-08-24 17:49:16 34.2 pg F 25.9-34.2 Erythrocytes [#/volume] in Blood by Automated count 2022-08-24 17:49:16 3.26 x 10'6 cells/uL F 3.85-5.2 Hematocrit [Volume Fraction] of Blood by Automated count 2022-08-24 17:49:16 34.9 % F 37.0-47.0 MCV [Entitic volume] by Automated count 2022-08-24 17:49:16 107 fL F 80.0-100.0 Erythrocyte distribution width [Ratio] by Automated count 2022-08-24 17:49:14 14.1 % F 11.0-15.0 Platelets [#/volume] in Blood by Automated count 2022-08-24 17:49:14 190 x 10^3 cells/uL F 140.0-450.0 MCHC [Mass/volume] by Automated count 2022-08-24 17:49:14 31.9 g/dL F 29.6-35.3 Erythrocyte distribution width [Ratio] by Automated count 2022-08-24 17:49:14 14.1 % F 11.0-15.0 Platelets [#/volume] in Blood by Automated count 2022-08-24 17:49:14 190 x 10^3 cells/uL F 140.0-450.0 MCHC [Mass/volume] by Automated count 2022-08-24 17:49:14 31.9 g/dL F 29.6-35.3 Ferritin [Mass/volume] in Serum or Plasma 2022-08-24 16:59:07 617 ng/mL F 10.0-291.0 Ferritin [Mass/volume] in Serum or Plasma 2022-08-24 16:59:07 617 ng/mL F 10.0-291.0 IRON SATURATION 2022-08-10 06:00:46 26 % F 16.0-46.0 TIBC 2022-08-10 06:00:46 286 ug/dL F 250.0-425.0 Iron [Mass/volume] in Serum or Plasma 2022-08-10 05:50:33 73 ug/dL F 50.0-170.0 Iron binding capacity.unsaturated [Mass/volume] in Serum or Plasma 2022-08-10 05:50:33 213 ug/dL F 80.0-375.0 Ferritin [Mass/volume] in Serum or Plasma 2022-08-10 03:55:18 457 ng/mL F 10.0-291.0 HCT CALC HGBX3 2022-08-09 20:49:32 29.7 % F 37.0-47.0 Erythrocyte distribution width [Ratio] by Automated count 2022-08-09 20:49:18 14.4 % F 11.0-15.0 Hemoglobin [Mass/volume] in Blood 2022-08-09 20:49:18 9.9 g/dL F 12.0-16.0 Platelets [#/volume] in Blood by Automated count 2022-08-09 20:49:18 143 x 10^3 cells/uL F 140.0-450.0 MCH [Entitic mass] by Automated count 2022-08-09 20:49:18 34.1 pg F 25.9-34.2 MCHC [Mass/volume] by Automated count 2022-08-09 20:49:18 31.2 g/dL F 29.6-35.3 Hematocrit [Volume Fraction] of Blood by Automated count 2022-08-09 20:49:18 31.7 % F 37.0-47.0 Erythrocytes [#/volume] in Blood by Automated count 2022-08-09 20:49:18 2.9 x 10'6 cells/uL F 3.85-5.2 MCV [Entitic volume] by Automated count 2022-08-09 20:49:18 109.4 fL F 80.0-100.0 IRON SATURATION 2022-07-13 06:59:47 30 % F 16.0-46.0 TIBC 2022-07-13 06:59:47 279 ug/dL F 250.0-425.0 Iron binding capacity.unsaturated [Mass/volume] in Serum or Plasma 2022-07-13 06:39:47 196 ug/dL F 80.0-375.0 Iron [Mass/volume] in Serum or Plasma 2022-07-13 06:29:55 83 ug/dL F 50.0-170.0 Ferritin [Mass/volume] in Serum or Plasma 2022-07-13 03:07:08 624 ng/mL F 10.0-291.0 HCT CALC HGBX3 2022-07-12 22:48:37 31.8 % F 37.0-47.0 Erythrocyte distribution width [Ratio] by Automated count 2022-07-12 22:48:13 14.6 % F 11.0-15.0 Hemoglobin [Mass/volume] in Blood 2022-07-12 22:48:13 10.6 g/dL F 12.0-16.0 Platelets [#/volume] in Blood by Automated count 2022-07-12 22:48:13 129 x 10^3 cells/uL F 150.0-400.0 MCH [Entitic mass] by Automated count 2022-07-12 22:48:13 35.5 pg F 27.0-31.0 MCHC [Mass/volume] by Automated count 2022-07-12 22:48:13 32.1 g/dL F 32.0-36.0 Hematocrit [Volume Fraction] of Blood by Automated count 2022-07-12 22:48:13 33 % F 37.0-47.0 Erythrocytes [#/volume] in Blood by Automated count 2022-07-12 22:48:13 2.98 x 10'6 cells/uL F 4.2-5.4 MCV [Entitic volume] by Automated count 2022-07-12 22:48:13 110.8 fL F 80.0-100.0 IRON SATURATION 2022-06-09 06:50:23 32 % F 16.0-46.0 TIBC 2022-06-09 06:50:23 322 ug/dL F 250.0-425.0 Iron [Mass/volume] in Serum or Plasma 2022-06-09 06:22:36 103 ug/dL F 50.0-170.0 Iron binding capacity.unsaturated [Mass/volume] in Serum or Plasma 2022-06-09 06:22:36 219 ug/dL F 80.0-375.0 Ferritin [Mass/volume] in Serum or Plasma 2022-06-09 03:43:13 685 ng/mL F 10.0-291.0 HCT CALC HGBX3 2022-06-08 16:41:46 31.5 % F 37.0-47.0 Erythrocyte distribution width [Ratio] by Automated count 2022-06-08 16:41:18 16.1 % F 11.0-15.0 Platelets [#/volume] in Blood by Automated count 2022-06-08 16:41:18 150 x 10^3 cells/uL F 150.0-400.0 MCHC [Mass/volume] by Automated count 2022-06-08 16:41:18 33.6 g/dL F 32.0-36.0 Erythrocytes [#/volume] in Blood by Automated count 2022-06-08 16:41:18 2.93 x 10'6 cells/uL F 4.2-5.4 Hemoglobin [Mass/volume] in Blood 2022-06-08 16:41:16 10.5 g/dL F 12.0-16.0 MCH [Entitic mass] by Automated count 2022-06-08 16:41:16 35.8 pg F 27.0-31.0 Hematocrit [Volume Fraction] of Blood by Automated count 2022-06-08 16:41:16 31.2 % F 37.0-47.0 MCV [Entitic volume] by Automated count 2022-06-08 16:41:16 106.4 fL F 80.0-100.0 IRON SATURATION 2022-05-05 03:56:12 51 % F 16.0-46.0 TIBC 2022-05-05 03:56:12 202 ug/dL F 250.0-425.0 IRON SATURATION 2022-05-05 03:56:12 51 % F 16.0-46.0 TIBC 2022-05-05 03:56:12 202 ug/dL F 250.0-425.0 Iron [Mass/volume] in Serum or Plasma 2022-05-05 03:43:00 103 ug/dL F 50.0-170.0 Iron binding capacity.unsaturated [Mass/volume] in Serum or Plasma 2022-05-05 03:43:00 99 ug/dL F 80.0-375.0 Iron [Mass/volume] in Serum or Plasma 2022-05-05 03:43:00 103 ug/dL F 50.0-170.0 Iron binding capacity.unsaturated [Mass/volume] in Serum or Plasma 2022-05-05 03:43:00 99 ug/dL F 80.0-375.0 Ferritin [Mass/volume] in Serum or Plasma 2022-05-04 22:18:12 811 ng/mL F 10.0-291.0 Ferritin [Mass/volume] in Serum or Plasma 2022-05-04 22:18:12 811 ng/mL F 10.0-291.0 HCT CALC HGBX3 2022-05-04 20:11:01 34.8 % F 37.0-47.0 HCT CALC HGBX3 2022-05-04 20:11:01 34.8 % F 37.0-47.0 Erythrocyte distribution width [Ratio] by Automated count 2022-05-04 20:10:21 14.6 % F 11.0-15.0 Hemoglobin [Mass/volume] in Blood 2022-05-04 20:10:21 11.6 g/dL F 12.0-16.0 Platelets [#/volume] in Blood by Automated count 2022-05-04 20:10:21 175 x 10^3 cells/uL F 150.0-400.0 Erythrocytes [#/volume] in Blood by Automated count 2022-05-04 20:10:21 3.37 x 10'6 cells/uL F 4.2-5.4 Erythrocyte distribution width [Ratio] by Automated count 2022-05-04 20:10:21 14.6 % F 11.0-15.0 Hemoglobin [Mass/volume] in Blood 2022-05-04 20:10:21 11.6 g/dL F 12.0-16.0 Platelets [#/volume] in Blood by Automated count 2022-05-04 20:10:21 175 x 10^3 cells/uL F 150.0-400.0 Erythrocytes [#/volume] in Blood by Automated count 2022-05-04 20:10:21 3.37 x 10'6 cells/uL F 4.2-5.4 MCH [Entitic mass] by Automated count 2022-05-04 20:10:19 34.5 pg F 27.0-31.0 MCHC [Mass/volume] by Automated count 2022-05-04 20:10:19 32.5 g/dL F 32.0-36.0 Hematocrit [Volume Fraction] of Blood by Automated count 2022-05-04 20:10:19 35.7 % F 37.0-47.0 MCV [Entitic volume] by Automated count 2022-05-04 20:10:19 105.9 fL F 80.0-100.0 Hematocrit [Volume Fraction] of Blood by Automated count 2022-05-04 20:10:19 35.7 % F 37.0-47.0 MCH [Entitic mass] by Automated count 2022-05-04 20:10:19 34.5 pg F 27.0-31.0 MCHC [Mass/volume] by Automated count 2022-05-04 20:10:19 32.5 g/dL F 32.0-36.0 MCV [Entitic volume] by Automated count 2022-05-04 20:10:19 105.9 fL F 80.0-100.0 IRON SATURATION 2022-04-07 01:42:07 36 % F 16.0-46.0 TIBC 2022-04-07 01:42:07 272 ug/dL F 250.0-425.0 IRON SATURATION 2022-04-07 01:42:07 36 % F 16.0-46.0 TIBC 2022-04-07 01:42:07 272 ug/dL F 250.0-425.0 Iron [Mass/volume] in Serum or Plasma 2022-04-06 21:40:20 98 ug/dL F 50.0-170.0 Iron binding capacity.unsaturated [Mass/volume] in Serum or Plasma 2022-04-06 21:40:20 174 ug/dL F 80.0-375.0 Iron [Mass/volume] in Serum or Plasma 2022-04-06 21:40:20 98 ug/dL F 50.0-170.0 Iron binding capacity.unsaturated [Mass/volume] in Serum or Plasma 2022-04-06 21:40:20 174 ug/dL F 80.0-375.0 Ferritin [Mass/volume] in Serum or Plasma 2022-04-06 19:21:51 1039 ng/mL F 10.0-291.0 Ferritin [Mass/volume] in Serum or Plasma 2022-04-06 19:21:51 1039 ng/mL F 10.0-291.0 HCT CALC HGBX3 2022-04-06 17:54:03 34.5 % F 37.0-47.0 HCT CALC HGBX3 2022-04-06 17:54:03 34.5 % F 37.0-47.0 Erythrocyte distribution width [Ratio] by Automated count 2022-04-06 17:53:52 14.3 % F 11.0-15.0 Platelets [#/volume] in Blood by Automated count 2022-04-06 17:53:52 163 x 10^3 cells/uL F 150.0-400.0 MCH [Entitic mass] by Automated count 2022-04-06 17:53:52 35.7 pg F 27.0-31.0 MCHC [Mass/volume] by Automated count 2022-04-06 17:53:52 34 g/dL F 32.0-36.0 Hematocrit [Volume Fraction] of Blood by Automated count 2022-04-06 17:53:52 33.8 % F 37.0-47.0 Erythrocytes [#/volume] in Blood by Automated count 2022-04-06 17:53:52 3.22 x 10'6 cells/uL F 4.2-5.4 MCV [Entitic volume] by Automated count 2022-04-06 17:53:52 105 fL F 80.0-100.0 Hemoglobin [Mass/volume] in Blood 2022-04-06 17:53:52 11.5 g/dL F 12.0-16.0 Erythrocyte distribution width [Ratio] by Automated count 2022-04-06 17:53:52 14.3 % F 11.0-15.0 Hemoglobin [Mass/volume] in Blood 2022-04-06 17:53:52 11.5 g/dL F 12.0-16.0 Platelets [#/volume] in Blood by Automated count 2022-04-06 17:53:52 163 x 10^3 cells/uL F 150.0-400.0 MCHC [Mass/volume] by Automated count 2022-04-06 17:53:52 34 g/dL F 32.0-36.0 MCH [Entitic mass] by Automated count 2022-04-06 17:53:52 35.7 pg F 27.0-31.0 Hematocrit [Volume Fraction] of Blood by Automated count 2022-04-06 17:53:52 33.8 % F 37.0-47.0 Erythrocytes [#/volume] in Blood by Automated count 2022-04-06 17:53:52 3.22 x 10'6 cells/uL F 4.2-5.4 MCV [Entitic volume] by Automated count 2022-04-06 17:53:52 105 fL F 80.0-100.0 IRON SATURATION 2022-03-10 14:41:27 33 % F 16.0-46.0 TIBC 2022-03-10 14:41:27 264 ug/dL F 250.0-425.0 Ferritin [Mass/volume] in Serum or Plasma 2022-03-10 14:40:42 748 ng/mL F 10.0-291.0 Iron [Mass/volume] in Serum or Plasma 2022-03-10 08:37:10 88 ug/dL F 50.0-170.0 Iron binding capacity.unsaturated [Mass/volume] in Serum or Plasma 2022-03-10 08:37:10 176 ug/dL F 80.0-375.0 HCT CALC HGBX3 2022-03-10 03:19:44 31.5 % F 37.0-47.0 Hemoglobin [Mass/volume] in Blood 2022-03-10 03:18:56 10.5 g/dL F 12.0-16.0 Erythrocyte distribution width [Ratio] by Automated count 2022-03-10 03:18:56 16.1 % F 11.0-15.0 Platelets [#/volume] in Blood by Automated count 2022-03-10 03:18:56 188 x 10^3 cells/uL F 150.0-400.0 MCH [Entitic mass] by Automated count 2022-03-10 03:18:56 33.8 pg F 27.0-31.0 MCHC [Mass/volume] by Automated count 2022-03-10 03:18:56 31.5 g/dL F 32.0-36.0 Hematocrit [Volume Fraction] of Blood by Automated count 2022-03-10 03:18:56 33.4 % F 37.0-47.0 Erythrocytes [#/volume] in Blood by Automated count 2022-03-10 03:18:56 3.11 x 10'6 cells/uL F 4.2-5.4 MCV [Entitic volume] by Automated count 2022-03-10 03:18:56 107.2 fL F 80.0-100.0 FluidBP Description Draw Date Result/Unit Status Ref Range Result Comments Sodium [Moles/volume] in Serum or Plasma 2024-04-22 22:39:09 140 mEq/L F 132.0-146.0 Sodium [Moles/volume] in Serum or Plasma 2024-03-26 05:50:11 140 mEq/L F 132.0-146.0 Sodium [Moles/volume] in Serum or Plasma 2024-03-26 05:50:11 140 mEq/L F 132.0-146.0 Sodium [Moles/volume] in Serum or Plasma 2024-02-20 04:56:51 141 mEq/L F 132.0-146.0 Sodium [Moles/volume] in Serum or Plasma 2023-06-20 03:59:11 141 mEq/L F 132.0-146.0 Sodium [Moles/volume] in Serum or Plasma 2022-11-21 21:40:32 135 mEq/L F 132.0-146.0 Sodium [Moles/volume] in Serum or Plasma 2022-11-21 21:40:32 135 mEq/L F 132.0-146.0 Sodium [Moles/volume] in Serum or Plasma 2022-10-24 19:33:42 144 mEq/L F 132.0-146.0 Sodium [Moles/volume] in Serum or Plasma 2022-09-19 16:52:09 141 mEq/L F 132.0-146.0 Sodium [Moles/volume] in Serum or Plasma 2022-08-24 17:47:10 134 mEq/L F 132.0-146.0 Sodium [Moles/volume] in Serum or Plasma 2022-08-24 17:47:10 134 mEq/L F 132.0-146.0 Sodium [Moles/volume] in Serum or Plasma 2022-08-09 23:31:21 142 mEq/L F 132.0-146.0 Sodium [Moles/volume] in Serum or Plasma 2022-07-12 21:33:13 141 mEq/L F 132.0-146.0 Sodium [Moles/volume] in Serum or Plasma 2022-06-08 23:05:15 139 mEq/L F 132.0-146.0 Sodium [Moles/volume] in Serum or Plasma 2022-05-04 21:51:18 137 mEq/L F 132.0-146.0 Sodium [Moles/volume] in Serum or Plasma 2022-05-04 21:51:18 137 mEq/L F 132.0-146.0 Sodium [Moles/volume] in Serum or Plasma 2022-04-06 19:54:51 139 mEq/L F 132.0-146.0 Sodium [Moles/volume] in Serum or Plasma 2022-04-06 19:54:51 139 mEq/L F 132.0-146.0 Sodium [Moles/volume] in Serum or Plasma 2022-03-09 23:58:48 141 mEq/L F 132.0-146.0 General Description Draw Date Result/Unit Status Ref Range Result Comments Chloride [Moles/volume] in Serum or Plasma 2024-04-22 22:39:09 98 mEq/L F 99.0-109.0 Aspartate aminotransferase [Enzymatic activity/volume] in Serum or Plasma 2024-04-22 15:15:19 18 U/L F 0.0-33.0 Alanine aminotransferase [Enzymatic activity/volume] in Serum or Plasma 2024-04-22 15:15:19 21 U/L F 10.0-49.0 Chloride [Moles/volume] in Serum or Plasma 2024-03-26 05:50:11 96 mEq/L F 99.0-109.0 Chloride [Moles/volume] in Serum or Plasma 2024-03-26 05:50:11 96 mEq/L F 99.0-109.0 Aspartate aminotransferase [Enzymatic activity/volume] in Serum or Plasma 2024-03-25 16:59:18 18 U/L F 0.0-33.0 Alanine aminotransferase [Enzymatic activity/volume] in Serum or Plasma 2024-03-25 16:59:18 17 U/L F 10.0-49.0 Aspartate aminotransferase [Enzymatic activity/volume] in Serum or Plasma 2024-03-25 16:59:18 18 U/L F 0.0-33.0 Alanine aminotransferase [Enzymatic activity/volume] in Serum or Plasma 2024-03-25 16:59:18 17 U/L F 10.0-49.0 Chloride [Moles/volume] in Serum or Plasma 2024-02-20 04:56:51 101 mEq/L F 99.0-109.0 Aspartate aminotransferase [Enzymatic activity/volume] in Serum or Plasma 2024-02-19 22:56:25 14 U/L F 0.0-33.0 Alanine aminotransferase [Enzymatic activity/volume] in Serum or Plasma 2024-02-19 22:56:25 15 U/L F 10.0-49.0 Alanine aminotransferase [Enzymatic activity/volume] in Serum or Plasma 2023-07-31 23:03:33 11 U/L F 10.0-49.0 Chloride [Moles/volume] in Serum or Plasma 2023-06-20 03:59:11 103 mEq/L F 99.0-109.0 Aspartate aminotransferase [Enzymatic activity/volume] in Serum or Plasma 2023-06-19 22:14:32 24 U/L F 0.0-33.0 Alanine aminotransferase [Enzymatic activity/volume] in Serum or Plasma 2023-06-19 22:14:32 9 U/L F 10.0-49.0 Aluminum [Mass/volume] in Serum or Plasma 2023-06-19 20:03:43 10 ug/L F 0.0-9.0 Aspartate aminotransferase [Enzymatic activity/volume] in Serum or Plasma 2022-11-21 21:40:32 18 U/L F 0.0-33.0 Chloride [Moles/volume] in Serum or Plasma 2022-11-21 21:40:32 97 mEq/L F 99.0-109.0 Aspartate aminotransferase [Enzymatic activity/volume] in Serum or Plasma 2022-11-21 21:40:32 18 U/L F 0.0-33.0 Chloride [Moles/volume] in Serum or Plasma 2022-11-21 21:40:32 97 mEq/L F 99.0-109.0 Aspartate aminotransferase [Enzymatic activity/volume] in Serum or Plasma 2022-10-24 19:33:42 16 U/L F 0.0-33.0 Chloride [Moles/volume] in Serum or Plasma 2022-10-24 19:33:42 101 mEq/L F 99.0-109.0 Aspartate aminotransferase [Enzymatic activity/volume] in Serum or Plasma 2022-09-19 16:52:09 15 U/L F 0.0-33.0 Chloride [Moles/volume] in Serum or Plasma 2022-09-19 16:52:09 100 mEq/L F 99.0-109.0 Aspartate aminotransferase [Enzymatic activity/volume] in Serum or Plasma 2022-08-24 17:47:10 15 U/L F 0.0-33.0 Chloride [Moles/volume] in Serum or Plasma 2022-08-24 17:47:10 94 mEq/L F 99.0-109.0 Aspartate aminotransferase [Enzymatic activity/volume] in Serum or Plasma 2022-08-24 17:47:10 15 U/L F 0.0-33.0 Chloride [Moles/volume] in Serum or Plasma 2022-08-24 17:47:10 94 mEq/L F 99.0-109.0 Alanine aminotransferase [Enzymatic activity/volume] in Serum or Plasma 2022-08-24 17:47:08 16 U/L F 10.0-49.0 Alanine aminotransferase [Enzymatic activity/volume] in Serum or Plasma 2022-08-24 17:47:08 16 U/L F 10.0-49.0 Aluminum [Mass/volume] in Serum or Plasma 2022-08-24 17:22:50 10 ug/L F 0.0-9.0 Aluminum [Mass/volume] in Serum or Plasma 2022-08-24 17:22:50 10 ug/L F 0.0-9.0 OLIVA PD 2022-08-15 16:15:16 10.6 g/day K Alanine aminotransferase [Enzymatic activity/volume] in Serum or Plasma 2022-08-09 23:31:21 18 U/L F 10.0-49.0 Chloride [Moles/volume] in Serum or Plasma 2022-08-09 23:31:21 99 mEq/L F 99.0-109.0 Alanine aminotransferase [Enzymatic activity/volume] in Serum or Plasma 2022-07-12 21:33:15 14 U/L F 10.0-49.0 Chloride [Moles/volume] in Serum or Plasma 2022-07-12 21:33:15 99 mEq/L F 99.0-109.0 Alanine aminotransferase [Enzymatic activity/volume] in Serum or Plasma 2022-06-08 23:05:15 11 U/L F 10.0-49.0 Chloride [Moles/volume] in Serum or Plasma 2022-06-08 23:05:15 97 mEq/L F 99.0-109.0 OLIVA PD 2022-05-07 13:15:26 7.7 g/day F OLIV[facility] PD 2022-05-07 13:15:26 7.7 g/day F Alanine aminotransferase [Enzymatic activity/volume] in Serum or Plasma 2022-05-04 21:51:18 12 U/L F 10.0-49.0 Chloride [Moles/volume] in Serum or Plasma 2022-05-04 21:51:18 94 mEq/L F 99.0-109.0 Alanine aminotransferase [Enzymatic activity/volume] in Serum or Plasma 2022-05-04 21:51:18 12 U/L F 10.0-49.0 Chloride [Moles/volume] in Serum or Plasma 2022-05-04 21:51:18 94 mEq/L F 99.0-109.0 Alanine aminotransferase [Enzymatic activity/volume] in Serum or Plasma 2022-04-06 19:54:51 13 U/L F 10.0-49.0 Chloride [Moles/volume] in Serum or Plasma 2022-04-06 19:54:51 95 mEq/L F 99.0-109.0 Alanine aminotransferase [Enzymatic activity/volume] in Serum or Plasma 2022-04-06 19:54:51 13 U/L F 10.0-49.0 Chloride [Moles/volume] in Serum or Plasma 2022-04-06 19:54:51 95 mEq/L F 99.0-109.0 Aluminum [Mass/volume] in Serum or Plasma 2022-03-10 16:57:42 10 ug/L F 0.0-9.0 OLIVA PD 2022-03-10 01:05:19 10.5 g/day F Alanine aminotransferase [Enzymatic activity/volume] in Serum or Plasma 2022-03-09 23:58:48 13 U/L F 10.0-49.0 Chloride [Moles/volume] in Serum or Plasma 2022-03-09 23:58:48 95 mEq/L F 99.0-109.0 InfectionVaccination Description Draw Date Result/Unit Status Ref Range Result Comments Lymphocytes/100 leukocytes in Blood by Automated count 2024-04-23 00:13:06 18.5 % F Basophils/100 leukocytes in Blood by Automated count 2024-04-23 00:13:06 0.7 % F Eosinophils/100 leukocytes in Blood by Automated count 2024-04-23 00:13:06 2.1 % F Monocytes/100 leukocytes in Blood by Automated count 2024-04-23 00:13:06 3.9 % F Neutrophils/100 leukocytes in Blood by Automated count 2024-04-23 00:13:06 74.9 % F Monocytes [#/volume] in Blood by Automated count 2024-04-23 00:13:06 339 Cells/uL F 0.0-1100.0 Basophils [#/volume] in Blood by Automated count 2024-04-23 00:13:06 61 Cells/uL F 0.0-400.0 Eosinophils [#/volume] in Blood by Automated count 2024-04-23 00:13:06 182 Cells/uL F 0.0-700.0 Neutrophils [#/volume] in Blood by Automated count 2024-04-23 00:13:06 6509 Cells/uL F 2000.0-8800.0 Leukocytes [#/volume] in Blood by Automated count 2024-04-23 00:13:06 8.7 x 10^3 cells/uL F 4.0-11.0 Lymphocytes [#/volume] in Blood by Automated count 2024-04-23 00:13:06 1608 Cells/uL F 620.0-3660.0 Neutrophils/100 leukocytes in Blood by Automated count 2024-03-25 18:05:10 69.7 % F Basophils/100 leukocytes in Blood by Automated count 2024-03-25 18:05:10 0.4 % F Lymphocytes/100 leukocytes in Blood by Automated count 2024-03-25 18:05:10 22.7 % F Monocytes/100 leukocytes in Blood by Automated count 2024-03-25 18:05:10 4.8 % F Eosinophils/100 leukocytes in Blood by Automated count 2024-03-25 18:05:10 2.6 % F Monocytes [#/volume] in Blood by Automated count 2024-03-25 18:05:10 349 Cells/uL F 0.0-1100.0 Eosinophils [#/volume] in Blood by Automated count 2024-03-25 18:05:10 189 Cells/uL F 0.0-700.0 Basophils [#/volume] in Blood by Automated count 2024-03-25 18:05:10 29 Cells/uL F 0.0-400.0 Neutrophils [#/volume] in Blood by Automated count 2024-03-25 18:05:10 5074 Cells/uL F 2000.0-8800.0 Leukocytes [#/volume] in Blood by Automated count 2024-03-25 18:05:10 7.3 x 10^3 cells/uL F 4.0-11.0 Lymphocytes [#/volume] in Blood by Automated count 2024-03-25 18:05:10 1653 Cells/uL F 620.0-3660.0 Neutrophils/100 leukocytes in Blood by Automated count 2024-03-25 18:05:10 69.7 % F Lymphocytes/100 leukocytes in Blood by Automated count 2024-03-25 18:05:10 22.7 % F Monocytes/100 leukocytes in Blood by Automated count 2024-03-25 18:05:10 4.8 % F Basophils/100 leukocytes in Blood by Automated count 2024-03-25 18:05:10 0.4 % F Monocytes [#/volume] in Blood by Automated count 2024-03-25 18:05:10 349 Cells/uL F 0.0-1100.0 Eosinophils/100 leukocytes in Blood by Automated count 2024-03-25 18:05:10 2.6 % F Basophils [#/volume] in Blood by Automated count 2024-03-25 18:05:10 29 Cells/uL F 0.0-400.0 Eosinophils [#/volume] in Blood by Automated count 2024-03-25 18:05:10 189 Cells/uL F 0.0-700.0 Neutrophils [#/volume] in Blood by Automated count 2024-03-25 18:05:10 5074 Cells/uL F 2000.0-8800.0 Leukocytes [#/volume] in Blood by Automated count 2024-03-25 18:05:10 7.3 x 10^3 cells/uL F 4.0-11.0 Lymphocytes [#/volume] in Blood by Automated count 2024-03-25 18:05:10 1653 Cells/uL F 620.0-3660.0 Neutrophils/100 leukocytes in Blood by Automated count 2024-02-19 17:20:11 69.5 % F Basophils/100 leukocytes in Blood by Automated count 2024-02-19 17:20:11 1 % F Lymphocytes/100 leukocytes in Blood by Automated count 2024-02-19 17:20:11 22 % F Monocytes [#/volume] in Blood by Automated count 2024-02-19 17:20:11 306 Cells/uL F 0.0-1100.0 Leukocytes [#/volume] in Blood by Automated count 2024-02-19 17:20:11 7.6 x 10^3 cells/uL F 4.0-11.0 Eosinophils/100 leukocytes in Blood by Automated count 2024-02-19 17:20:09 3.4 % F Monocytes/100 leukocytes in Blood by Automated count 2024-02-19 17:20:09 4 % F Basophils [#/volume] in Blood by Automated count 2024-02-19 17:20:09 76 Cells/uL F 0.0-400.0 Eosinophils [#/volume] in Blood by Automated count 2024-02-19 17:20:09 260 Cells/uL F 0.0-700.0 Neutrophils [#/volume] in Blood by Automated count 2024-02-19 17:20:09 5310 Cells/uL F 2000.0-8800.0 Lymphocytes [#/volume] in Blood by Automated count 2024-02-19 17:20:09 1681 Cells/uL F 620.0-3660.0 Monocytes/100 leukocytes in Blood by Automated count 2023-06-19 19:34:28 4.9 % F Neutrophils/100 leukocytes in Blood by Automated count 2023-06-19 19:34:28 70.8 % F Eosinophils/100 leukocytes in Blood by Automated count 2023-06-19 19:34:28 2.7 % F Basophils/100 leukocytes in Blood by Automated count 2023-06-19 19:34:28 0.5 % F Lymphocytes/100 leukocytes in Blood by Automated count 2023-06-19 19:34:28 21 % F Monocytes [#/volume] in Blood by Automated count 2023-06-19 19:34:28 418 Cell/uL F 0.0-1100.0 Basophils [#/volume] in Blood by Automated count 2023-06-19 19:34:28 43 Cell/uL F 0.0-400.0 Eosinophils [#/volume] in Blood by Automated count 2023-06-19 19:34:28 230 Cell/uL F 0.0-700.0 Neutrophils [#/volume] in Blood by Automated count 2023-06-19 19:34:28 6039 Cell/uL F 2000.0-8800.0 Leukocytes [#/volume] in Blood by Automated count 2023-06-19 19:34:28 8.5 x 10^3 cells/uL F 4.0-11.0 Lymphocytes [#/volume] in Blood by Automated count 2023-06-19 19:34:28 1791 Cell/uL F 620.0-3660.0 Monocytes/100 leukocytes in Blood by Automated count 2022-11-21 14:59:31 4.9 % F Basophils/100 leukocytes in Blood by Automated count 2022-11-21 14:59:31 0.3 % F Lymphocytes/100 leukocytes in Blood by Automated count 2022-11-21 14:59:31 18.1 % F Eosinophils/100 leukocytes in Blood by Automated count 2022-11-21 14:59:31 5 % F Neutrophils/100 leukocytes in Blood by Automated count 2022-11-21 14:59:31 71.7 % F Monocytes [#/volume] in Blood by Automated count 2022-11-21 14:59:31 466 Cell/uL F 0.0-1100.0 Basophils [#/volume] in Blood by Automated count 2022-11-21 14:59:31 28 Cell/uL F 0.0-400.0 Eosinophils [#/volume] in Blood by Automated count 2022-11-21 14:59:31 475 Cell/uL F 0.0-700.0 Neutrophils [#/volume] in Blood by Automated count 2022-11-21 14:59:31 6812 Cell/uL F 2000.0-8800.0 Lymphocytes [#/volume] in Blood by Automated count 2022-11-21 14:59:31 1720 Cell/uL F 620.0-3660.0 Leukocytes [#/volume] in Blood by Automated count 2022-11-21 14:59:31 9.5 x 10^3 cells/uL F 4.0-11.0 Basophils/100 leukocytes in Blood by Automated count 2022-11-21 14:59:31 0.3 % F Monocytes/100 leukocytes in Blood by Automated count 2022-11-21 14:59:31 4.9 % F Eosinophils/100 leukocytes in Blood by Automated count 2022-11-21 14:59:31 5 % F Lymphocytes/100 leukocytes in Blood by Automated count 2022-11-21 14:59:31 18.1 % F Neutrophils/100 leukocytes in Blood by Automated count 2022-11-21 14:59:31 71.7 % F Monocytes [#/volume] in Blood by Automated count 2022-11-21 14:59:31 466 Cell/uL F 0.0-1100.0 Basophils [#/volume] in Blood by Automated count 2022-11-21 14:59:31 28 Cell/uL F 0.0-400.0 Eosinophils [#/volume] in Blood by Automated count 2022-11-21 14:59:31 475 Cell/uL F 0.0-700.0 Neutrophils [#/volume] in Blood by Automated count 2022-11-21 14:59:31 6812 Cell/uL F 2000.0-8800.0 Leukocytes [#/volume] in Blood by Automated count 2022-11-21 14:59:31 9.5 x 10^3 cells/uL F 4.0-11.0 Lymphocytes [#/volume] in Blood by Automated count 2022-11-21 14:59:31 1720 Cell/uL F 620.0-3660.0 Basophils/100 leukocytes in Blood by Automated count 2022-10-24 15:10:32 1.3 % F Eosinophils/100 leukocytes in Blood by Automated count 2022-10-24 15:10:32 3.4 % F Lymphocytes/100 leukocytes in Blood by Automated count 2022-10-24 15:10:32 16.2 % F Monocytes/100 leukocytes in Blood by Automated count 2022-10-24 15:10:32 3.9 % F Neutrophils/100 leukocytes in Blood by Automated count 2022-10-24 15:10:32 75.3 % F Monocytes [#/volume] in Blood by Automated count 2022-10-24 15:10:32 423 Cell/uL F 0.0-1100.0 Eosinophils [#/volume] in Blood by Automated count 2022-10-24 15:10:32 369 Cell/uL F 0.0-700.0 Basophils [#/volume] in Blood by Automated count 2022-10-24 15:10:32 141 Cell/uL F 0.0-400.0 Neutrophils [#/volume] in Blood by Automated count 2022-10-24 15:10:32 8163 Cell/uL F 2000.0-8800.0 Leukocytes [#/volume] in Blood by Automated count 2022-10-24 15:10:32 10.8 x 10^3 cells/uL F 4.0-11.0 Lymphocytes [#/volume] in Blood by Automated count 2022-10-24 15:10:32 1756 Cell/uL F 620.0-3660.0 Neutrophils/100 leukocytes in Blood by Automated count 2022-09-19 17:17:12 76.1 % F Lymphocytes/100 leukocytes in Blood by Automated count 2022-09-19 17:17:11 17.1 % F Monocytes/100 leukocytes in Blood by Automated count 2022-09-19 17:17:11 3.7 % F Basophils/100 leukocytes in Blood by Automated count 2022-09-19 17:17:11 0.4 % F Eosinophils/100 leukocytes in Blood by Automated count 2022-09-19 17:17:11 2.8 % F Monocytes [#/volume] in Blood by Automated count 2022-09-19 17:17:11 419 Cell/uL F 0.0-1100.0 Eosinophils [#/volume] in Blood by Automated count 2022-09-19 17:17:11 317 Cell/uL F 0.0-700.0 Basophils [#/volume] in Blood by Automated count 2022-09-19 17:17:11 45 Cell/uL F 0.0-400.0 Neutrophils [#/volume] in Blood by Automated count 2022-09-19 17:17:11 8615 Cell/uL F 2000.0-8800.0 Leukocytes [#/volume] in Blood by Automated count 2022-09-19 17:17:11 11.3 x 10^3 cells/uL F 4.0-11.0 Lymphocytes [#/volume] in Blood by Automated count 2022-09-19 17:17:11 1936 Cell/uL F 620.0-3660.0 Monocytes/100 leukocytes in Blood by Automated count 2022-08-24 17:49:14 4.8 % F Lymphocytes/100 leukocytes in Blood by Automated count 2022-08-24 17:49:14 12.7 % F Basophils/100 leukocytes in Blood by Automated count 2022-08-24 17:49:14 0.3 % F Eosinophils/100 leukocytes in Blood by Automated count 2022-08-24 17:49:14 2 % F Neutrophils/100 leukocytes in Blood by Automated count 2022-08-24 17:49:14 80.2 % F Monocytes [#/volume] in Blood by Automated count 2022-08-24 17:49:14 487 Cell/uL F 0.0-1100.0 Eosinophils [#/volume] in Blood by Automated count 2022-08-24 17:49:14 203 Cell/uL F 0.0-700.0 Basophils [#/volume] in Blood by Automated count 2022-08-24 17:49:14 30 Cell/uL F 0.0-400.0 Neutrophils [#/volume] in Blood by Automated count 2022-08-24 17:49:14 8140 Cell/uL F 2000.0-8800.0 Leukocytes [#/volume] in Blood by Automated count 2022-08-24 17:49:14 10.2 x 10^3 cells/uL F 4.0-11.0 Lymphocytes [#/volume] in Blood by Automated count 2022-08-24 17:49:14 1289 Cell/uL F 620.0-3660.0 Neutrophils/100 leukocytes in Blood by Automated count 2022-08-24 17:49:14 80.2 % F Monocytes/100 leukocytes in Blood by Automated count 2022-08-24 17:49:14 4.8 % F Basophils/100 leukocytes in Blood by Automated count 2022-08-24 17:49:14 0.3 % F Eosinophils/100 leukocytes in Blood by Automated count 2022-08-24 17:49:14 2 % F Lymphocytes/100 leukocytes in Blood by Automated count 2022-08-24 17:49:14 12.7 % F Basophils [#/volume] in Blood by Automated count 2022-08-24 17:49:14 30 Cell/uL F 0.0-400.0 Monocytes [#/volume] in Blood by Automated count 2022-08-24 17:49:14 487 Cell/uL F 0.0-1100.0 Eosinophils [#/volume] in Blood by Automated count 2022-08-24 17:49:14 203 Cell/uL F 0.0-700.0 Neutrophils [#/volume] in Blood by Automated count 2022-08-24 17:49:14 8140 Cell/uL F 2000.0-8800.0 Leukocytes [#/volume] in Blood by Automated count 2022-08-24 17:49:14 10.2 x 10^3 cells/uL F 4.0-11.0 Lymphocytes [#/volume] in Blood by Automated count 2022-08-24 17:49:14 1289 Cell/uL F 620.0-3660.0 Monocytes/100 leukocytes in Blood by Automated count 2022-08-09 20:49:18 4 % F Eosinophils/100 leukocytes in Blood by Automated count 2022-08-09 20:49:18 3.3 % F Neutrophils/100 leukocytes in Blood by Automated count 2022-08-09 20:49:18 78 % F Lymphocytes/100 leukocytes in Blood by Automated count 2022-08-09 20:49:18 14.4 % F Basophils/100 leukocytes in Blood by Automated count 2022-08-09 20:49:18 0.3 % F Monocytes [#/volume] in Blood by Automated count 2022-08-09 20:49:18 292.4 Cell/uL F 0.0-1100.0 Basophils [#/volume] in Blood by Automated count 2022-08-09 20:49:18 21.93 Cell/uL F 0.0-400.0 Eosinophils [#/volume] in Blood by Automated count 2022-08-09 20:49:18 241.23 Cell/uL F 0.0-700.0 Neutrophils [#/volume] in Blood by Automated count 2022-08-09 20:49:18 5701.8 Cell/uL F 2000.0-8800.0 Leukocytes [#/volume] in Blood by Automated count 2022-08-09 20:49:18 7.3 x 10^3 cells/uL F 4.0-11.0 Lymphocytes [#/volume] in Blood by Automated count 2022-08-09 20:49:18 1052.64 Cell/uL F 620.0-3660.0 Neutrophils/100 leukocytes in Blood by Automated count 2022-07-12 22:48:13 75.3 % F Lymphocytes/100 leukocytes in Blood by Automated count 2022-07-12 22:48:13 17.1 % F Eosinophils/100 leukocytes in Blood by Automated count 2022-07-12 22:48:13 2.2 % F Monocytes/100 leukocytes in Blood by Automated count 2022-07-12 22:48:13 5.2 % F Basophils/100 leukocytes in Blood by Automated count 2022-07-12 22:48:13 0.2 % F Monocytes [#/volume] in Blood by Automated count 2022-07-12 22:48:13 367.64 Cell/uL F 0.0-1100.0 Basophils [#/volume] in Blood by Automated count 2022-07-12 22:48:13 14.14 Cell/uL F 0.0-400.0 Eosinophils [#/volume] in Blood by Automated count 2022-07-12 22:48:13 155.54 Cell/uL F 0.0-700.0 Lymphocytes [#/volume] in Blood by Automated count 2022-07-12 22:48:13 1208.97 Cell/uL F 1100.0-4800.0 Neutrophils [#/volume] in Blood by Automated count 2022-07-12 22:48:13 5323.71 Cell/uL F 2000.0-8800.0 Leukocytes [#/volume] in Blood by Automated count 2022-07-12 22:48:13 7.1 x 10^3 cells/uL F 4.5-11.0 Lymphocytes/100 leukocytes in Blood by Automated count 2022-06-08 16:41:18 15.3 % F Basophils/100 leukocytes in Blood by Automated count 2022-06-08 16:41:18 0.4 % F Monocytes [#/volume] in Blood by Automated count 2022-06-08 16:41:18 306.36 Cell/uL F 0.0-1100.0 Basophils [#/volume] in Blood by Automated count 2022-06-08 16:41:18 34.04 Cell/uL F 0.0-400.0 Eosinophils [#/volume] in Blood by Automated count 2022-06-08 16:41:18 144.67 Cell/uL F 0.0-700.0 Lymphocytes [#/volume] in Blood by Automated count 2022-06-08 16:41:18 1302.03 Cell/uL F 1100.0-4800.0 Neutrophils [#/volume] in Blood by Automated count 2022-06-08 16:41:18 6722.9 Cell/uL F 2000.0-8800.0 Neutrophils/100 leukocytes in Blood by Automated count 2022-06-08 16:41:16 79 % F Eosinophils/100 leukocytes in Blood by Automated count 2022-06-08 16:41:16 1.7 % F Monocytes/100 leukocytes in Blood by Automated count 2022-06-08 16:41:16 3.6 % F Leukocytes [#/volume] in Blood by Automated count 2022-06-08 16:41:16 8.5 x 10^3 cells/uL F 4.5-11.0 Lymphocytes [#/volume] in Blood by Automated count 2022-05-04 20:10:21 1392.63 Cell/uL F 1100.0-4800.0 Leukocytes [#/volume] in Blood by Automated count 2022-05-04 20:10:21 7.6 x 10^3 cells/uL F 4.5-11.0 Neutrophils/100 leukocytes in Blood by Automated count 2022-05-04 20:10:21 76 % F Monocytes/100 leukocytes in Blood by Automated count 2022-05-04 20:10:21 3.4 % F Lymphocytes [#/volume] in Blood by Automated count 2022-05-04 20:10:21 1392.63 Cell/uL F 1100.0-4800.0 Leukocytes [#/volume] in Blood by Automated count 2022-05-04 20:10:21 7.6 x 10^3 cells/uL F 4.5-11.0 Monocytes/100 leukocytes in Blood by Automated count 2022-05-04 20:10:21 3.4 % F Neutrophils/100 leukocytes in Blood by Automated count 2022-05-04 20:10:21 76 % F Monocytes [#/volume] in Blood by Automated count 2022-05-04 20:10:19 258.74 Cell/uL F 0.0-1100.0 Eosinophils [#/volume] in Blood by Automated count 2022-05-04 20:10:19 159.81 Cell/uL F 0.0-700.0 Basophils [#/volume] in Blood by Automated count 2022-05-04 20:10:19 15.22 Cell/uL F 0.0-400.0 Neutrophils [#/volume] in Blood by Automated count 2022-05-04 20:10:19 5783.6 Cell/uL F 2000.0-8800.0 Lymphocytes/100 leukocytes in Blood by Automated count 2022-05-04 20:10:19 18.3 % F Basophils/100 leukocytes in Blood by Automated count 2022-05-04 20:10:19 0.2 % F Eosinophils/100 leukocytes in Blood by Automated count 2022-05-04 20:10:19 2.1 % F Monocytes [#/volume] in Blood by Automated count 2022-05-04 20:10:19 258.74 Cell/uL F 0.0-1100.0 Basophils [#/volume] in Blood by Automated count 2022-05-04 20:10:19 15.22 Cell/uL F 0.0-400.0 Eosinophils [#/volume] in Blood by Automated count 2022-05-04 20:10:19 159.81 Cell/uL F 0.0-700.0 Neutrophils [#/volume] in Blood by Automated count 2022-05-04 20:10:19 5783.6 Cell/uL F 2000.0-8800.0 Lymphocytes/100 leukocytes in Blood by Automated count 2022-05-04 20:10:19 18.3 % F Eosinophils/100 leukocytes in Blood by Automated count 2022-05-04 20:10:19 2.1 % F Basophils/100 leukocytes in Blood by Automated count 2022-05-04 20:10:19 0.2 % F Basophils/100 leukocytes in Blood by Automated count 2022-04-06 17:53:52 0.7 % F Neutrophils/100 leukocytes in Blood by Automated count 2022-04-06 17:53:52 77.7 % F Monocytes/100 leukocytes in Blood by Automated count 2022-04-06 17:53:52 4.3 % F Eosinophils/100 leukocytes in Blood by Automated count 2022-04-06 17:53:52 3.1 % F Lymphocytes/100 leukocytes in Blood by Automated count 2022-04-06 17:53:52 14.3 % F Monocytes [#/volume] in Blood by Automated count 2022-04-06 17:53:52 315.62 Cell/uL F 0.0-1100.0 Basophils [#/volume] in Blood by Automated count 2022-04-06 17:53:52 51.38 Cell/uL F 0.0-400.0 Eosinophils [#/volume] in Blood by Automated count 2022-04-06 17:53:52 227.54 Cell/uL F 0.0-700.0 Lymphocytes [#/volume] in Blood by Automated count 2022-04-06 17:53:52 1049.62 Cell/uL F 1100.0-4800.0 Neutrophils [#/volume] in Blood by Automated count 2022-04-06 17:53:52 5703.18 Cell/uL F 2000.0-8800.0 Leukocytes [#/volume] in Blood by Automated count 2022-04-06 17:53:52 7.3 x 10^3 cells/uL F 4.5-11.0 Basophils/100 leukocytes in Blood by Automated count 2022-04-06 17:53:52 0.7 % F Lymphocytes/100 leukocytes in Blood by Automated count 2022-04-06 17:53:52 14.3 % F Monocytes/100 leukocytes in Blood by Automated count 2022-04-06 17:53:52 4.3 % F Neutrophils/100 leukocytes in Blood by Automated count 2022-04-06 17:53:52 77.7 % F Eosinophils/100 leukocytes in Blood by Automated count 2022-04-06 17:53:52 3.1 % F Monocytes [#/volume] in Blood by Automated count 2022-04-06 17:53:52 315.62 Cell/uL F 0.0-1100.0 Basophils [#/volume] in Blood by Automated count 2022-04-06 17:53:52 51.38 Cell/uL F 0.0-400.0 Eosinophils [#/volume] in Blood by Automated count 2022-04-06 17:53:52 227.54 Cell/uL F 0.0-700.0 Lymphocytes [#/volume] in Blood by Automated count 2022-04-06 17:53:52 1049.62 Cell/uL F 1100.0-4800.0 Neutrophils [#/volume] in Blood by Automated count 2022-04-06 17:53:52 5703.18 Cell/uL F 2000.0-8800.0 Leukocytes [#/volume] in Blood by Automated count 2022-04-06 17:53:52 7.3 x 10^3 cells/uL F 4.5-11.0 Lymphocytes/100 leukocytes in Blood by Automated count 2022-03-10 03:18:56 15.4 % F Neutrophils/100 leukocytes in Blood by Automated count 2022-03-10 03:18:56 75.2 % F Basophils/100 leukocytes in Blood by Automated count 2022-03-10 03:18:56 1.4 % F Eosinophils/100 leukocytes in Blood by Automated count 2022-03-10 03:18:56 3.8 % F Monocytes/100 leukocytes in Blood by Automated count 2022-03-10 03:18:56 4.2 % F Monocytes [#/volume] in Blood by Automated count 2022-03-10 03:18:56 308.7 Cell/uL F 0.0-1100.0 Basophils [#/volume] in Blood by Automated count 2022-03-10 03:18:56 102.9 Cell/uL F 0.0-400.0 Eosinophils [#/volume] in Blood by Automated count 2022-03-10 03:18:56 279.3 Cell/uL F 0.0-700.0 Lymphocytes [#/volume] in Blood by Automated count 2022-03-10 03:18:56 1131.9 Cell/uL F 1100.0-4800.0 Neutrophils [#/volume] in Blood by Automated count 2022-03-10 03:18:56 5527.2 Cell/uL F 2000.0-8800.0 Leukocytes [#/volume] in Blood by Automated count 2022-03-10 03:18:56 7.4 x 10^3 cells/uL F 4.5-11.0 MineralBone Disorder Description Draw Date Result/Unit Status Ref Range Result Comments CA CORRECTED 2024-05-07 10:01:09 9.6 mg/dL F CA CORRECTED 2024-05-07 10:01:09 9.6 mg/dL F CA/PHOS PRODUCT 2024-05-07 09:59:33 82.6 Calc F 21.0-53.0 CA*PO4 CORRCTD 2024-05-07 09:59:33 82.6 Calc F 21.0-53.0 CA/PHOS PRODUCT 2024-05-07 09:59:33 82.6 Calc F 21.0-53.0 CA*PO4 CORRCTD 2024-05-07 09:59:33 82.6 Calc F 21.0-53.0 Phosphate [Mass/volume] in Serum or Plasma 2024-05-07 07:04:54 8.6 mg/dL F 2.4-5.1 Calcium [Mass/volume] in Serum or Plasma 2024-05-07 07:04:54 9.6 mg/dL F 8.7-10.4 Phosphate [Mass/volume] in Serum or Plasma 2024-05-07 07:04:54 8.6 mg/dL F 2.4-5.1 Calcium [Mass/volume] in Serum or Plasma 2024-05-07 07:04:54 9.6 mg/dL F 8.7-10.4 Parathyrin.intact [Mass/volume] in Serum or Plasma 2024-05-06 22:50:18 774 pg/mL F 18.0-80.0 Parathyrin.intact [Mass/volume] in Serum or Plasma 2024-05-06 22:50:18 774 pg/mL F 18.0-80.0 25-Hydroxyvitamin D3+25-Hydroxyvitamin D2 [Mass/volume] in Serum or Plasma 2024-04-22 22:18:18 65.5 ng/mL F Alkaline phosphatase [Enzymatic activity/volume] in Serum or Plasma 2024-04-22 15:15:19 115 U/L F 46.0-116.0 CA CORRECTED 2024-04-09 08:06:26 9.6 mg/dL F CA/PHOS PRODUCT 2024-04-09 08:03:49 62.4 Calc F 21.0-53.0 CA*PO4 CORRCTD 2024-04-09 08:03:49 62.4 Calc F 21.0-53.0 Phosphate [Mass/volume] in Serum or Plasma 2024-04-09 06:34:50 6.5 mg/dL F 2.4-5.1 Calcium [Mass/volume] in Serum or Plasma 2024-04-09 06:34:50 9.6 mg/dL F 8.7-10.4 Parathyrin.intact [Mass/volume] in Serum or Plasma 2024-04-08 18:23:25 440 pg/mL F 18.0-80.0 25-Hydroxyvitamin D3+25-Hydroxyvitamin D2 [Mass/volume] in Serum or Plasma 2024-03-26 08:25:14 58.1 ng/mL F 25-Hydroxyvitamin D3+25-Hydroxyvitamin D2 [Mass/volume] in Serum or Plasma 2024-03-26 08:25:14 58.1 ng/mL F Alkaline phosphatase [Enzymatic activity/volume] in Serum or Plasma 2024-03-25 16:59:18 100 U/L F 46.0-116.0 Alkaline phosphatase [Enzymatic activity/volume] in Serum or Plasma 2024-03-25 16:59:18 100 U/L F 46.0-116.0 CA CORRECTED 2024-03-13 10:58:18 9.7 mg/dL F CA*PO4 CORRCTD 2024-03-13 10:55:35 65.8 Calc F 21.0-53.0 CA/PHOS PRODUCT 2024-03-13 10:55:35 65.3 Calc F 21.0-53.0 Phosphate [Mass/volume] in Serum or Plasma 2024-03-13 08:26:37 6.8 mg/dL F 2.4-5.1 Calcium [Mass/volume] in Serum or Plasma 2024-03-13 08:26:37 9.6 mg/dL F 8.7-10.4 Parathyrin.intact [Mass/volume] in Serum or Plasma 2024-03-13 02:16:28 308 pg/mL F 18.0-80.0 Alkaline phosphatase [Enzymatic activity/volume] in Serum or Plasma 2024-02-19 22:56:25 93 U/L F 46.0-116.0 25-Hydroxyvitamin D3+25-Hydroxyvitamin D2 [Mass/volume] in Serum or Plasma 2024-02-19 20:19:17 29.9 ng/mL F Phosphate [Mass/volume] in Serum or Plasma 2024-02-13 08:06:11 7 mg/dL F 2.4-5.1 25-Hydroxyvitamin D3+25-Hydroxyvitamin D2 [Mass/volume] in Serum or Plasma 2023-06-20 05:46:43 13 ng/mL F Alkaline phosphatase [Enzymatic activity/volume] in Serum or Plasma 2023-06-19 22:14:32 77 U/L F 46.0-116.0 CA CORRECTED 2022-11-22 05:15:45 9.5 mg/dL F CA CORRECTED 2022-11-22 05:15:45 9.5 mg/dL F Calcium [Mass/volume] in Serum or Plasma 2022-11-22 05:12:00 9.5 mg/dL F 8.7-10.4 Calcium [Mass/volume] in Serum or Plasma 2022-11-22 05:12:00 9.5 mg/dL F 8.7-10.4 Phosphate [Mass/volume] in Serum or Plasma 2022-11-21 21:40:32 3.8 mg/dL F 2.4-5.1 Alkaline phosphatase [Enzymatic activity/volume] in Serum or Plasma 2022-11-21 21:40:32 105 U/L F 46.0-116.0 Phosphate [Mass/volume] in Serum or Plasma 2022-11-21 21:40:32 3.8 mg/dL F 2.4-5.1 Alkaline phosphatase [Enzymatic activity/volume] in Serum or Plasma 2022-11-21 21:40:32 105 U/L F 46.0-116.0 25-Hydroxyvitamin D3+25-Hydroxyvitamin D2 [Mass/volume] in Serum or Plasma 2022-11-21 20:03:16 11.6 ng/mL F 25-Hydroxyvitamin D3+25-Hydroxyvitamin D2 [Mass/volume] in Serum or Plasma 2022-11-21 20:03:16 11.6 ng/mL F 25-Hydroxyvitamin D3+25-Hydroxyvitamin D2 [Mass/volume] in Serum or Plasma 2022-10-24 19:50:11 11.1 ng/mL F Alkaline phosphatase [Enzymatic activity/volume] in Serum or Plasma 2022-10-24 19:33:42 96 U/L F 46.0-116.0 Alkaline phosphatase [Enzymatic activity/volume] in Serum or Plasma 2022-09-19 16:52:09 100 U/L F 46.0-116.0 25-Hydroxyvitamin D3+25-Hydroxyvitamin D2 [Mass/volume] in Serum or Plasma 2022-09-19 15:38:15 8.2 ng/mL F CA CORRECTED 2022-08-25 02:14:20 8.9 mg/dL F CA CORRECTED 2022-08-25 02:14:20 8.9 mg/dL F CA/PHOS PRODUCT 2022-08-25 01:51:52 55.9 Calc F 21.0-53.0 CA*PO4 CORRCTD 2022-08-25 01:51:52 57.9 Calc F 21.0-53.0 CA/PHOS PRODUCT 2022-08-25 01:51:52 55.9 Calc F 21.0-53.0 CA*PO4 CORRCTD 2022-08-25 01:51:52 57.9 Calc F 21.0-53.0 Calcium [Mass/volume] in Serum or Plasma 2022-08-25 01:46:24 8.6 mg/dL F 8.7-10.4 Calcium [Mass/volume] in Serum or Plasma 2022-08-25 01:46:24 8.6 mg/dL F 8.7-10.4 Alkaline phosphatase [Enzymatic activity/volume] in Serum or Plasma 2022-08-24 17:47:10 78 U/L F 46.0-116.0 Alkaline phosphatase [Enzymatic activity/volume] in Serum or Plasma 2022-08-24 17:47:10 78 U/L F 46.0-116.0 Phosphate [Mass/volume] in Serum or Plasma 2022-08-24 17:47:08 6.5 mg/dL F 2.4-5.1 Phosphate [Mass/volume] in Serum or Plasma 2022-08-24 17:47:08 6.5 mg/dL F 2.4-5.1 25-Hydroxyvitamin D3+25-Hydroxyvitamin D2 [Mass/volume] in Serum or Plasma 2022-08-24 17:26:12 8.1 ng/mL F 25-Hydroxyvitamin D3+25-Hydroxyvitamin D2 [Mass/volume] in Serum or Plasma 2022-08-24 17:26:12 8.1 ng/mL F Parathyrin.intact [Mass/volume] in Serum or Plasma 2022-08-24 16:59:07 648 pg/mL F 18.0-80.0 Parathyrin.intact [Mass/volume] in Serum or Plasma 2022-08-24 16:59:07 648 pg/mL F 18.0-80.0 CA CORRECTED 2022-08-10 06:32:52 9.4 mg/dL F CA*PO4 CORRCTD 2022-08-10 06:00:46 62 Calc F 21.0-53.0 CA/PHOS PRODUCT 2022-08-10 06:00:46 58.1 Calc F 21.0-53.0 Calcium [Mass/volume] in Serum or Plasma 2022-08-10 05:50:33 8.8 mg/dL F 8.7-10.4 Parathyrin.intact [Mass/volume] in Serum or Plasma 2022-08-10 03:55:18 335 pg/mL F 18.0-80.0 Magnesium [Mass/volume] in Serum or Plasma 2022-08-09 23:31:21 2.6 mg/dL F 1.3-2.7 Phosphate [Mass/volume] in Serum or Plasma 2022-08-09 23:31:21 6.6 mg/dL F 2.4-5.1 CA CORRECTED 2022-07-13 11:56:00 9.7 mg/dL F CA*PO4 CORRCTD 2022-07-13 06:59:47 60.1 Calc F 21.0-53.0 CA/PHOS PRODUCT 2022-07-13 06:59:47 56.4 Calc F 21.0-53.0 Calcium [Mass/volume] in Serum or Plasma 2022-07-13 06:29:51 9.1 mg/dL F 8.7-10.4 Parathyrin.intact [Mass/volume] in Serum or Plasma 2022-07-13 03:07:08 424 pg/mL F 18.0-80.0 Magnesium [Mass/volume] in Serum or Plasma 2022-07-12 21:33:15 2.5 mg/dL F 1.3-2.7 Phosphate [Mass/volume] in Serum or Plasma 2022-07-12 21:33:15 6.2 mg/dL F 2.4-5.1 CA CORRECTED 2022-06-09 07:12:37 8.7 mg/dL F CA/PHOS PRODUCT 2022-06-09 06:50:23 52.1 Calc F 21.0-53.0 CA*PO4 CORRCTD 2022-06-09 06:50:23 53.9 Calc F 21.0-53.0 Calcium [Mass/volume] in Serum or Plasma 2022-06-09 06:22:33 8.4 mg/dL F 8.7-10.4 Parathyrin.intact [Mass/volume] in Serum or Plasma 2022-06-09 03:43:13 444 pg/mL F 18.0-80.0 Magnesium [Mass/volume] in Serum or Plasma 2022-06-08 23:05:15 2.7 mg/dL F 1.3-2.7 Phosphate [Mass/volume] in Serum or Plasma 2022-06-08 23:05:15 6.2 mg/dL F 2.4-5.1 CA CORRECTED 2022-05-05 04:01:09 8.7 mg/dL F CA CORRECTED 2022-05-05 04:01:09 8.7 mg/dL F CA/PHOS PRODUCT 2022-05-05 03:56:12 72.3 Calc F 21.0-53.0 CA*PO4 CORRCTD 2022-05-05 03:56:12 74 Calc F 21.0-53.0 CA*PO4 CORRCTD 2022-05-05 03:56:12 74 Calc F 21.0-53.0 CA/PHOS PRODUCT 2022-05-05 03:56:12 72.3 Calc F 21.0-53.0 Calcium [Mass/volume] in Serum or Plasma 2022-05-05 03:43:04 8.5 mg/dL F 8.7-10.4 Calcium [Mass/volume] in Serum or Plasma 2022-05-05 03:43:04 8.5 mg/dL F 8.7-10.4 Parathyrin.intact [Mass/volume] in Serum or Plasma 2022-05-04 22:18:12 790 pg/mL F 18.0-80.0 Parathyrin.intact [Mass/volume] in Serum or Plasma 2022-05-04 22:18:12 790 pg/mL F 18.0-80.0 Magnesium [Mass/volume] in Serum or Plasma 2022-05-04 21:51:18 2.7 mg/dL F 1.3-2.7 Phosphate [Mass/volume] in Serum or Plasma 2022-05-04 21:51:18 8.5 mg/dL F 2.4-5.1 Magnesium [Mass/volume] in Serum or Plasma 2022-05-04 21:51:18 2.7 mg/dL F 1.3-2.7 Phosphate [Mass/volume] in Serum or Plasma 2022-05-04 21:51:18 8.5 mg/dL F 2.4-5.1 CA CORRECTED 2022-04-07 08:34:58 8.2 mg/dL F CA CORRECTED 2022-04-07 08:34:58 8.2 mg/dL F CA*PO4 CORRCTD 2022-04-07 01:42:07 50 Calc F 21.0-53.0 CA/PHOS PRODUCT 2022-04-07 01:42:07 48.8 Calc F 21.0-53.0 CA*PO4 CORRCTD 2022-04-07 01:42:07 50 Calc F 21.0-53.0 CA/PHOS PRODUCT 2022-04-07 01:42:07 48.8 Calc F 21.0-53.0 Calcium [Mass/volume] in Serum or Plasma 2022-04-07 00:06:44 8 mg/dL F 8.7-10.4 Calcium [Mass/volume] in Serum or Plasma 2022-04-07 00:06:44 8 mg/dL F 8.7-10.4 Phosphate [Mass/volume] in Serum or Plasma 2022-04-06 19:54:51 6.1 mg/dL F 2.4-5.1 Magnesium [Mass/volume] in Serum or Plasma 2022-04-06 19:54:51 3 mg/dL F 1.3-2.7 Magnesium [Mass/volume] in Serum or Plasma 2022-04-06 19:54:51 3 mg/dL F 1.3-2.7 Phosphate [Mass/volume] in Serum or Plasma 2022-04-06 19:54:51 6.1 mg/dL F 2.4-5.1 Parathyrin.intact [Mass/volume] in Serum or Plasma 2022-04-06 19:21:51 439 pg/mL F 18.0-80.0 Parathyrin.intact [Mass/volume] in Serum or Plasma 2022-04-06 19:21:51 439 pg/mL F 18.0-80.0 CA CORRECTED 2022-03-10 14:43:21 9.6 mg/dL F CA*PO4 CORRCTD 2022-03-10 14:41:27 67.2 Calc F 21.0-53.0 CA/PHOS PRODUCT 2022-03-10 14:41:27 65.8 Calc F 21.0-53.0 Parathyrin.intact [Mass/volume] in Serum or Plasma 2022-03-10 14:40:42 606 pg/mL F 18.0-80.0 Calcium [Mass/volume] in Serum or Plasma 2022-03-10 08:37:10 9.4 mg/dL F 8.7-10.4 25-Hydroxyvitamin D3+25-Hydroxyvitamin D2 [Mass/volume] in Serum or Plasma 2022-03-10 02:33:25 8.7 ng/mL F 30.0-100.0 Magnesium [Mass/volume] in Serum or Plasma 2022-03-09 23:58:48 2.8 mg/dL F 1.3-2.7 Phosphate [Mass/volume] in Serum or Plasma 2022-03-09 23:58:48 7 mg/dL F 2.4-5.1 Nutrition Description Draw Date Result/Unit Status Ref Range Result Comments Potassium [Moles/volume] in Serum or Plasma 2024-04-30 07:54:02 5.3 mEq/L F 3.5-5.5 Potassium [Moles/volume] in Serum or Plasma 2024-04-22 22:39:09 6.1 mEq/L F 3.5-5.5 GLOBULIN 2024-04-22 15:16:04 2.9 g/dL F 0.9-5.0 A/G RATIO 2024-04-22 15:16:04 1.4 Calc F 1.0-2.5 Lactate dehydrogenase [Enzymatic activity/volume] in Serum or Plasma 2024-04-22 15:15:19 249 U/L F 120.0-246.0 Bicarbonate [Moles/volume] in Serum or Plasma 2024-04-22 15:15:19 20 mEq/L F 20.0-31.0 Albumin [Mass/volume] in Serum or Plasma by Bromocresol green (BCG) dye binding method 2024-04-22 15:15:19 4.2 g/dL F 3.4-4.8 Protein [Mass/volume] in Serum or Plasma 2024-04-22 15:15:19 7.1 g/dL F 5.7-8.2 Potassium [Moles/volume] in Serum or Plasma 2024-04-02 07:23:11 5.2 mEq/L F 3.5-5.5 Potassium [Moles/volume] in Serum or Plasma 2024-03-26 05:50:11 5.7 mEq/L F 3.5-5.5 Potassium [Moles/volume] in Serum or Plasma 2024-03-26 05:50:11 5.7 mEq/L F 3.5-5.5 GLOBULIN 2024-03-25 17:00:22 2.9 g/dL F 0.9-5.0 A/G RATIO 2024-03-25 17:00:22 1.4 Calc F 1.0-2.5 GLOBULIN 2024-03-25 17:00:22 2.9 g/dL F 0.9-5.0 A/G RATIO 2024-03-25 17:00:22 1.4 Calc F 1.0-2.5 Lactate dehydrogenase [Enzymatic activity/volume] in Serum or Plasma 2024-03-25 16:59:18 301 U/L F 120.0-246.0 Bicarbonate [Moles/volume] in Serum or Plasma 2024-03-25 16:59:18 23 mEq/L F 20.0-31.0 Albumin [Mass/volume] in Serum or Plasma by Bromocresol green (BCG) dye binding method 2024-03-25 16:59:18 4.1 g/dL F 3.4-4.8 Protein [Mass/volume] in Serum or Plasma 2024-03-25 16:59:18 7 g/dL F 5.7-8.2 Lactate dehydrogenase [Enzymatic activity/volume] in Serum or Plasma 2024-03-25 16:59:18 301 U/L F 120.0-246.0 Bicarbonate [Moles/volume] in Serum or Plasma 2024-03-25 16:59:18 23 mEq/L F 20.0-31.0 Albumin [Mass/volume] in Serum or Plasma by Bromocresol green (BCG) dye binding method 2024-03-25 16:59:18 4.1 g/dL F 3.4-4.8 Protein [Mass/volume] in Serum or Plasma 2024-03-25 16:59:18 7 g/dL F 5.7-8.2 Potassium [Moles/volume] in Serum or Plasma 2024-03-16 08:26:58 F Canceled - Specimen not received 5 days past draw date Potassium [Moles/volume] in Serum or Plasma 2024-02-20 04:56:51 5.7 mEq/L F 3.5-5.5 A/G RATIO 2024-02-19 22:57:09 1.3 Calc F 1.0-2.5 GLOBULIN 2024-02-19 22:57:09 2.9 g/dL F 0.9-5.0 Lactate dehydrogenase [Enzymatic activity/volume] in Serum or Plasma 2024-02-19 22:56:25 231 U/L F 120.0-246.0 Bicarbonate [Moles/volume] in Serum or Plasma 2024-02-19 22:56:25 19 mEq/L F 20.0-31.0 Albumin [Mass/volume] in Serum or Plasma by Bromocresol green (BCG) dye binding method 2024-02-19 22:56:25 3.9 g/dL F 3.4-4.8 Protein [Mass/volume] in Serum or Plasma 2024-02-19 22:56:25 6.8 g/dL F 5.7-8.2 Folate [Mass/volume] in Serum or Plasma 2023-06-20 05:46:39 24 ng/mL F 5.5-16.0 Potassium [Moles/volume] in Serum or Plasma 2023-06-20 03:59:11 5.8 mEq/L F 3.5-5.5 GLOBULIN 2023-06-19 22:14:37 2.9 g/dL F 0.9-5.0 A/G RATIO 2023-06-19 22:14:37 1.4 Calc F 1.0-2.5 Lactate dehydrogenase [Enzymatic activity/volume] in Serum or Plasma 2023-06-19 22:14:32 220 U/L F 120.0-246.0 Bicarbonate [Moles/volume] in Serum or Plasma 2023-06-19 22:14:32 23 mEq/L F 20.0-31.0 Albumin [Mass/volume] in Serum or Plasma by Bromocresol green (BCG) dye binding method 2023-06-19 22:14:32 4.1 g/dL F 3.4-4.8 Protein [Mass/volume] in Serum or Plasma 2023-06-19 22:14:32 7 g/dL F 5.7-8.2 GLOBULIN 2022-11-21 21:41:03 2.9 g/dL F 0.9-5.0 A/G RATIO 2022-11-21 21:41:03 1.4 Calc F 1.0-2.5 GLOBULIN 2022-11-21 21:41:03 2.9 g/dL F 0.9-5.0 A/G RATIO 2022-11-21 21:41:03 1.4 Calc F 1.0-2.5 Lactate dehydrogenase [Enzymatic activity/volume] in Serum or Plasma 2022-11-21 21:40:32 199 U/L F 120.0-246.0 Bicarbonate [Moles/volume] in Serum or Plasma 2022-11-21 21:40:32 21 mEq/L F 20.0-31.0 Potassium [Moles/volume] in Serum or Plasma 2022-11-21 21:40:32 3.4 mEq/L F 3.5-5.5 Albumin [Mass/volume] in Serum or Plasma by Bromocresol green (BCG) dye binding method 2022-11-21 21:40:32 4.1 g/dL F 3.4-4.8 Protein [Mass/volume] in Serum or Plasma 2022-11-21 21:40:32 7 g/dL F 5.7-8.2 Lactate dehydrogenase [Enzymatic activity/volume] in Serum or Plasma 2022-11-21 21:40:32 199 U/L F 120.0-246.0 Bicarbonate [Moles/volume] in Serum or Plasma 2022-11-21 21:40:32 21 mEq/L F 20.0-31.0 Potassium [Moles/volume] in Serum or Plasma 2022-11-21 21:40:32 3.4 mEq/L F 3.5-5.5 Albumin [Mass/volume] in Serum or Plasma by Bromocresol green (BCG) dye binding method 2022-11-21 21:40:32 4.1 g/dL F 3.4-4.8 Protein [Mass/volume] in Serum or Plasma 2022-11-21 21:40:32 7 g/dL F 5.7-8.2 GLOBULIN 2022-10-24 19:34:44 2.9 g/dL F 0.9-5.0 A/G RATIO 2022-10-24 19:34:44 1.5 Calc F 1.0-2.5 Lactate dehydrogenase [Enzymatic activity/volume] in Serum or Plasma 2022-10-24 19:33:42 211 U/L F 120.0-246.0 Bicarbonate [Moles/volume] in Serum or Plasma 2022-10-24 19:33:42 25 mEq/L F 20.0-31.0 Albumin [Mass/volume] in Serum or Plasma by Bromocresol green (BCG) dye binding method 2022-10-24 19:33:42 4.4 g/dL F 3.4-4.8 Potassium [Moles/volume] in Serum or Plasma 2022-10-24 19:33:42 4.2 mEq/L F 3.5-5.5 Protein [Mass/volume] in Serum or Plasma 2022-10-24 19:33:42 7.3 g/dL F 5.7-8.2 A/G RATIO 2022-09-19 16:52:29 1.4 Calc F 1.0-2.5 GLOBULIN 2022-09-19 16:52:29 2.9 g/dL F 0.9-5.0 Lactate dehydrogenase [Enzymatic activity/volume] in Serum or Plasma 2022-09-19 16:52:09 215 U/L F 120.0-246.0 Bicarbonate [Moles/volume] in Serum or Plasma 2022-09-19 16:52:09 25 mEq/L F 20.0-31.0 Albumin [Mass/volume] in Serum or Plasma by Bromocresol green (BCG) dye binding method 2022-09-19 16:52:09 4.2 g/dL F 3.4-4.8 Potassium [Moles/volume] in Serum or Plasma 2022-09-19 16:52:09 4.1 mEq/L F 3.5-5.5 Protein [Mass/volume] in Serum or Plasma 2022-09-19 16:52:09 7.1 g/dL F 5.7-8.2 GLOBULIN 2022-08-24 17:47:55 2.5 g/dL F 0.9-5.0 A/G RATIO 2022-08-24 17:47:55 1.4 Calc F 1.0-2.5 GLOBULIN 2022-08-24 17:47:55 2.5 g/dL F 0.9-5.0 A/G RATIO 2022-08-24 17:47:55 1.4 Calc F 1.0-2.5 Bicarbonate [Moles/volume] in Serum or Plasma 2022-08-24 17:47:10 25 mEq/L F 20.0-31.0 Potassium [Moles/volume] in Serum or Plasma 2022-08-24 17:47:10 5.8 mEq/L F 3.5-5.5 Bicarbonate [Moles/volume] in Serum or Plasma 2022-08-24 17:47:10 25 mEq/L F 20.0-31.0 Potassium [Moles/volume] in Serum or Plasma 2022-08-24 17:47:10 5.8 mEq/L F 3.5-5.5 Lactate dehydrogenase [Enzymatic activity/volume] in Serum or Plasma 2022-08-24 17:47:08 253 U/L F 120.0-246.0 Albumin [Mass/volume] in Serum or Plasma by Bromocresol green (BCG) dye binding method 2022-08-24 17:47:08 3.6 g/dL F 3.4-4.8 Protein [Mass/volume] in Serum or Plasma 2022-08-24 17:47:08 6.1 g/dL F 5.7-8.2 Lactate dehydrogenase [Enzymatic activity/volume] in Serum or Plasma 2022-08-24 17:47:08 253 U/L F 120.0-246.0 Albumin [Mass/volume] in Serum or Plasma by Bromocresol green (BCG) dye binding method 2022-08-24 17:47:08 3.6 g/dL F 3.4-4.8 Protein [Mass/volume] in Serum or Plasma 2022-08-24 17:47:08 6.1 g/dL F 5.7-8.2 Folate [Mass/volume] in Serum or Plasma 2022-08-24 17:26:12 4.4 ng/mL F 5.5-16.0 Folate [Mass/volume] in Serum or Plasma 2022-08-24 17:26:12 4.4 ng/mL F 5.5-16.0 GLOBULIN 2022-08-09 23:32:23 2.3 g/dL F 0.9-5.0 A/G RATIO 2022-08-09 23:32:23 1.4 Calc F 1.0-2.5 Bicarbonate [Moles/volume] in Serum or Plasma 2022-08-09 23:31:21 29 mEq/L F 20.0-31.0 Potassium [Moles/volume] in Serum or Plasma 2022-08-09 23:31:21 4.6 mEq/L F 3.5-5.5 Albumin [Mass/volume] in Serum or Plasma by Bromocresol green (BCG) dye binding method 2022-08-09 23:31:21 3.3 g/dL F 3.4-4.8 Protein [Mass/volume] in Serum or Plasma 2022-08-09 23:31:21 5.6 g/dL F 5.7-8.2 Glucose [Mass/volume] in Serum or Plasma 2022-08-09 23:31:21 114 mg/dL F 70.0-99.0 GLOBULIN 2022-07-12 21:34:13 2.4 g/dL F 0.9-5.0 A/G RATIO 2022-07-12 21:34:13 1.4 Calc F 1.0-2.5 Albumin [Mass/volume] in Serum or Plasma by Bromocresol green (BCG) dye binding method 2022-07-12 21:33:15 3.3 g/dL F 3.4-4.8 Potassium [Moles/volume] in Serum or Plasma 2022-07-12 21:33:15 4.2 mEq/L F 3.5-5.5 Protein [Mass/volume] in Serum or Plasma 2022-07-12 21:33:15 5.7 g/dL F 5.7-8.2 Bicarbonate [Moles/volume] in Serum or Plasma 2022-07-12 21:33:13 29 mEq/L F 20.0-31.0 Glucose [Mass/volume] in Serum or Plasma 2022-07-12 21:33:13 102 mg/dL F 70.0-99.0 GLOBULIN 2022-06-08 23:06:00 2.6 g/dL F 0.9-5.0 A/G RATIO 2022-06-08 23:06:00 1.4 Calc F 1.0-2.5 Bicarbonate [Moles/volume] in Serum or Plasma 2022-06-08 23:05:15 26 mEq/L F 20.0-31.0 Albumin [Mass/volume] in Serum or Plasma by Bromocresol green (BCG) dye binding method 2022-06-08 23:05:15 3.6 g/dL F 3.4-4.8 Potassium [Moles/volume] in Serum or Plasma 2022-06-08 23:05:15 4.9 mEq/L F 3.5-5.5 Protein [Mass/volume] in Serum or Plasma 2022-06-08 23:05:15 6.2 g/dL F 5.7-8.2 Glucose [Mass/volume] in Serum or Plasma 2022-06-08 23:05:15 92 mg/dL F 70.0-99.0 GLOBULIN 2022-05-04 21:51:38 2.4 g/dL F 0.9-5.0 A/G RATIO 2022-05-04 21:51:38 1.6 Calc F 1.0-2.5 GLOBULIN 2022-05-04 21:51:38 2.4 g/dL F 0.9-5.0 A/G RATIO 2022-05-04 21:51:38 1.6 Calc F 1.0-2.5 Bicarbonate [Moles/volume] in Serum or Plasma 2022-05-04 21:51:18 24 mEq/L F 20.0-31.0 Albumin [Mass/volume] in Serum or Plasma by Bromocresol green (BCG) dye binding method 2022-05-04 21:51:18 3.8 g/dL F 3.4-4.8 Potassium [Moles/volume] in Serum or Plasma 2022-05-04 21:51:18 4.3 mEq/L F 3.5-5.5 Protein [Mass/volume] in Serum or Plasma 2022-05-04 21:51:18 6.2 g/dL F 5.7-8.2 Glucose [Mass/volume] in Serum or Plasma 2022-05-04 21:51:18 93 mg/dL F 70.0-99.0 Bicarbonate [Moles/volume] in Serum or Plasma 2022-05-04 21:51:18 24 mEq/L F 20.0-31.0 Albumin [Mass/volume] in Serum or Plasma by Bromocresol green (BCG) dye binding method 2022-05-04 21:51:18 3.8 g/dL F 3.4-4.8 Potassium [Moles/volume] in Serum or Plasma 2022-05-04 21:51:18 4.3 mEq/L F 3.5-5.5 Protein [Mass/volume] in Serum or Plasma 2022-05-04 21:51:18 6.2 g/dL F 5.7-8.2 Glucose [Mass/volume] in Serum or Plasma 2022-05-04 21:51:18 93 mg/dL F 70.0-99.0 GLOBULIN 2022-04-06 19:56:36 2.7 g/dL F 0.9-5.0 A/G RATIO 2022-04-06 19:56:36 1.4 Calc F 1.0-2.5 GLOBULIN 2022-04-06 19:56:36 2.7 g/dL F 0.9-5.0 A/G RATIO 2022-04-06 19:56:36 1.4 Calc F 1.0-2.5 Bicarbonate [Moles/volume] in Serum or Plasma 2022-04-06 19:54:51 23 mEq/L F 20.0-31.0 Albumin [Mass/volume] in Serum or Plasma by Bromocresol green (BCG) dye binding method 2022-04-06 19:54:51 3.7 g/dL F 3.4-4.8 Potassium [Moles/volume] in Serum or Plasma 2022-04-06 19:54:51 4.7 mEq/L F 3.5-5.5 Protein [Mass/volume] in Serum or Plasma 2022-04-06 19:54:51 6.4 g/dL F 5.7-8.2 Glucose [Mass/volume] in Serum or Plasma 2022-04-06 19:54:51 108 mg/dL F 70.0-99.0 Bicarbonate [Moles/volume] in Serum or Plasma 2022-04-06 19:54:51 23 mEq/L F 20.0-31.0 Albumin [Mass/volume] in Serum or Plasma by Bromocresol green (BCG) dye binding method 2022-04-06 19:54:51 3.7 g/dL F 3.4-4.8 Potassium [Moles/volume] in Serum or Plasma 2022-04-06 19:54:51 4.7 mEq/L F 3.5-5.5 Protein [Mass/volume] in Serum or Plasma 2022-04-06 19:54:51 6.4 g/dL F 5.7-8.2 Glucose [Mass/volume] in Serum or Plasma 2022-04-06 19:54:51 108 mg/dL F 70.0-99.0 A/G RATIO 2022-03-09 23:59:20 1.5 Calc F 1.0-2.5 GLOBULIN 2022-03-09 23:59:20 2.5 g/dL F 0.9-5.0 Bicarbonate [Moles/volume] in Serum or Plasma 2022-03-09 23:58:48 25 mEq/L F 20.0-31.0 Albumin [Mass/volume] in Serum or Plasma by Bromocresol green (BCG) dye binding method 2022-03-09 23:58:48 3.8 g/dL F 3.4-4.8 Potassium [Moles/volume] in Serum or Plasma 2022-03-09 23:58:48 4.3 mEq/L F 3.5-5.5 Protein [Mass/volume] in Serum or Plasma 2022-03-09 23:58:48 6.3 g/dL F 5.7-8.2 Glucose [Mass/volume] in Serum or Plasma 2022-03-09 23:58:48 116 mg/dL F 70.0-99.0 Encounters No encounter information to report Immunizations Ordered Immunization Name Filled Immunization Name Date Status Comments Refusal Reason Influenza, high-dose, quadrivalent, PF 2023-12-03 14:58:36 TST-PPD intradermal 2023-05-14 14:22:44 TB Skin Test 2022-04-05 06:00:00 TB Skin Test 2022-04-05 06:00:00 Influenza Vaccination 2022-01-18 06:00:00 Influenza Vaccination 2021-12-18 05:00:00 TB Skin Test 2021-04-06 06:00:00 TB Skin Test 2021-04-06 06:00:00 Hepatitis B Vaccination 2021-02-21 06:00:00 Hepatitis B Vaccination 2021-02-20 06:00:00 Hepatitis B Vaccination 2020-10-18 05:00:00 Hepatitis B Vaccination 2020-10-17 05:00:00 Pneumococcal Vaccination 2020-09-22 05:00:00 Pneumococcal Vaccination 2020-09-22 05:00:00 Pneumococcal Vaccination 2020-09-21 05:00:00 Hepatitis B Vaccination 2020-09-20 05:00:00 Hepatitis B Vaccination 2020-09-19 05:00:00 Hepatitis B Vaccination 2020-08-23 05:00:00 Hepatitis B Vaccination 2020-08-23 05:00:00 Covid-19 Vaccination 2020-08-10 08:00:00 Covid-19 Vaccination 2020-08-10 05:00:00 Covid-19 Vaccination 2020-07-20 08:00:00 Covid-19 Vaccination 2020-07-20 05:00:00 Plan of Treatment Planned Activity Provider Planned Date Details Commen ts Diagnostic Test Pending Mary Ann Adumilli 2023-11-06 14:21:07 Ferritin [Mass/volume] in Serum or Plasma [code = 2276-4] Diagnostic Test Pending Mary Ann Adusumilli 2022-10-27 06:29:56 Parathyrin.intact [Mass/volume] in Serum or Plasma [code = 2731-8] Diagnostic Test Pending Mary Ann Adusumilli 2023-07-25 06:34:09 Alanine aminotransferase [Enzymatic activity/volume] in Serum or Plasma [code = 1742-6] Diagnostic Test Pending Mary Ann Adusumilli 2022-08-23 05:00:00 Potassium [Moles/volume] in Serum or Plasma [code = 2823-3] Diagnostic Test Pending Mary Ann Adusumilli 2022-08-23 05:00:00 Folate [Mass/volume] in Serum or Plasma [code = 2284-8] Diagnostic Test Pending Mary Ann Adusumilli 2022-08-23 05:00:00 Aluminum [Mass/volume] in Serum or Plasma [code = 5574-9] Diagnostic Test Pending Mary Ann Adusumilli 2023-04-02 07:21:42 Hemoglobin [Mass/volume] in Blood [code = 718-7] Diagnostic Test Pending Mary Ann Adusumilli 2022-08-23 05:00:00 25-Hydroxyvitamin D3+25-Hydroxyvitamin D2 [Mass/volume] in Serum or Plasma [code = 66721-5] Diagnostic Test Pending Mary Ann Ryanne 2022-08-23 05:00:00 Sodium [Moles/volume] in Serum or Plasma [code = 2951-2] Diagnostic Test Pending Mary Ann Pearl 2022-08-23 05:00:00 Albumin [Mass/volume] in Serum or Plasma by Bromocresol green (BCG) dye binding method [code = 84117-3] Diagnostic Test Pending Mary Ann Pearl 2022-08-23 05:00:00 Creatinine [Mass/volume] in Serum or Plasma [code = 2160-0] Diagnostic Test Pending Mary Ann Pearl [facility] 2024-02-14 22:15:14 In-Center Hemodialysis Treatment [code = FII021] Diet Order Mary Annheena Pearl [facility] September 15, 2022 Diet Calorie 30 kcal/kg Fluid Value 1000 mL/d Phosphorus Value 1000 mg/d Potassium Value 2500 mg/d Protein Value 1.2 gm/kg Sodium Value 1500 mg/d Calculated Weight 86 kg MedicationMary Ann Pearl 2024-05-12 05:00:00Tubersol [code = 832181]
== END 2024-05-11 13:32 | disposition home or self-care (01) ==
LOC: CHSIMG 13:34
PROVIDERS: PCP Family Medicine
DX: L97.219 Non-pressure chronic ulcer of right calf with unspecified severity (principal)
CPT/HCPCS: 93922

== ENCOUNTER 2024-06-19 10:48 | Emergency (ER) | payer MEDICARE, SELFPAY ==
[2024-06-19] VITALS (8 sets, daily range): BP systolic 102–121; BP diastolic 38–60; PULSE 60–70; RESP 18; TEMP 37.2–37.3; O2SAT 93–100
--- NOTE | ~2024-06-19 | XR_ITS ---
HISTORY: fall with pain to the left knee and concerns of damage COMPARISON: None TECHNIQUE: 3 views of the left ribs were performed FINDINGS: No acute displaced fracture is appreciated within the visualized left ribs. The visualized portions of the adjacent left lung is unremarkable. Bone mineralization is age-appropriate. The left mid lung is partially obscured due to AICD generator. Wires project over the coronary sinus and right ventricle. IMPRESSION: No acute displaced left-sided rib fracture on the visualized portion of the submitted im ages. Reviewed, dictated and finalized at location A. IMPRESSION: No acute displaced left-sided rib fracture on the visualized porti on of the submitted images.
--- NOTE | ~2024-06-19 | XR_ITS ---
Left Knee Technique: AP, lateral, and sunrise views were obtained. Clinical History: Status post fall Findings: There is acute, transverse, nondisplaced fracture the mid patellar body. There is advanced degenerative change of the lateral compartment. There is minimal degenerative change of the medial pa tellofemoral compartments.. Moderate to large joint effusion is seen. Impression: Acute, transverse, nondisplaced fracture of the mid patellar body. Degenerative change, as above, worst in the lateral compartment. Moderate to large joint effusion. Reviewed, dictated and finalized at location . Impression: Acute, transverse, nondisplaced fracture of the mid patellar body. Degenerative change, as above, worst in the lateral compartment. Moderate to large joint effusion.
--- OUTSIDE RECORDS SUMMARY | 2024-06-19 10:53 | XMS_ITS | Clinical Summary ---
Author Organization [facility] Address [address] [place] [address] Care Team Providers Care Vendette Name Role Phone John Calhoun DO Primary Care Provider [phone] Cody Patterson MD Unavailable Keven Leiva MD Unavailable Unavailab Dannielle Arevalo MD Unavailable Allergies Active Allergy Reactions Criticality [...] Noted Date Diagnosed Date NICM (nonischemic cardiomyopathy) ([facility] HHS/H CC) 12/10/2023 Weakness 09/06/2022 TIA (transient ischemic attack) 09/06/2022 Other myositis of left lower extremity 3 Primary osteoarthritis of fi rst carpometacarpal joint of left hand 04/09/2022 Primary osteoarthritis of fi rst carpometacarpal joint of right hand 01/04/2022 Hemiparesis of dominant side due to recent cerebrovascular accident (CVA) ([facility]/HCC) 08/25/2021 History of ischemic stroke in prior three months 08/25/2021 Impaired functional mobility, balance, gait, and endurance 04/12/2021 Orthostasis 04/12/2021 A-fib ([facility]) 09/28/2020 S/P AV bethany ablation 09/28/2020 Biventricular ICD (implantab le cardioverter-defibrillator) in place 09/28/2020 Rectal abscess 05/30/2020 Hyperkalemia 05/22/2020 CHF (congestive heart failure) ([facility]) ESRD (end stage renal disease) ([facility]) Carotid stenosis, asymptomatic, left Cardiomyopathy ([facility]) Dialysis patient Encounters Date Type Department Care Team Description 06/11/2024 Telephone [facility] [address] [place] [address] Dannielle Brice MD Appointment Request 05/28/2024 1:51 PM CDT - 05/28/2024 11:59 PM CDT Hospital Encounter [facility] [address] [place] [address] Livia Patterson, CUSTOMER SERVICE ADVISOR Discharge Disposition: Home or Self Care (Routine Discharge) 05/28/2024 Travel 05/14/2024 1:39 PM CDT - 05/14/2024 11:59 PM CDT Hospital Encounter [facility] [address] [place] [address] Livia Patterson, RAUL Discharge Disposition: Home or Self Care (Routine Discharge) 05/14/2024 Travel 05/07/2024 2:04 PM DEVELOPER ARCHITECT - 05/07/2024 11:59 PM DEVELOPER ARCHITECT Hospital Encounter [facility] [address] [place] [address] Livia Patterson, RAUL Discharge Disposition: Home or Self Care (Routine Discharge) 05/07/2024 Travel 03/26/2024 1:15 AM DEVELOPER ARCHITECT Allied Health/Nurse Visit [facility] [address] [place] [address] Keven Leiva MD from Last 3 Months Immunizations Immunization Administration Dates Next Due Pneumovax 23 25 [...] place to sleep or slept in a [place] health care facility (including now)? No 09/06/2022 Comments No Sex and Gender Information Value Date Recorded Sex Assigned at Female 04/29/2024 10:15 AM DEVELOPER ARCHITECT Legal Sex Female 9:26 PM CDT Gender Identity Not on file Sexual Orientation Not on file Occupation Industry Job Start Date Job End Date Not on file Not on file Not on file Not on file Last Filed Vital Signs Vital Sign Reading Time Taken Comments Blood Pressure 114/80 01/06/2024 1:56 PM DEVELOPER ARCHITECT Pulse 75 01/06/2024 1:56 PM DEVELOPER ARCHITECT Temperature 36.6 C (97.9 F) 09/09/2022 9:33 AM CDT Respiratory Rate 18 01/06/2024 1:56 PM DEVELOPER ARCHITECT Oxygen Saturation 96% 01/06/2024 1:56 PM DEVELOPER ARCHITECT Inhaled Oxygen Concentration - - Weight 87.1 kg (192 lb) 01/06/2024 1:56 PM DEVELOPER ARCHITECT Height 160 cm (5' 3 ) 01/06/2024 1:56 PM DEVELOPER ARCHITECT Body Mass Index 34.01 01/06/2024 1:56 PM DEVELOPER ARCHITECT Plan of Treatment Upcoming Encounters Date Type Department Care Team (Late st Contact Info) Description 06/25/2024 2:[address] [facility] [address] [place] [address] Livia Patterson, CUSTOMER SERVICE ADVISOR [address] [place] [address] 06/29/2024 1:30 PM CDT Office Visit [facility] [address] [place] [address] Dannielle Brice MD [address] [place] [address] 07/09/2024 1:45 AM CDT Allied Health/Nurse Visit [facility] [address] [place] [address] Keven Leiva MD 01/05/2025 10:00 AM DEVELOPER ARCHITECT Appointment [facility] [address] [place] [address] Dannielle Brice MD [address] [place] [address] 01/18/2025 2:15 PM DEVELOPER ARCHITECT Office Visit [facility] [place] [address] Dannielle Brice MD [address] [place] [address] Health Maintenance Due Date Last Done Comments Colorectal Cancer Screening Colonoscopy (10 Years) 1950 Diabetes: Retinopathy Eye Exam 10/22/1969 Mammogram Screening 1991 RSV Immunization or 60+ Years (1 - Risk 60-74 years 1-dose series) 2011 Annual Medicare Wellness Visit 10/22/2016 Dexa Scan (General) 10/22/2016 Pneumococcal Vaccine: 50+ Years (2 of 2 - PCV) 09/21/2021 09/21/2020, 07/30/2013, 07/02/2013 Hemoglobin A1C 03/09/2023 09/06/2022, 05/26/2020 ASCVD LDL 09/08/2023 09/07/2022, 07/25/2013 Lipid Panel 09/08/2023 09/07/2022, 07/25/2013 COVID-19 Vaccine ( season) 2023 01/10/2022, 09/01/2021, 02/08/2021, Additional history exists DTaP, Tdap and Td Vaccines (2 - Td or Tdap) 11/18/2023 11/17/2013 Hepatitis C Completed 05/23/2020 Colorectal Cancer Screening [...] Almanzar RN Medical Devices Implanted Type Area Blade Grader Operator Device Identifier Shelf Expiration Date Model / Serial / Lot Medtronic [place]-06/24/2020 Implanted:2020 by Barak Nguyen MD (Quantity not on file) ICD MEDTRONIC CARDIAC RHYTHM AND HEART FAILURE - DIV M 11/15/2021 [id number] / [id number] / Description:MRI Conditional under following conditions: [...] FAILURE - DIV M 11/24/2021 [id number] / [id number] / Medtronic Rv Icd Lead-06/24/2020 Implanted:2020 by Barak Nguyen MD (Quantity not on file) Lead Implant MEDTRONIC CARDIAC RHYTHM AND HEART FAILURE - DIV M 03/18/2022 [id number] / [id number] / Capsule Pill Cam - [id number] Implanted:Qty: 1 on 06/20/2020 by Franny Vogel RN at [facility] 11/30/2020 [id number] / / [id number] Procedures Procedure Name Priority Date/Time Associated Diagnosis [...] CHOLESTEROL 110 MG/DL 09/07/2022 10:45 AM CDT [facility] Comment:DESIRABLE: <200 TRIGLYCERIDES 129 MG/DL 09/07/2022 10:45 AM CDT [facility] Comment:<150 NORMAL HDL 44(L) >49 MG/DL 09/07/2022 10:45 AM CDT [facility] LDL (CALCULATED) 40 MG/DL 09/08/19 10:45 AM CDT [facility] Comment:<100 OPTIMAL VLDL CALCULATION 26 MG/DL 09/08/19 10:45 AM CDT [facility] Comment:REFERENCE RANGE NOT ESTABLISHED CHOL/HDL RATIO 2.5 09/07/2022 10:45 AM CDT [facility] Comment:REFERENCE RANGE NOT ESTABLISHED LDL/HDL 0.9 09/07/2022 10:45 AM CDT [facility] Comment:REFERENCE RANGE NOT ESTABLISHED NON HDL CHOLESTEROL 66 MG/DL 09/07/2022 10:45 AM CDT [facility] Comment:REFERENCE RANGE NOT ESTABLISHED 09/07/2022 10:0 2 AM CDT Atilio Self NP LABORATORY Final Result Performing Organization Address City/State/[facility] Co de Phone Number [facility] [address] [place] [phone], [phone] * HEMOGLOBIN, GLYCOSYLATED (09/06/2022 11:12 PM CDT) HGB A1C 5.4 <5.7 % 09/07/2022 12:15 AM CDT [facility] ESTIMATED AVG GLUCOSE 108 74 - 114 MG/DL 09/07/2022 12:15 AM CDT [facility] 09/06/2022 11:1 2 PM CDT Cherelle Khoury DNP LABORATORY Final Result Performing Organization Address [facility] de Phone Number [facility] [address] [place] [address], [phone] * (ABNORMAL) OCCULT BLOOD, FECES, SCREENING (06/17/2020 12:05 AM CDT) Pathologist [facility] OCCULT BLOOD FECAL POSITIVE(A ) NEGATIVE 06/17/2020 9:22 AM CDT [facility] COLLECTION DATE 06/17/20 9:22 AM CDT [facility] STOOL SPECIMEN / Unknown 06/17/2020 12:05 AM CDT Sudha Argueta MD BODY FLUIDS AND STOOLS ROYER DUMONT Final Result Performing Organization Address [facility] de Phone Number [facility] [address] [place] [address], [phone] * HEPATITIS C ANTIBODY (05/23/2020 5:00 AM CDT) Pathologist [facility] HEPATITIS C AB NON-REACTI VE NON-REACT MORGAN 05/23/2020 6:43 AM CDT [facility] Comment: ANTIBODIES TO HCV NOT DETECTED. DOES NOT EXCLUDE THE POSSIBILITY OF EXPOSURE TO HCV. 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 01/25/2017 Insurance MED REPLACE [facility] MEDICARE Advance Directives Documents on File Type Date Recorded Patient C Architect Expl anation Guardianship - Permanent 07/25/2013 12:00 [...] 10:09 AM 06/24/2020 7:27 PM Care Teams Vendette Relationship Specialty Start Date End Date John Calhoun DO [address] [place] [address] PCP - General FAMILY PRACTICE 07/11/20 Cody Patterson MD [address] [facility] [address] [place], [place] [phone] Vascular/Yarn Hauler VASCULAR SURGERY 05/12/21 Keven Leiva MD [address] [place] [address] Consulting Physician CLINICAL CARDIAC ELECTROPHYSIOLOGY 05/09/23 Dannielle Brice MD [address] [place] [address] Consulting Physician CARDIOVASCULAR DISEASE 06/27/23
--- OUTSIDE RECORDS SUMMARY | 2024-06-19 10:53 | XMS_ITS | Patient Health Record ---
Author Organization [facility] Address [address] [place], [place] [id number] Care Team Providers Care Laminating Machine Tender Name Role Phone YISSEL GORDON Unavailable [phone] John Calhoun Unavailable Unavailable Allergies No Known Allergies Reason For Referral No Information Medications Medication SIG (Take, Route, Frequency, Duration) Notes Start Date End Date Status 3 ML insulin lispro 100 UNT/ML Cartridge [Humalog] 3 ML insulin lispro 100 UNT/ML Cartridge [Humalog]Original Medication3 ML insulin lispro 100 UNT/ML Cartridge [Humalog] *Reorder from Verimatrix for eRx and Interaction Alerts* 09/14/2013 Active Carvedilol 25 MG Oral Tablet ORAL carvedilol 25 MG Oral TabletOriginal Medicationcarvedilol 25 MG Oral Tablet *Reorder from Verimatrix for eRx and Interaction Alerts* 09/14/2013 Active insulin glargine 100 UNT/ML Injectable Solution [Lantus] insulin glargine 100 UNT/ML Injectable Solution [Lantus]Original Medicationinsulin glargine 100 UNT/ML Injectable Solution [Lantus] *Reorder from Verimatrix for eRx and Interaction Alerts* 09/14/2013 Active atorvastatin 10 MG Oral Tablet ORAL atorvastatin 10 MG Oral TabletOriginal Medicationatorvastatin 10 MG Oral Tablet *Reorder from Verimatrix for eRx and Interaction Alerts* 09/14/2013 Active Aspirin 81 MG Oral aspirin 81 MG Ch ewable TabletOriginal Medicationaspirin 81 MG Chewable Tablet 09/14/2013 Active Ascorbic Acid 100 MG Oral Tablet ORAL ascorbic acid 100 MG Oral TabletOriginal Medicationascorbic acid 100 MG Oral Tablet *Reorder from Verimatrix for eRx and Interaction Alerts* 09/14/2013 Active Immunizations Vaccine Route Administration Date Status Comme nts Influenza, high dose seasonal Unknown 12/06/2022 Admini stered Plan Of Treatment No Information Insurance Providers Payer Name Payer Address Payer Phone Subscriber Number Group Number Insured Name Patient Relationship to Insured Coverage Start Date Coverage End Date [facility] [address] [address] [place] [address] [id number] MEEK MELLO Self - patient is the insured
--- OUTSIDE RECORDS SUMMARY | 2024-06-19 10:53 | XMS_ITS | Data Portability ---
Author Organization [facility], [address] [facility], [place] ([place]) Address [address] [address] Care Team Providers Care Double End Tenoner Setter Name Role Phone RANDY STOKES Vascular Surgeon [...] 09/16/2023 16:37:27 12/23/2023 12/23/2023 She has healed t he left foot wounds. She will continue to [...] the foot wound worsens or becomes infected. Not available 03/24/2024 20:20:10 05/18/2024 05/18/2024 Impression: Mrs. Mansfield has a traumatic wound on her right proximal calf from a piece of firewood striking the leg and causing a hematoma. The overlying skin has but it does not appear to be infected today. She has very little ischemia of this leg with a palpable dorsalis pedis pulse and an excellent dorsalis pedis Doppler signal. The wound that has been present for some time on her left forefoot appears to be healed today. She had a carotid duplex which shows the right carotid stenosis has progressed slightly in the low end of the 50 to 79% range, but she has had no cerebrovascular symptoms. She has a right arm AV dialysis graft and is anticoagulated for history of atrial fibrillation. Plan: I encouraged her to follow-up with the wound clinic in [place] regarding the right calf wound. She is at risk for an infection but I think under the circumstances it might be best to let the wound try to heal now and avoid aggressive debridement unless it became infected. If the wound worsens then I asked her to contact our office. Otherwise I will see her back in the office in 3 months for follow-up to check her lower extremity ischemia. I will tentatively plan to repeat the carotid duplex of her right carotid only in 8 to 9 months. Not available 05/19/2024 21:47:05 Plan of Treatment Reminders Order Date Submit Date Provider Last Modified By Organization Details Last Modified Time Details Appointments Establish ed Patient 15AnabelEST 2024 09:30A M Dr. Randy Stokes Not available Not available Not available Lab None recorded. Referral None recorded. Procedures None recorded. Surgeries None recorded. Imaging None recorded. Medication Orders None recorded. Patient TargetsNo targets recorded. Patient InstructionsNo instructions recorded. Reason for Referral None Reported. Results Created Date Observation Date Name Description Value Unit Range Abnormal Flag Note LastModifiedBy Organization Detail LastModifiedTime 08/30/19 24 08/30/2023 gluco se, finge rstic k, blood Blood Glucose: mg/dl 126 Not Available Admini strativ e Office (Ar) [address] [place] [address], [phone], 08/30/2023 08:26:40 06/05/19 25 06/04/2024 POC GLUR point of care glucose 137 mg/dL 70-179 Not Available Ar Only - [facility] [address] [place] [address], [id number], 06/08/2024 12:01:52 08/05/19 24 08/05/2023 US, carot id arter y [address] [address] Teleph one Name: Sandie Mansfield [id number] Exam Date: 2023 Age: 72 Physic shahram: [...] 3:46 PM cc: INTERFACE Sc Only - Ar Radiology [address] [place] [address], [address], 08/05/2023 16:50:26 09/14/19 24 09/07/2022 imagi ng/di agnos tic resul t No observ ation record ed. [email or web address] Not Available 06:13:03 09/14/19 24 09/08/2022 imagi ng/di agnos tic resul t No observ ation record ed. [email or web address] Not Available 06:13:07 09/14/19 24 09/08/2022 imagi ng/di agnos tic resul t No observ ation record ed. [email or web address] Not Available 06:13:07 12/31/1905/15/2023 imagi ng/di agnos tic resul t No observ ation record ed. [email or web address] Not Available 01:11:41 12/31/19 24 02/22/2023 imagi ng/di agnos tic resul t No observ ation record ed. [email or web address] Not Available 01:12:08 03/27/19 25 03/18/2024 angio gram (PROC ) No observ ation record ed. BARCODE Not Available 2024 17:32:52 05/19/19 25 05/18/2024 US, carot id arter y [facility] [address] [address] Teleph one [phone] Name: Sandie Mansfield [id number] Exam Date: 2024 Age: 73 Physic shahram: MD Rajinder, Dagmar n : 1950 Examin ation: US CAROTI D BILATE RAL US CAROTI D BILATE RAL Indica tion: A caroti d duplex was done as routin e follow -up in this 73-yea r-old woman who has a histor y of a right caroti d stenos is and a left caroti d occlus ion. Findin gs: The right caroti d artery is well seen. There is a mild amount of echolu cent plaque in the ICA. The CCA has a veloci ty of 91 cm/s. The right ICA has a peak systol ic veloci ty of 222 cm/s with a peak end-di astoli c veloci ty of 58 cm/s. Modera te spectr al broade moises is found. The ratio of peak systol ic veloci ties was 2.4. The right ECA is patent and has a veloci ty of 123 cm/s. The right verteb ral artery is patent with antegr lisbet flow. The left caroti d artery also is well seen. There is no color flow in the ICA and it is presum ed occlud ed. The CCA has a veloci ty of 90 cm/s. The bulb has a veloci ty of 63 cm/s with an end-di astoli c veloci ty of 0. The left ECA is patent and has a veloci ty of 156 cm/s. The left verteb ral artery is patent with antegr lisbet flow. IMPRES BARBARA: 1. There is a 50-79% stenos is of the right ICA. This stenos is has progre ssed slight ly in the past year. 2. The left ICA is occlud ed, which has been previo usly demons trated . 3. There is a greate r than 50% stenos is of the left ECA. Electr onical ly signed in Archer cribe by: DAGMAR STOKES MD on:05/02 3:48 PM cc: INTERFACE Sc Only - [facility]iology [address] [place] [address], [id number], 05/18/2024 16:51:42 Result Notes None recorded. Problems Name Problem SNOMED Code Status Onset Date Resolution Date Notes Provider Name and Address Organization Details Recorded Time Complicati on associated with vascular device 565400175 Active 2024 Randy Stokes MD [address] [place] [address], [phone] , [facility] 5 20:14:04 Infection of foot 478473613 Active 2023 Alecia Surgis [facility] 4 10:25:17 Bacterial infection caused by Morganella morganii 11398793 Active 2023 Alecia Surgis [facility] 4 10:23:50 Bacterial infection caused by Pseudomona s 88981502 [facility] 10[facility]25[facility]12 Incision AND drainage Completed 202307/03/2023 Alecia Surgis [facility] 4 10:24:27 Type 2 diabetes mellitus 07735725 Active 2023 Alecia Surgis [facility] 4 10:25:09 End stage renal failure on dialysis 018006918 Active 2023 Alecia Surgis [facility] 4 10:25:15 Peripheral vascular disease 371798244 Active 2023 Alecia Surgis [facility] 4 10:25:19 Diabetic foot ulcer 118845253 Active 2023 KENNETH CARMICHAEL MD [address] [place] [address], [phone] , [facility] 4 10:35:29 Mixed infectious disease 1058376 Active 2023 KENNETH CARMICHAEL MD [address] [place] [address], [phone] , [facility] 4 10:36:18 Carotid artery stenosis 07160048 Active Nallely Luo [facility] 4 10:20:31 Mechanical complicati on of vascular device 266139674 Active 2023 Irene Truong, SPLICING SUPERVISOR, CHEMIST [address] [place] [address], [phone] , [facility] 4 16:43:10 Postoperat daniel pain 694980340 Active 2023 Randy Stokes MD [address] [place] [address], [phone] , [facility] 4 12:48:15 Problem Notes None recorded. Procedures Surgical History Date Name Laterality Status Provider Name and Address Organization Details Recorded Time 08/30/19 24 replacement of vascular graft completed Nallely Luo [facility] 06/03/2024 11:25:28 07/07/19 22 Date of Last Mammogram completed Not Available Health Note 07/30/2023 13:59:17 Insert heart pm atrial completed Not Available Health Note 07/30/2023 13:59:14 Imaging Results Imaging Date Name Status LastModified by Organiz ation Details LastModified Time 08/05/2023 US, carotid artery completed INTERFACE Sc Only - [facility] [address] [place] [address], [address], 08/05/2023 16:50:26 09/07/2022 imaging/diagno stic result completed Information not available 09/14/2023 06:13:03 09/08/2022 imaging/diagno stic result completed Information not available 09/14/2023 06:13:07 09/08/2022 imaging/diagno stic result completed Information not available 09/14/2023 06:13:07 05/15/2023 imaging/diagno stic result completed Information not available 12/31/2023 01:11:41 02/22/2023 imaging/diagno stic result completed Information not available 12/31/2023 01:12:08 03/18/2024 angiogram (PROC) completed BARCODE Information not available 03/27/2024 17:32:52 05/18/2024 US, carotid artery completed INTERFACE Sc Only - [facility] [address] [facility], [place], [address], 05/18/2024 16:51:42 Procedure Notes None recorded. Medical Equipment None Reported. Allergies Allergen ID Allergen Name Allergen Category Reaction Reaction Severity Criticality Documentation Date Start Date Code Code System Note Provider Name and Address Organization Details Recorded Time 575628 Product containin g angiotens in-conver ting enzyme inhibitor (product) medicatio n Not available Not available Not available 04/01/20232022 10971 009 SNOMED Not Available Not Available Not Available Medications Name Sig Start Date Stop Date Status Note LastModified by Organization Details LastModified Time atorvastat in 40 mg tablet TAKE 1 TABLET BY MOUTH EVERY DAY active Not Available Not Available No t Available cefpodoxim e 200 mg tablet TAKE 1 TABLET BY MOUTH EVERY DAY 07/02 completed Not Available Not Available Not Available cephalexin 250 mg capsule TAKE 1 CAPSULE (ORAL) 2 TIMES PER DAY FOR 5 DAYS ON DIALYSIS DAYS, TAKE AFTER DIALYSIS . 05/18 completed Not Available Not Available Not Available hydrocodon e 5 mg-acetami nophen 325 mg tablet TAKE 1 TABLET BY MOUTH EVERY 6 HOURS FOR 4 DAYS 09/15 completed Not Available Not Available Not Available midodrine 5 mg tablet TAKE 1 TABLET BY MOUTH 3 TIMES A DAY. TAKE WITH 10MG active Not Available Not Available No t Available metronidaz ole 500 mg tablet TAKE 1 TABLET BY [...] Not Available Not Available Not Available sodium bicarbonat e 650 mg tablet TAKE 1 TABLET BY MOUTH TWICE A DAY active Not Available Not Available No t Available cephalexin 500 mg capsule TAKE 1 CAPSULE BY MOUTH THREE TIMES A DAY UNTIL FINISHED 07/02 completed Not Available Not Available Not Available ergocalcif sreedhar (vitamin D2) 1,250 mcg (50,000 unit) capsule TAKE 1 CAPSULE BY MOUTH WEEKLY active Not Available Not Available No t Available levofloxac in 500 mg tablet TAKE 1 TABLET BY MOUTH EVERY 48 HOURS FOR 10 DAYS 07/02 completed Not Available Not Available Not Available doxycyclin e hyclate 100 mg tablet TAKE 1 TABLET BY MOUTH TWICE A DAY FOR 7 DAYS 05/18 completed Not Available Not Available Not Available midodrine 10 mg tablet 1 TABLET BY MOUTH 3 TIMES A DAY WITH 5MG TABLET active Not Available Not Available No t Available cinacalcet 30 mg tablet Take 1 tablet every day by oral route. 05/18 completed Not Available Not Available Not Available Joelle-Mckenna 0.8 mg tablet TAKE 1 TABLET BY MOUTH EVERY DAY 2024 active Not Available Not Available Not Avai lable acetaminop hen active Not Available Not Available Not Available Vitamin C 05/18 completed Not Available Not Available Not Available Acidophilu s 05/18 completed Not Available Not Available Not Available sevelamer carbonate 800 mg tablet [...] mg or 0.5 mg (2 mg/3 mL) subcutaneo us pen injector 0.25 MG (0.368 ML) SUBCUTAN EOUSLY WEEKLY FOR 4 WEEKS active Saturday Not Available Not Available No t Available Vitals Date Recorded Body height Body mass index (BMI) Body weight Heart rate Oxygen saturation Oxygen saturation in Arterial blood by Pulse oximetry Systolic blood pressure Diastolic blood pressure Provider Name and Address Organization Details Last Updated DateTime 4 162.56 cm 31.2 kg/m2 64528.8 1 g 102 /min 96 % 96 % 152 mm[Hg] 56 mm[Hg] Nallely Luo [facility] 4 16:13:16 Date Recorded Body height Body mass index (BMI) Body weight Heart rate Oxygen saturation Oxygen saturation in Arterial blood by Pulse oximetry Systolic blood pressure Diastolic blood pressure Provider Name and Address Organization Details Last Updated DateTime 5 162.56 cm 32.6 kg/m2 43934.2 7 g 76 /min 99 % 99 % 108 mm[Hg] 80 mm[Hg] Nallely Luo [facility] 5 15:13:08 Date Recorded Body height Body mass index (BMI) Body weight Heart rate Oxygen saturation Oxygen saturation in Arterial blood by Pulse oximetry Systolic blood pressure Diastolic blood pressure Provider Name and Address Organization Details Last Updated DateTime 5 162.56 cm 33.4 kg/m2 39798.7 9 g 89 /min 98 % 98 % 120 mm[Hg] 70 mm[Hg] Nallely [facility] 5 12:19:50 Social History Question Answer Notes LastModified by [...] Do You Have A Medical Power Of Drawing Machine Operator? No [email or web address] Information not available 07/30/2023 What [...] Recorded Time zoster recombinant 2 completed [facility]2023 14:55:50 zoster recombinant 1 completed [facility] 08/05/2023 14:55:50 COVID-19, mRNA, LNP-S, PF, 30 mcg/0.3 mL dose 1 completed [facility] 08/05/2023 14:55:50 COVID-19, mRNA, LNP-S, PF, 30 mcg/0.3 mL dose 1 completed [facility]ink [facility] 08/05/2023 14:55:50 COVID-19, mRNA, LNP-S, PF, 30 mcg/0.3 mL dose 1 completed Sharonda Fink [facility] 08/05/2023 14:55:50 COVID-19, mRNA, LNP-S, PF, 30 mcg/0.3 mL dose, ruth-sucrose 2 completed [facility] 08/05/2023 14:55:50 COVID-19, mRNA, LNP-S, bivalent, PF, 30 mcg/0.3 mL dose 2 [facility] 08/05/2023 14:55:50 pneumococcal polysaccharide PPV23 4 completed [facility] 08/05/2023 14:55:50 Past Encounters Encounter ID Performer Location Encounter Start Date Encounter Closed Date Diagnosis/Indication Diagnosis SNOMED-CT Code Diagnosis ICD10 Code Diagnosis Note [id number] KENNETH CARMICHAEL MD [address] [facility] [facility] ([place] [address] [place], [place] [address] [place] [address] 07/03/2023 09:59:17 07/03/2023 10:53:31 Diabetic foot ulcer 263073105 E13.621 Mixed infe ctious disease 8153129 B99.9 Peripheral vascular disease 047237277 I73.9 End stage renal failure on dialysis 334102976 N18.6 [id number] Stephy Biggs MD [address] [facility] ([place] [address] [place], [place] [address] [address] 07/12/2023 10:34:49 07/12/2023 11:29:13 Bacterial infection caused by Morganella morganii 39177740 A49.8 Bacterial infection caused by Pseudomonas 80040026 B96.5 Infection of foot 007117 002 L08.9 [id number] Stephy Biggs MD [address] [facility] ([place] [address] [place] [address] 08/05/2023 14:26:39 08/05/2023 15:27:57 Diabetic foot ulcer 971745938 E13.621 Infection of foot 174413 002 L08.9 Bacterial infection caused by Morganella morganii 29045297 A49.8 Bacterial infection caused by Pseudomonas 66220522 B96.5 [id number] Irene Truong, SPLICING SUPERVISOR, CHEMIST 800 [facility] ([place]) [address] [place] [address] 08/05/2023 15:17:38 08/05/2023 16:58:09 Carotid artery stenosis 89682794 I65.29 Infection of foot 699657 002 L08.9 End stage renal failure on dialysis 040849490 N18.6 Peripheral vascular disease 889849414 I73.9 [id number] Kirill Guerrier MD [facility] ([place]) [address] [place] [address], [place] [address] 08/30/2023 07:14:46 09/16/2023 09:42:[id number] [facility] ([place]) [address] [place] [address], 2nd [place] [address] 08/30/2023 07:14:48 09/03/2023 08:36:34 End stage renal failure on dialysis 645305649 N18.6 [id number] Randy Stokes MD [address] [facility] ([place]) [address] [place] [address] 09/16/2023 15:56:09 09/16/2023 17:07:10 End stage renal failure on dialysis 537470296 N18.6 Peripheral vascular disease 978082694 I73.9 Infection of foot 514132 002 L08.9 [id number] Randy Stokes MD 800 [facility] ([place]) [address] [place] [address],[address] [place] [address] 12/23/2023 15:58:35 12/23/2023 16:25:51 Peripheral vascular disease 948018845 I73.9 End stage renal failure on dialysis 344492751 N18.6 Diabetic foot ulcer 3710 [address]995 E13.621 [id number] Randy Stokes MD [address] [facility] [facility] ([place]) [address] [place] [address],[address] [place] [address] 03/23/2024 15:02:25 03/23/2024 15:31:34 End stage renal failure on dialysis 646217767 N18.6 Peripheral vascular disease 554875443 I73.9 Diabetic foot ulcer 3710 [address]45 E13.621 Complicati on associated with vascular device 141957049 T82.598A [id number] Randy Stokes MD [address] [facility] [facility] ([place]) [address] [place] [address] [place] [address] 05/18/2024 11:52:22 05/18/2024 16:21:34 End stage renal failure on dialysis 004349215 N18.6 Carotid ar dorothea stenosis 57091935 I65.29 Peripheral vascular disease 149029045 I73.9 Health Concerns Section Related Observation LastModified by Organization Detai ls LastModified Time None Recorded Concern Status LastModified by Organization Details LastModified Time None Recorded Advance Directives Directive N: Payers Encounter Date Sequence Insurance Name Policy Number Policy Dudley Covered Member ID Dudley Member ID Guarantor Name 08/30/2023 1 [facility] (MEDICARE REPLACEMENT/A DVANTAGE - PPO) [id number] Sandie Mansfield [id number] Sandie Mansfield 08/30/2023 2 [place] Sandie Mansfield [id number] Sandie Mansfield 09/16/2023 1 [facility] (MEDICARE REPLACEMENT/A DVANTAGE - PPO) [id number] Sandie Mansfield [id number] Sandie Mansfield 09/16/2023 2 [place] Sandie Mansfield [id number] Sandie Mansfield 12/23/2023 1 [facility] (MEDICARE REPLACEMENT/A DVANTAGE - PPO) [id number] Sandie Mansfield [id number] Sandie Rahmanley 03/23/2024 1 [facility] (MEDICARE REPLACEMENT/A DVANTAGE - PPO) [id number] Sandie López Shyla [id number] Sandie Rahmanley 05/18/2024 1 [facility] (MEDICARE REPLACEMENT/A DVANTAGE - PPO) [id number] Sandie López Shyla [id number] Sandie Arreola Shyal Notes Date Note Type Note Provider Name [...] limited to PONV, dental injury, sore throat, PR, stroke, etc. All questions were answered. Patient [...] as described. Kirill Guerrier MD [address] [place] [address], [phone], [facility] 08/30/2023 07:42:29 09/16/2023 text/html Mrs. Mansfield is [...] anxious to have the tunneled catheter removed. Ierne Truong APRN, CHEMIST [address] [place] [address], [phone], [facility] 09/16/2023 16:38:06 12/23/2023 text/html Mrs. Mansfield is [...] side of the bed. Irene Truong APRN, CHEMIST [address] [place] [address], [phone], [facility] 12/23/2023 16:36:35 03/23/2024 text/html Sandiedana Mansfield ret urned to the office today [...] stroke. She dialyzes 3 times weekly in [place]. Randy Stokes MD [address] [place] [address], [phone], [facility] 03/24/2024 20:20:40 05/18/2024 text/html Sandie Mansfield ret urned to the office today for an evaluation of a wound on her right lateral calf. Mrs. Mansfield is a 73-year-old dialysis patient who is quite familiar to me. She has had diabetic foot infections and ischemia of her left leg requiring toe amputations. 3 weeks ago a piece of firewood struck her right lateral calf and caused a hematoma as she is anticoagulated. The overlying skin creating a black patch of necrotic skin measuring 2.5 cm in diameter. She was treated with antibiotics and the wound was drained in the wound clinic in [place]. She believes the wound is getting better slowly but still has a ways to go. Mrs. Mansfield did have ABIs in [place] on 05/11/2024. Her right MEGHAN was greater than 1.0 and the left MEGHAN was also greater than 1.0. The toe pressure was reduced on the left side. She has not had any new problems with her left foot and no new wounds have developed there. Her right arm dialysis graft is apparently functioning. She has a known left carotid occlusion and right carotid stenosis but has not had any symptoms that would suggest a TIA or stroke. Randy Stokes MD [address] [facility], [place], [address], [facility] 05/19/2024 21:47:33 OBGyn Episode No OBEpisode recorded.
--- OUTSIDE RECORDS SUMMARY | 2024-06-19 10:54 | XMS_ITS ---
Author Organization [facility] Care Team Providers Care Candy Maker Name Role Phone BENJIE NERI Unavailable Unavailable Allergies and adverse reactions No Known Allergies Care Team Name Role Address Phone Organization Dates BENJIE NERI PCP [address] [place] [address], [phone], [place] (Office[place] : [facility] 06/27/2020 - 07/15/2020 Mental Status Section Date Assessment Total Score Description 07/15/2020 BIMS 13 cognitively int act CAM 0 No delirium ind icated PHQ-9 00 07/01/2020 BIMS 14 cognitively int act CAM 0 No delirium ind icated PHQ-9 03 minimal depress ion Problems Problem # Description Date of onset Resolved Date Code CodeSystem Concern Status 1 ACUTE EMBOLISM AND THROMBOSIS OF UNSPECIFIED DEEP VEINS OF UNSPECIFIED LOWER EXTREMITY [address] active 2 ACUTE KIDNEY FAILURE, UNSPECIFIED [address] active 3 ACUTE ON CHRONIC SYSTOLIC (CONGESTIVE) HEART FAILURE [address] active 4 ANEMIA, UNSPECIFIED [address] active 5 CARDIOMYOPATHY, UNSPECIFIED [address] active 6 DEPENDENCE ON RENAL DIALYSIS [address] active 7 ENCEPHALOPATHY, UNSPECIFIED [address] active 8 END STAGE RENAL DISEASE [address] active 9 ESSENTIAL (PRIMARY) HYPERTENSION [address] active 10 GASTRO-ESOPHAGEAL REFLUX DISEASE WITHOUT ESOPHAGITIS [address] active 11 GASTROINTESTINAL HEMORRHAGE, UNSPECIFIED [address] active 12 MILD COGNITIVE IMPAIRMENT OF UNCERTAIN OR UNKNOWN ETIOLOGY [address] active 13 MUSCLE WEAKNESS (GENERALIZED) [address] active 14 OTHER ABNORMALITIES OF GAIT AND MOBILITY [address] active 15 RECTAL ABSCESS [address] active 16 RESPIRATORY FAILURE, UNSPECIFIED, UNSPECIFIED WHETHER WITH HYPOXIA OR HYPERCAPNIA [address] active 17 RETENTION OF URINE, UNSPECIFIED [address] active 18 SEVERE SEPSIS WITH SEPTIC SHOCK [address] active 19 THROMBOCYTOPENIA, UNSPECIFIED [address] active 20 TYPE 2 DIABETES MELLITUS WITH OTHER SKIN COMPLICATIONS [address] active 21 UNSPECIFIED ATRIAL FIBRILLATION [address] active 22 UNSTEADINESS ON FEET [address] active 23 WEAKNESS [address] active Reason for Referral No Reasons for Referral Entered Social History Social History Observation Description Start Date End Date Code Code System Current Smoking Status Tobacco smoking consumption unknown 252872766 SNOMED CT Sex Assigned At Female 1950 [address]-4 [facility] Vital Signs Code Code System Vitals Name Values and Units Timing Information 49649-2 [facility] Weight Ouyyr=617.0 Units=Lbs 8462-4 [facility] Blood Pressure-Diastolic Value=72 Un its=mmHg 07/15/2020 8480-6 [facility] Blood Pressure-Systolic Ymstj=874 Un its=mmHg 07/15/2020 8867-4 [facility] Heart rate Value=92.0 Units=/min 00632-5 [facility] Pain Level Value=0.0 07/15/2020 33118-5 [facility] O2 % BldC Oximetry Value=98.0 Units= % 07/15/2020 9279-1 [facility] Respiratory Rate Value=20.0 Units=/m in 07/15/2020 8310-5 [facility] Body Temperature Value=97.5 Units= F 07/15/2020 2339-0 [facility] Blood Sugar Iiczc=108.0 Units=mg/dL 07/15/2020 8302-2 [facility] Height Value=60.0 Units=Inches 06/28/2020
--- OUTSIDE RECORDS SUMMARY | 2024-06-19 10:54 | XMS_ITS ---
Author Organization [facility] Address [address] [place], [place] [address] Care Team Providers Care Speed Belt Sander Tender Name Role Phone YISSEL GORDON Unavailable [phone] John Calhoun Unavailable Unavailable KARIE KABA Unavailable [phone] REASON FOR VISIT Surgery W/ Dr Calvillo for amp of toes will call back when she is cleared from surgeon Encounters Encounter Location Date Provider Diagnosis [facility] [place], [place] [address], [place] [id number] 03/07/2023 KARIE KABA Plan Of Treatment No Information Progress Notes * MEEK MELLO EDOB: 2 (73 yo F)Acc No.[id number]:03/07/2023 Patient: Radha MEEK GUNN Provider: Lexie KABA :1950 A ge:72 Y S ex:Female Date:03/07/2023 Address:[address] [place], [place] [id number] Subjective: * Chief Complaints: * 1 . Surgery W/ Dr Calvillo for amp of toes will call back when she is cleared from surgeon. * Medical History: Objective: * Vitals: Assessment: Plan: * Treatment: * Billing Information: * Visit Code: * Procedure Codes: * Electronic signature of MIKY KABA DPM on 06/19/2024 at 10:53 AM CDT Sign off status: Pending * Provider: Lexie KABA Date: 0 03/07/2023 Generated for David carrington/Dominic/Yvetteitting on: 0 06/19/2024 10:53 AM CDT
--- NOTE | 2024-06-19 11:00 | ED.FALL ---
HPI - Fall General Chief Complaint: Fall Stated Complaint: fall Time Seen by Provider: 06/19/24 10:56 Source: patient History of Present Illness HPI Narrative: patient lost her balance after dialysis and fell landed on the left knee yesterday, no loss of consciousness, no head injury, complaining of left upper chest pain and left knee pain. No other injuries Patient denies any fever, chills, nausea, vomiting, abdominal pain, back pain, neck pain, headache,or hips pain. Related Data Home Medications ?Medication ?Instructions ?Recorded ?Confirmed ?Last Taken ?Type acetaminophen 500 mg tablet 1,000 mg PO Q6H PRN Pain 11/29/20 04/03/23 Unknown History (Tylenol Extra Strength) ascorbic acid (vitamin C) 1,000 mg 1 g PO DAILY 11/29/20 04/03/23 Unknown History tablet sevelamer carbonate 800 mg tablet 1,600 mg PO TID 11/29/20 04/03/23 Unknown History (Renvela) vitamin B complex-vitamin C-folic 1 tablet PO DAILY 11/29/20 04/03/23 Unknown History acid 0.8 mg tablet (Joelle-Mckenna) cinacalcet 30 mg tablet 30 mg PO DAILY 08/29/22 04/03/23 Unknown History sodium bicarbonate 650 mg tablet 650 mg PO BID 08/29/22 04/03/23 Unknown History midodrine 5 mg tablet 15 mg PO .PRN Low BP 09/12/22 04/03/23 Unknown History sodium zirconium cyclosilicate 10 10 g PO DAILY 07/17/23 Unknown History gram oral powder packet (Lokelma) Allergies Allergy/AdvReac Type Severity Reaction Status Date / Time VIRGEN Inhibitors Allergy Unknown Unknown Verified 06/19/24 10:53 Review of Systems Review of Systems: All systems reviewed & are unremarkable except as noted in HPI and below PMFSH Past Medical History Medical History Candida-rectal abscess Pacemaker ELEAZAR (obstructive sleep apnea) Surgical History Surgical History Hx of cataract surgery Social History Social History Smoking status: Never smoker Gender identity (if verbalized by the patient): Female Exam Narrative: General appearance: Well-developed, well-nourished Skin: Normal color Head: Normocephalic, nontraumatic Eyes: Clear conjunctiva ENT: Oropharynx normal, ears normal, nose normal Neck: Supple, nontender Chest and respiratory: Airway patent, no respiratory distress, no accessory muscle use, mild tenderness left upper chest at the pacemaker site. No bruises, no swelling Heart: Regular rate/rhythm Abdomen: Soft, nontender, no organomegaly, quiet bowel sounds Vascular: Normal peripheral pulses, normal capillary refill. Musculoskeletal: Diffuse tenderness left knee anteriorly, no swelling, no bruises, severe limited range of motion Neurologic: Alert and oriented ?3, CASING IN LINE FEEDER is normal as tested, no gross motor deficit Course Vital Signs Vital signs: Vital Signs Temperature 37.3 C 06/19/24 10:49 Pulse Rate 70 06/19/24 10:49 Respiratory Rate 18 06/19/24 10:49 Blood Pressure 121/44 L 06/19/24 10:49 Pulse Oximetry 97 06/19/24 10:49 Oxygen Delivery Room Air 06/19/24 10:49 Temperature 37.2 C 06/19/24 12:03 Pulse Rate 60 06/19/24 12:03 Respiratory Rate 18 06/19/24 12:03 Blood Pressure 105/60 06/19/24 12:03 Pulse Oximetry 100 06/19/24 12:03 Oxygen Delivery Room Air 06/19/24 12:03 MDM - Fall MDM Narrative Medical decision making narrative: lost her balance and fell, complaining of left knee and left upper chest at the pacemaker site pain, yesterday. Physical exam showing severe tenderness across the left knee anteriorly, slight tenderness at the pacemaker area Differential diagnosis include contusion, fracture X-ray of the left ribs showed no fracture X-ray of the left knee showed transverse fracture of the left patella Discharged home to follow-up with orthopedic, patient received left knee immobilizer and prescription of [place] on discharge Differential Diagnosis Differential diagnosis: Likely other ( as above) ABG Data Interpretation: Impressions Knee X-Ray 06/19/24 11:21 Impression: Acute, transverse, nondisplaced fracture of the mid patellar body. Degenerative change, as above, worst in the lateral compartment. Moderate to large joint effusion. Ribs X-Ray 06/19/24 11:42 IMPRESSION: No acute displaced left-sided rib fracture on the visualized portion of the submitted images. Imaging Data Radiologist's impression: Impressions Knee X-Ray 06/19/24 11:21 Impression: Acute, transverse, nondisplaced fracture of the mid patellar body. Degenerative change, as above, worst in the lateral compartment. Moderate to large joint effusion. Discharge Plan Discharge Clinical Impression: Closed fracture of left patella Patient Disposition: Home Condition: Stable Instructions: Patellar Fracture (ED) Additional Instructions: Return if symptoms are worsening , call your orthopedic for appointment, take Tylenol as as needed for aches and pain, continue home medications. Patient Language: Senegalese Prescriptions: New hydrocodone-acetaminophen 5-325 mg tablet 1 tablet PO Q4H PRN (Reason: pain) Qty: 20 0RF No Action acetaminophen [Tylenol] 325 mg capsule 650 mg PO Q8H PRN (Reason: pain) Qty: 20 0RF Lokelma 10 gram powder in packet 10 g PO DAILY sodium bicarbonate 650 mg tablet 650 mg PO BID cinacalcet 30 mg tablet 30 mg PO DAILY midodrine 5 mg tablet 15 mg PO .PRN Low BP Rx Instructions: do not give last dose of day after 6PM or within 4 hrs of bedtime (DME) Blood Glucose Test Strip See Rx Instructions .Route Qty: 100 5RF Rx Instructions: Testing once daily. Dx: E11.9- npi 1460910660 (DME) blood-glucose meter Misc See Rx Instructions .Route Qty: 1 0RF Rx Instructions: Testing once daily. Dx: E11.9- npi 9990356774 (DME) pen needle, diabetic [BD Shira 2nd Gen Pen Needle] 32 gauge x 5/32 needle See Rx Instructions .Route Qty: 100 5RF Rx Instructions: As directed ascorbic acid (vitamin C) 1,000 mg tablet 1 g PO DAILY acetaminophen [Tylenol Extra Strength] 500 mg tablet 1,000 mg PO Q6H PRN (Reason: Pain) sevelamer carbonate [Renvela] 800 mg tablet 1,600 mg PO TID Joelle-Mceknna 0.8 mg tablet 1 tablet PO DAILY (DME) OneTouch Verio test strips Strip See Rx Instructions .Route Qty: 100 5RF Rx Instructions: Testing once daily. Dx: E11.9 (DME) lancets [Fingerstix Lancets] Misc See Rx Instructions .Route Qty: 100 5RF Rx Instructions: Testing once daily. Dx: E11.9- npi 8312834092 Eliquis 5 mg tablet See Rx Instructions .ROUTE .COMPLEX Qty: 180 2RF Dose Instruction: TAKE 1 TABLET BY MOUTH TWICE A DAY Rx Instructions: TAKE 1 TABLET BY MOUTH TWICE A DAY Ozempic 0.25 mg or 0.5 mg (2 mg/3 mL) pen injector 0.25 mg subcut WEEKLY Qty: 3 0RF atorvastatin 40 mg tablet See Rx Instructions .ROUTE .COMPLEX Qty: 90 3RF Dose Instruction: TAKE 1 TABLET BY MOUTH EVERY DAY Rx Instructions: TAKE 1 TABLET BY MOUTH EVERY DAY Follow-up/Referrals: John Calhoun DO [Primary Care Provider] - Omar Mares MD [Physician] - 06/22/24
--- NOTE | 2024-06-19 11:05 | PC.NURSE ---
Patient taken down to Xray
[2024-06-19] MEDS: HYDROcodone/acetaminophen (*CRX) 5-325 MG TABLET 1 TAB PO (11:32)
--- OUTSIDE RECORDS SUMMARY | 2024-06-19 11:39 | XMS_ITS ---
Author Organization [facility] Care Team Providers Care Dental Assistant Instructor Name Role Phone BENJIE NERI Unavailable Unavailable Allergies and adverse reactions No Known Allergies Care Team Name Role Address Phone Organization Dates BENJIE NERI PCP [address] [place] [address], [phone], [place] (Office): : [facility] 06/27/2020 - 07/15/2020 Mental Status Section Date [...] DEEP VEINS OF UNSPECIFIED LOWER EXTREMITY [address] active 2 ACUTE KIDNEY FAILURE, UNSPECIFIED [address] active 3 ACUTE ON CHRONIC SYSTOLIC (CONGESTIVE) HEART FAILURE [address] active 4 ANEMIA, UNSPECIFIED [address] active 5 CARDIOMYOPATHY, UNSPECIFIED [address] active 6 DEPENDENCE ON RENAL DIALYSIS [address] active 7 ENCEPHALOPATHY, UNSPECIFIED [address] active 8 END STAGE RENAL DISEASE [address] active 9 ESSENTIAL (PRIMARY) HYPERTENSION [address] active 10 GASTRO-ESOPHAGEAL REFLUX DISEASE WITHOUT ESOPHAGITIS [address] active 11 GASTROINTESTINAL HEMORRHAGE, UNSPECIFIED [address] active 12 MILD COGNITIVE IMPAIRMENT OF UNCERTAIN OR UNKNOWN ETIOLOGY [address] active 13 MUSCLE WEAKNESS (GENERALIZED) [address] active 14 OTHER ABNORMALITIES OF GAIT AND MOBILITY [address] active 15 RECTAL ABSCESS [address] active 16 RESPIRATORY FAILURE, UNSPECIFIED, UNSPECIFIED WHETHER WITH HYPOXIA OR HYPERCAPNIA [address] active 17 RETENTION OF URINE, UNSPECIFIED [address] active 18 SEVERE SEPSIS WITH SEPTIC SHOCK [address] active 19 THROMBOCYTOPENIA, UNSPECIFIED [address] active 20 TYPE 2 DIABETES MELLITUS WITH OTHER SKIN COMPLICATIONS [address] active 21 UNSPECIFIED ATRIAL FIBRILLATION [address] active 22 UNSTEADINESS ON FEET [address] active 23 WEAKNESS [address] active Reason for Referral No Reasons for Referral Entered Social History Social History Observation Description Start Date End Date Code Code System Current Smoking Status Tobacco smoking consumption unknown 802285393 SNOMED CT Sex Assigned At Female 1950 88309-2 [facility] Vital Signs Code Code System Vitals Name Values and Units Timing Information 98271-2 [facility] Weight Zzmku=759.0 Units=Lbs 8462-4 [facility] Blood Pressure-Diastolic Value=72 Un its=mmHg 07/15/2020 8480-6 [facility] Blood Pressure-Systolic Rlrse=180 Un its=mmHg 07/15/2020 8867-4 [facility] Heart rate Value=92.0 Units=/min 09907-3 [facility] Pain Level Value=0.0 07/15/2020 35057-0 [facility] O2 % BldC Oximetry Value=98.0 Units= % 07/15/2020 9279-1 [facility] Respiratory Rate Value=20.0 Units=/m in 07/15/2020 8310-5 [facility] Body Temperature Value=97.5 Units= F 07/15/2020 2339-0 [facility] Blood Sugar Qsaoe=729.0 Units=mg/dL 07/15/2020 8302-2 [facility] Height Value=60.0 Units=Inches 06/28/2020
--- OUTSIDE RECORDS SUMMARY | 2024-06-19 11:39 | XMS_ITS | Clinical Summary ---
Author Organization [facility] Address [address] [place] [address] Care Team Providers Care Director Of Corporate Strategy Name Role Phone John Calhoun DO Primary Care Provider [phone] Cody Patterson MD Unavailable Keven Leiva MD [...] Noted Date Diagnosed Date NICM (nonischemic cardiomyopathy) ([facility] HHS/H CC) 12/10/2023 Weakness 09/06/2022 TIA (transient ischemic attack) 09/06/2022 Other myositis of left lower extremity 3 Primary osteoarthritis of fi rst carpometacarpal joint of left hand 04/09/2022 Primary osteoarthritis of fi rst carpometacarpal joint of right hand 01/04/2022 Hemiparesis of dominant side due to recent cerebrovascular accident (CVA) ([facility]/HCC) 08/25/2021 History of ischemic stroke in prior three months 08/25/2021 Impaired functional mobility, balance, gait, and endurance 04/12/2021 Orthostasis 04/12/2021 A-fib ([facility]) 09/28/2020 S/P AV bethany ablation 09/28/2020 Biventricular ICD (implantab le cardioverter-defibrillator) in place 09/28/2020 Rectal abscess 05/30/2020 Hyperkalemia 05/22/2020 CHF (congestive heart failure) ([facility]) ESRD (end stage renal disease) ([facility]) Carotid stenosis, asymptomatic, left Cardiomyopathy ([facility]) Dialysis patient Encounters Date Type Department Care Team Description 06/11/2024 Telephone [facility] [address] [place] [address] Dannielle Brice MD Appointment Request 05/28/2024 1:51 PM CDT - 05/28/2024 11:59 PM CDT Hospital Encounter [facility] [address] [place] [address] Livia Patterson, FREEDOM OF INFORMATION OFFICER Discharge Disposition: Home or Self Care (Routine Discharge) 05/28/2024 Travel 05/14/2024 1:39 PM CDT - 05/14/2024 11:59 PM CDT Hospital Encounter [facility] [address] [place] [address] Livia Patterson, RAUL Discharge Disposition: Home or Self Care (Routine Discharge) 05/14/2024 Travel 05/07/2024 2:04 PM FREELANCE DESIGNER - 05/07/2024 11:59 PM FREELANCE DESIGNER Hospital Encounter [facility] [address] [place] [address] Livia Patterson, RAUL Discharge Disposition: Home or Self Care (Routine Discharge) 05/07/2024 Travel 03/26/2024 1:15 AM FREELANCE DESIGNER Allied Health/Nurse Visit [facility] [address] [place] [address] Keven Leiva MD from Last 3 Months [...] place to sleep or slept in a halfway (including now)? No 09/06/2022 Comments No Sex and Gender Information Value Date Recorded Sex Assigned at Female 04/29/2024 10:15 AM FREELANCE DESIGNER Legal Sex Female 9:26 PM CDT Gender Identity Not on file Sexual Orientation Not on file Occupation Industry Job Start Date Job End Date Not on file Not on file Not on file Not on file Last Filed Vital Signs Vital Sign Reading Time Taken Comments Blood Pressure 114/80 01/06/2024 1:56 PM FREELANCE DESIGNER Pulse 75 01/06/2024 1:56 PM FREELANCE DESIGNER Temperature 36.6 C (97.9 F) 09/09/2022 9:33 AM CDT Respiratory Rate 18 01/06/2024 1:56 PM FREELANCE DESIGNER Oxygen Saturation 96% 01/06/2024 1:56 PM FREELANCE DESIGNER Inhaled Oxygen Concentration - - Weight 87.1 kg (192 lb) 01/06/2024 1:56 PM FREELANCE DESIGNER Height 160 cm (5' 3 ) 01/06/2024 1:56 PM FREELANCE DESIGNER Body Mass Index 34.01 01/06/2024 1:56 PM FREELANCE DESIGNER Plan of Treatment Upcoming Encounters Date Type Department Care Team (Late st Contact Info) Description 06/25/2024 2:[address] [facility] [address] [place] [address] Livia Patterson, FREEDOM OF INFORMATION OFFICER [address] [place] [address] 06/29/2024 1:30 PM CDT Office Visit [facility] [address] [place] [address] Dannielle Brice MD [address] [place] [address] 07/09/2024 1:45 AM CDT Allied Health/Nurse Visit [facility] [address] [place] [address] Keven Leiva MD 01/05/2025 10:00 AM FREELANCE DESIGNER Appointment [facility] [address] [place] [address] Dannielle Brice MD [address] [place] [address] 01/18/2025 2:15 PM FREELANCE DESIGNER Office Visit [facility] [place] [address] Dannielle Brice MD [address] [place] [address] Health Maintenance Due Date Last Done Comments [...] Almanzar RN Medical Devices Implanted Type Area Cinnamon Grinder Device Identifier Shelf Expiration Date Model / Serial / Lot Medtronic [place]-06/24/2020 Implanted:2020 by Barak Nguyen MD (Quantity not on file) ICD MEDTRONIC CARDIAC RHYTHM AND HEART FAILURE - DIV M 11/15/2021 [id number] / [id number] S / Description:MRI Conditional under following conditions: [...] FAILURE - DIV M 11/24/2021 [id number] / [id number] V / Medtronic Rv Icd Lead-06/24/2020 Implanted:2020 by Barak Nguyen MD (Quantity not on file) Lead Implant MEDTRONIC CARDIAC RHYTHM AND HEART FAILURE - DIV M 03/18/2022 [id number] / [id number] V / Capsule Pill Cam - [id number] Implanted:Qty: 1 on 06/20/2020 by Franny Vogel RN at [facility] 11/30/2020 [id number] / / [id number] Procedures Procedure Name Priority Date/Time Associated Diagnosis [...] CHOLESTEROL 110 MG/DL 09/07/2022 10:45 AM CDT [facility] Comment:DESIRABLE: <200 TRIGLYCERIDES 129 MG/DL 09/07/2022 10:45 AM CDT [facility] Comment:<150 NORMAL HDL 44(L) >49 MG/DL 09/07/2022 10:45 AM CDT [facility] LDL (CALCULATED) 40 MG/DL 09/08/19 10:45 AM CDT [facility] Comment:<100 OPTIMAL VLDL CALCULATION 26 MG/DL 09/08/19 10:45 AM CDT [facility] Comment:REFERENCE RANGE NOT ESTABLISHED CHOL/HDL RATIO 2.5 09/07/2022 10:45 AM CDT [facility] Comment:REFERENCE RANGE NOT ESTABLISHED LDL/HDL 0.9 09/07/2022 10:45 AM CDT [facility] Comment:REFERENCE RANGE NOT ESTABLISHED NON HDL CHOLESTEROL 66 MG/DL 09/07/2022 10:45 AM CDT [facility] Comment:REFERENCE RANGE NOT ESTABLISHED 09/07/2022 10:0 2 AM CDT Atilio Self NP LABORATORY Final Result Performing Organization Address City/State/[facility] Co de Phone Number [facility] [address] [place] [phone], [phone] * HEMOGLOBIN, GLYCOSYLATED (09/06/2022 11:12 PM CDT) HGB A1C 5.4 <5.7 % 09/07/2022 12:15 AM CDT [facility] ESTIMATED AVG GLUCOSE 108 74 - 114 MG/DL 09/07/2022 12:15 AM CDT [facility] 09/06/2022 11:1 2 PM CDT Cherelle Khoury DNP LABORATORY Final Result Performing Organization Address [facility] de Phone Number [facility] [address] [place] [address], [phone] * (ABNORMAL) OCCULT BLOOD, FECES, SCREENING (06/17/2020 12:05 AM CDT) Pathologist [facility] OCCULT BLOOD FECAL POSITIVE(A ) NEGATIVE 06/17/2020 9:22 AM CDT [facility] COLLECTION DATE 06/17/20 9:22 AM CDT [facility] STOOL SPECIMEN / Unknown 06/17/2020 12:05 AM CDT Sudha Argueta MD BODY FLUIDS AND STOOLS ROYER DUMONT Final Result Performing Organization Address [facility] de Phone Number [facility] [address] [place] [address], [phone] * HEPATITIS C ANTIBODY (05/23/2020 5:00 AM CDT) Pathologist [facility] HEPATITIS C AB NON-REACTI VE NON-REACT MORGAN 05/23/2020 6:43 AM CDT [facility] Comment: ANTIBODIES TO HCV NOT DETECTED. DOES NOT EXCLUDE THE POSSIBILITY OF EXPOSURE TO HCV. 05/23/2020 5:00 AM CDT Harpal Gloria MD LABORATORY Final Result Performing Organization Address [facility] Co de Phone Number [facility] [address] [place] [address], [phone] from Last 3 Months or Most Recently Relevant to Health Maintenance Additional Health Concerns Infection Onset Date Last Indicated MRSA 01/25/2017 01/25/2017 Insurance MED REPLACE [facility] MEDICARE Advance Directives Documents on File Type Date Recorded Patient Media Liaison Officer Expl anation Guardianship - Permanent 07/25/2013 12:00 [...] 10:09 AM 06/24/2020 7:27 PM Care Teams Director Of Corporate Strategy Relationship Specialty Start Date End Date John Calhoun DO [address] [place] [address] PCP - General FAMILY PRACTICE 07/11/20 Cody Patterson MD [address] [facility] [address] [place] [place], [place] [address] Vascular/Four Slide Machine Setter VASCULAR SURGERY 05/12/21 Keven Leiva MD [address] [facility] [address] [place] [address] Consulting Physician CLINICAL CARDIAC ELECTROPHYSIOLOGY 05/09/23 Dannielle Brice MD [address] [place] [address] Consulting Physician CARDIOVASCULAR DISEASE 06/27/23
== END 2024-06-19 12:03 | disposition home or self-care (01) ==
PROVIDERS: Emergency Provider Emergency Medicine; PCP Family Medicine
DX: S82.002A Unspecified fracture of left patella, initial encounter for closed fracture (principal); W18.30XA Fall on same level, unspecified, initial encounter
CPT/HCPCS: 71100; 73562; 99284; A9270; L1830

== ENCOUNTER 2024-10-22 15:35 | Outpatient (RCR) | payer MEDICARE, SELFPAY ==
--- NOTE | 2024-10-22 16:38 | OPREHPOC ---
Outpatient Therapy Plan of Care This is a Multidisciplinary Plan of Care that may contain components documented by all disciplines (PT, OT, and ST.) PT Problem 1 PT Problem #1 Knowledge Deficit PT Goal 1 Goal / Goal Update Independent and compliant with HEP. Target Visit 2 PT Problem 2 PT Problem #2 Impaired Range of Motion PT Goal 1 Goal / Goal Update Pt to improve active L shoulder abduction to 160 deg without pain to improve ability to reach overhead. Pt to improve active L shoulder ER to T2 without pain to improve ability to wash hair. Pt to reach full L knee extension at rest. Target Visit 10 PT Problem 3 PT Problem #3 Impaired Strength PT Goal 1 Goal / Goal Update Pt to improve R shoulder abduction strength to 4+/ 5. Pt to improve R shoulder flexion, ER and IR to 5/5 . Pt to improve bilat hip flexion strength to 4+/5. Pt to improve bilat hip adduction strength to 5/5. Target Visit 10 PT Problem 4 PT Problem #4 Impaired Functional Mobility PT Goal 1 Goal / Goal Update Pt to report 15% reduction in perceived disability on both Quick DASH and LEFS. Pt to return to ambulating with her cane. Target Visit 10
--- NOTE | 2024-10-22 16:38 | PTOPEVAL1 ---
Assessment and note entered by Liz Brennan, PT Evaluation Information Assessment Status Evaluation ICD-10 Condition Codes (PT) Pain in right knee M25.561 Other ICD-10 Condition Codes ( S82.009A, M75.82 PT) Onset 06/02/2024 Subjective Information Pt reports she broke her kneecap in June 2024 when she fell while walking into her home, and she wasn't able to get up after that. She went to the hospital the next day and they sent her to her bone doctor, and she doesn't remember if they offered PT but either way she never got PT for it. She reports her knee is pretty good today, and she enters the clinic ambulating with a walker which she uses as needed. Her goal is to be able to start using her cane full-time when walking, but she's currently using the walker per recommendation from her bone doctor. She reports her left has been hurting for a while and she thought it was arthritis. She went to the doctor who told her it was possibly due to a problem with her rotator cuff. She denies pain at the moment but she takes Tylenol regularly on a schedule. She has some difficulty reaching overhead and lying on the arm. She also notes the right side of her body has been weaker than the left side due to history of mini strokes. Reported Pain Level Pain Score 0,0: Self Report Assessment PT Clinical Summary Mrs. Mansfield is a 74 yo female who presents to skilled PT evaluation for L shoulder and L knee pain with patellar fracture in June 2024. Regarding her knee she demonstrates adequate quad and hamstring strength but does demonstrate a slight deficit in extension AROM. She demonstrates moderate strength deficits of the rotator cuff mm on the L shoulder as well as positive special testing for impingement and rotator cuff tendonitis. She will benefit from skilled PT intervention to improve shoulder and knee AROM, strength and functional use to improve pt's ability to perform daily functional activities and return to ambulating with her cane. Plan of Care Interventions Electrical Stimulation,Gait Training,Hot Pack/Cold Pack,Manual Therapy,Mechanical Traction,Patient/ Caregiver Education,Therapeutic Activities, Therapeutic Exercise,Self-Care/Home Management PT Services Indicated Yes Treatment Frequency and 2x/week for 10 visits Duration These treatments will address the objective and functional deficits as defined above. The patient will be advanced safely and appropriately in order for the patient to progress towards his/her prior level of function. Additional exercises will be introduced and as well as a comprehensive home exercise program upon discharge, if needed, ?to ensure carryover of functional gains achieved in the clinic. This treatment plan has been reviewed and agreement upon by the patient.
--- NOTE | 2024-11-25 16:46 | OPREHPOC ---
Outpatient Therapy Plan of Care This is a Multidisciplinary Plan of Care that may contain components documented by all disciplines (PT, OT, and ST.) PT Problem 1 PT Problem #1 Knowledge Deficit PT Goal 1 Goal / Goal Update Independent and compliant with HEP. Target Visit 2 Progress Met PT Problem 2 PT Problem #2 Impaired Range of Motion PT Goal 1 Goal / Goal Update Pt to improve active L shoulder abduction to 160 deg without pain to improve ability to reach overhead. 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 -met Pt to reach full L knee extension at rest. -met Target Visit 10 Progress Met PT Problem 3 PT Problem #3 Impaired Strength PT Goal 1 Goal / Goal Update Pt to improve R shoulder abduction strength to 4+/ 5. -met Pt to improve R shoulder flexion, ER and IR to 5/5 . -not met Pt to improve bilat hip flexion strength to 4+/5. -met Pt to improve bilat hip adduction strength to 5/5. -met Target Visit 10 Progress Partially Met PT Problem 4 PT Problem #4 Impaired Functional Mobility PT Goal 1 Goal / Goal Update Pt to report 15% reduction in perceived disability on both Quick DASH and LEFS. -met for Quick DASH. Pt to return to ambulating with her cane. -not met , still using WW per ortho Target Visit 10 Progress Partially Met
--- NOTE | 2024-11-25 16:46 | PTOPDC ---
Assessment and note entered by Liz Brennan, PT Evaluation Information Assessment Status Discharge - Pt Not Present ICD-10 Condition Codes (PT) Pain in right knee M25.561 Other ICD-10 Condition Codes ( S82.009A, M75.82 PT) Onset 06/02/2024 Subjective Information Sandie reports feeling good overall this date and feeling like PT has helped. She denies shoulder pain and reports only soreness in her knee which she thinks is from over-doing it yesterday with her exercises. She continues to ambulate with her WW per recommendation from her bone doctor. She has been independent with her HEP and plans to continue her exercises after finishing therapy. Reported Pain Level Pain Score 0,2: Self Report Assessment PT Clinical Summary Mrs. Mansfield has attended 10 skilled PT visits for shoulder and knee pain. Since beginning therapy she has made improvements in her LE strength, knee ROM and shoulder ROM. While she still has some difficulty with squatting, prolonged walking and standing, her knee feels improved overall and she plans to continue her HEP to continue making progress on her own. She has met or partially met all therapeutic goals set for her and is appropriate for discharge from skilled PT this date. Plan of Care PT Services Indicated No
== END 2024-11-25 17:27 | disposition home or self-care (01) ==
LOC: CHSPT 15:35
PROVIDERS: PCP Family Medicine; Visit Provider Family Medicine
DX: S82.009A Unspecified fracture of unspecified patella, initial encounter for closed fracture (principal); M75.82 Other shoulder lesions, left shoulder
CPT/HCPCS: 97110; 97112; 97116; 97150; 97161; 97530

== ENCOUNTER 2025-01-15 08:36 | Outpatient (CLI) | payer MEDICARE, SELFPAY ==
--- OUTSIDE RECORDS SUMMARY | 2025-01-15 08:50 | XMS_ITS | Clinical Summary ---
Author Organization [facility] Address [address] [place] [address] Care Team Providers Care Recycling Program Manager Name Role Phone Unique Jonh PATEL Primary Care Provider [phone] Cody Patterson MD Unavailable Keven Leiva MD Unavailable Unavailab Dannielle Arevalo MD Unavailable Allergies Active Allergy Reactions Criticality Noted Date Comments Randall Inhibitors Unknown 07/19/2020 Medications apixaban 5 MG tabletIndicatio ns:has stopped for surgery Take 1 tablet (5 mg total) by mouth 2 (two) times daily. Indications: has stopped for surgery 07/20/19 21 Active EUSEBIA-JAMES Tab tabletIndicatio ns:Nutritional Support Take 1 tablet by mouth daily. Indications: Nutritional Support 09/12/19 21 Active acetaminophen 500 MG tablet Take 2 tablets (1,000 mg total) by mouth every 6 (six) hours as needed for Pain. Active vitamin C 1000 MG tabletIndicatio ns:Nutritional Support Take 1 tablet (1,000 mg total) by mouth daily. Indications: Nutritional Support Active docusate sodium 100 MG capsule Take 1 capsule (100 mg total) by mouth daily as needed for Constipation. Active atorvastatin 40 MG tabletIndicatio ns:Hyperlipidem ia Take 1 tablet (40 mg total) by mouth daily. Indications: High Amount of Fats in the Blood 10/12/19 Active sodium bicarbonate 650 MG tablet Take 1 tablet (650 mg total) by mouth 2 (two) times daily. 03/23/19 Active cinacalcet (SENSIPAR) 30 MG tablet Take 2 tablets (60 mg total) by mouth daily. Take it with meals Active midodrine (PROAMATINE) 10 MG tablet Take 1.5 tablets (15 mg total) by mouth 3 (three) times daily. 12/17/19 Active midodrine (PROAMATINE) 5 MG tablet Take 1 tablet (5 mg total) by mouth as needed. Up to 2 additional tablets in dialysis as needed 12/17/19 Active VITAMIN D, CHOLECALCIFEROL , OR Active VELPHORO 500 MG Chew Tab CHEW 2 TABLETS 3 TIMES DAILY WITH MEALS Active apixaban (ELIQUIS) 5 MG tablet Take 1 tablet (5 mg total) by mouth 2 (two) times daily. Active HYDROcodone-randall taminophen (NORCO) 5-325 MG tablet Take 1 tablet by mouth every 4 (four) hours as needed. FOR PAIN 06/20/19 Active OZEMPIC, 0.25 OR 0.5 MG/DOSE, 2 MG/3ML injection (PEN) 0.25 MG (0.368 ML) SUBCUTANEOUSLY WEEKLY FOR 4 WEEKS Active Active Problems Problem Noted Date Diagnosed Date NICM (nonischemic cardiomyopathy) 12/10/2023 Weakness 09/06/2022 TIA (transient ischemic attack) 09/06/2022 Other myositis of left lower extremity 3 Primary osteoarthritis of fi rst carpometacarpal joint of left hand 04/09/2022 Primary osteoarthritis of fi rst carpometacarpal joint of right hand 01/04/2022 Hemiparesis of dominant side due to recent cerebrovascular accident (CVA) 08/25/2021 History of ischemic stroke in prior three months 08/25/2021 Impaired functional mobility, balance, gait, and endurance 04/12/2021 Orthostasis 04/12/2021 A-fib (HHS/HCC) 09/28/2020 S/P AV bethany ablation 09/28/2020 Biventricular ICD (implantab le cardioverter-defibrillator) in place 09/28/2020 Rectal abscess 05/30/2020 Hyperkalemia 05/22/2020 CHF (congestive heart failure) ESRD (end stage renal disease) Carotid stenosis, asymptomatic, left Cardiomyopathy Dialysis patient Encounters Date Type Department Care Team Description 01/05/2025 9:38 AM MANAGER TRANSPORTATION PLANNING - 01/05/2025 11:59 PM MANAGER TRANSPORTATION PLANNING Hospital Encounter [facility] [address] [place] [address] Dannielle Brice MD Discharge Disposition: Home or Self Care (Routine Discharge) 01/05/2025 Orders Only [facility] [address] [place] [address] Dannielle Brice MD 01/05/2025 Travel 11/05/2024 1:15 AM CDT Allied Health/Nurse Visit [facility] [address] [place] [address] Froilan Tovar MD from Last 3 Months Immunizations Immunization [...] place to sleep or slept in a alf (including now)? No 09/06/2022 Comments No Sex and Gender Information Value Date Recorded Sex Assigned at Female 04/29/2024 10:15 AM MANAGER TRANSPORTATION PLANNING Legal Sex Female 9:26 PM CDT Gender Identity Not on file Sexual Orientation Not on file Occupation Industry Job Start Date Job End Date Not on file Not on file Not on file Not on file Last Filed Vital Signs Vital Sign Reading Time Taken Comments Blood Pressure 138/56 06/29/2024 2:00 PM CDT Pulse 92 06/29/2024 1:53 PM CDT Temperature 36.6 C (97.9 F) 09/09/2022 9:33 AM CDT Respiratory Rate 20 06/29/2024 1:53 PM CDT Oxygen Saturation 94% 06/29/2024 1:53 PM CDT Inhaled Oxygen Concentration - - Weight 89.4 kg (197 lb) 06/29/2024 1:53 PM CDT Height 160 cm (5' 3) 06/29/2024 1:53 PM CDT Body Mass Index 34.9 06/29/2024 1:53 PM CDT Plan of Treatment Upcoming Encounters Date Type Department Care Team (Latest Contact Info) Description 01/18/2025 2:00 PM MANAGER TRANSPORTATION PLANNING Appointment [facility] [address] [place] [address] [place] [address] Dannielle Brice MD [address] [place] [address] [phone] 01/18/2025 2:15 PM MANAGER TRANSPORTATION PLANNING Office Visit [facility] [place] [address] Dannielle Brice MD [address] [place] [address] [phone] 02/09/2025 3:15 AM MANAGER TRANSPORTATION PLANNING Allied Health/Nurse Visit [facility] [address] [place] [id number] Froilan Tovar MD [address] [place] [address] [place] [id number] Health Maintenance Due Date Last Done Comments Colorectal Cancer Screening Colonoscopy (10 Years) 1950 Mammogram Screening 1991 RSV Immunization or 60+ Years (1 - Risk 60-74 years 1-dose series) 2011 Annual Medicare Wellness Visit 10/22/2016 Dexa Scan (General) 10/22/2016 Pneumococcal Vaccine: 50+ Years (3 of 3 - PCV) 09/21/2021 09/21/2020, 07/30/2013, 07/02/2013 ASCVD LDL 09/08/2023 09/07/2022, 07/25/2013 DTaP, Tdap and Td Vaccines (2 - Td or Tdap) 11/18/2023 11/17/2013 COVID-19 Vaccine ( season) 2024 01/10/2022, 09/01/2021, 02/08/2021, Additional history exists Influenza Adult (#1) 2024 12/06/2022, 12/10/2020, 11/19/2014 Hepatitis C Completed 05/23/2020 Colorectal Cancer Screening FIT/FOBT (1 Year) Discontinued 06/17/2020, 05/31/2020 Zoster Vaccines Completed 05/29/2021, 02/03/2021 Hepatitis A Vaccines Aged Out No long er eligible based on patient's age to complete this topic Meningococcal B Vaccine Aged Out No l [...] Almanzar RN Medical Devices Implanted Type Area Pharmacist Helper Device Identifier Shelf Expiration Date Model / Serial / Lot Medtronic [place]-06/24/2020 Implanted:2020 by Barak Nguyen MD (Quantity not on file) ICD [employer]TRONIC CARDIAC RHYTHM AND HEART FAILURE - DIV M 11/15/2021 [id number] / [id number] / Description:MRI Conditional under following conditions: [...] FAILURE - DIV M 11/24/2021 [id number] / [id number] / Medtronic Rv Icd Lead-06/24/2020 Implanted:2020 by Barak Nguyen MD (Quantity not on file) Lead Implant [employer] CARDIAC RHYTHM AND HEART FAILURE - DIV M 03/18/2022 [id number] / [id number] / Capsule Pill Cam - [id number] Implanted:Qty: 1 on 06/20/2020 by Franny Vogel, JEREMIAH at [facility] COVIDIEN 11/30/2020 [id number] / / [id number] Procedures Procedure Name Priority Date/Time Associated Diagnosis Comments USE ECHOCARDIOGRAM Routine 01/05/2025 11:05 AM MANAGER TRANSPORTATION PLANNING NICM (nonischemic cardiomyopathy) (CMS/HCC HHS/HCC) Cardiomyopathy, unspecified type (CMS/HCC HHS/HCC) LIPID PANEL Routine 09/07/2022 10:02 AM CDT HC OCCULT BLOOD FECAL SCRN Nurse Collected Priority 06/17/2020 12:05 AM CDT HEPATITIS C ANTIBODY Routine 05/23/2020 5:00 AM CDT from Last 3 Months or Most Recently Relevant to Health Maintenance Results * USE ECHOCARDIOGRAM (01/05/2025 11:05 AM MANAGER TRANSPORTATION PLANNING) Anatomical Region Laterality Modality Cardiac Ultrasound 01/05/2025 10:1 5 AM MANAGER TRANSPORTATION PLANNING Narrative 01/09/2025 10:45 AM MANAGER TRANSPORTATION PLANNING Echocardiography Report Pat.Name: Sandie Mansfield.ID: [id number] .Date: 01/05/2025 Refer.MD: Brooke, [facility] Exam Time: 10:15:00 AM Study Type:BROOKE Height: 63 in Weight: 200 lb BSA: 1.93 m2 Age: 8 1950,74Y Sex: F Sonogrphr: Am Pat. Stat.:Outpatient Reason for Study:NICM (nonischemic cardiomyopathy) Procedures: Study performed at [place], [place] and interpreted by [facility]. 2D, M-mode, Doppler, Color Flow ++++++++++++++++++++++++++++++++++++ SUMMARY: ++++++++++++++++++++++++++++++++++++ The left ventricular size is normal. Estimated left ventricular ejection fraction is 55-60%. Mild concentric left ventricular hypertrophy. Left ventricular diastolic function is abnormal (grade 2 - pseudonormal pattern). The right ventricle is normal in size and function. Right ventricular systolic pressure is 40-45 mmHg. Inferior vena cava shows >50% collapse with respiration consistent with normal right atrial pressure. Trivial degree of aortic valve stenosis. Trace aortic regurgitation. Moderate calcification of aortic valve leaflets. Trace to mild mitral regurgitation. Calcified posterior mitral annulus. Mild calcification of mitral valve leaflets. Mild tricuspid regurgitation. ++++++++++++++++++++++++++++++++++++ FINDINGS: ++++++++++++++++++++++++++++++++++++ LV: The left ventricular size is normal. The left ventricular systolic function is normal. Estimated left ventricular ejection fraction is 55-60%. Mild concentric left ventricular hypertrophy. The average E/e' is elevated at >14 and EF > or equal to 50. Left ventricular diastolic function is abnormal (grade 2 - pseudonormal pattern). RV: The right ventricular size is normal. Right ventricular systolic function is normal. Right ventricular systolic pressure is 40-45 mmHg. A pacemaker wire is visualized in the right ventricle. LA: The left atrial size is moderately enlarged. RA: Right atrial size is normal. A pacemaker wire is visualized in the right atrium. SUSIE: No evidence of pericardial effusion. AO: Aorta is normal. SVn: Inferior vena cava is normal. Inferior vena cava shows >50% collapse with respiration consistent with normal right atrial pressure. AV: Trivial degree of aortic valve stenosis. The peak velocity across the aortic valve measures 2.22m/sec with a peak gradient of 20mmHg and a mean gradient of 10mmHg. The calculated aortic valve area is 1.66 cm2. Trace aortic regurgitation. Moderate calcification of aortic valve leaflets. The aortic valve not well visualized. MV: Trace to mild mitral regurgitation. Calcified posterior mitral annulus. Mild calcification of mitral valve leaflets. PV: Pulmonic valve not well visualized. TV: Structurally normal tricuspid valve. Mild tricuspid regurgitation. <Electronic Signature> 01/09/2025 10:45 AM Dannielle Brice M.D. Procedure Note Dannielle Brice MD - 01/09/2025 Echocardiography Report Pat.Name: Sandie Mansfield Pat.ID: [id number] .Date: 01/05/2025 [facility]: 10:15:00 AM Study Type:BROOKE Height: 63 in Weight: 200 lb BSA: 1.93 m2 Age: 8 1950,74Y Sex: F Sonogrphr: Mainor Jones. Stat.:Outpatient Reason for Study:NICM (nonischemic cardiomyopathy) Procedures: Study performed at [place], [place] and interpreted by [facility]. 2D, M-mode, Doppler, Color Flow ++++++++++++++++++++++++++++++++++++ SUMMARY: ++++++++++++++++++++++++++++++++++++ The left ventricular size is normal. Estimated left ventricular ejection fraction is 55-60%. Mild concentric left ventricular hypertrophy. Left ventricular diastolic function is abnormal (grade 2 - pseudonormal pattern). The right ventricle is normal in size and function. Right ventricular systolic pressure is 40-45 mmHg. Inferior vena cava shows >50% collapse with respiration consistent with normal right atrial pressure. Trivial degree of aortic valve stenosis. Trace aortic regurgitation. Moderate calcification of aortic valve leaflets. Trace to mild mitral regurgitation. Calcified posterior mitral annulus. Mild calcification of mitral valve leaflets. Mild tricuspid regurgitation. ++++++++++++++++++++++++++++++++++++ FINDINGS: ++++++++++++++++++++++++++++++++++++ LV: The left ventricular size is normal. The left ventricular systolic function is normal. Estimated left ventricular ejection fraction is 55-60%. Mild concentric left ventricular hypertrophy. The average E/e' is elevated at >14 and EF > or equal to 50. Left ventricular diastolic function is abnormal (grade 2 - pseudonormal pattern). RV: The right ventricular size is normal. Right ventricular systolic function is normal. Right ventricular systolic pressure is 40-45 mmHg. A pacemaker wire is visualized in the right ventricle. LA: The left atrial size is moderately enlarged. RA: Right atrial size is normal. A pacemaker wire is visualized in the right atrium. SUSIE: No evidence of pericardial effusion. AO: Aorta is normal. SVn: Inferior vena cava is normal. Inferior vena cava shows >50% collapse with respiration consistent with normal right atrial pressure. AV: Trivial degree of aortic valve stenosis. The peak velocity across the aortic valve measures 2.22m/sec with a peak gradient of 20mmHg and a mean gradient of 10mmHg. The calculated aortic valve area is 1.66 cm2. Trace aortic regurgitation. Moderate calcification of aortic valve leaflets. The aortic valve not well visualized. MV: Trace to mild mitral regurgitation. Calcified posterior mitral annulus. Mild calcification of mitral valve leaflets. PV: Pulmonic valve not well visualized. TV: Structurally normal tricuspid valve. Mild tricuspid regurgitation. <Electronic Signature> 01/09/2025 10:45 AM Dannielle Brice M.D. Dannielle Brice MD ECHO Final Result * (ABNORMAL) LIPID PANEL (09/07/2022 10:02 AM CDT) [facility] CHOLESTEROL 110 MG/DL 09/07/2022 10:45 AM CDT [facility] Comment:DESIRABLE: <200 TRIGLYCERIDES 129 MG/DL 09/07/2022 10:45 AM CDT [facility] Comment:<150 NORMAL HDL 44(L) >49 MG/DL 09/07/2022 10:45 AM CDT [facility] LDL (CALCULATED) 40 MG/DL 09/08/19 10:45 AM CDT [facility] Comment:<100 OPTIMAL VLDL CALCULATION 26 MG/DL 09/08/19 10:45 AM CDT [facility] Comment:REFERENCE RANGE NOT ESTABLISHED CHOL/HDL RATIO 2.5 09/07/2022 10:45 AM CDT [facility] Comment:REFERENCE RANGE NOT ESTABLISHED LDL/HDL 0.9 09/07/2022 10:45 AM CDT [facility] Comment:REFERENCE RANGE NOT ESTABLISHED NON HDL CHOLESTEROL 66 MG/DL 09/07/2022 10:45 AM CDT [facility] Comment:REFERENCE RANGE NOT ESTABLISHED 09/07/2022 10:0 2 AM CDT Atilio Self NP LABORATORY Final Result Performing Organization Address [facility] Co de Phone Number [facility] [address] [place] [address], [phone] * (ABNORMAL) OCCULT BLOOD, FECES, SCREENING (06/17/2020 12:05 AM CDT) [facility] OCCULT BLOOD FECAL POSITIVE(A ) NEGATIVE 06/17/2020 9:22 AM CDT [facility] COLLECTION DATE 06/17/20 9:22 AM CDT [facility] STOOL SPECIMEN / Unknown 06/17/2020 12:05 AM CDT Sudha Argueta MD BODY FLUIDS AND STOOLS ROYER DUMONT Final Result Performing Organization Address [facility] Co de Phone Number [facility] [address] [place] [address], [phone] * HEPATITIS C ANTIBODY (05/23/2020 5:00 AM CDT) [facility] HEPATITIS C AB NON-REACTI VE NON-REACT MORGAN 05/23/2020 6:43 AM CDT [facility] Comment: ANTIBODIES TO HCV NOT DETECTED. DOES NOT EXCLUDE THE POSSIBILITY OF EXPOSURE TO HCV. 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 01/25/2017 Insurance MED REPLACE [facility] MEDICARE [place] [address] [place] [id number] Advance Directives Documents on File Type Date Recorded Patient Tool Engineer Expl anation Guardianship - Permanent 07/25/2013 12:00 [...] 10:09 AM 06/24/2020 7:27 PM Care Teams Recycling Program Manager Relationship Specialty Start Date End Date John Calhoun DO [address] [place] [address] PCP - General FAMILY PRACTICE 07/11/20 Cody Patterson MD [address] [address] Vascular/Job Molder VASCULAR SURGERY 05/12/21 Keven Leiva MD [address] [place] [id number] Consulting Physician CLINICAL CARDIAC ELECTROPHYSIOLOGY 05/09/23 Dannielle Brice MD [address] [place] [address] Consulting Physician CARDIOVASCULAR DISEASE 06/27/23
[2025-01-15 09:05] LABS: Hematocrit 43.9 % (35.0-42.0); Hemoglobin 13.3 g/dL (11.7-13.8); Immature Granulocyte Percent A 0.4 % (0.0-0.0); Lymphocytes Absolute Auto 1.06 K/mm3 (1.10-4.50); Mean Corpuscular HGB Conc 30.3 g/dL (32-36); Mean Corpuscular Hemoglobin 35.6 pg (27.0-31.0); Mean Corpuscular Volume 117.4 fL (78.0-102.0); Nucleated Red Blood Cells Absolute Auto 0.00 K/mm3 (0.00-0.00); Nucleated Red Blood Cells Perc 0.0 % (0-0.0); Platelet Count Result 205 K/mm3 (150-420); Red Blood Count 3.74 M/mm3 (4.20-5.40); White Blood Count 7.4 K/mm3 (4.8-10.8)
[2025-01-15 09:22] LABS: Hemoglobin A1C 6.5 % (<5.7)
== END 2025-01-15 08:37 | disposition home or self-care (01) ==
LOC: CHSLAB 08:37
PROVIDERS: PCP Family Medicine; Visit Provider Family Medicine
DX: I63.9 Cerebral infarction, unspecified (principal); E11.9 Type 2 diabetes mellitus without complications
CPT/HCPCS: 36415; 83036; 85025